=== PATIENT | male | born 1960 | race Caucasian/White ===

== ENCOUNTER 2017-08-30 20:27 | Inpatient (IN) | payer OTHER, SELFPAY ==
[2017-08-30 21:15] LABS: #Eosinphils 0.3 thou/uL (0.0-0.7); #Lymphocytes 1.9 thou/uL (1.20-3.40); #Monocytes 0.7 thou/uL (0.11-0.59); %Basophils 0.6 % (0.0-1.0); %Eosinophils 4.2 % (0.0-10.0); %Lymphocytes 27.3 % (21.0-51.0); %Monocytes 10.1 % (0.0-10.0); Hematocrit 39.9 % (42.0-52.0); Red Blood Cell (RBC) Count 4.35 mill/uL (4.70-6.10)
--- NOTE | 2017-08-30 21:18 | RAD ---
PORTABLE CHEST 08/30/17 PROVIDED CLINICAL HISTORY: Chest pain. FINDINGS: Comparison 09/20/16. The cardiac silhouette is unchanged in appearance. Median sternotomy changes are again seen. The left hemidiaphragm is not well visualized which could reflect pleural and/or parenchymal opacity at the l eft lung base. The right lung appears clear. There is no evidence for pneumothorax. IMPRESSION: Obscuration of the left hemidiaphragm may be on the basis of left basilar pleural or parenchymal opac ity. Correlation with a lateral view is recommended. POS: ANTHONY
[2017-08-30 21:36] LABS: ALT (SGPT) 11 U/L (8-55); AST (SGOT) 14 U/L (5-34); Alkaline Phosphatase 60 U/L (40-150); Anion Gap 12 mmol/L (10-20); BUN (Urea Nitrogen) 21 mg/dL (8.4-25.7); Bilirubin, Total 0.3 mg/dL (0.2-1.2); Calc. Creatinine Clearance 0 mL/min (70-130); Calcium 9.4 mg/dL (7.8-10.44); Carbon Dioxide 25 mmol/L (22-29); Chloride 104 mmol/L (98-107); Estimated GFR-MDRD 52; Globulin 3.2 g/dL (2.4-3.5); Protein, Total 6.7 g/dL (6.0-8.3)
[2017-08-30] MEDS ORDERED: methylPREDNISolone Sod Succ/PF 125 MG/2 ML VIAL ONE (21:44)
[2017-08-30] MEDS ORDERED: Furosemide 40 MG/4 ML VIAL ONE (21:44)
[2017-08-30 21:46] LABS: Troponin I 0.701 ng/mL (< 0.028)
[2017-08-30] MEDS ORDERED: Enoxaparin Sodium 100 MG/ML SYRINGE ONE (22:38)
[2017-08-30] MEDS ORDERED: Enoxaparin Sodium 40 MG/0.4 ML SYRINGE ONE (22:38)
[2017-08-30] MEDS ORDERED: Morphine 4 MG/ML VIAL ONE (23:32)
[2017-08-31] MEDS ORDERED: Bisacodyl 5 MG TAB PO PRN (00:08)
[2017-08-31] MEDS ORDERED: Ondansetron HCl/PF 4 MG/2 ML Vial IVP PRN (00:08)
[2017-08-31] MEDS ORDERED: Enoxaparin Sodium 100 MG/ML SYRINGE SC SCH (00:15)
[2017-08-31] MEDS ORDERED: Dextrose 50% Abboject 50 ML SYRINGE SLOW IVP PRN (00:28)
[2017-08-31] MEDS ORDERED: Dextrose 5% in Water 1,000 ML IV PRN (00:28)
[2017-08-31] MEDS ORDERED: Enoxaparin Sodium 40 MG/0.4 ML SYRINGE SC SCH (00:30)
[2017-08-31 00:37] VITALS: BMI 41.2
[2017-08-31 01:17] LABS: Troponin I 0.801 ng/mL (< 0.028)
--- NOTE | 2017-08-31 01:19 | HP ---
PRIMARY CARE PHYSICIAN: Zachary Díaz M.D. CHIEF COMPLAINT: Chest pain. HISTORY OF PRESENT ILLNESS: Mr. Amezquita is a pleasant 57-year-old gentleman who was seen at [facility] on 08/31/2017. He reports that he has been having on and off chest pain over the left side of his chest, tightness l lisa sensation, 8/10 at its worst, currently 4/10, radiating to the left arm, accompanied by shortness of breath. He cannot recall any aggravating factors, but reports that morphine improved it. He als o reports that he started having shortness of breath yesterday. He had DuoNebs without relief. Ther efore, EMS was called. The patient was reportedly breathing shallow and unable to speak more than tw o words. In the emergency room, he reports feeling better. He reports that the chest pain is curren tly 4/10 and shortness of breath has improved. He denies any fevers or chills. He reports occasional cough. REVIEW OF SYSTEMS: The following complete review of systems was negative, unless otherwise mentioned in the HPI or below: Constitutional: Weight loss or gain, sense of well-being, ability to conduct usual activities, exerc ise tolerance. Skin/Breast: Rash, itching, changes in hair growth or loss, nail changes, breast lumps, tenderness, swelling, nipple discharge. Eyes: Vision, double vision, tearing, blind spots, pain. ENT/Mouth: Headaches (location, time of onset, duration, precipitating factors), vertigo, lightheade dness, injury. Vision, double vision, tearing, blind spots, pain, nose bleeding, colds, obstruction, discharge, dental difficulties, gingival bleeding, dentures, neck stiffness, pain, tenderness, masses in thyroid or other areas. Cardiovascular: Precordial pain, substernal distress, palpitations, syncope, dyspnea on exertion, or thopnea, nocturnal paroxysmal dyspnea, edema, cyanosis, hypertension, heart murmurs, varicosities, ph lebitis, claudication. Respiratory: Pain, shortness of breath, wheezing, stridor, cough, hemoptysis, fever or night sweats. Gastrointestinal: Poor appetite, dysphagia, indigestion, abdominal pain, heartburn, eructation, naus ea, vomiting, hematemesis, jaundice, constipation, or diarrhea, abnormal stools (keon-colored, tarry, bloody, greasy, foul smelling), flatulence, hemorrhoids, recent changes in bowel habits. Genitourinary: Urgency, frequency, dysuria, nocturia, hematuria, polyuria, oliguria, unusual (or daylin nge in) color of urine, stones, hesitancy, change in size of stream, dribbling, acute retention or in continence, libido, potency. Musculoskeletal: Pain, swelling, redness or heat of muscles or joints, limitation, of motion, muscul ar weakness, atrophy, cramps. Neurologic/Psychiatric: Convulsions, paralyses, tremor, incoordination, paresthesias, difficulties w ith memory of speech, sensory or motor disturbances, or muscular coordination (ataxia, tremor), emoti onal problems, anxiety, depression, previous psychiatric care, unusual perceptions, hallucinations. Allergy/Immunologic: Skin rash, anemia, bleeding tendency, polydipsia, polyuria, intolerance to heat or cold. PAST MEDICAL HISTORY: Significant for 3-vessel coronary artery disease, status post coronary artery bypass graft x3 in 2009, status post stent placement in 05/[address] Mcginnis; COPD follow ed by Dr. Corrales; diabetes mellitus type 2; obesity; hypertension; obstructive sleep apnea syndrome on CPAP therapy. PAST SURGICAL HISTORY: Significant for coronary artery bypass graft x3 in 2009, PCI with stent place ment in 05/2016, appendectomy, and finger amputation. ALLERGIES: No known drug allergies. CURRENT MEDICATIONS: Include metformin 1000 mg 2 times a day, glyburide 10 mg daily, carvedilol 6.25 mg 2 times a day, aspirin 325 mg daily, lisinopril 40 mg daily, simvastatin 20 mg daily. SOCIAL HISTORY: The patient is a former smoker. He drinks alcohol occasionally. He denies any recr eational drug use. FAMILY HISTORY: Multiple family members with diabetes mellitus and coronary artery disease. CODE STATUS: I discussed his code status. He is FULL CODE. PHYSICAL EXAMINATION: GENERAL: On examination, Mr. Amezquita is awake and alert, not in acute distress. He is morbidly obese. VITAL SIGNS: Blood pressure is 151/88, pulse is 79, his breathing at rate of 20 and saturating 90% o n 4 liters of oxygen. EYES: No scleral icterus, no conjunctival pallor. ENT: Moist mucosal membranes, no oropharyngeal erythema or exudates. NECK: Supple, nontender, normal range of movement, trachea is midline. RESPIRATORY: Accessory muscles of breathing are active. Chest wall movements are symmetric bilatera lly. LUNGS: Reveals occasional expiratory wheeze in the upper lung zones, diminished breath sounds at rhonda g bases. CARDIOVASCULAR: S1 and S2 are heard, regular. Peripheral pulses palpable. No carotid bruit, no per icardial rub. ABDOMEN: Distended, nontender, bowel sounds heard, no hepatomegaly, no splenomegaly. NEUROLOGIC: Cranial nerves II-XII are intact, deep tendon reflexes are 2+. MUSCULOSKELETAL: Power is 5/5 in all 4 extremities. SKIN: No rashes or subcutaneous nodules. LYMPHATIC: No cervical lymphadenopathy. PSYCHIATRIC: Normal mood, normal affect, patient is oriented to person, place, and time. LABORATORY DATA: Mr. Amezquita's labs and investigations were reviewed. I reviewed his electrocardiogra m, which shows normal sinus rhythm, no ST segment changes in adjacent leads. I also reviewed his [facility] x-ray, which does not show any pulmonary infiltrates. Laboratory investigations show normal white count, normal hemoglobin, normal platelet count, normal electrolytes, elevated creatinine of 1.39, l ast known creatinine 1.36 on 12/07/2016, unremarkable liver profile, elevated troponin I of 0.701 and elevated BNP of 1219. ASSESSMENT AND PLAN: Mr. Amezquita is a pleasant 57-year-old gentleman who was seen at [facility] on 08/31/2017. His problem list includes: 1. Non-ST elevation myocardial infarction: Mr. Amezquita has chest pain with elevated troponin I. He h as a history of coronary artery disease. He will be admitted to the hospital for further management. He has already received a dose of Lovenox in the emergency room, which I will continue. We will co nsult Cardiology Service for opinion and help with further management. For now, patient will be kept n.p.o. in case he needs any procedures during the daytime. 2. Acute respiratory failure: Most likely secondary to chronic obstructive pulmonary disease exacer bation. Continue the patient on bronchodilators, oxygen, steroids. The patient was briefly treated with bilevel positive airway pressure in the emergency room. We will request Pulmonology consult for opinion and help with management. 3. Diabetes mellitus: Start Accu-Cheks, insulin sliding scale. 4. Chronic kidney disease: Stable. 5. Hypertension: Monitor vital signs, titrate antihypertensives as needed. Many thanks for allowing me to participate in your patient's care. Please feel free to contact me wi th any questions or concerns. LEVEL OF RISK: High. LEVEL OF COMPLEXITY: High.
[2017-08-31] MEDS ORDERED: Morphine 4 MG/ML VIAL SLOW IVP PRN (01:46)
[2017-08-31 03:50] LABS: Critical Call Chem Troponin I RESULT DECREASING; Troponin I 0.536 ng/mL (< 0.028)
[2017-08-31 05:28] LABS: #Eosinphils 0.1 thou/uL (0.0-0.7); #Lymphocytes 0.8 thou/uL (1.20-3.40); #Monocytes 0.2 thou/uL (0.11-0.59); #Neutrophils 6.8 thou/uL (1.40-6.50); %Basophils 0.2 % (0.0-1.0); %Eosinophils 0.9 % (0.0-10.0); %Lymphocytes 9.6 % (21.0-51.0); %Monocytes 2.1 % (0.0-10.0); Hematocrit 41.7 % (42.0-52.0); Mean Platelet Volume 7.4 fL (7.4-10.4); Red Blood Cell (RBC) Count 4.48 mill/uL (4.70-6.10); White Blood Cell (WBC) Count 7.8 thou/uL (4.8-10.8)
[2017-08-31 05:41] LABS: Anion Gap 11 mmol/L (10-20); BUN (Urea Nitrogen) 25 mg/dL (8.4-25.7); Calc. Creatinine Clearance 96 mL/min (70-130); Calcium 9.4 mg/dL (7.8-10.44); Carbon Dioxide 24 mmol/L (22-29); Chloride 95 mmol/L (98-107); Estimated GFR-MDRD 42
[2017-08-31] MEDS: HumaLOG 300 UNITS/3 ML VIAL SC PRN ×4 (06:17→20:05)
[2017-08-31] MEDS ORDERED: FLU VACC QS2017-18 36 mo. & older 0.5 ML SYRINGE IM ONE (09:00)
[2017-08-31] MEDS: predniSONE 20 MG TAB PO SCH (09:08)
[2017-08-31] MEDS: Enoxaparin Sodium 100 MG/ML SYRINGE SC SCH ×2 (09:08→20:03)
[2017-08-31] MEDS: Enoxaparin Sodium 40 MG/0.4 ML SYRINGE SC SCH ×2 (09:09→20:03)
--- NOTE | 2017-08-31 12:17 | PDOC.EVN ---
Event Note - Event Note Event Note: pt seen and evaluated agree with current mx
[2017-08-31] MEDS ORDERED: Aspirin 325 mg Enteric Coated Tablet PO SCH ×2 (13:00)
[2017-08-31] MEDS: hydrALAZINE 25 MG TAB PO SCH ×2 (13:39→20:04)
[2017-08-31] MEDS: Nitroglycerin 2% Ointment 1 INCH/1 GM Packet TOP SCH ×2 (13:39→20:04)
--- NOTE | 2017-08-31 14:03 | CON ---
DATE OF CONSULTATION: 08/31/2017 HISTORY OF PRESENT ILLNESS: The patient is a 57-year-old gentleman, who presents for evaluation of increasing dyspnea and chest discomfort. The patient has a long history of coronary artery disease. He underwent coronary artery bypass grafting surgery x3. In 2008, he had a LEMUS placed to LAD, saphenous vein graft to RCA, and obtuse marginal branch. The patient was seen again in 2010 and a stent was placed into the proximal left circumflex artery. The patient was admitted in 09/2016 with COPD exacerbation and atypical chest pain. Patient presents with increasing dyspnea. He also reports having substernal chest discomfort, which is made worse with movement. He states when he lies on his left side he develops discomfort. The patient also reports noticing increasing dyspnea. He denies any fevers or chills. PAST MEDICAL HISTORY: 1. Coronary artery disease. 2. Diabetes mellitus. 3. Hypertension. 4. Chronic obstructive pulmonary disease. 5. Sleep apnea. PAST SURGICAL HISTORY: Coronary artery bypass surgery, finger amputation, and an appendectomy. ALLERGIES: None. MEDICATIONS ON ADMISSION: Coreg 6.25 twice a day, aspirin 325 daily, lisinopril 40 daily, glyburide 10 daily, simvastatin 20 daily. SOCIAL HISTORY: Former smoker. FAMILY HISTORY: Strong family history of heart disease. REVIEW OF SYSTEMS: Ten-point system, noticeable increasing dyspnea. No bright red blood per rectum or hematuria. A 10-point system otherwise unremarkable. PHYSICAL EXAMINATION: GENERAL: Obese gentleman in mild distress. VITAL SIGNS: With a blood pressure of 161/83. NECK: Full. LUNGS: Have coarse breath sounds bilateral. HEART: Regular rate and rhythm. Normal S1, S2. ABDOMEN: Distended. EXTREMITIES: Showed trace edema. SKIN: Warm and dry. NEUROLOGIC EXAM: Nonfocal. VASCULAR: Radial pulses are 2+. PSYCHIATRIC EXAM: Mood is appropriate. LABORATORY RESULTS: Revealed him to have a sodium of 125, potassium 4.5, chloride 95, bicarbonate 24, BUN 25, creatinine is 1.69. His white blood cell count is 7.8, hemoglobin 13.8, hematocrit 41.7, platelets of 217. His EKG revealed him to have normal sinus rhythm with nonspecific ST-T-wave abnormality. His troponin was 0.80. IMPRESSION: 1. Non-Q-wave myocardial infarction. 2. Congestive heart failure. 3. Atypical chest pain. 4. History of coronary artery bypass grafting surgery. 5. Diabetes mellitus. 6. Dyslipidemia. 7. Renal insufficiency. 8. Morbid obesity. This gentleman presents with a chronic obstructive pulmonary disease exacerbation and elevated troponin level, probably secondary to demand ischemia. We will recheck the patient's echocardiogram to see if he has developed left ventricular dysfunction. We will decrease the dose of his Coreg. We will start the patient on hydralazine to lower his blood pressure. We will monitor the patient's creatinine. Further recommendations to follow. MTDD
--- NOTE | 2017-08-31 14:09 | ULT ---
ULTRASOUND BILATERAL RENAL STANDARD: Date: 08/31/17 HISTORY: Acute renal failure. COMPARISON: None. FINDINGS: Right kidney measures 12.0 x 6.3 x 5.1 cm. Left kidney measures 14.6 x 6.9 x 6.9 cm. There is a focal punctate area of echogenicity interpolar left kidney. The pre-void urinary volume was 200 mL. IMPRESSION: 1. No evidence of obstructive uropathy. 2. Echogenic focus of interpolar left kidney may represent a small calculus. POS: TPC
[2017-08-31 15:25] LABS: Bilirubin Negative (Negative); Blood, Urine Large (Negative); Glucose, Urine (Dipstick) >=1000 mg/dL (Negative); Ketone, Urine Negative (Negative); Nitrite Positive (Negative); Protein, Urine (Dipstick) > or equal to 300 mg/dL (Neg-Trace); Urobilinogen 0.2 mg/dL (0.2-1.0)
[2017-08-31 15:30] LABS: Hyaline Casts/LPF 4-6 HYALINE CAST LPF (0-3 Hyaline); Squamous Epithelial None Seen HPF (0-3)
[2017-08-31 15:41] LABS: Bacteria/HPF 2+ HPF (None Seen); Yeast-All Forms None Seen HPF (None Seen)
[2017-08-31] MEDS: Carvedilol 3.125 MG TAB PO SCH (17:16)
[2017-08-31] MEDS: Acetaminophen 325 MG TAB PO PRN (20:03)
[2017-08-31] MEDS: Atorvastatin Calcium 40 MG TAB PO SCH (20:04)
[2017-08-31] MEDS: Sodium Chloride 0.9% 1,000 ML IV SCH (20:16)
--- NOTE | 2017-08-31 22:40 | CON ---
DATE OF CONSULTATION: 08/31/2017 HISTORY: Mr. Amezquita is a pleasant 57-year-old male who I have seen in the past. He has significant o bstructive lung disease. He managed to quit smoking in May last year. He dips snuff occasionally, but has not picked up a cigarette since 05/19, I believe he told me. He presented to this admission with complaints of chest congestion and shortness of breath. He has a lso had feeling of chest tightness. He did have some arm discomfort. He says this resolved. He feels better than when he presented. He apparently can only speak in two-word sentences. PAST MEDICAL HISTORY: 1. Remarkable for coronary artery disease with bypass grafting 7 years ago. He had a 3-vessel bypas s 2. History of coronary stenting in 2016. 3. History of COPD, I have seen him a few times in the office as an outpatient in the hospital. 4. History of diabetes. 5. History of hypertension. 6. History of sleep apnea, on CPAP. 7. History of an appendectomy. 8. History of a partial finger amputation. 9. He has a history of mild left ventricular systolic dysfunction and a non-ST myocardial infarction in the past. 10. History of an obstructive uropathy with pyelonephritis with ureteral stenting required in 2016. MEDICATIONS: Prior to admission, he was on metformin and glyburide, Coreg, aspirin, lisinopril, and simvastatin. He has a nebulizer at home. ALLERGIES: He has no known drug allergies. SOCIAL HISTORY: He smoked up until a year ago. As mentioned, he rarely drinks. He is not a drug us er. FAMILY HISTORY: Positive for diabetes and coronary artery disease. Negative for lung disease in ear ly age. REVIEW OF SYSTEMS: Ten point review of systems otherwise negative. PHYSICAL EXAMINATION: GENERAL: He is afebrile. Temperature is 97.3, respiratory rate is 20, blood pressure 161/83, heart rate 78, oximetry is 93 on 3 liters. HEENT: Pupils are equal. Sclerae are anicteric. Extraocular movements are full. NECK: Supple, no lymphadenopathy. LUNGS: Remarkable for distant breath sounds. I did not hear any wheezes when I examined him standin g up anterior and posteriorly. HEART: Regular rhythm. S1 and S2 are normal. ABDOMEN: Soft and nontender. EXTREMITIES: Without asymmetry. He has not been successful at losing weight. He is 6 feet 1 inches , 312 pounds. His BMI is 41. IMAGING: Chest radiograph was reviewed by me. I see no alveolar infiltrates. He has haziness at hi s left hemidiaphragm. Renal ultrasound was ordered showing no evidence of obstructive uropathy. LABORATORY DATA: White count 7.8, hemoglobin 13.8, platelets 217,000. Sodium 125, potassium 4.5, chloride 95, bicarbonate 24, BUN 25, creatinine 1.6. There is family in the room to obtain additional history from. The nursing staff reports to me that he is improving. IMPRESSION: 1. Chronic obstructive pulmonary disease with an exacerbation. 2. Sleep apnea, reportedly compliant with CPAP. 3. Hyponatremia, most likely iatrogenic and in part secondary to hyperglycemia. His glucose is 447. 4. Chronic kidney disease. 5. Proteinuria with greater than 300 mg per deciliter protein, most likely associated with his diabe mirian. 6. History of ureteral stenting for nephrolithiasis. 7. History of cardiomyopathy. 8. History of coronary bypass grafting. 9. History of obesity with very little successful in losing weight. PLAN: Continue with nebulized treatments, ipratropium and albuterol every 4 hours. Continue his lipid drugs and his antihypertensives. He is fully anticoagulated because of feelings t hat he may have a possible coronary syndrome. Cardiology does not feel that this is truly an infarct and just as a stress releaser, troponin, we need to change his Lovenox to prophylactic dose Lovenox. We will continue the steroids, his glucose be monitored with sliding scale insulin. Seventy minutes spent with care. Greater than 50% of the time [facility].
--- NOTE | 2017-09-01 00:27 | CON ---
DATE OF CONSULTATION: 08/31/2017 CONSULTING PHYSICIAN: Dr. Santana. REASON FOR CONSULTATION: Acute kidney injury. REASON FOR ADMISSION: Chest pain. HISTORY OF PRESENT ILLNESS: A 57-year-old male with history of coronary artery disease, COPD, type 2 diabetes, hypertension, who came to the hospital with chest pain has been evaluated and was found to have elevated creatinine increased to 1.69, sodium of 125, and hyperglycemia. Nephrology is consult ed. Patient denies any nausea, vomiting. No shortness of breath or chest pain. Reported today, he came with chest pain and shortness of breath and was found to have COPD exacerbation has been treated . He is also having cardiac evaluation for NSTEMI. No fever or chills. PAST MEDICAL HISTORY: Positive for COPD, CAD, obesity, hypertension, obstructive sleep apnea. PAST SURGICAL HISTORY: Coronary artery bypass, appendectomy, finger amputation. HOME MEDICATIONS: Metformin, glyburide, carvedilol, lisinopril, aspirin, simvastatin. ALLERGIES: No known drug allergies. SOCIAL HISTORY: Former smoker. No illicit drug abuse. Occasional alcohol use. FAMILY HISTORY: Positive for diabetes. REVIEW OF SYSTEMS: The following complete review of systems was negative, unless otherwise mentioned in the HPI or below: Constitutional: Weight loss or gain, ability to conduct usual activities. Skin: Rash, itching. Eyes: Double vision, pain. ENT/Mouth: Nose bleeding, neck stiffness, pain, tenderness. Cardiovascular: Palpitations, dyspnea on exertion, orthopnea. Respiratory: Shortness of breath, wheezing, cough, hemoptysis, fever, or night sweats. Gastrointestinal: Poor appetite, abdominal pain, heartburn, nausea, vomiting, constipation, or diarr hea. Genitourinary: Urgency, frequency, dysuria, nocturia. Musculoskeletal: Pain, swelling. Neurologic/Psychiatric: Anxiety, depression. Allergy/Immunologic: Skin rash, bleeding tendency. PHYSICAL EXAMINATION: GENERAL: This is a morbidly obese male in no apparent distress. VITAL SIGNS: Temperature 97.3, pulse 85, respiratory rate 18, blood pressure 108/84. Blood pressure was higher earlier and getting better. HEENT: Atraumatic, normocephalic. Oral mucosa is moist. NECK: Supple. No masses. HEART: S1, S2 heard. Rate and rhythm regular. RESPIRATORY: Clear. GI: Abdomen is soft. MUSCULOSKELETAL: 1+ edema. DERMATOLOGIC: Hyperpigmentation presented from possible sunburn. LABORATORY AND X-RAY FINDINGS: Creatinine is 1.6 from 1.3. Sodium 125, glucose was around 423. ASSESSMENT AND PLAN: 1. Acute kidney injury on chronic kidney disease, stage 3. We will plan for IV fluids gently at 50 mL per hour. We will closely monitor his respiratory status. 2. Hyponatremia, partially corrected for hyperglycemia. 3. Hyperglycemia, need better correction. 4. Hyperchloremia. 5. Anemia, mild. 6. Morbid obesity. 7. Proteinuria, most likely from type 2 diabetes. We will check urine studies. 8. Edema, controlled. 9. No history of congestive heart failure. Follow with Cardiology for echocardiogram and renal ultr asound was unremarkable. Plan is to start IV fluids at 50 mL per hour. Close monitoring on renal fu nction. 10. Hypertension. Blood pressure is getting better. We will follow. Thank you for the consultation.
[2017-09-01] MEDS: Labetalol HCl 100 MG/20 ML VIAL SLOW IVP PRN (04:29)
[2017-09-01 04:59] LABS: Anion Gap 11 mmol/L (10-20); BUN (Urea Nitrogen) 31 mg/dL (8.4-25.7); Calc. Creatinine Clearance 106 mL/min (70-130); Calcium 9.2 mg/dL (7.8-10.44); Carbon Dioxide 24 mmol/L (22-29); Chloride 105 mmol/L (98-107); Estimated GFR-MDRD 47
[2017-09-01 05:06] LABS: #Eosinphils 0.1 thou/uL (0.0-0.7); #Lymphocytes 1.6 thou/uL (1.20-3.40); #Monocytes 1.1 thou/uL (0.11-0.59); %Basophils 0.4 % (0.0-1.0); %Eosinophils 0.7 % (0.0-10.0); %Lymphocytes 16.1 % (21.0-51.0); %Monocytes 11.1 % (0.0-10.0); Hematocrit 40.4 % (42.0-52.0); Mean Platelet Volume 7.2 fL (7.4-10.4); Red Blood Cell (RBC) Count 4.38 mill/uL (4.70-6.10); White Blood Cell (WBC) Count 9.8 thou/uL (4.8-10.8)
[2017-09-01] MEDS: HumaLOG 300 UNITS/3 ML VIAL SC PRN ×4 (06:03→20:53)
[2017-09-01] MEDS: predniSONE 20 MG TAB PO SCH (08:29)
[2017-09-01] MEDS: Aspirin 325 mg Enteric Coated Tablet PO SCH (08:29)
[2017-09-01] MEDS: hydrALAZINE 25 MG TAB PO SCH ×2 (08:29→20:50)
[2017-09-01] MEDS: Carvedilol 3.125 MG TAB PO SCH (08:29)
[2017-09-01] MEDS: Enoxaparin Sodium 100 MG/ML SYRINGE SC SCH (08:30)
[2017-09-01] MEDS: Enoxaparin Sodium 40 MG/0.4 ML SYRINGE SC SCH (08:30)
[2017-09-01] MEDS: Nitroglycerin 2% Ointment 1 INCH/1 GM Packet TOP SCH ×3 (08:31→21:00)
[2017-09-01] MEDS ORDERED: hydrALAZINE 25 MG TAB PO SCH (12:00)
--- NOTE | 2017-09-01 12:54 | PDOC.PN ---
- Subjective Encounter Start Date: 09/01/17 Encounter Start Time: 12:52 Patient seen and examined. No new complaints. No overnight events sob better - Objective Resuscitation Status: Resuscitation Status FULL:Full Resuscitation MAR Reviewed: Yes Vital Signs & Weight: Vital Signs (12 hours) Temp Pulse Resp BP BP BP Pulse Ox 09/01/17 12:21 69 155/73 H 09/01/17 12:00 98.3 F 69 16 155/73 H 93 L 09/01/17 09:08 94 L 09/01/17 09:07 73 20 94 L 09/01/17 08:29 70 181/108 H 09/01/17 08:10 97.9 F 73 20 94 L 09/01/17 07:20 97.9 F 70 18 180/108 H 97 09/01/17 05:17 71 22 H 94 L 09/01/17 05:14 156/81 H 09/01/17 04:00 97.6 F 78 18 195/85 H 93 L Weight Weight 315 lb 11.2 oz I&O: 08/31/17 09/01/17 09/02/17 06:59 06:59 06:59 Intake Total 950 Output Total 700 Balance 250 Result Diagrams: 09/01/17 04:17 09/01/17 04:17 Additional Labs: Accuchecks 09/01/17 09/01/17 08/31/17 10:57 05:43 20:02 POC Glucose 292 H 285 H 292 H 08/31/17 16:34 POC Glucose 308 H Phys Exam - Physical Examination Constitutional: NAD Neck: no JVD scattered wheezes Cardiovascular: no significant murmur Gastrointestinal: non-tender Musculoskeletal: pulses present Neurological: moves all 4 limbs Psychiatric: A&O x 3 Dx/Plan (1) HTN (hypertension) Code(s): I10 - ESSENTIAL (PRIMARY) HYPERTENSION Status: Acute (2) Renal failure (ARF), acute on chronic Code(s): N17.9 - ACUTE KIDNEY FAILURE, UNSPECIFIED; N18.9 - CHRONIC KIDNEY DISEASE, UNSPECIFIED Status: Acute (3) Elevated troponin Code(s): R74.8 - ABNORMAL LEVELS OF OTHER SERUM ENZYMES Status: Acute Comment: due to demand ischemia med mx (4) Acute respiratory failure with hypoxia and hypercapnia Code(s): J96.01 - ACUTE RESPIRATORY FAILURE WITH HYPOXIA; J96.02 - ACUTE RESPIRATORY FAILURE WITH HYPERCAPNIA Status: Acute Comment: post extubation 05/22/16 (5) COPD exacerbation Code(s): J44.1 - CHRONIC OBSTRUCTIVE PULMONARY DISEASE W (ACUTE) EXACERBATION Status: Acute Comment: continue pulmonary support, Duonebs, Prednisone, O2 supplementation (6) CAD (coronary artery disease) Code(s): I25.10 - ATHSCL HEART DISEASE OF [place] CORONARY ARTERY W/O ANG PCTRS Status: Chronic Comment: 3 of 3 patent coronary grafts (7) DM type 2 with diabetic peripheral neuropathy Code(s): E11.42 - TYPE 2 DIABETES MELLITUS WITH DIABETIC POLYNEUROPATHY Status : Chronic (8) Morbid obesity Code(s): E66.01 - MORBID (SEVERE) OBESITY DUE TO EXCESS CALORIES Status: Chronic (9) YVETTE (obstructive sleep apnea) Code(s): G47.33 - OBSTRUCTIVE SLEEP APNEA (ADULT) (PEDIATRIC) Status: Chronic - Plan * f/u dr melvin plan * renal and card input appreciated * increase hydralazine to 50mg tid
[2017-09-01] MEDS: Sodium Chloride 0.9% 1,000 ML IV SCH (16:01)
[2017-09-01] MEDS: Acetaminophen 325 MG TAB PO PRN (16:11)
[2017-09-01] MEDS: Carvedilol 6.25 MG TAB PO SCH (16:19)
--- NOTE | 2017-09-01 19:29 | PRG ---
DATE OF SERVICE: 09/01/2017 SUBJECTIVE: Mr. Amezquita is afebrile. He says he woke up short of breath, but this improved after nebu lizer treatments. PHYSICAL EXAMINATION: VITAL SIGNS: Heart rate is 77, respiratory rate 16, oximetry is 95%, blood pressure 155/73. LUNGS: Remarkable still for ozzie wheezes. HEART: Regular rhythm. ABDOMEN: Soft. LABORATORY DATA: White count 9.8, hemoglobin 13.8, platelets 211,000. Sodium 136, potassium 4.3, ch loride 105, bicarbonate 24, BUN 31, creatinine 1.52, creatinine is 1.69 yesterday. Intakes and outpu ts were recorded as positive 250. IMPRESSION: 1. Chronic obstructive pulmonary disease exacerbation. 2. Sleep apnea, compliant with continuous positive airway pressure. 3. Hyponatremia. 4. Chronic kidney disease, stable. 5. Proteinuria most likely secondary to diabetes. 6. History of ureteral stenting. 7. History of a cardiomyopathy with coronary bypass grafting in the past. 8. Obesity with no success losing weight. 9. History of heavy tobacco use. He has been abstinent from smoking, again congratulated him. Full dose Lovenox has been discontinued. He is now on prophylactic dose Lovenox. PLAN: Continue nebulized treatments. He appears to be improving, although this morning's have been bed. Once he has a good 24 hours, he can be discharged.
--- NOTE | 2017-09-01 20:30 | PRG ---
DATE OF SERVICE: 09/01/2017 SUBJECTIVE: Patient was seen and examined at bedside and overnight events noted. Patient denies any shortness of breath or chest pain or palpitation. No history of nausea or vomiting or diarrhea or f ever or chills or cramps. OBJECTIVE: GENERAL: This is a well-build male, in no apparent distress. VITAL SIGNS: Temperature 98.1, pulse 77, respiratory rate 16, blood pressure 155/73. HEENT: Atraumatic, normocephalic. Oral mucosa is moist. NECK: Supple. CARDIOVASCULAR: S1, S2 heard. Rate and rhythm regular. RESPIRATORY: Clear to auscultation. GASTROINTESTINAL: Abdomen is soft. MUSCULOSKELETAL: No tenderness, no edema. DERMATOLOGIC: No skin rash. NEUROLOGIC: Alert and awake and oriented x3. No focal neurologic deficits. Moving all the extremit ies. PSYCHIATRIC: Mood and affect normal. LABORATORY DATA: Potassium is 4.3. BUN is 31, creatinine is 1.5. ASSESSMENT AND PLAN: 1. Acute kidney injury on chronic kidney disease, stage 3. Continue IV fluids, may need one more da y as tolerated. 2. Hyponatremia, better. 3. Hyperglycemia. 4. Morbid obesity. 5. Proteinuria. 6. Edema. Plan is to continue on intravenous fluids for 1 more day. Renal function is getting better. The pat ient has significant amount of proteinuria.
[2017-09-01] MEDS: Atorvastatin Calcium 40 MG TAB PO SCH (20:49)
[2017-09-01] MEDS: Lisinopril 2.5 MG TAB PO SCH (20:50)
[2017-09-02 05:26] LABS: #Eosinphils 0.2 thou/uL (0.0-0.7); #Lymphocytes 1.9 thou/uL (1.20-3.40); #Monocytes 0.8 thou/uL (0.11-0.59); #Neutrophils 4.9 thou/uL (1.40-6.50); %Basophils 0.1 % (0.0-1.0); %Eosinophils 2.2 % (0.0-10.0); %Lymphocytes 24.3 % (21.0-51.0); %Monocytes 10.1 % (0.0-10.0); Hematocrit 38.2 % (42.0-52.0); Mean Platelet Volume 6.6 fL (7.4-10.4); Red Blood Cell (RBC) Count 4.14 mill/uL (4.70-6.10); White Blood Cell (WBC) Count 7.8 thou/uL (4.8-10.8)
[2017-09-02 05:48] LABS: Anion Gap 10 mmol/L (10-20); BUN (Urea Nitrogen) 26 mg/dL (8.4-25.7); Calc. Creatinine Clearance 137 mL/min (70-130); Calcium 8.6 mg/dL (7.8-10.44); Carbon Dioxide 25 mmol/L (22-29); Chloride 106 mmol/L (98-107); Estimated GFR-MDRD 64
[2017-09-02] MEDS ORDERED: Enoxaparin Sodium 40 MG/0.4 ML SYRINGE SC SCH (09:00)
[2017-09-02] MEDS: hydrALAZINE 25 MG TAB PO SCH ×3 (09:11→20:38)
[2017-09-02] MEDS: Acetaminophen 325 MG TAB PO PRN ×3 (09:11→20:42)
[2017-09-02] MEDS: Aspirin 325 mg Enteric Coated Tablet PO SCH (09:13)
[2017-09-02] MEDS: predniSONE 20 MG TAB PO SCH (09:13)
[2017-09-02] MEDS: Carvedilol 6.25 MG TAB PO SCH ×2 (09:13→17:14)
[2017-09-02] MEDS: Nitroglycerin 2% Ointment 1 INCH/1 GM Packet TOP SCH ×3 (09:14→20:37)
--- NOTE | 2017-09-02 11:31 | PDOC.PN ---
- Subjective Encounter Start Date: 09/02/17 Encounter Start Time: 11:29 had e/o afib, hr- 130 no cp sob better no n/v - Objective Resuscitation Status: Resuscitation Status FULL:Full Resuscitation MAR Reviewed: Yes Vital Signs & Weight: Vital Signs (12 hours) Temp Pulse Resp BP BP Pulse Ox 09/02/17 09:13 167/91 H 09/02/17 09:11 130 H 167/91 H 09/02/17 08:20 99.7 F H 130 H 22 H 92 L 09/02/17 07:35 92 L 09/02/17 07:33 71 20 92 L 09/02/17 07:10 99.7 F H 83 20 167/91 H 91 L 09/02/17 04:00 97.7 F 68 16 149/85 H 98 09/02/17 02:42 97 09/02/17 00:37 77 18 97 09/01/17 23:47 97.7 F 71 18 118/66 97 Weight Weight 309 lb 6.4 oz I&O: 09/01/17 09/02/17 09/03/17 06:59 06:59 06:59 Intake Total 950 1719 Output Total 700 1975 Balance 250 -256 Result Diagrams: 09/02/17 05:14 09/02/17 05:14 Additional Labs: Accuchecks 09/02/17 09/02/17 09/01/17 10:58 05:14 20:52 POC Glucose 255 H 136 H 259 H 09/01/17 17:13 POC Glucose 342 H Phys Exam - Physical Examination Constitutional: NAD HEENT: PERRLA Neck: no JVD Respiratory: no rales scattered wheezes Cardiovascular: no significant murmur, irregular Gastrointestinal: non-tender Musculoskeletal: pulses present Neurological: moves all 4 limbs Psychiatric: A&O x 3 Dx/Plan (1) HTN (hypertension) Code(s): I10 - ESSENTIAL (PRIMARY) HYPERTENSION Status: Acute (2) Renal failure (ARF), acute on chronic Code(s): N17.9 - ACUTE KIDNEY FAILURE, UNSPECIFIED; N18.9 - CHRONIC KIDNEY DISEASE, UNSPECIFIED Status: Acute (3) Elevated troponin Code(s): R74.8 - ABNORMAL LEVELS OF OTHER SERUM ENZYMES Status: Acute Comment: due to demand ischemia med mx (4) COPD exacerbation Code(s): J44.1 - CHRONIC OBSTRUCTIVE PULMONARY DISEASE W (ACUTE) EXACERBATION Status: Acute Comment: continue pulmonary support, Duonebs, Prednisone, O2 supplementation (5) CAD (coronary artery disease) Code(s): I25.10 - ATHSCL HEART DISEASE OF [place] CORONARY ARTERY W/O ANG PCTRS Status: Chronic Comment: 3 of 3 patent coronary grafts (6) DM type 2 with diabetic peripheral neuropathy Code(s): E11.42 - TYPE 2 DIABETES MELLITUS WITH DIABETIC POLYNEUROPATHY Status : Chronic (7) Morbid obesity Code(s): E66.01 - MORBID (SEVERE) OBESITY DUE TO EXCESS CALORIES Status: Chronic (8) YVETTE (obstructive sleep apnea) Code(s): G47.33 - OBSTRUCTIVE SLEEP APNEA (ADULT) (PEDIATRIC) Status: Chronic (9) Afib Code(s): I48.91 - UNSPECIFIED ATRIAL FIBRILLATION Status: Acute - Plan * ef- 35% * f/u dr simpson plan for afib * f/u dr melvin plan * renal input appreciated
[2017-09-02] MEDS: HumaLOG 300 UNITS/3 ML VIAL SC PRN ×3 (11:40→20:38)
[2017-09-02] MEDS ORDERED: Rivaroxaban 10 MG TAB PO SCH (18:00)
--- NOTE | 2017-09-02 19:42 | PRG ---
DATE OF SERVICE: 09/02/2017 SUBJECTIVE: Zoran Amezquita says he has a great night. He did not have dyspnea this morning when he a wakened. He did go into atrial fibrillation, he told me transiently, so he has been kept another day . OBJECTIVE: VITAL SIGNS: He is afebrile, heart rate 74, oximetry is 97%, blood pressure 155/96. He has not been wearing his home CPAP while he has been here. LUNGS: Clear now. HEART: Regular rhythm. ABDOMEN: Soft. LABORATORY DATA: White count 7.8, hemoglobin 13.2, platelets 194,000. Sodium 137, potassium 3.8, ch loride 106, bicarb 25, BUN 26, creatinine 1.17. IMPRESSION: 1. Chronic obstructive pulmonary disease exacerbation, improved. 2. Sleep apnea. He has been compliant at home, but has been wearing a CPAP here. 3. Hyponatremia, resolved. 4. Chronic kidney disease. 5. Proteinuria, most likely associated with his diabetes. 6. History of cardiomyopathy and coronary bypass grafting. PLAN: Follow up with me in 2-3 weeks after he gets out of the hospital and needs steroid taper, shor t course of antimicrobial therapy.
--- NOTE | 2017-09-02 19:53 | PRG ---
DATE OF SERVICE: 09/03/2017 SUBJECTIVE: Patient was seen and examined at bedside and overnight events noted. Patient denies any shortness of breath or chest pain or palpitation. No history of nausea or vomiting or diarrhea or f ever or chills or cramps. OBJECTIVE: GENERAL: This is a morbidly obese male in no apparent distress. VITAL SIGNS: Temperature 98.2, pulse 74, respiratory rate 20, blood pressure 155/96. HEENT: Atraumatic, normocephalic. Oral mucosa is moist. NECK: Supple. CARDIOVASCULAR: S1, S2 heard. Rate and rhythm regular. RESPIRATORY: Clear to auscultation. GASTROINTESTINAL: Abdomen is soft. MUSCULOSKELETAL: No tenderness. No edema. DERMATOLOGIC: No skin rash. NEUROLOGIC: Alert and awake and oriented x3. No focal neurologic deficits. Moving all the extremiti es. PSYCHIATRIC: Mood and affect normal. LABORATORY DATA: Potassium is 3.8, BUN 26, creatinine is 1.17. ASSESSMENT AND PLAN: 1. Acute kidney injury on chronic kidney disease. Creatinine is much better with IV fluids. We reuben l stop IV fluids. 2. Hyponatremia, better. 3. Morbid obesity. 4. Proteinuria, most likely from diabetes. 5. Diabetic nephropathy. 6. Morbid obesity. The patient was advised of good glycemic control and we will follow.
[2017-09-02] MEDS: Atorvastatin Calcium 40 MG TAB PO SCH (20:37)
[2017-09-02] MEDS: Lisinopril 2.5 MG TAB PO SCH (20:37)
[2017-09-03] MEDS: Labetalol HCl 100 MG/20 ML VIAL SLOW IVP PRN (03:39)
[2017-09-03] MEDS: HumaLOG 300 UNITS/3 ML VIAL SC PRN ×2 (06:14→12:34)
[2017-09-03] MEDS: hydrALAZINE 25 MG TAB PO SCH (08:18)
[2017-09-03] MEDS: predniSONE 20 MG TAB PO SCH (08:19)
[2017-09-03] MEDS: Carvedilol 6.25 MG TAB PO SCH (08:19)
[2017-09-03] MEDS: Nitroglycerin 2% Ointment 1 INCH/1 GM Packet TOP SCH (08:33)
[2017-09-03] MEDS ORDERED: Aspirin 81 mg Enteric Coated Tablet PO SCH (09:00)
[2017-09-03] MEDS: Acetaminophen 325 MG TAB PO PRN (10:16)
[2017-09-03 12:08] VITALS: TEMP 97.8
[2017-09-03 12:58] VITALS: BP 147/73
--- NOTE | 2017-09-03 22:09 | DIS ---
DATE OF ADMISSION: 08/30/2017 DATE OF DISCHARGE: 09/03/2017 DISCHARGE DIAGNOSES: 1. Non-ST elevation myocardial infarction, medical management. 2. Atrial fibrillation, on Xarelto and is rate controlled. 3. Acute respiratory failure secondary to chronic obstructive pulmonary disease exacerbation, [facility] ed. 4. Diabetes mellitus, stable. 5. Acute kidney disease on chronic kidney disease, improved. 6. Hypertension, stable. 7. The patient's hyponatremia has improved as well. 8. Obesity, patient has been counseled to observe sleep apnea on CPAP therapy. CONSULTANTS: Patient's consultants on the case were Cardiology, Pulmonary, and renal. DISCHARGE MEDICATIONS: Include all home medications except changes. Change in the dose of the lisin opril from 20 to 2.5 p.o. daily, Medrol Dosepak, and Xarelto 20 mg p.o. daily. DISPOSITION: To home. He is asked to follow up with PCP and Cardiology and Pulmonary as an outpatie nt. BRIEF HOSPITAL COURSE: A 57-year-old pleasant gentleman came into the hospital with chest pain. His troponin is elevated. Please refer to the admitting physician's H&P for further details. Dr. Shannon vo evaluated the patient and decided medical management. The patient's course was complicated with atrial fibrillation, which was controlled with beta kate and he added Xarelto. The patient was al so seen by Pulmonary for COPD exacerbation. He was treated with steroids. IV steroids later was tra nsitioned to p.o. steroids and right now patient is doing much better on that. The patient had acute kidney injury on chronic kidney disease. Patient was seen by Dr. Ortega and treated with gentle hy dration. Kidney functions have improved nicely. Right now, he is medically stable to be discharged. From Cardiology, Pulmonology, and renal standpoint of view, he is asked to follow up with them in a bout 1 month. He is asked to follow up with PCP in 1 week. He is asked to come back to the emergenc y room in case if in case symptoms recur. PHYSICAL EXAMINATION: VITAL SIGNS: At the time of discharge, his blood pressure is 185/110, pulse was 96, respirations 16, afebrile. GENERAL: The patient was lying in bed, in no apparent distress. HEENT: Atraumatic and normocephalic. Pupils equally round, react to light. Extraocular movements i ntact. Mucous membranes moist. NECK: Supple. No JVD. CHEST: Breath sounds. There are no rales or rhonchi. HEART: S1, S2, no murmurs or gallops. ABDOMEN: Soft. EXTREMITIES: No cyanosis, clubbing or edema. Distal pulses present. NEUROLOGIC: Alert, awake, oriented. No cranial deficits. No sensorimotor deficits. The patient is medically stable to be discharged. He is asked come back to the emergency room in [place] e symptoms recur. Total time for this discharge took 35 minutes.
--- NOTE | 2017-09-03 22:26 | PRG ---
DATE OF SERVICE: 09/03/2017 NEPHROLOGY PROGRESS NOTE SUBJECTIVE: Patient was seen and examined at bedside and overnight events noted. Patient denies any shortness of breath or chest pain or palpitation. No history of nausea or vomiting or diarrhea or f ever or chills or cramps. OBJECTIVE: GENERAL: This is an obese male in no apparent distress. VITAL SIGNS: Temperature 97.8, pulse 68, respirations 16, blood pressure 140/77. HEENT: Atraumatic, normocephalic, Oral mucosa is moist. NECK: Supple. CARDIOVASCULAR: S1, S2 heard. Rate and rhythm regular. RESPIRATORY: Clear to auscultation. GASTROINTESTINAL: Abdomen is soft. MUSCULOSKELETAL: No tenderness, no edema. DERMATOLOGIC: No skin rash. NEUROLOGIC: Alert and awake and oriented x3. No focal neurologic deficits. Moving all the extremit ies. PSYCHIATRIC: Mood and affect normal. ASSESSMENT AND PLAN: 1. Acute kidney injury on chronic kidney disease, stage 3. We will monitor. 2. Proteinuria. 3. Diabetic nephropathy. Patient was advised to follow up with clinic. 4. Morbid obesity. 5. Edema, . 6. Hypertension. 7. Anemia. 8. Follow up with the clinic in 2-3 weeks.
== END 2017-09-03 13:23 | disposition home or self-care (01) | DRG 280 ==
LOC: ERS 20:27 → 2SE 23:23
PROVIDERS: ADMIT Internal Medicine; ATTEND Internal Medicine
DX: I21.4 Non-ST elevation (NSTEMI) myocardial infarction (principal); J96.00 Acute respiratory failure, unspecified whether with hypoxia or hypercapnia; N17.9 Acute kidney failure, unspecified; J44.1 Chronic obstructive pulmonary disease with (acute) exacerbation; E87.1 Hypo-osmolality and hyponatremia; I13.0 Hypertensive heart and chronic kidney disease with heart failure and stage 1 through stage 4 chronic kidney disease, or unspecified chronic kidney disease; I48.91 Unspecified atrial fibrillation; Z79.01 Long term (current) use of anticoagulants; E11.22 Type 2 diabetes mellitus with diabetic chronic kidney disease; N18.3 Chronic kidney disease, stage 3 (moderate); G47.30 Sleep apnea, unspecified; I25.10 Atherosclerotic heart disease of native coronary artery without angina pectoris; G47.33 Obstructive sleep apnea (adult) (pediatric); Z87.891 Personal history of nicotine dependence; E87.8 Other disorders of electrolyte and fluid balance, not elsewhere classified; E66.01 Morbid (severe) obesity due to excess calories; Z95.1 Presence of aortocoronary bypass graft; E11.65 Type 2 diabetes mellitus with hyperglycemia; I50.9 Heart failure, unspecified
CPT/HCPCS: 36415; 36416; 71010; 76770; 80048; 80053; 81001; 82553; 82570; 83880; 84156; 84484; 85025; 90471; 90682; 93005; 93306; 93798; 94640; 94660; 94760; 96372; 96374; 96375; G0008; J1650; J1940; J2270; J2930; J7506; J7620; Q2036

== ENCOUNTER 2017-09-14 16:50 | Inpatient (IN) | payer SELFPAY ==
--- NOTE | 2017-09-14 17:30 | RAD ---
CHEST ONE VIEW 09/14/17 HISTORY: Dyspnea. Shortness of breath. COMPARISON: Chest radiograph 08/30/17. FINDINGS: Heart size enlarged. Patchy air space opacity throughout the lungs. No pneumothorax or large effusion . Multiple median sternotomy wires. IMPRESSION: Multifocal air space opacities concerning for infectious process. POS: [facility]
[2017-09-14] MEDS ORDERED: Fentanyl 100 MCG/2 ML VIAL ONE ×2 (17:32→20:04)
[2017-09-14] MEDS ORDERED: Albuterol Sulfate 2.5 mg/0.5 ml Neb ONE (17:37)
[2017-09-14] MEDS ORDERED: Albuterol Sulfate 2.5 mg/3 ml Neb ONE (17:37)
[2017-09-14] MEDS ORDERED: methylPREDNISolone Sod Succ/PF 125 MG/2 ML VIAL ONE (17:39)
[2017-09-14] MEDS ORDERED: Water For Inject, Bacteriostat 30 ML ONE (17:40)
[2017-09-14 17:43] LABS: #Eosinphils 0.2 thou/uL (0.0-0.7); #Lymphocytes 1.2 thou/uL (1.20-3.40); #Monocytes 1.1 thou/uL (0.11-0.59); #Neutrophils 8.9 thou/uL (1.40-6.50); %Basophils 0.2 % (0.0-1.0); %Eosinophils 1.7 % (0.0-10.0); %Lymphocytes 10.1 % (21.0-51.0); %Monocytes 9.7 % (0.0-10.0); %Neutrophils 78.3 % (42.0-75.0); Hemoglobin 13.4 g/dL (14.0-18.0); Mean Corpuscular HGB CONC 33.6 g/dL (32.0-36.0); Mean Corpuscular Hemoglobin 31.5 pg (27.0-31.0); Mean Corpuscular Volume 93.8 fl (80.0-94.0); Mean Platelet Volume 7.3 fL (7.4-10.4); Platelet Count 200 thou/uL (130-400); RBC Distribution Width 12.5 % (11.5-14.5); Red Blood Cell (RBC) Count 4.25 mill/uL (4.70-6.10); White Blood Cell (WBC) Count 11.3 thou/uL (4.8-10.8)
[2017-09-14 18:08] LABS: ALT (SGPT) 18 U/L (8-55); AST (SGOT) 21 U/L (5-34); Albumin 3.3 g/dL (3.5-5.0); Alkaline Phosphatase 70 U/L (40-150); Anion Gap 12 mmol/L (10-20); BUN (Urea Nitrogen) 19 mg/dL (8.4-25.7); Bilirubin, Total 0.6 mg/dL (0.2-1.2); CK (CPK) 732 U/L (30-200); Calc. Creatinine Clearance 0 mL/min (70-130); Calcium 9.1 mg/dL (7.8-10.44); Carbon Dioxide 26 mmol/L (22-29); Chloride 103 mmol/L (98-107); Estimated GFR-MDRD 56; Globulin 3.4 g/dL (2.4-3.5); Glucose 220 mg/dL (70-105); Potassium 4.3 mmol/L (3.5-5.1); Protein, Total 6.7 g/dL (6.0-8.3); Sodium 137 mmol/L (136-145)
[2017-09-14 18:11] LABS: CKMB 6.2 ng/mL (0-6.6)
[2017-09-14] MEDS ORDERED: Enalaprilat Dihydrate 1.25 MG/ML VIAL SLOW IVP SCH (19:45)
[2017-09-14] MEDS ORDERED: Furosemide 100 MG/10 ML VIAL ONE (20:05)
[2017-09-14] MEDS ORDERED: Nitroglycerin 2% Ointment 1 INCH/1 GM Packet ONE (20:05)
[2017-09-14] MEDS ORDERED: Enalaprilat Dihydrate 1.25 MG/ML VIAL ONE (20:05)
[2017-09-14 20:47] LABS: Critical Call Chem Troponin I RESULT DECREASING
[2017-09-15 00:29] LABS: Critical Call Chem Troponin I RESULT DECREASING
[2017-09-15] MEDS ORDERED: Diabetic Tussin 200 MG/10 ML UDCUP PO SCH (00:45)
[2017-09-15] MEDS ORDERED: Dextrose 5% in Water 1,000 ML IV PRN (02:22)
[2017-09-15] MEDS ORDERED: Dextrose 50% Abboject 50 ML SYRINGE SLOW IVP PRN (02:22)
[2017-09-15] MEDS: Morphine 5 mg/5 ml in 0.9% NaCl/PF SYRINGE SLOW IVP PRN ×4 (03:28→21:49)
[2017-09-15] MEDS: Azithromycin 500 MG in Sodium Chloride 0.9% 250 ML 250 ML IVPB SCH (03:32)
--- NOTE | 2017-09-15 03:55 | HP ---
PRIMARY CARE PHYSICIAN: Zachary íDaz MD CHIEF COMPLAINT: Shortness of breath. HISTORY OF PRESENT ILLNESS: Mr. Amezquita is a pleasant 57-year-old gentleman, who was seen in [facility] on 09/15/2017. He was hospitalized at this facility from 08/30/2017 to 08/11 for chest pain and demand ischemia from COPD exacerbation. He reported that he was doing well until 2 days ago. At that time, he was started having cough. Cou gh is productive of minimal amount of sputum. He also reports wheezing. He reports having shortness of breath. He describes shortness of breath with exertion. He denies orthopnea. He denies any sunil sea or vomiting. He reports that his chest hurts all over when he coughs. He describes it as sharp, 10/10, non-radiat ing. He reports bilateral leg swelling. He also reports that he has been gaining weight. REVIEW OF SYSTEMS: The following complete review of systems was negative, unless otherwise mentioned in the HPI or below: Constitutional: Weight loss or gain, ability to conduct usual activities. Skin: Rash, itching. Eyes: Double vision, pain. ENT/Mouth: Nose bleeding, neck stiffness, pain, tenderness. Cardiovascular: Palpitations, dyspnea on exertion, orthopnea. Respiratory: Shortness of breath, wheezing, cough, hemoptysis, fever or night sweats. Gastrointestinal: Poor appetite, abdominal pain, heartburn, nausea, vomiting, constipation, or diarr hea. Genitourinary: Urgency, frequency, dysuria, nocturia. Musculoskeletal: Pain, swelling. Neurologic/Psychiatric: Anxiety, depression. Allergy/Immunologic: Skin rash, bleeding tendency. PAST MEDICAL HISTORY: Significant for 3-vessel coronary artery disease status post coronary artery b ypass graft in 2009, status post stent placement in 05/2016, followed by Dr. Mcginnis. COPD, followe d by Dr. Corrales. Diabetes mellitus type 2, obesity, hypertension, obstructive sleep apnea syndrome on CPAP therapy. Atrial fibrillation during his recent hospitalization. PAST SURGICAL HISTORY: Significant for coronary artery bypass graft x3 in 2009, PCI with stent place ment in 05/2016, appendectomy and finger amputation. ALLERGIES: No known drug allergies. CURRENT MEDICATIONS: Metformin 1000 mg 2 times a day, glyburide 10 mg daily, carvedilol 6.25 mg 2 ti mes a day, aspirin 325 mg daily, lisinopril 40 mg daily, simvastatin 20 mg daily. The patient is not taking rivaroxaban, which was prescribed during his last hospitalization. SOCIAL HISTORY: The patient is a former smoker. Occasional alcohol use. No recreational drug use. FAMILY HISTORY: Multiple family members with diabetes mellitus and coronary artery disease. PHYSICAL EXAMINATION: GENERAL: Mr. Amezquita is awake and alert, not in acute distress. VITAL SIGNS: Blood pressure is 132/75, pulse is 81. He is breathing at a rate of 18 and saturating 95% on 2 L oxygen. He is afebrile. EYES: No scleral icterus, no conjunctival pallor. ENT: Moist mucosal membranes, no oropharyngeal erythema or exudates. NECK: Supple, nontender, normal range of movement. I could not assess his jugular veins. RESPIRATORY: Accessory muscles of breathing are not active. Chest wall movements are symmetric bila terally. LUNGS: Reveals expiratory wheeze in the upper lung zones, diminished air entry at both bases. CARDIOVASCULAR: S1 and S2 are heard, regular. Peripheral pulses are palpable. No carotid bruits, n o pericardial rub. ABDOMEN: Soft, nontender, bowel sounds heard, no hepatomegaly, no splenomegaly. NEUROLOGIC: Cranial nerves II through XII are intact. Deep tendon reflexes 2+. MUSCULOSKELETAL: Power is 5/5 in all 4 extremities. SKIN: He has 1+ edema of both lower extremities. No rashes or subcutaneous nodules. LYMPHATIC: No cervical lymphadenopathy. PSYCHIATRIC: Normal mood, normal affect, the patient is oriented to person, place, and time. LABORATORY DATA: Mr. Amezquita's labs and investigations were reviewed. I reviewed his electrocardiogra m, which shows normal sinus rhythm, no ST changes to suggest an acute coronary syndrome. I also revi ewed his chest x-ray, which shows bilateral infiltrates. Laboratory investigations show leukocytosis with 11,300 white cells, of which 78.3% of neutrophils, normocytic anemia with hemoglobin 13.4, norm al platelet count, normal electrolytes, elevated creatinine of 1.32, decreased albumin of 3.3, otherw ise unremarkable liver profile, elevated BNP of 1758 and elevated troponin I of 0.520. ASSESSMENT AND PLAN: Mr. Amezquita is a pleasant 57-year-old gentleman, who was seen at [facility]. His problem list includes: 1. Shortness of breath: Suspected to be secondary to chronic obstructive pulmonary disease exacerba tion, although the pneumonia is a possibility as well. He will be admitted to the hospital and treat ed with oxygen, steroids, bronchodilators and antibiotics. Pulmonology service will be consulted. 2. Elevated troponin: It could be secondary to demand ischemia from chronic obstructive pulmonary d isease exacerbation or pneumonia. Non-ST elevation myocardial infarction is still a possibility. He will be admitted to the hospital for telemetry monitoring. Cardiology service will be consulted. H is troponins were elevated during his previous admission as well. A 2D echocardiogram done at that t [facility] showed that his ejection fraction was 35% to 40%. 3. Renal insufficiency: Mild, we will recheck. 4. Congestive heart failure: The patient does not appear to be in congestive heart failure exacerba tion at this time. He has received 80 mg of furosemide intravenously in the emergency room. We will monitor and further furosemide doses are depending on the response. 5. History of atrial fibrillation: The patient is currently in normal sinus rhythm. He also tells me that he does not wish to be on anticoagulation. 6. Diabetes mellitus: Monitor Accu-Cheks, start insulin sliding scale. 7. Hypertension: Monitor vital signs, titrate antihypertensives as needed. Many thanks for allowing me to participate in your patient's care. Please feel free contact me with any questions or concerns. LEVEL OF RISK: High. LIFE OF COMPLEXITY: High
[2017-09-15] MEDS: HumaLOG 300 UNITS/3 ML VIAL SC PRN ×4 (05:00→22:55)
[2017-09-15 05:17] LABS: #Lymphocytes 0.9 thou/uL (1.20-3.40); #Monocytes 0.3 thou/uL (0.11-0.59); #Neutrophils 9.2 thou/uL (1.40-6.50); %Basophils 0.1 % (0.0-1.0); %Eosinophils 0.2 % (0.0-10.0); %Lymphocytes 8.3 % (21.0-51.0); %Monocytes 2.5 % (0.0-10.0); %Neutrophils 88.9 % (42.0-75.0); Hemoglobin 13.5 g/dL (14.0-18.0); Mean Corpuscular HGB CONC 34.4 g/dL (32.0-36.0); Mean Corpuscular Hemoglobin 32.1 pg (27.0-31.0); Mean Corpuscular Volume 93.3 fl (80.0-94.0); Mean Platelet Volume 7.9 fL (7.4-10.4); Platelet Count 194 thou/uL (130-400); RBC Distribution Width 12.5 % (11.5-14.5); Red Blood Cell (RBC) Count 4.19 mill/uL (4.70-6.10); White Blood Cell (WBC) Count 10.3 thou/uL (4.8-10.8)
[2017-09-15 05:45] LABS: Anion Gap 14 mmol/L (10-20); BUN (Urea Nitrogen) 26 mg/dL (8.4-25.7); Calc. Creatinine Clearance 110 mL/min (70-130); Calcium 8.6 mg/dL (7.8-10.44); Carbon Dioxide 23 mmol/L (22-29); Chloride 101 mmol/L (98-107); Estimated GFR-MDRD 49; Glucose 384 mg/dL (70-105); Potassium 4.9 mmol/L (3.5-5.1); Sodium 133 mmol/L (136-145)
[2017-09-15] MEDS ORDERED: Enoxaparin Sodium 40 MG/0.4 ML SYRINGE SC SCH (09:00)
[2017-09-15] MEDS: Lisinopril 2.5 MG TAB PO SCH (09:15)
[2017-09-15] MEDS ORDERED: guaiFENesin/DM ER PO SCH ×2 (13:00→20:15)
--- NOTE | 2017-09-15 15:49 | EKG ---
Test Reason : SOB Blood Pressure : / mmHG Vent. Rate : 080 BPM Atrial Rate : 080 BPM P-R Int : 296 ms QRS Dur : 108 ms QT Int : 374 ms P-R-T Axes : 000 047 130 degrees QTc Int : 431 ms Sinus rhythm with 1st degree A-V block Cannot rule out Inferior infarct , age undetermined Abnormal ECG Lateral ST changes Confirmed by GEORGETTE JACQUES MD ([id number]), food expeditor ESTRELLITA PORTER ([id number]) on 09/15/2017 3:49:19 PM Referred By: Confirmed By:GEORGETTE JACQUES MD
--- NOTE | 2017-09-15 16:32 | CON ---
DATE OF CONSULTATION: 09/15/2017 HISTORY OF PRESENT ILLNESS: The patient is a 57-year-old gentleman who presents with increasing dyspnea and productive sputum. The patient has a long history of coronary artery disease. He has previously undergone coronary bypass graft surgery x3 in 2008. He has had subsequent PTCA and stent placed in left circumflex artery. The patient has had a long history of noncompliance with his followup and medications. During the patient's last hospitalization. He was felt to have a COPD exacerbation and noted to have elevated troponin level. The patient also developed atrial fibrillation and was started on Xarelto. The patient states he has not been able to take this medication. The patient reported having mild fever and dark colored sputum production. He reports chest pain with coughing. PAST MEDICAL HISTORY: 1. Coronary artery disease. 2. Diabetes mellitus. 3. Cardiomyopathy. 4. Hypertension. 5. COPD. 6. Atrial fibrillation. 7. Sleep apnea. PAST SURGICAL HISTORY: Coronary bypass surgery, finger surgery, appendectomy. ALLERGIES: None. SOCIAL HISTORY: Former smoker. FAMILY HISTORY: There is a strong family history of coronary artery disease. MEDICATIONS: Lipitor 40 at bedtime, Coreg 12.5 b.i.d., gabapentin 300 at bedtime, glyburide 2.5 daily, hydralazine 50 t.i.d., lisinopril 2.5 daily, metformin 1000 p.o. b.i.d. and Medrol Dosepak. REVIEW OF SYSTEMS: Noticeable for unremarkable. No history of bright red blood per rectum, hematuria or dysuria. PHYSICAL EXAMINATION: GENERAL: This is an obese gentleman in mild distress. VITAL SIGNS: Blood pressure was 137/79, heart rate 76. NECK: Full. LUNGS: Coarse breath sounds bilateral. HEART: Regular rate and rhythm, normal S1, S2. ABDOMEN: Distended. EXTREMITIES: Showed bilateral edema. SKIN: Warm and dry. NEUROLOGIC: Nonfocal. VASCULAR: Radial pulses are 2+. LABORATORY DATA: White blood cell count 10.3, hemoglobin 13.5, hematocrit 39.1 , and his platelets were 194. His troponin was 0.52. BNP 1758. His EKG revealed normal sinus rhythm with no acute ST-T wave changes. His chest x-ray showed cardiomegaly with evidence of possible pneumonia. IMPRESSION: 1. Probable pneumonia. 2. Chronic obstructive pulmonary disease. 3. History of severe cardiomyopathy. 4. Hypertension. 5. Diabetes mellitus. 6. Atrial fibrillation. 7. Morbid obesity. 8. History of coronary bypass graft surgery. This gentleman presents with probable pneumonia. He is being treated with IV antibiotics. His troponin once again is elevated. This is most likely due to demand ischemia. From a cardiac standpoint, I would restart him on his Xarelto. We will hold his Coreg at this time. We will restart lisinopril. We will follow this patient with you through his hospitalization. SHWETA
[2017-09-15] MEDS: Rivaroxaban 10 MG TAB PO SCH (17:19)
[2017-09-15] MEDS: Atorvastatin Calcium 40 MG TAB PO SCH (21:03)
[2017-09-15] MEDS ORDERED: Insulin Detemir 100 UNITS/ML 20 UNITS in Pre-Filled Syringe 1 EACH SC SCH (22:30)
--- NOTE | 2017-09-15 22:40 | PRG ---
DATE OF SERVICE: 09/15/2017 SERVICE: Pulmonary Medicine. INTERVAL HISTORY: The patient is doing okay from a respiratory standpoint. He does not feel like he has made very much progress since he has been here. He denies any current fevers, chills, nausea, o r vomiting. He keeps swelling in the lower extremities, but he is starting to have some shallow. Ot herwise, there has been no interval change in his condition. PHYSICAL EXAMINATION: VITAL SIGNS: Afebrile, pulse 97, blood pressure 121/64, respirations 16, saturation 91% on 2 liters nasal cannula. GENERAL: The patient is awake and alert, no apparent distress. LUNGS: Reduced air entry with prolonged expiratory phase. Crackles and wheezing are present. HEART: Normal rate, regular. ABDOMEN: Soft, nontender, nondistended. Bowel sounds are positive. MUSCULOSKELETAL: No cyanosis or clubbing. There is 2+ pitting in the bilateral lower extremities. NEUROLOGIC: Grossly nonfocal. LABORATORY DATA: WBC 10.3, hemoglobin 13.5, platelets 194,000. Creatinine 1.47, which is roughly st able. Basic metabolic profile is otherwise unremarkable. Blood sugars ranged from 337 to 429. Trop onin is down trending to 0.52. Influenza A and B is unremarkable. IMAGING: Chest x-ray demonstrates pulmonary vascular congestion. There is possible infiltrate, whic h cannot be excluded. There is a fluid in the fissure. Small bilateral pleural effusions are possib le. ASSESSMENT: 1. Acute hypoxic respiratory failure. 2. Chronic obstructive pulmonary disease with acute exacerbation. 3. Chronic kidney disease, stage 3. 4. Acute on chronic systolic and diastolic heart failure. PLAN: We will intensify our diuretic regimen ever so slightly. I will do a respiratory virus panel to see whether or not he has a viral illness that is contributing to his presentation. IV steroids w ill be transitioned over to just once daily p.o. medication. Pulmonary Critical Care will continue t o follow while the patient remains in dislocation.
[2017-09-15] MEDS: cefTRIAXone\\ROCEPHIN 1 GM, Syringe 0.4 ML in Sterile Water 9.6 ML SLOW IVP SCH (22:54)
[2017-09-15] MEDS ORDERED: cefTRIAXone\\ROCEPHIN 1 GM in Sodium Chloride 0.9% 100 ML IVPB SCH (23:00)
[2017-09-16] MEDS: Azithromycin 500 MG in Sodium Chloride 0.9% 250 ML 250 ML IVPB SCH (00:55)
[2017-09-16] MEDS: Morphine 5 mg/5 ml in 0.9% NaCl/PF SYRINGE SLOW IVP PRN ×4 (04:50→20:55)
[2017-09-16] MEDS: Furosemide 40 MG/4 ML VIAL SLOW IVP SCH ×2 (04:50→15:42)
[2017-09-16] MEDS: HumaLOG 300 UNITS/3 ML VIAL SC PRN ×3 (06:15→21:14)
[2017-09-16 06:24] LABS: #Lymphocytes 0.9 thou/uL (1.20-3.40); #Neutrophils 9.3 thou/uL (1.40-6.50); %Basophils 0.1 % (0.0-1.0); %Eosinophils 0.2 % (0.0-10.0); %Lymphocytes 8.1 % (21.0-51.0); %Monocytes 8.7 % (0.0-10.0); %Neutrophils 82.9 % (42.0-75.0); Hemoglobin 13.7 g/dL (14.0-18.0); Mean Corpuscular Hemoglobin 31.8 pg (27.0-31.0); Mean Corpuscular Volume 93.4 fl (80.0-94.0); Mean Platelet Volume 7.2 fL (7.4-10.4); Platelet Count 251 thou/uL (130-400); RBC Distribution Width 12.5 % (11.5-14.5); White Blood Cell (WBC) Count 11.3 thou/uL (4.8-10.8)
[2017-09-16 06:44] LABS: Anion Gap 15 mmol/L (10-20); BUN (Urea Nitrogen) 40 mg/dL (8.4-25.7); Calc. Creatinine Clearance 106 mL/min (70-130); Calcium 8.8 mg/dL (7.8-10.44); Carbon Dioxide 25 mmol/L (22-29); Chloride 100 mmol/L (98-107); Estimated GFR-MDRD 47; Glucose 229 mg/dL (70-105); Sodium 135 mmol/L (136-145)
[2017-09-16] MEDS: predniSONE 20 MG TAB PO SCH (08:53)
[2017-09-16] MEDS: guaiFENesin ER 600 MG TAB PO SCH ×2 (08:53→21:11)
[2017-09-16] MEDS: Lisinopril 2.5 MG TAB PO SCH (08:53)
[2017-09-16] MEDS ORDERED: guaiFENesin/DM ER PO SCH (09:00)
--- NOTE | 2017-09-16 13:57 | PDOC.PN ---
- Subjective Encounter Start Date: 09/16/17 Encounter Start Time: 07:20 Pt seen for followup re: pneumonia. Has cough, sputum, shortness of breath with exertion. - Objective MAR Reviewed: Yes Vital Signs & Weight: Vital Signs (12 hours) Temp Pulse Resp BP BP Pulse Ox 09/16/17 11:49 97.6 F 67 20 160/96 H 90 L 09/16/17 09:25 90 L 09/16/17 09:24 70 24 H 90 L 09/16/17 08:53 73 165/95 H 09/16/17 08:00 99.2 F 70 24 H 165/95 H 90 L 09/16/17 04:00 97.4 F L 66 20 161/91 H 88 L Weight Weight 312 lb 4.8 oz I&O: 09/15/17 09/16/17 09/17/17 06:59 06:59 06:59 Intake Total 710 526 Output Total 500 2000 Balance 210 -1474 Result Diagrams: 09/16/17 05:08 09/16/17 05:08 Additional Labs: Accuchecks 09/16/17 09/16/17 09/16/17 10:53 06:08 00:58 POC Glucose 162 H 194 H 402 H 09/15/17 09/15/17 21:55 16:56 POC Glucose 508 H 362 H EKG Reviewed by me: Yes (Tele: NSR) Phys Exam - Physical Examination Morbid obesity HEENT: moist MMs Neck: supple Bibasal crackles Cardiovascular: RRR Gastrointestinal: soft Neurological: moves all 4 limbs Psychiatric: normal affect Skin: no rash Dx/Plan (1) Pneumonia Code(s): J18.9 - PNEUMONIA, UNSPECIFIED ORGANISM Status: Acute (2) Acute CHF (congestive heart failure) Code(s): I50.9 - HEART FAILURE, UNSPECIFIED Status: Acute Qualifiers: Congestive heart failure type: combined Qualified Code(s): I50.41 - Acute combined systolic (congestive) and diastolic (congestive) heart failure (3) Chronic obstructive lung disease Status: Chronic (4) HTN (hypertension) Code(s): I10 - ESSENTIAL (PRIMARY) HYPERTENSION Status: Chronic (5) CAD (coronary artery disease) Code(s): I25.10 - ATHSCL HEART DISEASE OF [place] CORONARY ARTERY W/O ANG PCTRS Status: Chronic (6) DM type 2 with diabetic peripheral neuropathy Code(s): E11.42 - TYPE 2 DIABETES MELLITUS WITH DIABETIC POLYNEUROPATHY Status : Chronic (7) Morbid obesity Code(s): E66.01 - MORBID (SEVERE) OBESITY DUE TO EXCESS CALORIES Status: Chronic (8) NSTEMI (non-ST elevated myocardial infarction) Code(s): I21.4 - NON-ST ELEVATION (NSTEMI) MYOCARDIAL INFARCTION Status: Suspected - Plan continue antibiotics, PT/OT, out of bed/ambulate * . Pt receiving furosemide, continue. Continue antibiotics as below. Ambulate patient. Monitor vital signs, titrate antihypertensives as needed. Pt is on lisinopril, and Coreg is on hold. Continue accuchecks, insulin sliding scale. Review of Systems - Review of Systems Respiratory: Cough, SOB with Excertion, Sputum. negative: Dry, Shortness of Breath, Hemoptysis, Pleuritic Pain, Wheezing Cardiovascular: negative: chest pain, palpitations, orthopnea, paroxysmal nocturnal dyspnea, edema, light headedness - Medications/Allergies Allergies/Adverse Reactions: Allergies Allergy/AdvReac Type Severity Reaction Status Date / Time No Known Allergies Allergy Verified 09/15/17 02:45 Medications: Current Medications Albuterol/Ipratropium (Duoneb) 3 ml NEB Q4H PRN PRN Reason: SOB &/or Wheezing Albuterol/Ipratropium (Duoneb) 3 ml NEB [id number] [facility] Last Admin: 09/16/17 09:24 Dose: 3 ml Atorvastatin Calcium (Lipitor) 40 mg PO HS [facility] Last Admin: 09/15/17 21:03 Dose: 40 mg Dextrose/Water (Dextrose 50%) 25 gm SLOW IVP PRN PRN PRN Reason: Hypoglycemia Furosemide (Lasix) 40 mg SLOW IVP 0600,1400 [facility] Stop: 09/17/17 06:01 Last Admin: 09/16/17 04:50 Dose: 40 mg Gabapentin (Neurontin) 300 mg PO [facility] Glucagon (Glucagon) 1 mg IM PRN PRN PRN Reason: Hypoglycemia Glyburide (Micronase) 2.5 mg PO DAILY [facility] Guaifenesin (Mucinex) 1,200 mg PO Q12HR [facility] Last Admin: 09/16/17 08:53 Dose: 1,200 mg Hydralazine HCl (Apresoline) 50 mg PO TID [facility] Hydralazine HCl (Apresoline) 50 mg PO TID [facility] Azithromycin 500 mg/ Sodium (Chloride) 250 mls @ 250 mls/hr IVPB Q24HR [facility] Last Admin: 09/16/17 00:55 Dose: 250 mls Dextrose/Water (D5w) 1,000 mls @ 0 mls/hr IV .Q0M PRN; As Directed PRN Reason: Hypoglycemia Ceftriaxone Sodium 1 gm/ (Syringe 0.4 ml/ Sterile Water) 10 mls @ 120 mls/hr SLOW IVP 2300 [facility] Last Admin: 09/15/17 22:54 Dose: 10 mls Insulin Human Lispro (Humalog) 0 units SC .AGGRESSIVE SLIDING PRN; Protocol PRN Reason: AGGRESSIVE SLIDING SCALE Last Admin: 09/16/17 06:15 Dose: 6 unit Lisinopril (Zestril) 2.5 mg PO DAILY [facility] Last Admin: 09/16/17 08:53 Dose: 2.5 mg Morphine Sulfate/Sodium Chloride (Morphine 0.9% Nacl/Pf 5 Mg/5 M) 2 mg SLOW IVP Q4H PRN PRN Reason: Moderate to Severe Pain (4-10) Last Admin: 09/16/17 08:53 Dose: 2 mg Non-Formulary Medication (Budesonide-Formoterol [Symbicort 160-4.5]) 2 puff INH BID-RT [facility] Non-Formulary Medication (Metformin Hcl [Metformin Hcl]) 1,000 mg PO BID-WM [facility] Prednisone (Prednisone) 40 mg PO QAM-WM [facility] Last Admin: 09/16/17 08:53 Dose: 40 mg Rivaroxaban (Xarelto) 20 mg PO 1800 [facility] Last Admin: 09/15/17 17:19 Dose: 20 mg
[2017-09-16] MEDS: hydrALAZINE 25 MG TAB PO SCH ×4 (15:39→21:23)
[2017-09-16] MEDS ORDERED: Benzonatate 100 MG CAP PO PRN (16:40)
[2017-09-16] MEDS: Rivaroxaban 10 MG TAB PO SCH (17:54)
[2017-09-16] MEDS: Mometasone/Formoterol 120 PUFF INHALER INH SCH (18:20)
[2017-09-16] MEDS ORDERED: Atorvastatin Calcium 40 MG TAB PO SCH (21:00)
[2017-09-16] MEDS: Atorvastatin Calcium 40 MG TAB PO SCH (21:12)
[2017-09-16] MEDS: Gabapentin 300 MG CAP PO SCH (21:13)
[2017-09-16] MEDS: cefTRIAXone\\ROCEPHIN 1 GM, Syringe 0.4 ML in Sterile Water 9.6 ML SLOW IVP SCH (23:24)
--- NOTE | 2017-09-16 23:27 | PRG ---
DATE OF SERVICE: 09/16/2017 SERVICE: Pulmonary Medicine. INTERVAL HISTORY: The patient is doing well from a respiratory standpoint. If anything, things have improved a little bit. His lower extremity swelling is better. That being said, he still has a lit tle bit of dyspnea with exertion. It is much improved compared to where we were. He previously coul d not walk across his room without being winded and needing to recover. Today, he was up walking up and down the hallways. He currently denies any fevers, chills, nausea or vomiting. PHYSICAL EXAMINATION: VITAL SIGNS: Afebrile, pulse 81, blood pressure 111/71, respirations 20, saturation 90% on 2 liters nasal cannula. GENERAL: The patient is awake and alert, in no apparent distress. LUNGS: Decent air entry. There is a prolonged expiratory phase, wheezing and crackles are both pres ent still. HEART: Normal rate, regular. ABDOMEN: Soft, nontender, nondistended. Bowel sounds are positive. MUSCULOSKELETAL: No cyanosis or clubbing. There is 2-3+ pitting in the bilateral lower extremities. NEUROLOGIC: Grossly nonfocal. LABORATORY DATA: WBC 11.3, hemoglobin 13.7, platelets 251,000. Creatinine 1.52 and roughly stable. BUN 40 and gently up trending. Anion gap is 15 and stable. Bicarbonate is low at 25. Potassium 5. 0, sodium 135 and up trending. Respiratory virus panel is positive for respiratory syncytial virus B . ASSESSMENT: 1. Acute hypoxic respiratory failure. 2. Chronic obstructive pulmonary disease exacerbation secondary to respiratory syncytial virus B. 3. Chronic kidney disease, stage 3. 4. Acute on chronic systolic and diastolic heart failure. PLAN: We will continue to diurese the patient until we arrived euvolemia. Steroids, nebulized medic ations, and antibiotics will be continued to treat his chronic obstructive pulmonary disease exacerba tion secondary to viral illness. I have encouraged the patient to continue walking as much as ramíreza griffin.
[2017-09-17] MEDS: Azithromycin 500 MG in Sodium Chloride 0.9% 250 ML 250 ML IVPB SCH (01:31)
[2017-09-17] MEDS: Morphine 5 mg/5 ml in 0.9% NaCl/PF SYRINGE SLOW IVP PRN ×5 (01:32→21:40)
[2017-09-17 05:26] LABS: Anion Gap 13 mmol/L (10-20); BUN (Urea Nitrogen) 45 mg/dL (8.4-25.7); Calc. Creatinine Clearance 108 mL/min (70-130); Calcium 8.3 mg/dL (7.8-10.44); Carbon Dioxide 23 mmol/L (22-29); Chloride 103 mmol/L (98-107); Estimated GFR-MDRD 48; Glucose 253 mg/dL (70-105); Magnesium 2.1 mg/dL (1.6-2.6); Potassium 4.1 mmol/L (3.5-5.1); Sodium 135 mmol/L (136-145)
[2017-09-17] MEDS: Furosemide 40 MG/4 ML VIAL SLOW IVP SCH (05:36)
[2017-09-17] MEDS: HumaLOG 300 UNITS/3 ML VIAL SC PRN ×3 (05:38→21:39)
[2017-09-17] MEDS: Mometasone/Formoterol 120 PUFF INHALER INH SCH ×2 (09:55→18:26)
[2017-09-17] MEDS: predniSONE 20 MG TAB PO SCH (10:11)
[2017-09-17] MEDS: hydrALAZINE 25 MG TAB PO SCH ×3 (10:11→21:38)
[2017-09-17] MEDS: guaiFENesin ER 600 MG TAB PO SCH ×2 (10:12→21:38)
[2017-09-17] MEDS: glyBURIDE 2.5 MG TAB PO SCH (10:12)
[2017-09-17] MEDS: Lisinopril 2.5 MG TAB PO SCH (10:12)
--- NOTE | 2017-09-17 11:39 | PDOC.PN ---
- Subjective Encounter Start Date: 09/17/17 Encounter Start Time: 11:38 Subjective: no sob - Objective Vital Signs & Weight: Vital Signs (12 hours) Temp Pulse Resp BP BP Pulse Ox 09/17/17 10:12 73 156/97 H 09/17/17 10:11 73 156/97 H 09/17/17 09:55 73 20 91 L 09/17/17 09:33 91 L 09/17/17 09:28 73 20 91 L 09/17/17 07:29 97.8 F 70 20 156/97 H 91 L 09/17/17 06:16 97.4 F L 80 18 189/102 H 92 L 09/17/17 00:26 90 L Weight Weight 315 lb I&O: 09/16/17 09/17/17 09/18/17 06:59 06:59 06:59 Intake Total 526 1674 Output Total 1999 5140 147 Balance -1474 -1026 -800 Result Diagrams: 09/16/17 05:08 09/17/17 04:45 Additional Labs: Accuchecks 09/17/17 09/17/17 09/16/17 10:53 05:33 21:11 POC Glucose 162 H 249 H 314 H 09/16/17 17:07 POC Glucose 299 H Phys Exam - Physical Examination Constitutional: NAD Neck: no JVD Respiratory: clear to auscultation bilateral Cardiovascular: RRR, no significant murmur Gastrointestinal: soft, non-tender, positive bowel sounds Musculoskeletal: no edema, pulses present Dx/Plan (1) Pneumonia Code(s): J18.9 - PNEUMONIA, UNSPECIFIED ORGANISM Status: Acute Qualifiers: Pneumonia type: due to unspecified organism Laterality: bilateral Lung location: unspecified part of lung Qualified Code(s): J18.9 - Pneumonia, unspecified organism (2) Acute CHF (congestive heart failure) Code(s): I50.9 - HEART FAILURE, UNSPECIFIED Status: Chronic Qualifiers: Congestive heart failure type: combined Qualified Code(s): I50.41 - Acute combined systolic (congestive) and diastolic (congestive) heart failure (3) Afib Code(s): I48.91 - UNSPECIFIED ATRIAL FIBRILLATION Status: Chronic (4) COPD exacerbation Code(s): J44.1 - CHRONIC OBSTRUCTIVE PULMONARY DISEASE W (ACUTE) EXACERBATION Status: Acute Comment: continue pulmonary support, Duonebs, Prednisone, O2 supplementation (5) Elevated troponin Code(s): R74.8 - ABNORMAL LEVELS OF OTHER SERUM ENZYMES Status: Acute Comment: due to demand ischemia med mx (6) Tobacco abuse Code(s): Z72.0 - TOBACCO USE Status: Acute Comment: smoking cessation resources (7) DM type 2 with diabetic peripheral neuropathy Code(s): E11.42 - TYPE 2 DIABETES MELLITUS WITH DIABETIC POLYNEUROPATHY Status : Chronic (8) HTN (hypertension) Code(s): I10 - ESSENTIAL (PRIMARY) HYPERTENSION Status: Chronic (9) YVETTE (obstructive sleep apnea) Code(s): G47.33 - OBSTRUCTIVE SLEEP APNEA (ADULT) (PEDIATRIC) Status: Chronic (10) NSTEMI (non-ST elevated myocardial infarction) Code(s): I21.4 - NON-ST ELEVATION (NSTEMI) MYOCARDIAL INFARCTION Status: Suspected - Plan respiratory status much improved, BP elevated -: reinstitute coreg, reevaluate in am -: transition to po doxycycline, DC iv antibx * .
[2017-09-17] MEDS: metFORMIN 500 MG TAB PO SCH (16:36)
[2017-09-17] MEDS: Rivaroxaban 10 MG TAB PO SCH (17:57)
--- NOTE | 2017-09-17 20:37 | CON ---
DATE OF CONSULTATION: 09/17/2017 HISTORY OF PRESENT ILLNESS: Mr. Amezquita is a 57-year-old male well known to me. He picked up a viral illness from grandchild and presented with chest congestion and shortness of breath. He was admitted 2 days ago, was consulted today to assist in his management. Dr. Breaux saw him yesterday. Says he is feeling better today. PHYSICAL EXAMINATION: VITAL SIGNS: He is afebrile, heart rate 76, blood pressure 158/90, respiratory rate 20, oximetry is 91, blood pressure 150/78 this afternoon. LUNGS: Remarkable for faint wheezes. He has distant breath sounds as always. HEART: Regular rhythm. Distant S1, S2. ABDOMEN: Soft and nontender. LABORATORY DATA: White count 11.3, hemoglobin 13.7, platelets 251. Electrolytes: Sodium 135, potassium 4.1, chloride 103, bicarbonate 23, BUN 45, creatinine 1.49. IMPRESSION: Chronic obstructive pulmonary disease exacerbation triggered by a viral illness. PLAN: Continue nebulized treatment, prednisone, if he continues to improve on a daily basis, maybe h e can discharged in 48 hours.
[2017-09-17] MEDS: Atorvastatin Calcium 40 MG TAB PO SCH (21:38)
[2017-09-17] MEDS: Doxycycline 100 MG CAP PO SCH (21:38)
[2017-09-17] MEDS: Gabapentin 300 MG CAP PO SCH (21:38)
[2017-09-18] MEDS: Morphine 5 mg/5 ml in 0.9% NaCl/PF SYRINGE SLOW IVP PRN ×4 (05:10→21:17)
[2017-09-18 05:33] LABS: Hemoglobin 14.5 g/dL (14.0-18.0); Platelet Count 283 thou/uL (130-400)
[2017-09-18 05:58] LABS: Anion Gap 14 mmol/L (10-20); BUN (Urea Nitrogen) 40 mg/dL (8.4-25.7); Calc. Creatinine Clearance 125 mL/min (70-130); Calcium 9.2 mg/dL (7.8-10.44); Carbon Dioxide 25 mmol/L (22-29); Chloride 103 mmol/L (98-107); Estimated GFR-MDRD 57; Glucose 136 mg/dL (70-105); Magnesium 2.4 mg/dL (1.6-2.6); Potassium 4.1 mmol/L (3.5-5.1); Sodium 138 mmol/L (136-145)
[2017-09-18] MEDS: metFORMIN 500 MG TAB PO SCH ×2 (08:11→16:45)
[2017-09-18] MEDS: predniSONE 20 MG TAB PO SCH (08:11)
[2017-09-18] MEDS: hydrALAZINE 25 MG TAB PO SCH ×3 (08:11→21:13)
[2017-09-18] MEDS: guaiFENesin ER 600 MG TAB PO SCH ×2 (08:11→21:12)
[2017-09-18] MEDS: Doxycycline 100 MG CAP PO SCH ×2 (08:11→21:12)
[2017-09-18] MEDS: glyBURIDE 2.5 MG TAB PO SCH (08:11)
[2017-09-18] MEDS: Lisinopril 2.5 MG TAB PO SCH (08:12)
--- NOTE | 2017-09-18 08:19 | PDOC.PN ---
- Subjective Encounter Start Date: 09/18/17 Encounter Start Time: 08:14 Subjective: feels fine, no sob - Objective MAR Reviewed: Yes Vital Signs & Weight: Vital Signs (12 hours) Temp Pulse Resp BP BP Pulse Ox 09/18/17 08:12 75 09/18/17 08:11 75 09/18/17 08:03 97 F L 75 20 176/110 H 94 L 09/18/17 05:56 184/104 H 09/18/17 04:00 98.2 F 75 20 95 09/18/17 01:45 79 18 93 L 09/18/17 00:00 98.2 F 74 20 154/86 H 89 L 09/17/17 23:06 93 L 09/17/17 21:38 75 153/90 H Weight Weight 315 lb I&O: 09/17/17 09/18/17 09/19/17 06:59 06:59 06:59 Intake Total 1674 2017 Output Total 2700 3220 Balance -5109 -6519 Result Diagrams: 09/18/17 04:34 09/18/17 04:34 Additional Labs: Accuchecks 09/18/17 09/17/17 09/17/17 05:10 21:37 17:12 POC Glucose 138 H 357 H 354 H 09/17/17 10:53 POC Glucose 162 H Phys Exam - Physical Examination Constitutional: NAD Neck: no JVD Respiratory: clear to auscultation bilateral Cardiovascular: RRR, no significant murmur Gastrointestinal: soft, no distention, positive bowel sounds Musculoskeletal: pulses present, edema present Dx/Plan (1) Pneumonia Code(s): J18.9 - PNEUMONIA, UNSPECIFIED ORGANISM Status: Acute Qualifiers: Pneumonia type: due to unspecified organism Laterality: bilateral Lung location: unspecified part of lung Qualified Code(s): J18.9 - Pneumonia, unspecified organism (2) Acute CHF (congestive heart failure) Code(s): I50.9 - HEART FAILURE, UNSPECIFIED Status: Chronic Qualifiers: Congestive heart failure type: combined Qualified Code(s): I50.41 - Acute combined systolic (congestive) and diastolic (congestive) heart failure (3) Afib Code(s): I48.91 - UNSPECIFIED ATRIAL FIBRILLATION Status: Chronic (4) COPD exacerbation Code(s): J44.1 - CHRONIC OBSTRUCTIVE PULMONARY DISEASE W (ACUTE) EXACERBATION Status: Acute Comment: continue pulmonary support, Duonebs, Prednisone, O2 supplementation (5) Elevated troponin Code(s): R74.8 - ABNORMAL LEVELS OF OTHER SERUM ENZYMES Status: Acute Comment: due to demand ischemia med mx (6) Tobacco abuse Code(s): Z72.0 - TOBACCO USE Status: Acute Comment: smoking cessation resources (7) DM type 2 with diabetic peripheral neuropathy Code(s): E11.42 - TYPE 2 DIABETES MELLITUS WITH DIABETIC POLYNEUROPATHY Status : Chronic (8) HTN (hypertension) Code(s): I10 - ESSENTIAL (PRIMARY) HYPERTENSION Status: Chronic Qualifiers: Hypertension type: essential hypertension Qualified Code(s): I10 - Essential (primary) hypertension (9) YVETTE (obstructive sleep apnea) Code(s): G47.33 - OBSTRUCTIVE SLEEP APNEA (ADULT) (PEDIATRIC) Status: Chronic (10) NSTEMI (non-ST elevated myocardial infarction) Code(s): I21.4 - NON-ST ELEVATION (NSTEMI) MYOCARDIAL INFARCTION Status: Suspected - Plan cont nebs , steroids. monitor , tx elevated BP. discuss with Dr Corrales * .
[2017-09-18] MEDS: Mometasone/Formoterol 120 PUFF INHALER INH SCH ×2 (09:06→20:06)
[2017-09-18] MEDS: Rivaroxaban 10 MG TAB PO SCH (16:45)
[2017-09-18] MEDS ORDERED: Carvedilol 25 MG TAB PO SCH (18:15)
[2017-09-18] MEDS ORDERED: PROVENTIL INHALER 6.7 G (200 INHALATIONS) INH SCH (19:30)
[2017-09-18] MEDS: Atorvastatin Calcium 40 MG TAB PO SCH (21:12)
[2017-09-18] MEDS: Gabapentin 300 MG CAP PO SCH (21:12)
[2017-09-18] MEDS: HumaLOG 300 UNITS/3 ML VIAL SC PRN (21:16)
--- NOTE | 2017-09-19 00:31 | PRG ---
DATE OF SERVICE: 09/18/2016 SUBJECTIVE: Mr. Amezquita said he woke up feeling normal today. His blood pressure has been markedly el evated today. His last blood pressure was 193/110. OBJECTIVE: VITAL SIGNS: He is afebrile, heart rate in 80s, respiratory rate 22, oximetry is 94, not wheezing on exam. HEART: Regular rhythm. ABDOMEN: Soft. Intake and output is negative 1203. LABORATORY DATA: There is no CBC today. There is hemoglobin of 14.5, which is rising consistent wit h diuresis. Electrolytes are normal. BUN is 40, creatinine is 1.3. IMPRESSION: 1. Pneumonia after influenza. 2. Influenza. 3. Underlying chronic obstructive pulmonary disease. 4. History of diabetes. 5. Cardiomyopathy. 6. Hypertension, poorly controlled at this time. 7. Atrial fibrillation, electrophysiology has been consulted. 8. History of coronary artery bypass grafting in 2008. 9. History of coronary stenting. 10. Distant history of noncompliant, although he has been much more compliant at least in my practic e lately. 11. Sleep apnea. PLAN: Continue supportive care with nebulizer treatments, steroids, antimicrobial therapy, put a met ered-dose inhaler to his bedside, so if he wakes up short of breath, he can get some instant relief s sidney the respiratory therapist is very busy in the hospital. I will repeat the radiograph in the mor cindy. I will increase nebulizer treatments from q.6 to q.4. He will continue to be coagulated with Xarelto and take prednisone.
[2017-09-19] MEDS: Morphine 5 mg/5 ml in 0.9% NaCl/PF SYRINGE SLOW IVP PRN ×4 (02:41→21:44)
[2017-09-19 06:11] LABS: Anion Gap 11 mmol/L (10-20); BUN (Urea Nitrogen) 34 mg/dL (8.4-25.7); Calc. Creatinine Clearance 155 mL/min (70-130); Calcium 9.6 mg/dL (7.8-10.44); Carbon Dioxide 25 mmol/L (22-29); Chloride 106 mmol/L (98-107); Estimated GFR-MDRD 73; Glucose 90 mg/dL (70-105); Magnesium 1.9 mg/dL (1.6-2.6); Potassium 3.9 mmol/L (3.5-5.1); Sodium 138 mmol/L (136-145)
[2017-09-19] MEDS: Mometasone/Formoterol 120 PUFF INHALER INH SCH ×2 (06:13→21:10)
--- NOTE | 2017-09-19 07:36 | RAD ---
PORTABLE UPRIGHT CHEST 1 VIEW: Date: 09/19/17 HISTORY: 57-year-old male with history of pneumonia versus congestive heart failure. Follow-up shortness of br eath and labored breathing. FINDINGS: Monitor leads overlie the chest. There are postop midline sternotomy changes. Mild increased bronchov ascular markings, but appearance is improved when compared to the 09/14/17 study. There does appear t o be some chronic hyperinflation. The costophrenic angles are not completely included on this study. IMPRESSION: Hyperinflation. Some improvement in the previously noted increased bronchovascular markings compared to prior study. Borderline heart size. No significant new process. POS: [facility]
--- NOTE | 2017-09-19 09:34 | PDOC.PN ---
- Subjective Encounter Start Date: 09/19/17 Encounter Start Time: 09:32 Subjective: no complaints - Objective MAR Reviewed: Yes Vital Signs & Weight: Vital Signs (12 hours) Temp Pulse Resp BP Pulse Ox 09/19/17 07:40 97.5 F L 70 20 182/96 H 94 L 09/19/17 05:40 97.5 F L 77 16 186/106 H 92 L 09/19/17 03:04 69 22 H 96 09/19/17 00:34 98 F 68 18 170/99 H 91 L 09/18/17 22:57 73 20 95 Weight Weight 315 lb I&O: 09/18/17 09/19/17 09/20/17 06:59 06:59 06:59 Intake Total 2016 2306 Output Total 3219 1975 Balance -1203 332 Result Diagrams: 09/18/17 04:34 09/19/17 04:50 Additional Labs: Accuchecks 09/19/17 09/18/17 09/18/17 05:38 20:35 16:37 POC Glucose 86 361 H 371 H 09/18/17 10:21 POC Glucose 290 H Phys Exam - Physical Examination Constitutional: NAD distant BS, nonfocal Cardiovascular: no significant murmur, irregular Gastrointestinal: soft, positive bowel sounds Musculoskeletal: edema present Dx/Plan (1) Pneumonia Code(s): J18.9 - PNEUMONIA, UNSPECIFIED ORGANISM Status: Acute Qualifiers: Pneumonia type: due to unspecified organism Laterality: bilateral Lung location: unspecified part of lung Qualified Code(s): J18.9 - Pneumonia, unspecified organism (2) Acute CHF (congestive heart failure) Code(s): I50.9 - HEART FAILURE, UNSPECIFIED Status: Resolved Qualifiers: Congestive heart failure type: combined Qualified Code(s): I50.41 - Acute combined systolic (congestive) and diastolic (congestive) heart failure (3) Afib Code(s): I48.91 - UNSPECIFIED ATRIAL FIBRILLATION Status: Chronic Qualifiers: Atrial fibrillation type: paroxysmal Qualified Code(s): I48.0 - Paroxysmal atrial fibrillation (4) COPD exacerbation Code(s): J44.1 - CHRONIC OBSTRUCTIVE PULMONARY DISEASE W (ACUTE) EXACERBATION Status: Acute Comment: continue pulmonary support, Duonebs, Prednisone, O2 supplementation (5) Elevated troponin Code(s): R74.8 - ABNORMAL LEVELS OF OTHER SERUM ENZYMES Status: Acute Comment: due to demand ischemia med mx (6) Tobacco abuse Code(s): Z72.0 - TOBACCO USE Status: Acute Comment: smoking cessation resources (7) DM type 2 with diabetic peripheral neuropathy Code(s): E11.42 - TYPE 2 DIABETES MELLITUS WITH DIABETIC POLYNEUROPATHY Status : Chronic (8) HTN (hypertension) Code(s): I10 - ESSENTIAL (PRIMARY) HYPERTENSION Status: Chronic Qualifiers: Hypertension type: essential hypertension Qualified Code(s): I10 - Essential (primary) hypertension (9) YVETTE (obstructive sleep apnea) Code(s): G47.33 - OBSTRUCTIVE SLEEP APNEA (ADULT) (PEDIATRIC) Status: Chronic (10) NSTEMI (non-ST elevated myocardial infarction) Code(s): I21.4 - NON-ST ELEVATION (NSTEMI) MYOCARDIAL INFARCTION Status: Suspected - Plan BP still uncontrolled -: add clonidine patch, cont coreg, DARLENE, hydralazine -: cont accu/ss/OHA -: cont nebs, steroids * .
[2017-09-19] MEDS: Carvedilol 25 MG TAB PO SCH ×3 (09:40→21:44)
[2017-09-19] MEDS: guaiFENesin ER 600 MG TAB PO SCH ×2 (09:41→21:43)
[2017-09-19] MEDS: predniSONE 20 MG TAB PO SCH (09:41)
[2017-09-19] MEDS: Lisinopril 2.5 MG TAB PO SCH (09:41)
[2017-09-19] MEDS: Doxycycline 100 MG CAP PO SCH ×2 (09:41→21:42)
[2017-09-19] MEDS: hydrALAZINE 25 MG TAB PO SCH ×3 (09:41→21:43)
[2017-09-19] MEDS: metFORMIN 500 MG TAB PO SCH ×2 (09:41→17:03)
[2017-09-19] MEDS: glyBURIDE 2.5 MG TAB PO SCH (09:42)
[2017-09-19] MEDS: cloNIDine 0.2mg/24 Hour PATCH TD SCH (09:48)
--- NOTE | 2017-09-19 11:16 | CON ---
DATE OF CONSULTATION: 09/19/2017 ELECTROPHYSIOLOGY CONSULTATION REFERRING PHYSICIAN: Dr. Mcginnis I am seeing Mr. Amezquita at our [facility] telemetry floor for the following problems: 1. Nonsustained ventricular tachycardia. 2. Chronic systolic congestive heart failure with worsening left ventricular systolic function. A. Most recent echocardiogram on 08/30/2017 reveals an LVEF of 35-40%. Previous echo showed 45-50% o n 09/21/2016 about a year ago. B. Left heart catheterization from 05/2017 showed patent grafts and 3-vessel coronary artery disease , LVEF 40-45% on 05/30/2016. C. History of stent placement in 05/2016. 3. History of paroxysmal atrial fibrillation noted before [place] last year. 4. Respiratory issues. A. Chronic obstructive pulmonary disease. B. Obstructive sleep apnea. C. Acute viral bronchitis/pneumonitis. 5. History of renal insufficiency. 6. Coronary artery risk factors. A. Hypertension. B. Diabetes. C. Morbid obesity. ALLERGIES: None noted. MEDICATIONS: At home include albuterol, DuoNeb, Lipitor, Tessalon, Coreg, dextrose, , Neurontin , glucagon, Micronase, Mucinex, Apresoline, Humalog, Zestril, Glucophage, morphine, prednisone, Xarel to. The patient was on Coreg 12.5 twice a day on August 28, lisinopril 2.5 mg daily was also part of the regimen. SUBJECTIVE: Mr. Amezquita is here with respiratory distress, coughing with admission on 09/14/2017. He has underwent some respiratory treatments. His symptoms improved, but still not quite where he needs to be yet. He has no chest pains at this time, no fever, chills or cough. No stroke-like symptoms. No neurological deficits. No PND or orthopnea. The rest of the 12-point review of systems is unremarkable. PAST MEDICAL HISTORY: As above. SOCIAL HISTORY: The patient denies smoking, ETOH or drug use. FAMILY HISTORY: Noncontributory. PAST SURGICAL HISTORY: Significant for appendectomy and finger amputation, bypass surgery in 2009 an d stent, PCI in 05/2016. OBJECTIVE: VITAL SIGNS: Blood pressure 182/96, heart rate 70, respirations 20, temperature 97.5 degrees Fahrenh eit. GENERAL: Alert and oriented man in no apparent distress. NECK: Supple. Jugular veins difficult to visualize due to obesity. CHEST: Coarse with a few wheezes and a few crackles. CARDIOVASCULAR: Heart sounds are regular to rate and rhythm. No murmur or gallop. ABDOMEN: Benign. Bowel sounds positive. EXTREMITIES: Lower extremities with 1+ edema. No clubbing or cyanosis noted. NEUROLOGIC: Patient is nonfocal. MUSCULOSKELETAL: No joint swelling or deformities. Finger amputation noted. SKIN: Without rash. DATABASE: EKGs reviewed revealing sinus rhythm, rate of 80 beats per minute. No significant ST-T ch anges. LABORATORY DATA: Sodium 138, potassium 3.9, BUN is 34, creatinine 1.05. Most recently hemoglobin 14 .5, platelet count is 283. White cell count on 09/16/2017 was 11.3. The troponin levels are 0.7, 0.6 and 0.5 consecutively. ASSESSMENT AND PLAN: Mr. Amezquita is a pleasant 57-year-old man with a history of coronary artery disea se and worsening left ventricular ejection fraction. His left ventricular ejection fraction is still borderline 35-40% now during his acute phase of his illness, nonsustained ventricular arrhythmias ar e seen. They are very short 3-4 beats in duration, not clearly symptomatic. He does not have prior history of symptomatic sustained arrhythmia. We discussed these issues with him. There is a chance for worsening ventricular arrhythmias in the f uture. He on the other hand is not well compensated from a cardiac standpoint. His blood pressure i s markedly elevated, possibly due to the intercurrent pulmonary disease. He also has had borderline troponin elevation, again, likely demand ischemia, but in view of the prior coronary disease this cou ld be investigated further. If these tests are negative and his blood pressure is well controlled, Cayden TURNER indeed remains in the 35-40% range after recovering from his illness, an electrophysiology study could be reasonable to assess for inducible sustained ventricular tachyarrhythmia's. If they are ind ucible, indeed he could be considered for ICD implantation. I will discuss with Dr. Mcginnis. Thank you again for allowing me to participate in the care of this patient.
[2017-09-19] MEDS: Rivaroxaban 10 MG TAB PO SCH (17:03)
[2017-09-19] MEDS ORDERED: Famotidine 20 MG TAB PO PRN (17:16)
[2017-09-19] MEDS ORDERED: Aspirin 81 mg Enteric Coated Tablet PO SCH (18:15)
[2017-09-19] MEDS: HumaLOG 300 UNITS/3 ML VIAL SC PRN (18:22)
--- NOTE | 2017-09-19 20:54 | PRG ---
DATE OF SERVICE: 09/19/2017 SUBJECTIVE: Zoran Amezquita is having a good day. He says he had no problems today. OBJECTIVE: VITAL SIGNS: Blood pressure had been a little better today, although in the afternoon he tends to st art getting higher at 177/99 at 15:40, at 10:54 this morning it was 140/92. LUNGS: Clear. HEART: Regular rhythm. ABDOMEN: Soft. LABORATORY DATA: His glucose was 391 this afternoon, it was 86 this morning. IMPRESSION: 1. Chronic obstructive pulmonary disease, clinically stable. 2. Sleep apnea. He did not bring his CPAP to hospital. 3. Cardiomyopathy. He has been seen by Dr. Zhang for nonsustained ventricular tachycardia with eject ion fraction of 35% to 40%. 4. Diabetes. 5. Poorly controlled hypertension which is not helping his cardiomyopathy. PLAN: Stable from pulmonary standpoint. Primary issues are cardiac at this time.
[2017-09-19] MEDS: Gabapentin 300 MG CAP PO SCH (21:43)
[2017-09-19] MEDS: Atorvastatin Calcium 40 MG TAB PO SCH (21:43)
[2017-09-20] MEDS: Morphine 5 mg/5 ml in 0.9% NaCl/PF SYRINGE SLOW IVP PRN ×2 (05:13→12:01)
[2017-09-20 05:16] LABS: Hemoglobin 13.6 g/dL (14.0-18.0); Platelet Count 263 thou/uL (130-400)
[2017-09-20 05:22] LABS: Anion Gap 11 mmol/L (10-20); BUN (Urea Nitrogen) 32 mg/dL (8.4-25.7); Calc. Creatinine Clearance 145 mL/min (70-130); Calcium 9.4 mg/dL (7.8-10.44); Carbon Dioxide 25 mmol/L (22-29); Chloride 103 mmol/L (98-107); Estimated GFR-MDRD 67; Glucose 213 mg/dL (70-105); Magnesium 1.7 mg/dL (1.6-2.6); Potassium 4.2 mmol/L (3.5-5.1); Sodium 135 mmol/L (136-145)
[2017-09-20] MEDS: Mometasone/Formoterol 120 PUFF INHALER INH SCH ×2 (07:35→19:08)
[2017-09-20] MEDS: Carvedilol 25 MG TAB PO SCH ×4 (08:11→20:12)
[2017-09-20] MEDS: metFORMIN 500 MG TAB PO SCH ×2 (08:11→16:56)
[2017-09-20] MEDS: glyBURIDE 2.5 MG TAB PO SCH ×2 (08:12→11:55)
[2017-09-20] MEDS: hydrALAZINE 25 MG TAB PO SCH ×3 (08:18→20:12)
[2017-09-20] MEDS ORDERED: Lisinopril 5 MG TAB PO SCH (09:00)
--- NOTE | 2017-09-20 11:24 | PDOC.PN ---
- Subjective Encounter Start Date: 09/20/17 Encounter Start Time: 08:55 complained of some chest pain earlier in the morning. being taken down for stress test - Objective Vital Signs & Weight: Vital Signs (12 hours) Temp Pulse Resp BP Pulse Ox 09/20/17 08:19 65 09/20/17 08:18 65 09/20/17 07:48 97.7 F 63 20 95 09/20/17 07:35 65 18 95 09/20/17 07:34 65 18 95 09/20/17 07:08 97.7 F 63 20 197/102 H 92 L 09/20/17 04:27 92 L 09/20/17 04:00 98 F 58 L 16 174/104 H 94 L 09/20/17 03:05 68 18 92 L 09/20/17 00:24 67 18 97 09/19/17 23:50 98.3 F 93 20 156/64 H 97 09/19/17 23:41 98.2 F 72 18 151/93 H 94 L Weight Weight 315 lb I&O: 09/19/17 09/20/17 09/21/17 06:59 06:59 06:59 Intake Total 2307 800 Output Total 1975 1120 Balance 332 -320 Result Diagrams: 09/20/17 04:45 09/20/17 04:45 Additional Labs: Accuchecks 09/20/17 09/19/17 09/19/17 04:46 21:03 17:41 POC Glucose 199 H 347 H 391 H Phys Exam - Physical Examination HEENT: PERRLA, moist MMs, sclera anicteric Neck: no JVD, supple Respiratory: no wheezing, clear to auscultation bilateral Cardiovascular: RRR, no significant murmur Gastrointestinal: soft, non-tender, no distention Musculoskeletal: no edema, pulses present Neurological: non-focal, normal sensation, moves all 4 limbs Psychiatric: normal affect, A&O x 3 Dx/Plan (1) Pneumonia Code(s): J18.9 - PNEUMONIA, UNSPECIFIED ORGANISM Status: Acute Qualifiers: Pneumonia type: due to unspecified organism Laterality: bilateral Lung location: unspecified part of lung Qualified Code(s): J18.9 - Pneumonia, unspecified organism (2) COPD exacerbation Code(s): J44.1 - CHRONIC OBSTRUCTIVE PULMONARY DISEASE W (ACUTE) EXACERBATION Status: Acute Comment: continue pulmonary support, Duonebs, Prednisone, O2 supplementation (3) Elevated troponin Code(s): R74.8 - ABNORMAL LEVELS OF OTHER SERUM ENZYMES Status: Acute Comment: due to demand ischemia med mx (4) Tobacco abuse Code(s): Z72.0 - TOBACCO USE Status: Acute Comment: smoking cessation resources (5) CAD (coronary artery disease) Code(s): I25.10 - ATHSCL HEART DISEASE OF [place] CORONARY ARTERY W/O ANG PCTRS Status: Chronic (6) DM type 2 with diabetic peripheral neuropathy Code(s): E11.42 - TYPE 2 DIABETES MELLITUS WITH DIABETIC POLYNEUROPATHY Status : Chronic (7) HTN (hypertension) Code(s): I10 - ESSENTIAL (PRIMARY) HYPERTENSION Status: Chronic Qualifiers: Hypertension type: essential hypertension Qualified Code(s): I10 - Essential (primary) hypertension (8) Morbid obesity Code(s): E66.01 - MORBID (SEVERE) OBESITY DUE TO EXCESS CALORIES Status: Chronic - Plan cont current plan of care * . pending stress test with cardiology recommendations. will follow. otherwise continue current plan
[2017-09-20] MEDS: Doxycycline 100 MG CAP PO SCH ×2 (11:51→20:11)
[2017-09-20] MEDS: Lisinopril 10 MG TAB PO SCH ×2 (11:52→20:12)
[2017-09-20] MEDS: Aspirin 81 mg Enteric Coated Tablet PO SCH (11:52)
[2017-09-20] MEDS: guaiFENesin ER 600 MG TAB PO SCH ×2 (11:52→20:11)
[2017-09-20] MEDS: predniSONE 20 MG TAB PO SCH (12:04)
--- NOTE | 2017-09-20 15:35 | PRG ---
DATE OF SERVICE: 09/20/2017 SUBJECTIVE: The patient says he had a good night. His blood pressure is still elevated. He was 171 /98 this afternoon. He was 171/98 yesterday evening as well. I would wonder if this is a duplicate blood pressure, it was 165/103 at 11:10 this morning. OBJECTIVE: LUNGS: Clear. He is not wheezing. HEART: Regular rhythm. ABDOMEN: Soft. He is tentatively scheduled for a stress test. IMPRESSION: 1. Chronic obstructive pulmonary disease, clinically stable. 2. Sleep apnea. He did not bring his CPAP. 3. Cardiomyopathy. 4. Poorly controlled hypertension. 5. Diabetes. PLAN: Per Cardiology, do stress test today, his COPD appears to be stable. We will continue with hi s nebulizer treatments. We are giving it to him q.4 hours because he was waking up short of breath in the morning, but maybe we can switch this to q.4 hours while awake. I will continue to follow.
[2017-09-20] MEDS ORDERED: Regadenoson 0.4 MG/5 ML SYRINGE ONE (16:47)
[2017-09-20] MEDS: HumaLOG 300 UNITS/3 ML VIAL SC PRN (16:59)
[2017-09-20] MEDS: HYDROcodone/Acetaminophen 5/325 mg Tablet PO PRN ×2 (17:01→21:08)
[2017-09-20] MEDS: Atorvastatin Calcium 40 MG TAB PO SCH (20:11)
[2017-09-20] MEDS: Gabapentin 300 MG CAP PO SCH (20:12)
[2017-09-20] MEDS: Benzonatate 100 MG CAP PO PRN (21:11)
[2017-09-21] MEDS: HYDROcodone/Acetaminophen 5/325 mg Tablet PO PRN ×4 (03:26→21:29)
[2017-09-21 06:38] LABS: Anion Gap 11 mmol/L (10-20); BUN (Urea Nitrogen) 30 mg/dL (8.4-25.7); Calc. Creatinine Clearance 140 mL/min (70-130); Calcium 9.4 mg/dL (7.8-10.44); Carbon Dioxide 26 mmol/L (22-29); Chloride 103 mmol/L (98-107); Estimated GFR-MDRD 65; Glucose 183 mg/dL (70-105); Magnesium 1.7 mg/dL (1.6-2.6); Potassium 4.3 mmol/L (3.5-5.1); Sodium 136 mmol/L (136-145)
[2017-09-21] MEDS: Doxycycline 100 MG CAP PO SCH ×2 (08:13→20:38)
[2017-09-21] MEDS: metFORMIN 500 MG TAB PO SCH ×2 (08:13→16:38)
[2017-09-21] MEDS: hydrALAZINE 25 MG TAB PO SCH ×3 (08:14→20:38)
[2017-09-21] MEDS: predniSONE 20 MG TAB PO SCH (08:15)
[2017-09-21] MEDS: glyBURIDE 2.5 MG TAB PO SCH (08:16)
[2017-09-21] MEDS: Aspirin 81 mg Enteric Coated Tablet PO SCH (08:16)
[2017-09-21] MEDS: Lisinopril 10 MG TAB PO SCH ×2 (08:16→20:39)
[2017-09-21] MEDS: Carvedilol 25 MG TAB PO SCH ×3 (08:16→20:38)
[2017-09-21] MEDS: guaiFENesin ER 600 MG TAB PO SCH ×2 (08:16→20:39)
[2017-09-21] MEDS: Mometasone/Formoterol 120 PUFF INHALER INH SCH ×2 (08:36→19:59)
--- NOTE | 2017-09-21 09:24 | PRG ---
DATE OF SERVICE: 09/21/2017 Mr. Amezquita's diastolic blood pressure is still elevated. His heart rate in the 60s and 70s, he is afe brile, respiratory rate in the teens. His hemoglobin was 13.6 yesterday. There is no new lab today other than electrolytes which are william l. His BUN is 30. IMPRESSION: 1. Chronic obstructive pulmonary disease, awaiting stress test. 2. History of cardiomyopathy. 3. History of nonsustained ventricular tachycardia. PLAN: Per Cardiology.
--- NOTE | 2017-09-21 11:39 | PDOC.PN ---
- Subjective Encounter Start Date: 09/21/17 Encounter Start Time: 07:30 no acute night events. very minimal chest pain over night. sob has improved - Objective Vital Signs & Weight: Vital Signs (12 hours) Temp Pulse Resp BP BP Pulse Ox 09/21/17 11:22 68 18 94 L 09/21/17 08:36 72 16 95 09/21/17 08:34 75 16 95 09/21/17 08:16 159/102 H 09/21/17 08:14 65 159/102 H 09/21/17 08:00 97.5 F L 67 20 159/102 H 94 L 09/21/17 03:22 97.6 F 73 22 H 153/101 H 97 Weight Weight 315 lb I&O: 09/20/17 09/21/17 09/22/17 06:59 06:59 06:59 Intake Total 800 1397 240 Output Total 1120 1110 Balance -320 287 240 Result Diagrams: 09/20/17 04:45 09/21/17 05:21 Additional Labs: Accuchecks 09/21/17 09/21/17 09/20/17 10:56 05:43 21:07 POC Glucose 202 H 164 H 188 H 09/20/17 09/20/17 16:45 11:37 POC Glucose 344 H 296 H Phys Exam - Physical Examination Constitutional: NAD HEENT: PERRLA, moist MMs, sclera anicteric Neck: no nodes, no JVD, supple Respiratory: no wheezing, clear to auscultation bilateral Cardiovascular: RRR, no significant murmur Gastrointestinal: soft, non-tender, no distention Musculoskeletal: no edema, pulses present Neurological: non-focal, normal sensation, moves all 4 limbs Psychiatric: normal affect, A&O x 3 Skin: cap refill <2 seconds Dx/Plan (1) Pneumonia Code(s): J18.9 - PNEUMONIA, UNSPECIFIED ORGANISM Status: Acute Qualifiers: Pneumonia type: due to unspecified organism Laterality: bilateral Lung location: unspecified part of lung Qualified Code(s): J18.9 - Pneumonia, unspecified organism (2) COPD exacerbation Code(s): J44.1 - CHRONIC OBSTRUCTIVE PULMONARY DISEASE W (ACUTE) EXACERBATION Status: Acute Comment: continue pulmonary support, Duonebs, Prednisone, O2 supplementation (3) Elevated troponin Code(s): R74.8 - ABNORMAL LEVELS OF OTHER SERUM ENZYMES Status: Acute Comment: due to demand ischemia med mx (4) Tobacco abuse Code(s): Z72.0 - TOBACCO USE Status: Acute Comment: smoking cessation resources (5) CAD (coronary artery disease) Code(s): I25.10 - ATHSCL HEART DISEASE OF [place] CORONARY ARTERY W/O ANG PCTRS Status: Chronic (6) DM type 2 with diabetic peripheral neuropathy Code(s): E11.42 - TYPE 2 DIABETES MELLITUS WITH DIABETIC POLYNEUROPATHY Status : Chronic (7) HTN (hypertension) Code(s): I10 - ESSENTIAL (PRIMARY) HYPERTENSION Status: Chronic Qualifiers: Hypertension type: essential hypertension Qualified Code(s): I10 - Essential (primary) hypertension (8) Morbid obesity Code(s): E66.01 - MORBID (SEVERE) OBESITY DUE TO EXCESS CALORIES Status: Chronic - Plan cont current plan of care, plan discussed w/ family, respiratory therapy, DVT proph w/SCDs * . pending results from part 2 of stress test follow with results from cardiology
[2017-09-21] MEDS: HumaLOG 300 UNITS/3 ML VIAL SC PRN ×3 (11:48→21:43)
--- NOTE | 2017-09-21 11:57 | NM ---
CARDIAC SPECT HISTORY: A 57-year-old male with chest pain, coronary artery disease, status post CABG in 2010, cardiomyopathy , CHF, atrial fibrillation, dyspnea, hypertension, diabetes. TECHNIQUE: A myocardial perfusion scan is performed using the single-isotope 2-day protocol with 29 mCi Techneti um 99m sestamibi injected intravenously for stress and rest images. Pharmacologic stress with LexiSc an is monitored and interpreted by Dr. Zamora. FINDINGS: There is a large fixed defect in the inferolateral wall. No reversible defects are seen. GATED SPECT LVEF: 30%. WALL MOTION EXAM: Global hypokinesis. IMPRESSION: 1. No evidence of reversible ischemia. 2. Large inferolateral wall scar. POS: [facility]
--- NOTE | 2017-09-21 13:59 | PDOC.CTH ---
Cardiology Progress Note - Subjective Patient seen and is feeling somewhat improved. Continues to have chest wall pain , which he feels is from frequent coughing. Denies any palpitations, heart racing, light headedness, passing out, or near passing out. He is eager to go home. He continues to have shortness of breath but this is improving. - ROS shortness of breath - Objective Vital Signs Temp Pulse Resp BP BP Pulse Ox 09/21/17 12:00 97.9 F 69 20 159/89 H 94 L 09/21/17 11:22 68 18 94 L 09/21/17 08:36 72 16 95 09/21/17 08:34 75 16 95 09/21/17 08:16 159/102 H 09/21/17 08:14 65 159/102 H 09/21/17 08:00 97.9 F 69 20 159/102 H 95 09/21/17 03:22 97.6 F 73 22 H 153/101 H 97 Weight 315 lb 09/20/17 09/21/17 09/22/17 06:59 06:59 06:59 Intake Total 800 1397 480 Output Total 1120 1110 Balance -320 287 480 - Physical Examination General/Neuro: alert & oriented x3, NAD Neck: no JVD present Lungs: unlabored respirations, other: (diminished lung thomas) Heart: RRR - Telemetry Telemetry Rhythm: Sinus arrhythmia - Labs Result Diagrams: 09/20/17 04:45 09/21/17 05:21 Troponin/CKMB CK-MB (CK-2) 6.2 ng/mL (0-6.6) 09/14/17 17:22 Troponin I 0.520 ng/mL (< 0.028) H* 09/14/17 23:50 - Assessment/Plan 1. NSVT- intially seen in 3-4 beat runs, currently without recurrence. Patient was asymptomatic with previous episodes. 2. Chronic Systolic Congestive Heart Failure- LVEF 30% by stress test 3. Ischemic cardiomyopathy 4. Elevated Troponin- stress test negative 5. Pneumonia/RSV- resolving, 6. COPD exacerbation-resolving 7. HTN- somewhat improved but remains hypertensive Stress test negative. Patient continues to have shortness of breath and is recovering from RSV/COPD exacerbation. Patient has not had any additional episodes of VT/NSVT. He is eager to go home. EP study was discussed with him and possible need for ICD. Patient verbalized understanding of procedure and risks, including hematoma, damage to blood vessels, pneumothorax, perforation of the heart, need for chest tube placement or surgical repair, and . He is agreeable to these but is eager to get home. Patient is concerned about his breathing and lying flat during/after the procedure. At this point ICD implant is scheduled for Sunday assuming patient is afebrile and is medically stable. Plan of care was discussed with Prince Zhang MD
[2017-09-21] MEDS: Gabapentin 300 MG CAP PO SCH (20:38)
[2017-09-21] MEDS: Atorvastatin Calcium 40 MG TAB PO SCH (20:38)
[2017-09-21] MEDS: Benzonatate 100 MG CAP PO PRN (21:29)
[2017-09-22 05:21] LABS: Platelet Count 271 thou/uL (130-400)
[2017-09-22] MEDS: Benzonatate 100 MG CAP PO PRN ×2 (05:30→20:47)
[2017-09-22] MEDS: HYDROcodone/Acetaminophen 5/325 mg Tablet PO PRN ×3 (05:30→16:06)
[2017-09-22 05:42] LABS: Anion Gap 14 mmol/L (10-20); BUN (Urea Nitrogen) 29 mg/dL (8.4-25.7); Calc. Creatinine Clearance 144 mL/min (70-130); Calcium 9.3 mg/dL (7.8-10.44); Carbon Dioxide 23 mmol/L (22-29); Chloride 104 mmol/L (98-107); Estimated GFR-MDRD 67; Glucose 107 mg/dL (70-105); Magnesium 1.7 mg/dL (1.6-2.6); Potassium 3.9 mmol/L (3.5-5.1); Sodium 137 mmol/L (136-145)
[2017-09-22] MEDS: Mometasone/Formoterol 120 PUFF INHALER INH SCH ×2 (08:28→21:36)
[2017-09-22] MEDS: Doxycycline 100 MG CAP PO SCH ×2 (09:15→20:46)
[2017-09-22] MEDS: guaiFENesin ER 600 MG TAB PO SCH ×2 (09:16→20:47)
[2017-09-22] MEDS: metFORMIN 500 MG TAB PO SCH ×2 (09:16→16:05)
[2017-09-22] MEDS: hydrALAZINE 25 MG TAB PO SCH ×3 (09:16→20:47)
[2017-09-22] MEDS: Carvedilol 25 MG TAB PO SCH ×3 (09:16→20:47)
[2017-09-22] MEDS: predniSONE 20 MG TAB PO SCH (09:17)
[2017-09-22] MEDS: glyBURIDE 2.5 MG TAB PO SCH (09:17)
[2017-09-22] MEDS: Lisinopril 10 MG TAB PO SCH ×2 (09:17→20:47)
[2017-09-22] MEDS: Aspirin 81 mg Enteric Coated Tablet PO SCH (09:17)
--- NOTE | 2017-09-22 09:30 | PDOC.PN ---
- Subjective Encounter Start Date: 09/22/17 Encounter Start Time: 09:29 Patient seen and examined. No new complaints. No overnight events - Objective MAR Reviewed: Yes Vital Signs & Weight: Vital Signs (12 hours) Temp Pulse Resp BP BP Pulse Ox 09/22/17 09:17 169/98 H 09/22/17 09:16 73 169/98 H 09/22/17 08:29 73 16 97 09/22/17 08:28 63 16 97 09/22/17 07:44 97.7 F 60 20 169/98 H 94 L 09/22/17 06:14 54 L 161/90 H 09/22/17 05:34 64 180/103 H 09/22/17 03:56 97.5 F L 63 20 194/98 H 91 L Weight Weight 315 lb I&O: 09/21/17 09/22/17 09/23/17 06:59 06:59 06:59 Intake Total 1397 2210 Output Total 1110 Balance 287 2210 Result Diagrams: 09/22/17 04:32 09/22/17 04:32 Additional Labs: Accuchecks 09/22/17 09/21/17 09/21/17 04:51 21:08 16:38 POC Glucose 99 229 H 220 H 09/21/17 10:56 POC Glucose 202 H Phys Exam - Physical Examination Constitutional: NAD HEENT: PERRLA Neck: no JVD Respiratory: no wheezing Cardiovascular: no significant murmur Gastrointestinal: non-tender Musculoskeletal: pulses present Neurological: moves all 4 limbs Psychiatric: A&O x 3 Dx/Plan (1) Pneumonia Code(s): J18.9 - PNEUMONIA, UNSPECIFIED ORGANISM Status: Acute Qualifiers: Pneumonia type: due to unspecified organism Laterality: bilateral Lung location: unspecified part of lung Qualified Code(s): J18.9 - Pneumonia, unspecified organism (2) COPD exacerbation Code(s): J44.1 - CHRONIC OBSTRUCTIVE PULMONARY DISEASE W (ACUTE) EXACERBATION Status: Acute Comment: continue pulmonary support, Duonebs, Prednisone, O2 supplementation (3) Elevated troponin Code(s): R74.8 - ABNORMAL LEVELS OF OTHER SERUM ENZYMES Status: Acute Comment: due to demand ischemia med mx (4) Renal failure (ARF), acute on chronic Code(s): N17.9 - ACUTE KIDNEY FAILURE, UNSPECIFIED; N18.9 - CHRONIC KIDNEY DISEASE, UNSPECIFIED Status: Acute (5) Tobacco abuse Code(s): Z72.0 - TOBACCO USE Status: Acute Comment: smoking cessation resources (6) Afib Code(s): I48.91 - UNSPECIFIED ATRIAL FIBRILLATION Status: Chronic Qualifiers: Atrial fibrillation type: paroxysmal Qualified Code(s): I48.0 - Paroxysmal atrial fibrillation (7) CAD (coronary artery disease) Code(s): I25.10 - ATHSCL HEART DISEASE OF [place] CORONARY ARTERY W/O ANG PCTRS Status: Chronic (8) DM type 2 with diabetic peripheral neuropathy Code(s): E11.42 - TYPE 2 DIABETES MELLITUS WITH DIABETIC POLYNEUROPATHY Status : Chronic (9) HTN (hypertension) Code(s): I10 - ESSENTIAL (PRIMARY) HYPERTENSION Status: Chronic Qualifiers: Hypertension type: essential hypertension Qualified Code(s): I10 - Essential (primary) hypertension - Plan * 1. NSVT- intially seen in 3-4 beat runs, currently without recurrence. Patient was asymptomatic with previous episodes. 2. Chronic Systolic Congestive Heart Failure- LVEF 30% by stress test 3. Ischemic cardiomyopathy 4. Elevated Troponin- stress test negative 5. Pneumonia/RSV- resolving, 6. COPD exacerbation-resolving 7. HTN- somewhat improved but remains hypertensive Stress test negative. Patient continues to have shortness of breath and is recovering from RSV/COPD exacerbation. Patient has not had any additional episodes of VT/NSVT. He is eager to go home. EP study was discussed with him and possible need for ICD. Patient verbalized understanding of procedure and risks, including hematoma, damage to blood vessels, pneumothorax, perforation of the heart, need for chest tube placement or surgical repair, and . He is agreeable to these but is eager to get home. Patient is concerned about his breathing and lying flat during/after the procedure. At this point ICD implant is scheduled for Sunday assuming patient is afebrile and is medically stable.
[2017-09-22] MEDS: HumaLOG 300 UNITS/3 ML VIAL SC PRN ×2 (11:59→17:58)
--- NOTE | 2017-09-22 16:23 | PRG ---
DATE OF SERVICE: 09/22/2017 SUBJECTIVE: She is sitting in a chair, in no distress. OBJECTIVE: VITAL SIGNS: Sats are 92%, pulse 77, blood pressure 150/92, respirations 18. CHEST: Chest reveals decreased breath sounds, no wheezing. CARDIAC: Normal S1, S2. ABDOMEN: Soft, no masses. LABORATORY DATA: H and H is stable. Electrolytes are normal. Glucose 199. IMPRESSION: Congestive heart failure, chronic obstructive pulmonary disease, cardiomyopathy, ventric ular tachycardia. PLAN: Continue neb treatments, supportive care. We will follow.
[2017-09-22] MEDS: Gabapentin 300 MG CAP PO SCH (20:46)
[2017-09-22] MEDS: Atorvastatin Calcium 40 MG TAB PO SCH (20:48)
[2017-09-23] MEDS: Benzonatate 100 MG CAP PO PRN ×3 (02:04→20:23)
[2017-09-23] MEDS: HYDROcodone/Acetaminophen 5/325 mg Tablet PO PRN ×4 (02:04→20:16)
[2017-09-23 05:38] LABS: Anion Gap 12 mmol/L (10-20); BUN (Urea Nitrogen) 31 mg/dL (8.4-25.7); Calc. Creatinine Clearance 144 mL/min (70-130); Calcium 9.1 mg/dL (7.8-10.44); Carbon Dioxide 24 mmol/L (22-29); Chloride 104 mmol/L (98-107); Estimated GFR-MDRD 67; Glucose 156 mg/dL (70-105); Magnesium 1.7 mg/dL (1.6-2.6); Potassium 3.9 mmol/L (3.5-5.1); Sodium 136 mmol/L (136-145)
[2017-09-23] MEDS: Mometasone/Formoterol 120 PUFF INHALER INH SCH ×2 (08:27→19:54)
[2017-09-23] MEDS: Lisinopril 10 MG TAB PO SCH ×2 (08:29→20:15)
[2017-09-23] MEDS: Carvedilol 25 MG TAB PO SCH ×3 (08:29→20:16)
[2017-09-23] MEDS: metFORMIN 500 MG TAB PO SCH ×2 (08:29→16:52)
[2017-09-23] MEDS: guaiFENesin ER 600 MG TAB PO SCH ×2 (08:29→20:14)
[2017-09-23] MEDS: predniSONE 20 MG TAB PO SCH (08:30)
[2017-09-23] MEDS: Doxycycline 100 MG CAP PO SCH ×2 (08:30→20:14)
[2017-09-23] MEDS: Aspirin 81 mg Enteric Coated Tablet PO SCH (08:30)
[2017-09-23] MEDS: glyBURIDE 2.5 MG TAB PO SCH (08:31)
[2017-09-23] MEDS: hydrALAZINE 25 MG TAB PO SCH ×3 (08:31→20:15)
[2017-09-23] MEDS: HumaLOG 300 UNITS/3 ML VIAL SC PRN ×2 (11:33→17:56)
--- NOTE | 2017-09-23 12:20 | PDOC.PN ---
- Subjective Encounter Start Date: 09/23/17 Encounter Start Time: 12:18 Patient seen and examined. No new complaints. No overnight events - Objective MAR Reviewed: Yes Vital Signs & Weight: Vital Signs (12 hours) Temp Pulse Resp BP BP Pulse Ox 09/23/17 12:00 98.3 F 66 16 163/85 H 95 09/23/17 11:23 68 16 95 09/23/17 08:31 72 151/85 H 09/23/17 08:29 72 16 151/85 H 92 L 09/23/17 08:27 72 16 92 L 09/23/17 08:10 98.3 F 72 16 92 L 09/23/17 02:06 98.3 F 67 22 H 157/85 H Weight Weight 315 lb I&O: 09/22/17 09/23/17 09/24/17 06:59 06:59 06:59 Intake Total 2210 1110 Output Total 1200 Balance 2210 -90 Result Diagrams: 09/22/17 04:32 09/23/17 04:40 Additional Labs: Accuchecks 09/23/17 09/22/17 09/22/17 10:52 20:46 17:03 POC Glucose 195 H 202 H 263 H Phys Exam - Physical Examination Constitutional: NAD HEENT: PERRLA Neck: no JVD Respiratory: no rales Cardiovascular: no significant murmur Gastrointestinal: non-tender Musculoskeletal: pulses present Neurological: moves all 4 limbs Psychiatric: A&O x 3 Dx/Plan (1) Pneumonia Code(s): J18.9 - PNEUMONIA, UNSPECIFIED ORGANISM Status: Acute Qualifiers: Pneumonia type: due to unspecified organism Laterality: bilateral Lung location: unspecified part of lung Qualified Code(s): J18.9 - Pneumonia, unspecified organism (2) COPD exacerbation Code(s): J44.1 - CHRONIC OBSTRUCTIVE PULMONARY DISEASE W (ACUTE) EXACERBATION Status: Acute Comment: continue pulmonary support, Duonebs, Prednisone, O2 supplementation (3) Elevated troponin Code(s): R74.8 - ABNORMAL LEVELS OF OTHER SERUM ENZYMES Status: Acute Comment: due to demand ischemia med mx (4) Renal failure (ARF), acute on chronic Code(s): N17.9 - ACUTE KIDNEY FAILURE, UNSPECIFIED; N18.9 - CHRONIC KIDNEY DISEASE, UNSPECIFIED Status: Acute (5) Tobacco abuse Code(s): Z72.0 - TOBACCO USE Status: Acute Comment: smoking cessation resources (6) Afib Code(s): I48.91 - UNSPECIFIED ATRIAL FIBRILLATION Status: Chronic Qualifiers: Atrial fibrillation type: paroxysmal Qualified Code(s): I48.0 - Paroxysmal atrial fibrillation (7) CAD (coronary artery disease) Code(s): I25.10 - ATHSCL HEART DISEASE OF [place] CORONARY ARTERY W/O ANG PCTRS Status: Chronic (8) DM type 2 with diabetic peripheral neuropathy Code(s): E11.42 - TYPE 2 DIABETES MELLITUS WITH DIABETIC POLYNEUROPATHY Status : Chronic (9) HTN (hypertension) Code(s): I10 - ESSENTIAL (PRIMARY) HYPERTENSION Status: Chronic Qualifiers: Hypertension type: essential hypertension Qualified Code(s): I10 - Essential (primary) hypertension - Plan * cont current mx * f/u card and pulm plan
--- NOTE | 2017-09-23 14:22 | PRG ---
DATE OF SERVICE: 09/23/2017 SUBJECTIVE: This morning, he is awake, alert, responsive, in no distress, no pain. OBJECTIVE: VITAL SIGNS: Blood pressure 136/85, O2 sat 95% on room air, respirations 16, temperature 98. CHEST: No wheezing. CARDIAC: Normal S1 and S2. No gallops. ABDOMEN: Soft. No masses. Electrolytes are normal. IMPRESSION: 1. Congestive heart failure. 2. Renal failure, improved. 2. Pneumonia, improved. 3. Morbid obesity. 4. Sleep apnea. PLAN: The patient is due for EP evaluation tomorrow. In the meantime, continue neb treatments, supportive care. Will follow.
[2017-09-23] MEDS: Gabapentin 300 MG CAP PO SCH (20:15)
[2017-09-23] MEDS: Atorvastatin Calcium 40 MG TAB PO SCH (20:16)
[2017-09-24] MEDS: HYDROcodone/Acetaminophen 5/325 mg Tablet PO PRN ×4 (00:32→20:18)
[2017-09-24] MEDS: Benzonatate 100 MG CAP PO PRN ×3 (02:19→20:17)
[2017-09-24 05:09] LABS: Hemoglobin 13.4 g/dL (14.0-18.0); Platelet Count 238 thou/uL (130-400)
[2017-09-24 05:23] LABS: Anion Gap 11 mmol/L (10-20); BUN (Urea Nitrogen) 24 mg/dL (8.4-25.7); Calc. Creatinine Clearance 155 mL/min (70-130); Carbon Dioxide 23 mmol/L (22-29); Chloride 105 mmol/L (98-107); Estimated GFR-MDRD 73; Glucose 137 mg/dL (70-105); Magnesium 1.6 mg/dL (1.6-2.6); Sodium 135 mmol/L (136-145)
[2017-09-24] MEDS: Carvedilol 25 MG TAB PO SCH ×3 (05:43→20:19)
[2017-09-24] MEDS: Mometasone/Formoterol 120 PUFF INHALER INH SCH ×2 (06:18→18:31)
[2017-09-24] MEDS: hydrALAZINE 25 MG TAB PO SCH ×3 (08:45→20:20)
[2017-09-24] MEDS: Lisinopril 10 MG TAB PO SCH (08:45)
[2017-09-24] MEDS: guaiFENesin ER 600 MG TAB PO SCH ×2 (11:00→20:19)
--- NOTE | 2017-09-24 12:04 | PRG ---
DATE OF SERVICE: 09/24/2017 Mr. Amezquita did well over the weekend. He had no problems. He tells me he is scheduled for a pacemake r placement today. Though I would wonder if this was not a pacemaker defibrillator that was being im plemented. Cardiology note from the discusses the possible need for an ICD, he had a negative stress test o n Sunday. His COPD is clinically stable. His lungs are clear today.
[2017-09-24] MEDS: metFORMIN 500 MG TAB PO SCH ×2 (12:10→16:09)
[2017-09-24] MEDS: predniSONE 20 MG TAB PO SCH (13:09)
[2017-09-24] MEDS: glyBURIDE 2.5 MG TAB PO SCH (13:09)
[2017-09-24] MEDS: Doxycycline 100 MG CAP PO SCH ×2 (13:09→20:17)
[2017-09-24] MEDS: Aspirin 81 mg Enteric Coated Tablet PO SCH (13:09)
--- NOTE | 2017-09-24 17:28 | PDOC.PN ---
- Subjective Encounter Start Date: 09/24/17 Encounter Start Time: 17:27 Patient seen and examined. No new complaints. No overnight events - Objective MAR Reviewed: Yes Vital Signs & Weight: Vital Signs (12 hours) Temp Pulse Resp BP BP BP Pulse Ox 09/24/17 16:10 73 176/97 H 09/24/17 16:00 98.2 F 61 20 180/78 H 91 L 09/24/17 14:59 73 16 96 09/24/17 11:28 98.5 F 62 20 176/97 H 90 L 09/24/17 10:18 74 16 97 09/24/17 08:45 64 183/96 H 09/24/17 08:00 98.5 F 74 16 92 L 09/24/17 07:57 98.5 F 64 20 183/96 H 92 L 09/24/17 06:19 70 18 93 L 09/24/17 06:18 70 16 93 L 09/24/17 05:43 70 179/94 H Weight Weight 315 lb I&O: 09/23/17 09/24/17 09/25/17 06:59 06:59 06:59 Intake Total 1110 1590 Output Total 1200 Balance -90 1590 Result Diagrams: 09/24/17 04:20 09/24/17 04:20 Additional Labs: Accuchecks 09/24/17 09/24/17 09/24/17 17:14 11:18 06:16 POC Glucose 297 H 162 H 124 H 09/23/17 20:23 POC Glucose 167 H Phys Exam - Physical Examination Constitutional: NAD HEENT: PERRLA Neck: no JVD Respiratory: no wheezing Cardiovascular: no significant murmur Gastrointestinal: non-tender Musculoskeletal: pulses present Neurological: moves all 4 limbs Psychiatric: A&O x 3 Dx/Plan (1) Pneumonia Code(s): J18.9 - PNEUMONIA, UNSPECIFIED ORGANISM Status: Acute Qualifiers: Pneumonia type: due to unspecified organism Laterality: bilateral Lung location: unspecified part of lung Qualified Code(s): J18.9 - Pneumonia, unspecified organism (2) COPD exacerbation Code(s): J44.1 - CHRONIC OBSTRUCTIVE PULMONARY DISEASE W (ACUTE) EXACERBATION Status: Acute Comment: continue pulmonary support, Duonebs, Prednisone, O2 supplementation (3) Elevated troponin Code(s): R74.8 - ABNORMAL LEVELS OF OTHER SERUM ENZYMES Status: Acute Comment: due to demand ischemia med mx (4) Renal failure (ARF), acute on chronic Code(s): N17.9 - ACUTE KIDNEY FAILURE, UNSPECIFIED; N18.9 - CHRONIC KIDNEY DISEASE, UNSPECIFIED Status: Acute (5) Tobacco abuse Code(s): Z72.0 - TOBACCO USE Status: Acute Comment: smoking cessation resources (6) Afib Code(s): I48.91 - UNSPECIFIED ATRIAL FIBRILLATION Status: Chronic Qualifiers: Atrial fibrillation type: paroxysmal Qualified Code(s): I48.0 - Paroxysmal atrial fibrillation (7) CAD (coronary artery disease) Code(s): I25.10 - ATHSCL HEART DISEASE OF [place] CORONARY ARTERY W/O ANG PCTRS Status: Chronic (8) DM type 2 with diabetic peripheral neuropathy Code(s): E11.42 - TYPE 2 DIABETES MELLITUS WITH DIABETIC POLYNEUROPATHY Status : Chronic (9) HTN (hypertension) Code(s): I10 - ESSENTIAL (PRIMARY) HYPERTENSION Status: Chronic Qualifiers: Hypertension type: essential hypertension Qualified Code(s): I10 - Essential (primary) hypertension - Plan * for ppm today * f/u card and pulm plan
--- NOTE | 2017-09-24 17:51 | EKG ---
Test Reason : PREOP Blood Pressure : / mmHG Vent. Rate : 061 BPM Atrial Rate : 061 BPM P-R Int : 170 ms QRS Dur : 124 ms QT Int : 426 ms P-R-T Axes : 010 -10 104 degrees QTc Int : 428 ms Normal sinus rhythm Possible Left atrial enlargement Possible Inferior infarct , age undetermined Non-specific intra-ventricular conduction delay Nonspecific ST and T wave abnormality Abnormal ECG When compared with ECG of 14-SEP-2017 16:58, DE interval has decreased Questionable change in QRS axis ST elevation has replaced ST depression in Anterior leads Confirmed by MJ CHEATHAM, SGiuseppe ([id number]) on 09/24/2017 5:50:54 PM Referred By: [facility] Confirmed By:DR. Markus BARKER MD
[2017-09-24] MEDS: Lisinopril 20 MG TAB PO SCH (20:17)
[2017-09-24] MEDS: Atorvastatin Calcium 40 MG TAB PO SCH (20:19)
[2017-09-24] MEDS: Gabapentin 300 MG CAP PO SCH (20:20)
--- NOTE | 2017-09-24 23:05 | PRG ---
DATE OF SERVICE: 09/24/2017 ELECTROPHYSIOLOGY FOLLOWUP NOTE I am seeing Mr. Amezquita at our [facility] telemetry floor for electrophysiology followup. SUBJECTIVE: Mr. Amezquita seems to be doing better than last week when I saw him. His dyspnea has impro cristal. He has no chest pains at this point. He is able to lie more flat. Cough is improving. OBJECTIVE: VITAL SIGNS: Blood pressure this morning is 183/96, heart rate 64, respirations 16, temperature 98.5 degrees Fahrenheit. GENERAL: This is an alert and oriented man in no apparent distress. NECK: Supple. Jugular vein is not distended. CHEST: Coarse. No crackles. CARDIOVASCULAR: Heart sounds are regular. No murmur or gallop. PMI is nonpalpable. ABDOMEN: Benign. Bowel sounds are positive. EXTREMITIES: Lower extremities without edema, clubbing, or cyanosis. DATA BASE: Stress test from 09/20/2017 demonstrates LVEF 30%, no evidence of reversible ischemia, la rge inferolateral wall scar is seen. IMPRESSION: 1. Chronic systolic congestive heart failure with ischemic cardiomyopathy. A. Nuclear stress test as above without reversible ischemia, despite of the borderline elevated trop onins, which were thought to be due to the cardiomyopathy process and demand ischemia, not due to acu te myocardial infarction. B. Reduced left ventricular ejection fraction, progressively worsening, now 30%. 2. Nonsustained ventricular tachycardia, high risk for malignant ventricular arrhythmias in the futu re. 3. Acute hospitalization with viral bronchitis and pneumonitis, now resolving. 4. Renal insufficiency. 5. Prior history of coronary artery disease with stent placement in May 2016. 6. History of paroxysmal atrial fibrillation around [place] last year. The patient was on Xarelto . 7. Chronic obstructive pulmonary disease. 8. Advanced pulmonary disease. PLAN: At this point, the patient has progressive worsening of his function in the setting of ischemi c cardiomyopathy. Hence he the LVEF is now 30% on most recent test, it will be reasonable to proceed with a prophylactic ICD, especially in view of his nonsustained ventricular arrhythmias. Risks and benefits of this procedure were detailed. left bundle branch block, could be of benefit, but re-evaluate EKG prior to implant. We will tentatively schedule him for tomorrow. Thank you again for allowing me to participate in the care of this patient.
[2017-09-25 05:55] LABS: Anion Gap 13 mmol/L (10-20); BUN (Urea Nitrogen) 21 mg/dL (8.4-25.7); Calc. Creatinine Clearance 156 mL/min (70-130); Carbon Dioxide 22 mmol/L (22-29); Chloride 106 mmol/L (98-107); Estimated GFR-MDRD 73; Glucose 175 mg/dL (70-105); Magnesium 1.7 mg/dL (1.6-2.6); Potassium 4.1 mmol/L (3.5-5.1); Sodium 137 mmol/L (136-145)
[2017-09-25] MEDS: Lisinopril 20 MG TAB PO SCH ×2 (05:59→21:44)
[2017-09-25] MEDS: hydrALAZINE 25 MG TAB PO SCH ×3 (05:59→21:44)
[2017-09-25] MEDS: Doxycycline 100 MG CAP PO SCH (05:59)
[2017-09-25] MEDS: guaiFENesin ER 600 MG TAB PO SCH ×2 (06:00→21:44)
[2017-09-25] MEDS: Carvedilol 25 MG TAB PO SCH ×2 (06:00→17:58)
[2017-09-25] MEDS: Aspirin 81 mg Enteric Coated Tablet PO SCH (06:00)
[2017-09-25] MEDS: predniSONE 20 MG TAB PO SCH (06:01)
[2017-09-25] MEDS: HYDROcodone/Acetaminophen 5/325 mg Tablet PO PRN ×4 (06:02→21:50)
[2017-09-25] MEDS: Benzonatate 100 MG CAP PO PRN ×2 (06:02→15:33)
[2017-09-25] MEDS: glyBURIDE 2.5 MG TAB PO SCH (06:05)
[2017-09-25] MEDS: metFORMIN 500 MG TAB PO SCH ×2 (06:05→17:58)
[2017-09-25] MEDS: Mometasone/Formoterol 120 PUFF INHALER INH SCH ×2 (06:41→19:10)
[2017-09-25] MEDS ORDERED: Propofol 1,000 MG/100 ML VIAL IV ONE ×2 (07:16→09:07)
[2017-09-25] MEDS ORDERED: CEFAZOLIN/Water 2 GM/20 ML SYRINGE ONE (07:37)
[2017-09-25] MEDS ORDERED: Iopamidol 370 76% 50 ML VIAL FS ONE (08:12)
[2017-09-25] MEDS ORDERED: Lidocaine 1% (PF) 30 ML VIAL ONE (08:48)
[2017-09-25] MEDS ORDERED: Meperidine HCl/PF 25 MG/ML VIAL SLOW IVP PRN (09:41)
[2017-09-25] MEDS ORDERED: Ondansetron HCl/PF 4 MG/2 ML Vial IVP PRN ×2 (09:41→10:38)
[2017-09-25] MEDS ORDERED: Morphine Sulfate 2 MG/ML SYRINGE SLOW IVP PRN (09:41)
[2017-09-25] MEDS ORDERED: Promethazine HCl 25 MG/ML VIAL SLOW IVP PRN (09:41)
[2017-09-25] MEDS ORDERED: Morphine 4 MG/ML Carpuject SLOW IVP PRN (10:34)
[2017-09-25] MEDS ORDERED: Temazepam 15 MG CAP PO PRN (10:38)
[2017-09-25] MEDS ORDERED: Nitroglycerin 0.4 MG TAB (25 Tab Bottle) SL PRN (10:38)
[2017-09-25] MEDS ORDERED: Bisacodyl 5 MG TAB PO PRN (10:38)
[2017-09-25] MEDS ORDERED: Silver Sulfadiazine 1% Cream 50 GM JAR TOP PRN (10:38)
[2017-09-25] MEDS ORDERED: Mag-Al 1200 mg/1200 mg/30 ML UDCUP PO PRN (10:38)
[2017-09-25] MEDS ORDERED: Bisacodyl 10 MG SUPP PR PRN (10:38)
[2017-09-25] MEDS ORDERED: Acetaminophen 325 MG TAB PO PRN (10:38)
[2017-09-25] MEDS ORDERED: diphenhydrAMINE 25 MG CAP PO PRN (10:38)
[2017-09-25] MEDS ORDERED: Propofol 200 MG/20 ML VIAL ONE (11:26)
[2017-09-25] MEDS ORDERED: traMADol HCl 50 MG TAB PO PRN (11:51)
[2017-09-25] MEDS ORDERED: HYDROcodone/Acetaminophen 5/325 mg Tablet PO PRN (11:54)
[2017-09-25] MEDS ORDERED: Carvedilol 25 MG TAB PO SCH (12:00)
[2017-09-25] MEDS: Cephalexin 250 MG CAP PO SCH ×2 (12:12→17:58)
[2017-09-25] MEDS: HumaLOG 300 UNITS/3 ML VIAL SC PRN ×3 (12:13→22:33)
[2017-09-25 12:14] VITALS: BMI 40.4
--- NOTE | 2017-09-25 12:40 | PRG ---
DATE OF SERVICE: 09/25/2017 SUBJECTIVE: Mr. Amezquita has no complaints. He has a pacemaker defibrillator in place, placed this mor cindy. OBJECTIVE: LUNGS: Clear. HEART: Regular rhythm. ABDOMEN: Soft. IMPRESSION: 1. Chronic obstructive pulmonary disease, stable. 2. Ischemic cardiomyopathy. 3. Left ventricular systolic dysfunction. 4. Nonsustained ventricular tachycardia. 5. Viral illness triggering a chronic obstructive pulmonary disease exacerbation. 6. History of coronary stenting. 7. History of atrial fibrillation. PLAN: Decrease his steroids. Continue ambulation. He has had an adequate course of doxycycline in my opinion to continue his nebulizer treatments. Hopefully, he will be a candidate to discharge soon .
[2017-09-25] MEDS ORDERED: predniSONE 20 MG TAB PO SCH (13:00)
--- NOTE | 2017-09-25 16:11 | PDOC.PN ---
- Subjective Encounter Start Date: 09/25/17 Encounter Start Time: 16:10 Patient seen and examined. No new complaints. No overnight events - Objective MAR Reviewed: Yes Vital Signs & Weight: Vital Signs (12 hours) Temp Pulse Resp BP BP Pulse Ox 09/25/17 16:00 98.4 F 61 20 161/83 H 93 L 09/25/17 15:29 68 09/25/17 15:01 68 16 09/25/17 11:36 98.1 F 65 20 181/104 H 92 L 09/25/17 11:30 67 16 09/25/17 06:41 69 16 09/25/17 06:35 69 16 09/25/17 05:59 65 157/90 H Weight Admit Weight 313 lb 11.2 oz Weight 315 lb I&O: 09/24/17 09/25/17 09/26/17 06:59 06:59 06:59 Intake Total 1590 1070 Balance 1590 1070 Result Diagrams: 09/24/17 04:20 09/25/17 05:13 Additional Labs: Accuchecks 09/25/17 09/24/17 09/24/17 11:03 21:03 17:14 POC Glucose 205 H 295 H 297 H Phys Exam - Physical Examination Constitutional: NAD HEENT: PERRLA Neck: no JVD Respiratory: no wheezing Cardiovascular: no significant murmur Gastrointestinal: non-tender Musculoskeletal: pulses present Neurological: moves all 4 limbs Psychiatric: A&O x 3 Dx/Plan (1) Pneumonia Code(s): J18.9 - PNEUMONIA, UNSPECIFIED ORGANISM Status: Acute Qualifiers: Pneumonia type: due to unspecified organism Laterality: bilateral Lung location: unspecified part of lung Qualified Code(s): J18.9 - Pneumonia, unspecified organism (2) COPD exacerbation Code(s): J44.1 - CHRONIC OBSTRUCTIVE PULMONARY DISEASE W (ACUTE) EXACERBATION Status: Acute Comment: continue pulmonary support, Duonebs, Prednisone, O2 supplementation (3) Elevated troponin Code(s): R74.8 - ABNORMAL LEVELS OF OTHER SERUM ENZYMES Status: Acute Comment: due to demand ischemia med mx (4) Renal failure (ARF), acute on chronic Code(s): N17.9 - ACUTE KIDNEY FAILURE, UNSPECIFIED; N18.9 - CHRONIC KIDNEY DISEASE, UNSPECIFIED Status: Acute (5) Tobacco abuse Code(s): Z72.0 - TOBACCO USE Status: Acute Comment: smoking cessation resources (6) Afib Code(s): I48.91 - UNSPECIFIED ATRIAL FIBRILLATION Status: Chronic Qualifiers: Atrial fibrillation type: paroxysmal Qualified Code(s): I48.0 - Paroxysmal atrial fibrillation (7) CAD (coronary artery disease) Code(s): I25.10 - ATHSCL HEART DISEASE OF [place] CORONARY ARTERY W/O ANG PCTRS Status: Chronic (8) DM type 2 with diabetic peripheral neuropathy Code(s): E11.42 - TYPE 2 DIABETES MELLITUS WITH DIABETIC POLYNEUROPATHY Status : Chronic (9) HTN (hypertension) Code(s): I10 - ESSENTIAL (PRIMARY) HYPERTENSION Status: Chronic Qualifiers: Hypertension type: essential hypertension Qualified Code(s): I10 - Essential (primary) hypertension - Plan * got ppm today * d/c when ok with pulm and card
[2017-09-25] MEDS: Atorvastatin Calcium 40 MG TAB PO SCH (21:44)
[2017-09-25] MEDS: Gabapentin 300 MG CAP PO SCH (21:44)
[2017-09-26] MEDS: Cephalexin 250 MG CAP PO SCH ×4 (01:20→16:45)
[2017-09-26] MEDS: Benzonatate 100 MG CAP PO PRN ×2 (01:20→15:24)
[2017-09-26 05:31] LABS: Hemoglobin 13.7 g/dL (14.0-18.0); Platelet Count 215 thou/uL (130-400)
[2017-09-26 06:04] LABS: Anion Gap 11 mmol/L (10-20); BUN (Urea Nitrogen) 21 mg/dL (8.4-25.7); Calc. Creatinine Clearance 142 mL/min (70-130); Calcium 8.8 mg/dL (7.8-10.44); Carbon Dioxide 25 mmol/L (22-29); Chloride 105 mmol/L (98-107); Estimated GFR-MDRD 65; Glucose 185 mg/dL (70-105); Magnesium 1.7 mg/dL (1.6-2.6); Sodium 137 mmol/L (136-145)
[2017-09-26] MEDS: Mometasone/Formoterol 120 PUFF INHALER INH SCH (06:09)
[2017-09-26] MEDS: HYDROcodone/Acetaminophen 5/325 mg Tablet PO PRN ×3 (06:17→15:20)
[2017-09-26] MEDS: HumaLOG 300 UNITS/3 ML VIAL SC PRN (06:18)
[2017-09-26] MEDS ORDERED: predniSONE 20 MG TAB PO SCH (08:00)
[2017-09-26] MEDS: hydrALAZINE 25 MG TAB PO SCH ×2 (08:57→14:28)
[2017-09-26] MEDS: Aspirin 81 mg Enteric Coated Tablet PO SCH (08:57)
[2017-09-26] MEDS: metFORMIN 500 MG TAB PO SCH ×2 (08:58→16:44)
[2017-09-26] MEDS: glyBURIDE 2.5 MG TAB PO SCH (08:58)
[2017-09-26] MEDS: guaiFENesin ER 600 MG TAB PO SCH (08:58)
[2017-09-26] MEDS: Carvedilol 25 MG TAB PO SCH ×2 (08:58→16:44)
[2017-09-26] MEDS: Lisinopril 20 MG TAB PO SCH (08:58)
--- NOTE | 2017-09-26 10:07 | PRG ---
DATE OF SERVICE: 09/26/2017 Mr. Amezquita did well overnight. He has no complaints. He has been afebrile. He is not wheezing. PHYSICAL EXAMINATION: VITAL SIGNS: His heart rate is 70, respiratory rate 20, oximetry is 94, blood pressure is still inte rmittently high, he is 172/101 this morning, he was 150/76 yesterday. IMPRESSION: Chronic obstructive pulmonary disease, stable. He will take 20 of prednisone for 4 more days and then go to 10 mg a day and see me in 2-3 weeks. His blood pressure probably needs to be monitored at home given his significant decline in left ventr icular systolic function. He also has been wearing his CPAP in the hospital. He needs to get back o n this when he gets home.
--- NOTE | 2017-09-26 10:20 | DIS ---
DATE OF ADMISSION: 09/14/2017 DATE OF DISCHARGE: 09/26/2017 PRIMARY CARE PHYSICIAN: Dr. Zachary Díaz. VEHICLE CARE SPECIALIST: Dr. Foreign Corrales. FOOD SERVICE ORDER CLERK: Dr. Prince Zhang. DISCHARGE DIAGNOSES: 1. Acute exacerbation of chronic obstructive pulmonary disease. 2. Ongoing tobacco abuse. 3. Paroxysmal atrial fibrillation. 4. Coronary artery disease. 5. Ischemic cardiomyopathy with EF of 30%. 6. Status post AICD implantation. 7. Diabetes mellitus type 2 with peripheral neuropathy, circulatory dysfunction. 8. Hypertension, essential. 9. Obesity. 10. Community-acquired pneumonia, secondary to respiratory syncytial virus type B. 11. Demand ischemia. 12. Acute kidney injury on chronic kidney disease, resolved. CONSULTATIONS: 1. Cardiology, Dr. Michael De La Fuente. 2. Pulmonology. Initially, Dr. Rubio Breaux. 3. Electrophysiology, Dr. Prince Zhang. PROCEDURES: 1. Nuclear stress test on 09/20/2017 that revealed no evidence of reversible ischemia and large infe rolateral wall scar. 2. AICD implantation, 09/25/2017. HISTORY AND PHYSICAL: Mr. Amezquita is a 57-year-old gentleman with a known ischemic cardiomyopathy who presents to the emergency department on 09/14/2017 for complaints of shortness of breath. He was wor ked up in the emergency department. We were consulted for admission. The patient was found to have an acute exacerbation of chronic obstructive pulmonary disease. HOSPITAL COURSE: The patient was seen and examined by Dr. Santana on 09/14. The patient was admitted to the hospital. He was started on Solu-Medrol, nebulizer treatments, antibiotics and bronchodilator s. Pulmonology was consulted. Troponin was abnormal and it was felt due to non-ST elevation myocardial infarction from demand, so C ardiology was consulted as well. He had mild acute renal insufficiency and chronic kidney disease an d was gently hydrated. The patient was in normal sinus rhythm on admission, but did have a history of atrial fibrillation an d was started on Accu-Cheks and sliding scale insulin for his diabetes. Overnight 09/14 to 09/15, the patient remained relatively stable. He was seen by Cardiology in the [facility] of 09/15. He was restarted on Xarelto. Coreg was initially on hold and restarted on lisinopr il and was followed. The patient was seen by Dr. Breaux with Pulmonology, and mild adjustments were made in his treatment plan. On 09/16, the patient was breathing somewhat better. He is having coug h, sputum and some dyspnea on exertion, but overall was improving. He was continued on IV Lasix, con tinued antibiotics and ambulated. Pulmonology follow up recommended diuresis and continued nebulized medications, steroids and antibiotics. The patient remained relatively stable from 09/17 to 09/19. He slowly improved from a respiratory standpoint. Electrophysiology consulted on 09/19 due to an ec hocardiogram that showed decreasing ejection fraction, for consideration for AICD placement. Dr. Ana villanueva's recommendations were to continue to watch. He was having some nonsustained ventricular arrhythmi as and recommended ICD implantation to be done. On 09/20, the patient underwent nuclear stress test that showed no reversible ischemia and an old inferolateral scar. He continued diuresis and continue d to slowly improve. On 09/25, the patient was taken to the [facility] for AICD implantation, it was c leared by Pulmonology to be discharged once stable from a cardiac standpoint. Today, a follow up chest x-ray was normal, the patient was hemodynamically stable, he was discharged home on current medication regimen. On physical examination, the patient was seen and examined on the day of discharge. Discharge plan a nd disposition was discussed with the patient [id number] at the bedside. DISCHARGE MEDICATIONS: 1. Albuterol inhaler 2 puffs inhaled q.4-6 hours as needed for shortness of breath 2. Aspirin 81 mg daily. 3. Lipitor 40 mg p.o. at bedtime. 4. Tessalon Perles 100 mg p.o. t.i.d. p.r.n. 5. Symbicort 160/4.5 two puffs b.i.d. 6. Coreg 25 mg p.o. b.i.d. 7. Keflex 500 mg p.o. q.6 hours for 8 more days. 8. Clonidine TTS-2 0.2 mg patch transdermal changed every 7 days, prescription for one month with 2 refills sent. 9. Gabapentin 300 mg p.o. at bedtime. 10. Glyburide 2.5 mg daily. 11. Guaifenesin ER 1200 mg p.o. q.12 hours. 12. DuoNeb 3 mL q.4 hours and q.2 hours p.r.n. 13. Lisinopril 20 mg p.o. b.i.d. 13. Metformin 1000 mg p.o. b.i.d. with meals. 14. Nitrostat 0.4 mg sublingual every 5 minutes p.r.n. chest pain, prescription for 1 vial 2 refills sent. 15. Prednisone 20 mg p.o. q.a.m. To decrease by 5 mg every third day until tapered off. 16. Xarelto 20 mg p.o. daily. FOLLOWUP APPOINTMENTS 1. Dr. Díaz within a week. 2. Dr. Corrales in [address] Zhang in 10 days. DISCHARGE ACTIVITY: Per cardiopulmonary limits. DISCHARGE DIET: Heart healthy diabetic diet recommended. No fluid restriction at this time. THERAPIES: None ordered. The patient has a new AICD, followed per [employer].
--- NOTE | 2017-09-26 11:01 | RAD ---
SINGLE VIEW OF THE CHEST: Comparison: 09-19-17 History: AICD placement. FINDINGS: Single view of the chest shows a normal sized cardiomediastinal silhouette. The patient is status pos t sternotomy. There is a left subclavian pacemaker with its leads in the right atrium and ventricle. No pneumothorax is seen. There is no evidence of consolidation, mass, or pleural effusion. IMPRESSION: Status post pacemaker placement without evidence of complication. POS: [facility]
--- NOTE | 2017-09-26 11:05 | PRG ---
DATE OF SERVICE: 09/26/2017 ELECTROPHYSIOLOGIC FOLLOWUP NOTE SUBJECTIVE: Mr. Amezquita seems to be doing well 1 day after his ICD implant. OBJECTIVE DATA: VITAL SIGNS: Blood pressure is 170/101, heart rate 70, respirations 20, temperature 99.6 degrees Fahrenheit. GENERAL: He is alert and oriented man in no apparent distress. NECK: Supple. Jugular veins not distended. CHEST: Coarse without crackles. Chronic sternal bone fracture is noted. Left precordial ICD insertion site is well healed. CARDIOVASCULAR: The heart sounds are regular to rate and rhythm. No murmur or gallop. ABDOMEN: Benign. Bowel sounds positive. EXTREMITIES: Lower extremities without edema, clubbing, or cyanosis. DATABASE: Telemetry strips reviewed reveal sinus rhythm. No significant ST-T changes. The chest x-ray reviewed revealing adequate RV and RA lead position.ICD interrogation reveals adequately functioning felix chamber ICD. ASSESSMENT AND PLAN: Mr. Amezquita is a pleasant 57-year-old man with history of chronic systolic congestive heart failure with ischemic cardiomyopathy and worsening left ventricular function. He had frequent ventricular arrhythmias on this admission and a nuclear stress test revealed worsening left ventricular function at 30%, but no ischemia. He underwent dual-chamber ICD implantation yesterday without complication, so far is stable. He is on antibiotic to continue. He will likely need further heart failure and antihypertensive therapy as per Dr. Mcginnis. Routine followup for wound check in 2 weeks in the office requested. SHWETA
[2017-09-26] MEDS: cloNIDine 0.2mg/24 Hour PATCH TD SCH (11:29)
[2017-09-26 16:07] VITALS: BP 152/83; TEMP 98.7
== END 2017-09-26 17:05 | disposition home or self-care (01) | DRG 981 ==
LOC: ERS 16:50 → ERHOLD 19:30 → 2SE 09-15 02:17
PROVIDERS: ADMIT Internal Medicine; ATTEND Internal Medicine
PROC: 0JH609Z Insertion of Cardiac Resynchronization Defibrillator Pulse Generator into Chest Subcutaneous Tissue and Fascia, Open Approach (ICD-10-PCS; principal; 2017-09-25)
PROC: 02H63KZ Insertion of Defibrillator Lead into Right Atrium, Percutaneous Approach (ICD-10-PCS; 2017-09-25)
PROC: 02HK3KZ Insertion of Defibrillator Lead into Right Ventricle, Percutaneous Approach (ICD-10-PCS; 2017-09-25)
DX: J44.0 Chronic obstructive pulmonary disease with (acute) lower respiratory infection (principal); J12.1 Respiratory syncytial virus pneumonia; J96.01 Acute respiratory failure with hypoxia; I47.2 Ventricular tachycardia; I50.43 Acute on chronic combined systolic (congestive) and diastolic (congestive) heart failure; J11.08 Influenza due to unidentified influenza virus with specified pneumonia; N17.9 Acute kidney failure, unspecified; E66.01 Morbid (severe) obesity due to excess calories; I24.8 Other forms of acute ischemic heart disease; N18.3 Chronic kidney disease, stage 3 (moderate); Z68.41 Body mass index [BMI] 40.0-44.9, adult; I13.0 Hypertensive heart and chronic kidney disease with heart failure and stage 1 through stage 4 chronic kidney disease, or unspecified chronic kidney disease; E11.42 Type 2 diabetes mellitus with diabetic polyneuropathy; I48.0 Paroxysmal atrial fibrillation; F17.210 Nicotine dependence, cigarettes, uncomplicated; J44.1 Chronic obstructive pulmonary disease with (acute) exacerbation; I25.10 Atherosclerotic heart disease of native coronary artery without angina pectoris; I25.5 Ischemic cardiomyopathy; Z95.1 Presence of aortocoronary bypass graft; Z95.5 Presence of coronary angioplasty implant and graft; I44.7 Left bundle-branch block, unspecified; G47.33 Obstructive sleep apnea (adult) (pediatric); J20.5 Acute bronchitis due to respiratory syncytial virus; Z89.029 Acquired absence of unspecified finger(s); E78.00 Pure hypercholesterolemia, unspecified; Z91.19 Patient's noncompliance with other medical treatment and regimen; F41.9 Anxiety disorder, unspecified; I25.2 Old myocardial infarction; E11.22 Type 2 diabetes mellitus with diabetic chronic kidney disease
CPT/HCPCS: 33249; 36005; 36415; 36416; 71045; 75820; 78452; 80048; 80053; 82550; 82553; 83735; 83880; 84484; 85014; 85018; 85025; 85049; 87633; 87798; 93005; 93010; 93017; 93798; 94640; 94644; 96372; 96374; 96375; 96376; A4216; A9500; C1721; C1777; C1898; J0456; J0696; J1650; J1815; J1940; J2001; J2270; J2704; J2785; J2920; J2930; J3010; J3490; J7050; J7506; J7611; J7620

== ENCOUNTER 2018-02-21 22:08 | Inpatient (IN) | payer SELFPAY ==
[2018-02-21] MEDS ORDERED: Albuterol Sulfate 2.5 mg/3 ml Neb ONE (22:31)
[2018-02-21 22:34] LABS: CO2 Tension 38.6 mmHg (35.0-45.0); O2 Tension (PaO2) 75.2 mmHg (80.0-100.0); pH, Arterial 7.42 (7.35-7.45)
[2018-02-21 22:35] LABS: Actual Bicarbonate (HCO3a) 24.7 mEq/L (22-28); Base Excess (BEa) 0.4 mEq/L (-2.0 to +3.0); Calcium, Ionized 1.2 mmol/L (1.12-1.30); Hematocrit-ABG 40.6 % (42.0-52.0); Hemoglobin (Hb) 13.6 g/dL (14.0-18.0)
[2018-02-21 22:36] LABS: Analyzer IN Cardio ER; Puncture Site R RADIAL
--- NOTE | 2018-02-21 22:37 | RAD ---
PORTABLE CHEST: 02/21/18 HISTORY: Shortness of breath. COMPARISON: 09/26/17. FINDINGS/IMPRESSION: Heart is upper normal size. Postop sternotomy change. Pacemaker leads are again noted. Mild vascular congestion. There may be mild interstitial edema present. The mild congestion is more prominent than on the prior study. POS: [facility]
[2018-02-21 22:42] LABS: #Basophils 0.1 thou/uL (0.0-0.2); #Eosinphils 0.2 thou/uL (0.0-0.7); #Lymphocytes 1.3 thou/uL (1.20-3.40); #Monocytes 0.8 thou/uL (0.11-0.59); #Neutrophils 5.1 thou/uL (1.40-6.50); %Basophils 0.9 % (0.0-1.0); %Eosinophils 3.3 % (0.0-10.0); %Lymphocytes 17.7 % (21.0-51.0); %Monocytes 10.8 % (0.0-10.0); %Neutrophils 67.3 % (42.0-75.0); Hemoglobin 14.3 g/dL (14.0-18.0); Mean Corpuscular HGB CONC 34.4 g/dL (32.0-36.0); Mean Corpuscular Hemoglobin 31.2 pg (27.0-31.0); Mean Corpuscular Volume 90.5 fl (80.0-94.0); Mean Platelet Volume 7.5 fL (7.4-10.4); Platelet Count 209 thou/uL (130-400); RBC Distribution Width 12.5 % (11.5-14.5); Red Blood Cell (RBC) Count 4.59 mill/uL (4.70-6.10); White Blood Cell (WBC) Count 7.6 thou/uL (4.8-10.8)
[2018-02-21 22:54] LABS: Anion Gap 12 mmol/L (10-20); BUN (Urea Nitrogen) 14 mg/dL (8.4-25.7); Calc. Creatinine Clearance 0 mL/min (70-130); Calcium 8.9 mg/dL (7.8-10.44); Carbon Dioxide 27 mmol/L (22-29); Chloride 103 mmol/L (98-107); Estimated GFR-MDRD 52; Glucose 284 mg/dL (70-105); Potassium 4.4 mmol/L (3.5-5.1); Sodium 138 mmol/L (136-145)
[2018-02-21 23:01] LABS: CKMB 2.6 ng/mL (0-6.6)
[2018-02-21] MEDS ORDERED: methylPREDNISolone Sod Succ/PF 125 MG/2 ML VIAL ONE (23:06)
[2018-02-21] MEDS ORDERED: Furosemide 40 MG/4 ML VIAL ONE (23:06)
[2018-02-22] MEDS ORDERED: cloNIDine 0.1 MG TAB ONE (00:04)
[2018-02-22] MEDS ORDERED: Dextrose 50% Abboject 50 ML SYRINGE SLOW IVP PRN (00:33)
[2018-02-22] MEDS ORDERED: Dextrose 5% in Water 1,000 ML IV PRN (00:33)
--- NOTE | 2018-02-22 01:20 | HP ---
PRIMARY CARE PROVIDER: Zachary Díaz M.D. CHIEF COMPLAINT: Shortness of breath. HISTORY OF PRESENT ILLNESS: Mr. Amezquita is a pleasant 57-year-old gentleman who was seen at [facility] on 02/22/2018. He presented to the emergency room with complaint of shortnes s of breath. He denied he had any chest pain, although he reportedly told the emergency room physici an that he had some chest pain. He reports that the shortness of breath started couple of days ago. He denies any orthopnea or parox ysmal nocturnal dyspnea, but reports severe shortness of breath with exertion. He denies any cough, fevers or chills. He denies any nausea or vomiting. REVIEW OF SYSTEMS: All other systems reviewed and found to be negative. PAST MEDICAL HISTORY: Three 2-vessel coronary artery disease, status post coronary artery bypass gra ft in 2009, status post stent placement in 05/[address] Mcginnis, COPD followed by Dr. Toñito moser, cardiomyopathy status post AICD placement, diabetes mellitus type 2, obesity, hypertension, obstr uctive sleep apnea syndrome on CPAP therapy, and atrial fibrillation. PAST SURGICAL HISTORY: Coronary artery bypass graft, PCI with stent placement, appendectomy, finger amputation and AICD placement. ALLERGIES: No known drug allergies. CURRENT MEDICATIONS: Metformin 1000 mg 2 times a day, glyburide 10 mg daily, carvedilol 6.25 mg 2 ti mes a day, aspirin 325 mg daily, lisinopril 40 mg daily, simvastatin 20 mg daily, and Lyrica 75 mg 2 times a day. FAMILY HISTORY: Multiple family members with diabetes mellitus and coronary artery disease. SOCIAL HISTORY: No history of tobacco use or recreational drug use, occasional alcohol use. PHYSICAL EXAMINATION: GENERAL: On examination, Mr. Amezquita is awake and alert, in mild respiratory distress. VITAL SIGNS: Blood pressure is 188/81, pulse is 79, his breathing at rate of 20 and saturating 97% o n BiPAP. He is afebrile. He is obese. EYES: No scleral icterus, no conjunctival pallor. ENT: Moist mucosal membranes, no oropharyngeal erythema or exudates. NECK: Supple, nontender, trachea is midline. RESPIRATORY: Accessory muscles of breathing are not active. Chest wall movements are symmetric bila terally. Markedly diminished breath sounds at both bases. CARDIOVASCULAR: S1 and S2 are heard, regular. Peripheral pulses palpable. No carotid bruit, no per icardial rub. ABDOMEN: Distended, nontender, bowel sounds are heard. NEUROLOGIC: Cranial nerves II-XII intact. Deep tendon reflexes are 2+. MUSCULOSKELETAL: Power is 5/5 in all 4 extremities. SKIN: No rashes or subcutaneous nodules. LYMPHATIC: No cervical lymphadenopathy. PSYCHIATRIC: Normal mood, normal affect, patient is oriented to person, place, and time. LABORATORY DATA: Mr. Amezquita's labs and investigations were reviewed. I reviewed his electrocardiogra m, which shows normal sinus rhythm, no ST changes to suggest an acute coronary syndrome. I also revi ewed his chest x-ray, which shows vascular congestion. He has normal white count, normal hemoglobin, normal platelet count, normal electrolytes, elevated creatinine of 1.39, last known creatinine 1.15 on 09/26/2017 and normal troponin I and elevated BNP of 1153 Arterial blood gases show pH of 7.42, p O2 of 71.1, and pCO2 of 38.6. ASSESSMENT AND PLAN: Mr. Amezquita is a pleasant 57-year-old gentleman who was seen at [facility] on 02/22/2018. His problem list includes: 1. Acute on chronic respiratory failure: Likely a combination of congestive heart failure exacerbat ion and chronic obstructive pulmonary disease exacerbation. 2. Chronic obstructive pulmonary disease exacerbation: He will be treated with oxygen, steroids, an d bronchodilators. Pulmonary service will be consulted. 3. Congestive heart failure exacerbation: He will be treated with intravenous diuretics. We will c onsult Cardiology Service. He may need automatic implantable cardioverter-defibrillator interrogatio n. 4. Diabetes mellitus: Start Accu-Cheks, insulin sliding scale. 5. Hypertension: Monitor vital signs, titrate antihypertensives as needed. Many thanks for allowing me to participate in your patient's care. Please feel free to contact me wi th any questions or concerns. LEVEL OF RISK: High. LEVEL OF COMPLEXITY: High.
[2018-02-22 01:27] VITALS: BMI 40.6
[2018-02-22] MEDS: Acetaminophen 325 MG TAB PO PRN ×3 (02:22→23:30)
[2018-02-22 04:23] LABS: #Lymphocytes 0.7 thou/uL (1.20-3.40); #Monocytes 0.2 thou/uL (0.11-0.59); #Neutrophils 6.3 thou/uL (1.40-6.50); %Basophils 0.1 % (0.0-1.0); %Eosinophils 0.6 % (0.0-10.0); %Lymphocytes 9.8 % (21.0-51.0); %Monocytes 2.8 % (0.0-10.0); %Neutrophils 86.7 % (42.0-75.0); Hemoglobin 13.4 g/dL (14.0-18.0); Mean Corpuscular Hemoglobin 30.4 pg (27.0-31.0); Mean Corpuscular Volume 89.3 fl (80.0-94.0); Mean Platelet Volume 7.3 fL (7.4-10.4); Platelet Count 205 thou/uL (130-400); RBC Distribution Width 12.5 % (11.5-14.5); Red Blood Cell (RBC) Count 4.41 mill/uL (4.70-6.10); White Blood Cell (WBC) Count 7.3 thou/uL (4.8-10.8)
[2018-02-22 04:39] LABS: Anion Gap 14 mmol/L (10-20); BUN (Urea Nitrogen) 15 mg/dL (8.4-25.7); Calc. Creatinine Clearance 108 mL/min (70-130); Carbon Dioxide 26 mmol/L (22-29); Chloride 102 mmol/L (98-107); Estimated GFR-MDRD 49; Glucose 372 mg/dL (70-105); Potassium 4.5 mmol/L (3.5-5.1); Sodium 137 mmol/L (136-145)
[2018-02-22] MEDS: HumaLOG 300 UNITS/3 ML VIAL SC PRN ×4 (05:44→20:28)
[2018-02-22] MEDS: Furosemide 40 MG/4 ML VIAL SLOW IVP SCH ×2 (05:44→13:37)
[2018-02-22] MEDS ORDERED: Diltiazem 125 MG in Sodium Chloride 0.9% 100 ML IVPB SCH (08:45)
[2018-02-22] MEDS ORDERED: Amiodarone In Dextrose 200 ML IVPB SCH (08:45)
[2018-02-22] MEDS ORDERED: Carvedilol 25 MG TAB PO SCH (08:45)
[2018-02-22] MEDS ORDERED: Non-Formulary Item 1 EACH (Budesonide-Formoterol [Symbicort 160-4.5] 2 PUFF) INH SCH (09:10)
[2018-02-22] MEDS ORDERED: Aspirin 81 mg Enteric Coated Tablet PO SCH ×2 (09:10→09:30)
[2018-02-22] MEDS ORDERED: Nitroglycerin 0.4 MG TAB (25 Tab Bottle) SL PRN (09:10)
[2018-02-22 09:15] LABS: ALT (SGPT) 12 U/L (8-55); AST (SGOT) 12 U/L (5-34); Albumin 3.3 g/dL (3.5-5.0); Alkaline Phosphatase 76 U/L (40-150); Bilirubin, Direct 0.2 mg/dL (0.1-0.3); Bilirubin, Total 0.5 mg/dL (0.2-1.2); Magnesium 1.4 mg/dL (1.6-2.6); Potassium 4.5 mmol/L (3.5-5.1); Protein, Total 6.4 g/dL (6.0-8.3)
[2018-02-22] MEDS ORDERED: Amiodarone HCl 450 MG, Admixture Fee 1 EACH in Dextrose 5% in Water 250 ML IVPB SCH (09:15)
--- NOTE | 2018-02-22 09:21 | CON ---
DATE OF CONSULTATION: 02/22/2018 Seventy minutes time was spent performing the consultation. At that time, greater than 50% of the ti me was spent with the patient and/or the patient's unit in the hospital. REASON FOR CONSULTATION: Chronic obstructive pulmonary disease with exacerbation and acute respirato ry failure. HISTORY OF PRESENT ILLNESS: The patient is a pleasant 57-year-old male who has seen Dr. Corrales in the past. He came in yesterday via EMS with subacute shortness of breath. He has been having problems all day, which seemed to be exacerbated by the heat. He said he thought this was probably a COPD, be cause he is having difficulty inhaling and exhaling. He has had problems with his heart in the past and states that he does have congestive heart failure. PAST MEDICAL HISTORY: 1. Coronary artery disease. 2. Congestive heart failure. 3. Diabetes mellitus type 2. 4. Chronic obstructive pulmonary disease. 5. Obstructive sleep apnea. 6. Hypertension. 7. Atrial fibrillation. PAST SURGICAL HISTORY: 1. Coronary artery bypass grafting surgery. 2. PCI with stent placement. 3. Appendectomy. 4. Finger amputation. 5. AICD placement. ALLERGIES: None. MEDICATIONS PRIOR TO ADMISSION: Metformin, glyburide, carvedilol, aspirin, lisinopril, simvastatin, Lyrica, and albuterol nebulization treatments. FAMILY MEDICAL HISTORY: Remarkable for diabetes mellitus, coronary artery disease. SOCIAL HISTORY: He smoked 2 packs per day up until 2 years ago when he quit. Does not consume alcoh ol, does not use illicit drugs. REVIEW OF SYSTEMS: A 12-point review of systems otherwise negative. PHYSICAL EXAMINATION: VITAL SIGNS: Temperature 97.7, pulse 148, respirations 16, O2 sat 93% room air, blood pressure 146/8 1. GENERAL: He is awake, alert, sitting in a chair, does not appear to be in any profound distress. HEENT: Pupils react. Sclerae anicteric. Oropharynx clear. NECK: No JVD. LUNGS: Globally diminished breath sounds without wheezing or rhonchi. CARDIAC: S1, S2, severely tachycardic and irregularly irregular. ABDOMEN: Soft, obese, nontender, nondistended. EXTREMITIES: No clubbing, cyanosis. He has 2+ edema. LABORATORY DATA: Sodium 137, potassium 4.5, chloride 102, CO2 26, BUN 15, creatinine 1.4, glucose 37 2. BNP 1153. White blood cell count 7.3, hematocrit 39.4, platelet count 205. PH 7.42, pCO2 38, pO 2 75 that was on BiPAP. ASSESSMENT: 1. I suspect this is probably congestive heart failure with exacerbation. I think the atrial fibril lation is probably making things worse. 2. Could have concurrent chronic obstructive pulmonary disease with exacerbation. 3. Obstructive sleep apnea. 4. Diabetes mellitus. 5. Hypertension. PLAN: 1. The patient is starting amiodarone drip for rate control of his atrial fibrillation. 2. He is continuing steroids, nebulization treatments for chronic obstructive pulmonary disease. 3. BiPAP intermittently as needed. 4. We will follow with you.
[2018-02-22] MEDS: Amiodarone HCl 450 MG, Admixture Fee 1 EACH in Dextrose 5% in Water 250 ML IVPB SCH ×2 (09:43→13:36)
[2018-02-22] MEDS ORDERED: Digoxin 0.5 MG/2 ML AMP SLOW IVP SCH (09:45)
[2018-02-22] MEDS: Heparin 5,000 UNITS/ML VIAL SC SCH ×3 (09:50→20:28)
--- NOTE | 2018-02-22 10:15 | CON ---
HISTORY OF PRESENT ILLNESS: Zoran Amezquita is a 57-year-old white male that I have followed intermittently since 02/2009. He has never come to the office for follow up. In 2008, he presented to the hospital complaining of chest discomfort for 6 months. This would occur with activity, relieved with rest. He also began to have exertional dyspnea. He had a more prolonged episode associated with increased nausea and extreme shortness of breath, came to the emergency room. Cardiac enzymes were unremarkable. He underwent Cardiolite testing, which revealed predominantly a fixed defect in the inferoseptal wall with a small area of mild reversibility. He underwent cardiac catheterization which revealed mild left ventricular dysfunction with ejection fraction of 45%- 50% with mild anterior and mild inferior hypokinesis. There was a 90% proximal LAD, 90% large obtuse marginal lesion and a 60% mid RCA lesion which was ulcerated. He underwent CABG x3 by Dr. Ronnie Collins with LEMUS to the LAD and saphenous vein graft to the right coronary artery and to the obtuse marginal. It was felt that the obtuse marginal was probably not a redo target. During the admission when he underwent CABG, he had new diagnoses of hypertension, hypercholesterolemia, and diabetes. He had problems with oxygen saturation after surgery. After discharge, he began to have problems with an unstable sternum. Again, he never returned for followup. I did not see him again until 04/2011 when he presented complaining of the onset of chest discomfort that started one week prior to admission. On that day , he picked up a calf and began to have chest discomfort. The pain was worse if he was up and would only resolve if he was lying in bed in a certain position. If he was up, the pain would last continuously for many, many hours. He denied any pleuritic component to the pain. He did have some palpable chest wall tenderness. He underwent Lexiscan Cardiolite testing, which revealed moderate sized area of reversible ischemia in the anterolateral wall. He underwent catheterization. This revealed mild anterior hypokinesis with ejection fraction of 50%-55%. The left main was normal. The LAD had an 80% proximal stenosis, 80% mid stenosis and 90% first diagonal stenosis. The ramus had 30% proximal stenosis. The circumflex had a 40% mid lesion. The first obtuse marginal was totally occluded. The right coronary artery was totally occluded proximally. Bypass grafts revealed patent LEMUS to the LAD and patent vein graft to the obtuse marginal and to the right coronary artery. He again did not come to the office for followup. He was seen again in the hospital in 05/2016. He has continued to smoke and had not been compliant with his medications. He was baling hay and started to get short of breath and had some mild chest discomfort. He called his brother and when his brother arrived , he found Mr. Amezquita on the floor; however, he was alert. EMS was called and he required intubation. He had some nonspecific changes on EKG with no ST segment elevation. Troponin I was initially 0.220, but increased to 5.506. Echo revealed mild left ventricular dysfunction with ejection fraction of 45%-50 %, left atrial enlargement, left ventricular dilatation, mild mitral regurgitation, mild tricuspid regurgitation and right ventricular dilatation. He underwent cardiac catheterization which revealed severe inferobasal and mild global hypokinesis with ejection fraction of 40%-45%. Left main was normal. The LAD had a 90% lesion followed by total occlusion in the proximal area. The ramus had a 70% stenosis. Circumflex had 90% proximal stenosis which was new from catheterization in 2010. There was a 40% mid circumflex lesion. The first obtuse marginal was totally occluded. The right coronary artery was totally occluded proximally. Bypass grafts revealed patent LEMUS to the LAD. There was a 60% apical LAD lesion. The obtuse marginal graft was patent to a very small viejas artery. The right coronary artery graft was patent. He underwent intervention of the new proximal circumflex stenosis. With his history of noncompliance, a bare metal stent was placed - rebel 2.5 x 12 mm stent and the proximal part of the stent was postdilated with a 3 mm balloon. This was reduced from 90% to 0%. Again, he did not return to the office for follow up. In 09/2016, he presented with increased shortness of breath. EMS was called and he was found to have saturations in the 80s. He was placed on BiPAP. He received Lovenox 1 mg/kg in the emergency room. He denied any chest discomfort. It was felt that he had COPD exacerbation as well as acute on chronic diastolic heart failure. He was treated with IV diuretics, nebulizer treatments and steroids. In 08/2017, he was admitted with increased chest discomfort and shortness of breath. His troponin I was 0.80. It was felt that this was due to demand ischemia and he had chronically elevated troponin I's. Ejection fraction at that time was 35%-40%. He did have atrial fibrillation on that admission and was placed on Xarelto and beta kate, which seemed to control his atrial fibrillation. However, with his lack of insurance, he was unable to afford the Xarelto as an outpatient. He was again admitted in 09/2017. He had cough productive of dark colored sputum. He was having episodes of nonsustained ventricular tachycardia and underwent placement of ICD. Cardiolite also was performed, which revealed a large fixed inferolateral wall defect on Cardiolite. He was discharged on Xarelto, but has been unable to afford that. Again, he did not return to the office for followup. He now presents complaining of increased episodes of shortness of breath. He denies any chest discomfort. At times, he would feel his heart beating rapidly , but is somewhat vague about that. He has had cough productive of sputum. This morning, he has gone into atrial fibrillation with fast ventricular response. PAST MEDICAL HISTORY: Hypertension, diabetes, hypercholesterolemia, coronary artery disease, COPD, obesity, obstructive sleep apnea on CPAP, former smoker, noncompliance. OPERATIONS: CABG, placement of a plate in his jaw secondary to an industrial accident, appendectomy, amputation of the first joint of the left middle finger and dual chamber ICD placement. MEDICATIONS: Include aspirin 81 daily, atorvastatin 40 at bedtime, carvedilol 25 b.i.d., Symbicort 2 puffs b.i.d., gabapentin 300 at bedtime, glyburide 2.5 daily, DuoNebs q.4 hours, lisinopril 20 b.i.d., metformin 1000 mg b.i.d., nitroglycerin p.r.n. He is not on any furosemide at home. ALLERGIES: None. SOCIAL HISTORY: Smoked 2 packs per day, but apparently stopped 2 years ago. He does not drink. He is a rosado/rancher. FAMILY HISTORY: Father had coronary artery disease. REVIEW OF SYSTEMS: Twelve-point review of systems otherwise unremarkable. PHYSICAL EXAMINATION: VITAL SIGNS: 146/81, pulse of 74. HEENT: PERRL. NECK: Supple. CHEST: Reveals distant breath sounds. CARDIOVASCULAR: S1, S2 normal, without any S3, S4 or murmurs. ABDOMEN: Normal bowel sounds without tenderness. EXTREMITIES: Revealed 1-2+ pretibial edema. NEUROLOGIC: Grossly intact. SKIN: Warm and dry. IMAGING DATA AND LABORATORY DATA: EKG on admission revealed normal sinus rhythm with nonspecific ST segment changes. EKG today reveals atrial fibrillation with fast ventricular response of 139 per minute and lateral ST segment changes. Hemoglobin 13.4, hematocrit 39.4, white count 7,300, platelets 205,000. A pH 7.42, pCO2 38.6, pO2 75.2. Sodium 137, potassium 4.5, chloride 102, carbon dioxide 26, BUN 15, creatinine 1.47, glucose 372. AST and ALT are normal. BNP 1157.7. TSH is normal. IMPRESSION: 1. Probable acute on chronic systolic and diastolic heart failure. 2. Chronic obstructive pulmonary disease exacerbation. 3. Status post coronary artery bypass graft x3 with all grafts patent in 2015. A bare metal stent was placed in the circumflex in 05/2016. 4. Status post ICD placement. 5. History of nonsustained ventricular tachycardia. 6. Paroxysmal atrial fibrillation. The patient was discharged on Xarelto last admission; however, he cannot afford that medication. He is too unreliable to prescribe Coumadin. 7. Former smoker, none x2 years. 8. Diabetes. 9. Hyperlipidemia. 10. Obstructive sleep apnea. 11. Obesity. 12. Positive family history. PLAN: The patient will be diuresed and probably needs to be on long-term furosemide. His defibrillator will be checked to see how often he is having atrial fibrillation at home as well as to assess his volume status. With his atrial fibrillation, he will be restarted on the carvedilol 25 mg b.i.d. He will be given amiodarone bolus and drip to hopefully control his rate and possibly convert him. Echocardiogram will be performed to reassess left ventricular function. [facility]
--- NOTE | 2018-02-22 12:46 | EKG ---
Test Reason : Blood Pressure : / mmHG Vent. Rate : 139 BPM Atrial Rate : 120 BPM P-R Int : 000 ms QRS Dur : 110 ms QT Int : 294 ms P-R-T Axes : 000 061 125 degrees QTc Int : 447 ms Atrial fibrillation with rapid ventricular response Marked ST abnormality, possible lateral subendocardial injury Abnormal ECG When compared with ECG of 21-FEB-2018 22:23, (Unconfirmed) Atrial fibrillation has replaced Sinus rhythm Vent. rate has increased BY [address] now depressed in Anterior leads Confirmed by CHRISSIE HERNANDEZ ([id number]) on 02/22/2018 12:45:57 PM Referred By: MAYRA Confirmed By:CHRISSIE HERNANDEZ
--- NOTE | 2018-02-22 13:00 | PDOC.PN ---
- Subjective Encounter Start Date: 02/22/18 Encounter Start Time: 12:59 Subjective: feels weak,tired and sweaty.denies CP/palpitations -: easily winded -: nursing reports conversion to a-fib w RVr this am - Objective MAR Reviewed: Yes Vital Signs & Weight: Vital Signs (12 hours) Temp Pulse Resp BP BP Pulse Ox 02/22/18 11:09 111 H 16 93 L 02/22/18 11:06 97.6 F 88 20 112/86 92 L 02/22/18 10:54 98 02/22/18 08:00 97.7 F 111 H 16 95 02/22/18 07:31 78 16 93 L 02/22/18 07:29 97.7 F 74 20 146/81 H 95 02/22/18 04:00 98.4 F 61 22 H 121/60 91 L 02/22/18 02:32 74 20 93 L Weight Weight 307 lb 1 oz I&O: 02/21/18 02/22/18 02/23/18 06:59 06:59 06:59 Intake Total 240 Output Total 1900 Balance -1660 Result Diagrams: 02/24/18 05:22 02/24/18 05:22 Additional Labs: Accuchecks 02/22/18 02/22/18 10:29 05:39 POC Glucose 543 H 399 H Laboratory Tests 09/26/17 02/21/18 02/21/18 05:01 22:15 22:15 Creatinine 1.15 1.39 H Magnesium B-Natriuretic Peptide 1153.7 H TSH 3rd [facility] 02/22/18 02/22/18 02/22/18 03:54 03:54 03:54 Creatinine 1.47 H Magnesium 1.4 L B-Natriuretic Peptide [facility] 3rd Generation [id number] Phys Exam - Physical Examination Constitutional: NAD diaphoretic & uncomfortable HEENT: PERRLA, moist MMs, sclera anicteric, oral pharynx no lesions Neck: no nodes, no JVD, supple, full ROM Respiratory: no wheezing, no rales, no rhonchi Cardiovascular: no significant murmur, irregular Gastrointestinal: soft, non-tender, no distention, positive bowel sounds obese Musculoskeletal: pulses present, edema present Neurological: non-focal, normal sensation, moves all 4 limbs Psychiatric: normal affect, A&O x 3 Skin: no rash Dx/Plan (1) Acute on chronic combined systolic and diastolic CHF (congestive heart failure) Code(s): I50.43 - ACUTE ON CHRONIC COMBINED SYSTOLIC AND DIASTOLIC HRT FAIL Status: Acute Comment: ACC Stage C (2) Paroxysmal atrial fibrillation with RVR Code(s): I48.0 - PAROXYSMAL ATRIAL FIBRILLATION Status: Acute Comment: NSR post Amiodarone drip (3) COPD exacerbation Code(s): J44.1 - CHRONIC OBSTRUCTIVE PULMONARY DISEASE W (ACUTE) EXACERBATION Status: Acute Comment: on nebs, steroids,mucinex (4) Renal failure (ARF), acute on chronic Code(s): N17.9 - ACUTE KIDNEY FAILURE, UNSPECIFIED; N18.9 - CHRONIC KIDNEY DISEASE, UNSPECIFIED Status: Acute Comment: stable (5) Tobacco abuse Code(s): Z72.0 - TOBACCO USE Status: Chronic Comment: smoking cessation resources (6) CAD (coronary artery disease) Code(s): I25.10 - ATHSCL HEART DISEASE OF [place] CORONARY ARTERY W/O ANG PCTRS Status: Chronic (7) DM type 2 with diabetic peripheral neuropathy Code(s): E11.42 - TYPE 2 DIABETES MELLITUS WITH DIABETIC POLYNEUROPATHY Status : Chronic (8) HTN (hypertension) Code(s): I10 - ESSENTIAL (PRIMARY) HYPERTENSION Status: Chronic Qualifiers: Hypertension type: essential hypertension Qualified Code(s): I10 - Essential (primary) hypertension (9) Morbid obesity Code(s): E66.01 - MORBID (SEVERE) OBESITY DUE TO EXCESS CALORIES Status: Chronic (10) YVETTE (obstructive sleep apnea) Code(s): G47.33 - OBSTRUCTIVE SLEEP APNEA (ADULT) (PEDIATRIC) Status: Chronic - Plan out of bed/ambulate, DVT proph w/SCDs cont diureis.pt reports that he was not taking any diuretic @ home. -: amidarone drip for RVr.ECHO ordered.cont coreg & monitor -: restart DARLENE-I if BP stable & Cr improves -: IV steroids,nebs,o2 prn -: will follow. am labs * . Review of Systems - Review of Systems Constitutional: weakness, malaise Respiratory: Shortness of Breath, Wheezing. negative: Cough, Dry, Hemoptysis, SOB with Excertion, Pleuritic Pain, Sputum Cardiovascular: edema. negative: chest pain, palpitations, orthopnea, paroxysmal nocturnal dyspnea, light headedness, other Gastrointestinal: negative: Nausea, Vomiting, Abdominal Pain, Diarrhea, Constipation, Melena, Hematochezia, Other Genitourinary: negative: Dysuria, Frequency, Incontinence, Hematuria, Retention , Other Musculoskeletal: negative: Neck Pain, Shoulder Pain, Arm Pain, Back Pain, Hand Pain, Leg Pain, Foot Pain, Other Skin: negative: Rash, Lesions, Dejon, Bruising, Other Neurological: negative: Weakness, Numbness, Incoordination, Change in Speech, Confusion, Seizures, Other - Medications/Allergies Allergies/Adverse Reactions: Allergies Allergy/AdvReac Type Severity Reaction Status Date / Time No Known Allergies Allergy Verified 02/22/18 01:46 Medications: Current Medications Acetaminophen (Tylenol) 650 mg PO Q4H PRN PRN Reason: Headache/Fever or Pain Last Admin: 02/22/18 09:51 Dose: 650 mg Albuterol/Ipratropium (Duoneb) 3 ml NEB [id number] [facility] Last Admin: 02/22/18 11:09 Dose: 3 ml Aspirin (Ecotrin) 81 mg PO DAILY [facility] Atorvastatin Calcium (Lipitor) 40 mg PO HS [facility] Carvedilol (Coreg) 25 mg PO BID-WM [facility] Dextrose/Water (Dextrose 50%) 25 gm SLOW IVP PRN PRN PRN Reason: Hypoglycemia Furosemide (Lasix) 40 mg SLOW IVP 0600,1400 [facility] Last Admin: 02/22/18 05:44 Dose: 40 mg Gabapentin (Neurontin) 300 mg PO HS [facility] Glucagon (Glucagon) 1 mg IM PRN PRN PRN Reason: Hypoglycemia Glyburide (Micronase) 2.5 mg PO DAILY [facility] Heparin Sodium (Porcine) (Heparin) 5,000 units SC TID [facility] Last Admin: 02/22/18 09:50 Dose: 5,000 units Dextrose/Water (D5w) 1,000 mls @ 0 mls/hr IV .Q0M PRN; As Directed PRN Reason: Hypoglycemia Amiodarone HCl 450 mg/Miscellaneous Medication 1 each/ Dextrose/Water 259 mls @ 0 mls/hr IVPB INF [facility]; As Directed PRN Reason: Protocol Last Admin: 02/22/18 09:43 Dose: 259 mls Insulin Human Lispro (Humalog) 0 units SC .MILD SLIDING SCALE PRN PRN Reason: Mild Correctional Scale Last Admin: 02/22/18 11:16 Dose: 6 unit Methylprednisolone Sodium Succinate (Solu-Medrol) 40 mg IVP Q6HR [facility] Last Admin: 02/22/18 10:55 Dose: 40 mg Mometasone Furoate/Formoterol Fumar (Dulera 200 Mcg/5 Mcg Inhaler) 2 puff INH BID-RT [facility] Nitroglycerin (Nitrostat) 0.4 mg SL Q5MIN PRN PRN Reason: Chest Pain
[2018-02-22] MEDS: Carvedilol 25 MG TAB PO SCH (16:45)
[2018-02-22] MEDS: Mometasone/Formoterol 120 PUFF INHALER INH SCH (19:13)
[2018-02-22] MEDS: Atorvastatin Calcium 40 MG TAB PO SCH (20:27)
[2018-02-22] MEDS: Gabapentin 300 MG CAP PO SCH ×2 (20:27→20:37)
[2018-02-22] MEDS: Insulin Glargine 15 UNITS in Pre-Filled Syringe 1 EACH SC SCH (20:27)
[2018-02-23 05:10] LABS: Cardiac Risk 7.8 (Less than 4.5)
[2018-02-23] MEDS: Amiodarone HCl 450 MG, Admixture Fee 1 EACH in Dextrose 5% in Water 250 ML IVPB SCH (05:57)
[2018-02-23] MEDS: Furosemide 40 MG/4 ML VIAL SLOW IVP SCH ×2 (05:58→13:26)
[2018-02-23] MEDS: HumaLOG 300 UNITS/3 ML VIAL SC PRN ×3 (05:58→17:27)
[2018-02-23] MEDS ORDERED: Dextrose 5% in Water 1,000 ML IV PRN (08:30)
[2018-02-23] MEDS ORDERED: Dextrose 50% Abboject 50 ML SYRINGE SLOW IVP PRN (08:30)
[2018-02-23 09:23] LABS: Anion Gap 15 mmol/L (10-20); BUN (Urea Nitrogen) 26 mg/dL (8.4-25.7); Calc. Creatinine Clearance 107 mL/min (70-130); Calcium 9.1 mg/dL (7.8-10.44); Carbon Dioxide 25 mmol/L (22-29); Chloride 99 mmol/L (98-107); Estimated GFR-MDRD 48; Glucose 382 mg/dL (70-105); Potassium 4.9 mmol/L (3.5-5.1); Sodium 134 mmol/L (136-145)
[2018-02-23] MEDS: Insulin Glargine 15 UNITS in Pre-Filled Syringe 1 EACH SC SCH ×2 (09:26→21:09)
[2018-02-23] MEDS: Amiodarone 200 MG TAB PO SCH ×2 (09:28→21:07)
[2018-02-23] MEDS: Carvedilol 25 MG TAB PO SCH ×2 (09:28→16:03)
[2018-02-23] MEDS: Aspirin 81 mg Enteric Coated Tablet PO SCH (09:29)
[2018-02-23] MEDS: Heparin 5,000 UNITS/ML VIAL SC SCH ×3 (09:29→21:08)
[2018-02-23] MEDS: glyBURIDE 2.5 MG TAB PO SCH (09:29)
[2018-02-23] MEDS: Gabapentin 300 MG CAP PO SCH ×4 (09:29→21:07)
[2018-02-23] MEDS: Acetaminophen 325 MG TAB PO PRN ×3 (09:32→21:12)
[2018-02-23] MEDS ORDERED: guaiFENesin ER 600 MG TAB PO SCH ×2 (12:00→21:00)
--- NOTE | 2018-02-23 13:53 | PRG ---
DATE OF SERVICE: 02/23/2018 SUBJECTIVE: The patient is doing better, has no complaints today. PHYSICAL EXAMINATION: VITAL SIGNS: Temperature 97.6, pulse 72, respiratory rate 18, O2 sat 98% on room air, blood pressure 120/73. HEENT: Unremarkable. NECK: No JVD. LUNGS: Clear. CARDIAC: S1 and S2, regular rhythm. ABDOMEN: Soft, obese. EXTREMITIES: No edema. LABORATORY DATA AND IMAGING: Sodium 134, potassium 4.9, chloride 99, CO2 25, BUN 26, creatinine 1.4, glucose 382. Echocardiogram demonstrated decreased EF of 35%-40% with some diastolic dysfunction, m oderate mitral regurgitation. ASSESSMENT: 1. I think most of the issues yesterday were due to congestive heart failure given the rapid improve ment in symptoms. 2. Does have underlying chronic obstructive pulmonary disease, but does not appear to be currently e xacerbated. RECOMMENDATIONS: From a pulmonary standpoint, he is stable for transfer out to the floor. I will go ahead and switch him over to oral steroids. Continue diuresis. Further care per Cardiology.
--- NOTE | 2018-02-23 14:46 | PDOC.PN ---
- Subjective Encounter Start Date: 02/23/18 Encounter Start Time: 14:44 Subjective: feels better and wants to go home -: lost IV access this am.no new complaints - Objective MAR Reviewed: Yes Vital Signs & Weight: Vital Signs (12 hours) Temp Pulse Resp BP Pulse Ox 02/23/18 11:35 65 20 118/65 91 L 02/23/18 08:00 97.6 F 72 18 90 L 02/23/18 07:27 97.6 F 72 18 128/73 90 L 02/23/18 03:51 97.5 F L 71 20 155/65 H 94 L Weight Weight 309 lb 3.2 oz I&O: 02/22/18 02/23/18 02/24/18 06:59 06:59 06:59 Intake Total 240 2490 Output Total 1900 3500 Balance -1660 -1010 Result Diagrams: 02/22/18 03:54 02/23/18 08:57 Additional Labs: Accuchecks 02/23/18 02/23/18 02/22/18 11:05 05:42 20:22 POC Glucose 395 H 346 H 496 H 02/22/18 16:40 POC Glucose 493 H Laboratory Tests 02/23/18 04:26 Triglycerides 178 H Cholesterol 266 H LDL Cholesterol, Calc 196 labs reviewed Phys Exam - Physical Examination Constitutional: NAD HEENT: PERRLA, moist MMs, sclera anicteric, TM's clear, oral pharynx no lesions , 2+ tonsils Neck: no nodes, no JVD, supple, full ROM Respiratory: wheezing present bibasilar crackles Cardiovascular: RRR, no significant murmur, no rub Gastrointestinal: soft, non-tender, no distention, positive bowel sounds Musculoskeletal: pulses present, edema present Neurological: non-focal, normal sensation, moves all 4 limbs Psychiatric: normal affect, A&O x 3 Skin: no rash Dx/Plan (1) Acute on chronic combined systolic and diastolic CHF (congestive heart failure) Code(s): I50.43 - ACUTE ON CHRONIC COMBINED SYSTOLIC AND DIASTOLIC HRT FAIL Status: Acute (2) Paroxysmal atrial fibrillation with RVR Code(s): I48.0 - PAROXYSMAL ATRIAL FIBRILLATION Status: Acute Comment: NSR post Amiodarone drip (3) COPD exacerbation Code(s): J44.1 - CHRONIC OBSTRUCTIVE PULMONARY DISEASE W (ACUTE) EXACERBATION Status: Acute Comment: on nebs, steroids,mucinex (4) Renal failure (ARF), acute on chronic Code(s): N17.9 - ACUTE KIDNEY FAILURE, UNSPECIFIED; N18.9 - CHRONIC KIDNEY DISEASE, UNSPECIFIED Status: Acute Comment: stable (5) Tobacco abuse Code(s): Z72.0 - TOBACCO USE Status: Chronic Comment: smoking cessation resources (6) CAD (coronary artery disease) Code(s): I25.10 - ATHSCL HEART DISEASE OF [place] CORONARY ARTERY W/O ANG PCTRS Status: Chronic (7) DM type 2 with diabetic peripheral neuropathy Code(s): E11.42 - TYPE 2 DIABETES MELLITUS WITH DIABETIC POLYNEUROPATHY Status : Chronic (8) HTN (hypertension) Code(s): I10 - ESSENTIAL (PRIMARY) HYPERTENSION Status: Chronic Qualifiers: Hypertension type: essential hypertension Qualified Code(s): I10 - Essential (primary) hypertension (9) Morbid obesity Code(s): E66.01 - MORBID (SEVERE) OBESITY DUE TO EXCESS CALORIES Status: Chronic (10) YVETTE (obstructive sleep apnea) Code(s): G47.33 - OBSTRUCTIVE SLEEP APNEA (ADULT) (PEDIATRIC) Status: Chronic - Plan respiratory therapy, incentive spirometry, out of bed/ambulate, DVT proph w/SCDs cont diuresis.clinically better.change to Po lasix -: cont Bp control.cont cardio-prudent meds.ASA,BB. -: DARLENE-i when renal Fx improves -: cont PO amiodarone -: cont nebs,steroids-change to PO * .monitor lytes * Ok to transfer out of [facility]. * am labs Review of Systems - Review of Systems Constitutional: negative: fever, chills, sweats, weakness, malaise, other ENT: negative: Ear Pain, Ear Discharge, Nose Pain, Nose Discharge, Nose Congestion, Mouth Pain, Mouth Swelling, Throat Pain, Throat Swelling, Other Respiratory: Cough, SOB with Excertion. negative: Dry, Shortness of Breath, Hemoptysis, Pleuritic Pain, Sputum, Wheezing Cardiovascular: negative: chest pain, palpitations, orthopnea, paroxysmal nocturnal dyspnea, edema, light headedness, other Gastrointestinal: negative: Nausea, Vomiting, Abdominal Pain, Diarrhea, Constipation, Melena, Hematochezia, Other Genitourinary: negative: Dysuria, Frequency, Incontinence, Hematuria, Retention , Other Musculoskeletal: negative: Neck Pain, Shoulder Pain, Arm Pain, Back Pain, Hand Pain, Leg Pain, Foot Pain, Other Skin: negative: Rash, Lesions, Dejon, Bruising, Other Neurological: negative: Weakness, Numbness, Incoordination, Change in Speech, Confusion, Seizures, Other - Medications/Allergies Allergies/Adverse Reactions: Allergies Allergy/AdvReac Type Severity Reaction Status Date / Time No Known Allergies Allergy Verified 02/22/18 01:46 Medications: Current Medications Acetaminophen (Tylenol) 650 mg PO Q4H PRN PRN Reason: Headache/Fever or Pain Last Admin: 02/23/18 09:32 Dose: 650 mg Albuterol/Ipratropium (Duoneb) 3 ml NEB [id number] [facility] Last Admin: 02/23/18 11:56 Dose: Not Given Amiodarone HCl (Cordarone) 400 mg PO BID [facility] Last Admin: 02/23/18 09:28 Dose: 400 mg Aspirin (Ecotrin) 81 mg PO DAILY [facility] Last Admin: 02/23/18 09:29 Dose: 81 mg Atorvastatin Calcium (Lipitor) 40 mg PO HS [facility] Last Admin: 02/22/18 20:27 Dose: 40 mg Carvedilol (Coreg) 25 mg PO BID-[facility] Last Admin: 02/23/18 09:28 Dose: 25 mg Dextrose/Water (Dextrose 50%) 25 gm SLOW IVP PRN PRN PRN Reason: Hypoglycemia Furosemide (Lasix) 40 mg PO 0900,1400 [facility] Gabapentin (Neurontin) 300 mg PO [facility] Last Admin: 02/22/18 20:37 Dose: Not Given Gabapentin (Neurontin) 300 mg PO TID [facility] Last Admin: 02/23/18 09:29 Dose: 300 mg Glucagon (Glucagon) 1 mg IM PRN PRN PRN Reason: Hypoglycemia Glyburide (Micronase) 2.5 mg PO DAILY [facility] Last Admin: 02/23/18 09:29 Dose: 2.5 mg Guaifenesin (Mucinex) 600 mg PO Q12HR [facility] Heparin Sodium (Porcine) (Heparin) 5,000 units SC TID [facility] Last Admin: 02/23/18 09:29 Dose: 5,000 units Insulin Glargine 15 units/ (Miscellaneous Medication) 0.15 mls @ 0 mls/hr SC BID [facility] Last Admin: 02/23/18 09:26 Dose: 0.15 mls Dextrose/Water (D5w) 1,000 mls @ 0 mls/hr IV .Q0M PRN; As Directed PRN Reason: Hypoglycemia Insulin Human Lispro (Humalog) 0 units SC .AGGRESSIVE SLIDING PRN; Protocol PRN Reason: AGGRESSIVE SLIDING SCALE Last Admin: 02/23/18 11:25 Dose: 13 unit/kg Mometasone Furoate/Formoterol Fumar (Dulera 200 Mcg/5 Mcg Inhaler) 2 puff INH BID-RT [facility] Last Admin: 02/22/18 19:13 Dose: 2 puff Nitroglycerin (Nitrostat) 0.4 mg SL Q5MIN PRN PRN Reason: Chest Pain Prednisone (Prednisone) 20 mg PO BID-WM [facility] Sodium Chloride (Flush - Normal Saline) 10 ml IVF Q12HR [facility] Last Admin: 02/23/18 09:27 Dose: 10 ml Sodium Chloride (Flush - Normal Saline) 10 ml IVF PRN PRN PRN Reason: Saline Flush Last Admin: 02/23/18 13:28 Dose: 10 ml
[2018-02-23] MEDS: Mometasone/Formoterol 120 PUFF INHALER INH SCH ×2 (14:54→18:12)
[2018-02-23] MEDS ORDERED: Furosemide 40 MG TAB PO SCH (15:00)
[2018-02-23] MEDS: predniSONE 20 MG TAB PO SCH (16:03)
[2018-02-23] MEDS: Atorvastatin Calcium 40 MG TAB PO SCH (21:06)
[2018-02-23] MEDS: guaiFENesin ER 600 MG TAB PO SCH (21:06)
[2018-02-24 05:36] LABS: #Monocytes 0.7 thou/uL (0.11-0.59); #Neutrophils 7.1 thou/uL (1.40-6.50); %Basophils 0.1 % (0.0-1.0); %Eosinophils 0.2 % (0.0-10.0); %Lymphocytes 11.6 % (21.0-51.0); %Monocytes 7.4 % (0.0-10.0); %Neutrophils 80.7 % (42.0-75.0); Mean Corpuscular HGB CONC 34.9 g/dL (32.0-36.0); Mean Corpuscular Hemoglobin 30.7 pg (27.0-31.0); Mean Corpuscular Volume 87.9 fl (80.0-94.0); Mean Platelet Volume 6.8 fL (7.4-10.4); Platelet Count 235 thou/uL (130-400); RBC Distribution Width 12.6 % (11.5-14.5); Red Blood Cell (RBC) Count 4.88 mill/uL (4.70-6.10); White Blood Cell (WBC) Count 8.8 thou/uL (4.8-10.8)
[2018-02-24 05:52] LABS: Anion Gap 12 mmol/L (10-20); BUN (Urea Nitrogen) 30 mg/dL (8.4-25.7); Calc. Creatinine Clearance 119 mL/min (70-130); Carbon Dioxide 27 mmol/L (22-29); Chloride 102 mmol/L (98-107); Estimated GFR-MDRD 56; Glucose 284 mg/dL (70-105); Potassium 4.2 mmol/L (3.5-5.1); Sodium 137 mmol/L (136-145)
[2018-02-24] MEDS: Mometasone/Formoterol 120 PUFF INHALER INH SCH (06:53)
[2018-02-24] MEDS ORDERED: Metolazone 5 MG TAB PO SCH (08:00)
[2018-02-24] MEDS: Amiodarone 200 MG TAB PO SCH (10:20)
[2018-02-24] MEDS: guaiFENesin ER 600 MG TAB PO SCH (10:20)
[2018-02-24] MEDS: predniSONE 20 MG TAB PO SCH (10:20)
[2018-02-24] MEDS: Acetaminophen 325 MG TAB PO PRN (10:20)
[2018-02-24] MEDS: Furosemide 40 MG TAB PO SCH ×2 (10:21→14:55)
[2018-02-24] MEDS: Gabapentin 300 MG CAP PO SCH ×2 (10:21→14:55)
[2018-02-24] MEDS: Carvedilol 25 MG TAB PO SCH ×2 (10:21→17:31)
[2018-02-24] MEDS: Aspirin 81 mg Enteric Coated Tablet PO SCH (10:21)
[2018-02-24] MEDS: Insulin Glargine 15 UNITS in Pre-Filled Syringe 1 EACH SC SCH (11:06)
[2018-02-24] MEDS: Heparin 5,000 UNITS/ML VIAL SC SCH ×2 (11:06→15:45)
[2018-02-24] MEDS: glyBURIDE 2.5 MG TAB PO SCH (12:28)
[2018-02-24] MEDS: HumaLOG 300 UNITS/3 ML VIAL SC PRN (12:28)
--- NOTE | 2018-02-24 13:54 | PDOC.PN ---
- Subjective Encounter Start Date: 02/24/18 Encounter Start Time: 13:54 Subjective: feels well.wants to go home.no SOb.reports he always get SOB when walks - Objective MAR Reviewed: Yes Vital Signs & Weight: Vital Signs (12 hours) Temp Pulse Pulse Pulse Resp BP BP 02/24/18 12:34 97.8 F 59 L 20 02/24/18 12:10 60 60 212/98 H 180/89 H 02/24/18 10:29 63 14 02/24/18 08:13 97.6 F 63 16 02/24/18 08:00 97.6 F 63 16 02/24/18 06:53 70 12 02/24/18 04:00 97.5 F L 68 18 BP BP Pulse Ox Pulse Ox Pulse Ox 02/24/18 12:34 139/75 95 02/24/18 12:10 94 L 94 L 02/24/18 10:29 02/24/18 08:13 149/73 H 93 L 02/24/18 08:00 02/24/18 06:53 02/24/18 04:00 141/73 H 93 L Weight Weight 304 lb 11.2 oz I&O: 02/23/18 02/24/18 02/25/18 06:59 06:59 06:59 Intake Total 2490 520 Output Total 3500 480 725 Balance -1010 40 -725 Result Diagrams: 02/24/18 05:22 02/24/18 05:22 Additional Labs: Accuchecks 02/24/18 02/24/18 02/23/18 11:13 05:48 20:58 POC Glucose 267 H 253 H 293 H 02/23/18 16:52 POC Glucose 356 H labs reviewed Phys Exam - Physical Examination Constitutional: NAD HEENT: PERRLA, moist MMs, sclera anicteric, oral pharynx no lesions Neck: no nodes, no JVD, supple, full ROM Respiratory: no wheezing, no rales, no rhonchi, clear to auscultation bilateral Cardiovascular: RRR, no significant murmur, no rub Gastrointestinal: soft, non-tender, no distention, positive bowel sounds Musculoskeletal: pulses present, edema present Neurological: non-focal, normal sensation, moves all 4 limbs Psychiatric: normal affect, A&O x 3 Skin: no rash Dx/Plan (1) Acute on chronic combined systolic and diastolic CHF (congestive heart failure) Code(s): I50.43 - ACUTE ON CHRONIC COMBINED SYSTOLIC AND DIASTOLIC HRT FAIL Status: Acute (2) Paroxysmal atrial fibrillation with RVR Code(s): I48.0 - PAROXYSMAL ATRIAL FIBRILLATION Status: Acute Comment: NSR post Amiodarone drip (3) COPD exacerbation Code(s): J44.1 - CHRONIC OBSTRUCTIVE PULMONARY DISEASE W (ACUTE) EXACERBATION Status: Acute Comment: on nebs, steroids,mucinex (4) Renal failure (ARF), acute on chronic Code(s): N17.9 - ACUTE KIDNEY FAILURE, UNSPECIFIED; N18.9 - CHRONIC KIDNEY DISEASE, UNSPECIFIED Status: Acute Comment: stable (5) Tobacco abuse Code(s): Z72.0 - TOBACCO USE Status: Chronic Comment: smoking cessation resources (6) CAD (coronary artery disease) Code(s): I25.10 - ATHSCL HEART DISEASE OF [place] CORONARY ARTERY W/O ANG PCTRS Status: Chronic (7) DM type 2 with diabetic peripheral neuropathy Code(s): E11.42 - TYPE 2 DIABETES MELLITUS WITH DIABETIC POLYNEUROPATHY Status : Chronic (8) HTN (hypertension) Code(s): I10 - ESSENTIAL (PRIMARY) HYPERTENSION Status: Chronic Qualifiers: Hypertension type: essential hypertension Qualified Code(s): I10 - Essential (primary) hypertension (9) Morbid obesity Code(s): E66.01 - MORBID (SEVERE) OBESITY DUE TO EXCESS CALORIES Status: Chronic (10) YVETTE (obstructive sleep apnea) Code(s): G47.33 - OBSTRUCTIVE SLEEP APNEA (ADULT) (PEDIATRIC) Status: Chronic - Plan PT/OT, out of bed/ambulate, DVT proph w/SCDs restart lisinopril.BP high. -: 1 dose zaroxolyn given w good results -: pt educated extensively for diet & lifestyle modification -: advised for med compliance -: will refill all meds. * . HF clininc referral. OP cardiology f/u OK to DC if cleared by cardiology OP Cardiac rehab Review of Systems - Review of Systems Constitutional: negative: fever, chills, sweats, weakness, malaise, other ENT: negative: Ear Pain, Ear Discharge, Nose Pain, Nose Discharge, Nose Congestion, Mouth Pain, Mouth Swelling, Throat Pain, Throat Swelling, Other Respiratory: negative: Cough, Dry, Shortness of Breath, Hemoptysis, SOB with Excertion, Pleuritic Pain, Sputum, Wheezing Cardiovascular: negative: chest pain, palpitations, orthopnea, paroxysmal nocturnal dyspnea, edema, light headedness, other Gastrointestinal: negative: Nausea, Vomiting, Abdominal Pain, Diarrhea, Constipation, Melena, Hematochezia, Other Genitourinary: negative: Dysuria, Frequency, Incontinence, Hematuria, Retention , Other Musculoskeletal: negative: Neck Pain, Shoulder Pain, Arm Pain, Back Pain, Hand Pain, Leg Pain, Foot Pain, Other Neurological: negative: Weakness, Numbness, Incoordination, Change in Speech, Confusion, Seizures, Other - Medications/Allergies Allergies/Adverse Reactions: Allergies Allergy/AdvReac Type Severity Reaction Status Date / Time No Known Allergies Allergy Verified 02/22/18 01:46 Medications: Current Medications Acetaminophen (Tylenol) 650 mg PO Q4H PRN PRN Reason: Headache/Fever or Pain Last Admin: 02/24/18 10:20 Dose: 650 mg Albuterol/Ipratropium (Duoneb) 3 ml NEB [id number] [facility] Last Admin: 02/24/18 10:29 Dose: 3 ml Amiodarone HCl (Cordarone) 400 mg PO BID [facility] Last Admin: 02/24/18 10:20 Dose: 400 mg Aspirin (Ecotrin) 81 mg PO DAILY [facility] Last Admin: 02/24/18 10:21 Dose: 81 mg Atorvastatin Calcium (Lipitor) 40 mg PO HS [facility] Last Admin: 02/23/18 21:06 Dose: 40 mg Carvedilol (Coreg) 25 mg PO BID-WM [facility] Last Admin: 02/24/18 10:21 Dose: 25 mg Dextrose/Water (Dextrose 50%) 25 gm SLOW IVP PRN PRN PRN Reason: Hypoglycemia Furosemide (Lasix) 40 mg PO 0900,1400 [facility] Last Admin: 02/24/18 10:21 Dose: 40 mg Gabapentin (Neurontin) 300 mg PO TID [facility] Last Admin: 02/24/18 10:21 Dose: 300 mg Glucagon (Glucagon) 1 mg IM PRN PRN PRN Reason: Hypoglycemia Glyburide (Micronase) 2.5 mg PO DAILY [facility] Last Admin: 02/24/18 12:28 Dose: 2.5 mg Guaifenesin (Mucinex) 600 mg PO Q12HR [facility] Last Admin: 02/24/18 10:20 Dose: 600 mg Heparin Sodium (Porcine) (Heparin) 5,000 units SC TID [facility] Last Admin: 02/24/18 11:06 Dose: 5,000 units Insulin Glargine 15 units/ (Miscellaneous Medication) 0.15 mls @ 0 mls/hr SC BID [facility] Last Admin: 02/24/18 11:06 Dose: 0.15 mls Dextrose/Water (D5w) 1,000 mls @ 0 mls/hr IV .Q0M PRN; As Directed PRN Reason: Hypoglycemia Insulin Human Lispro (Humalog) 0 units SC .AGGRESSIVE SLIDING PRN; Protocol PRN Reason: AGGRESSIVE SLIDING SCALE Last Admin: 02/24/18 12:28 Dose: 9 unit Mometasone Furoate/Formoterol Fumar (Dulera 200 Mcg/5 Mcg Inhaler) 2 puff INH BID-RT [facility] Last Admin: 02/24/18 06:53 Dose: 2 puff Nitroglycerin (Nitrostat) 0.4 mg SL Q5MIN PRN PRN Reason: Chest Pain Sodium Chloride (Flush - Normal Saline) 10 ml IVF Q12HR [facility] Last Admin: 02/23/18 21:08 Dose: 10 ml Sodium Chloride (Flush - Normal Saline) 10 ml IVF PRN PRN PRN Reason: Saline Flush Last Admin: 02/23/18 13:28 Dose: 10 ml
--- NOTE | 2018-02-24 14:11 | PRG ---
DATE OF SERVICE: 02/24/2018 SUBJECTIVE: He is awake, in good spirits, has no complaints. PHYSICAL EXAMINATION: VITAL SIGNS: Temperature 97.8, pulse 59, respirations 20, O2 sat 95% on room air, and blood pressure 139/75. HEENT: Unremarkable. NECK: No adenopathy or JVD. LUNGS: Clear without wheezing. CARDIAC: S1 and S2, regular. ABDOMEN: Soft. EXTREMITIES: No edema. LABORATORY DATA: White blood cell count 8.8, hematocrit 42.9, platelet count 235. Sodium 137, potas sium 4.2, BUN 30, creatinine 1.3, and glucose 284. ASSESSMENT: 1. Atrial fibrillation with rapid ventricular response. 2. Diastolic congestive heart failure. 3. Underlying chronic obstructive pulmonary disease, which did not seem to be exacerbated. RECOMMENDATION: I would go ahead and stop the steroids. I think most of improvement was seen is sec ondary to diuretic therapy and control his atrial fibrillation. He is stable to go home from my [facility].
[2018-02-24] MEDS ORDERED: Lisinopril 20 MG TAB PO SCH ×2 (15:45→21:00)
[2018-02-24 16:04] VITALS: BP 157/74; TEMP 98
--- NOTE | 2018-02-25 12:53 | DIS ---
DATE OF ADMISSION: 02/22/2018 DATE OF DISCHARGE: 02/24/2018 CONDITION AT THE TIME OF DISCHARGE: Stable and improved. DISCHARGE DISPOSITION: Home with outpatient cardiac rehabilitation. DISCHARGE MEDICATIONS: Amiodarone 400 mg p.o. b.i.d. for 7 days, then 200 mg p.o. b.i.d., Coreg 25 m g p.o. b.i.d., Lasix 40 mg p.o. b.i.d., Neurontin 300 mg t.i.d., Zestril 20 mg b.i.d., aspirin 81 mg daily, glyburide 2.5 mg daily, Symbicort 2 puffs b.i.d., Lipitor 40 mg daily, DuoNebs as needed, and Nitrostat as needed. INHOUSE CONSULTATIONS: Cardiology, Dr. Mcginnis and Pulmonary Medicine, Dr. Bradford. PROCEDURES DONE IN THE HOSPITAL: Transthoracic echocardiogram, which shows EF of 35-40% and diastoli c dysfunction. Defibrillator wire in the right ventricle, moderate mitral regurg is present. DISCHARGE DIAGNOSES: 1. Acute on chronic combined congestive heart failure. 2. Paroxysmal atrial fibrillation with rapid ventricular response, resolved. 3. Chronic obstructive pulmonary disease exacerbation. 4. Acute on chronic renal failure. 5. Tobacco abuse. 6. Coronary artery disease. 7. Diabetes mellitus type 2. 8. Hypertension. 9. Morbid obesity. 10. Sleep apnea. HISTORY OF PRESENTING ILLNESS: Mr. Amezquita is a 57-year-old male with history of congestive heart fail ure, coronary artery disease status post CABG in 2010 and stent placement in 2016 as well as COPD and cardiomyopathy, status post AICD placement and diabetes, who presented to the emergency room with ab ove-mentioned complaint. He has known history of atrial fibrillation and obstructive sleep apnea as well. He presented with complaints of shortness of breath of a few days' duration. Worsening with e xertion without any associated symptoms. Upon presentation, his chest x-ray showed vascular congesti on and his BNP was elevated to 1153. His creatinine was 1.39 as well. He was admitted with a presum ptive diagnosis of acute on chronic respiratory failure secondary to CHF exacerbation as well as COPD exacerbation. Please see admission history and physical for further details. HOSPITAL COURSE: The patient was started on diuretics and echocardiogram was ordered. Cardiology an d Pulmonary Medicine were also consulted. Dr. Bradford saw the patient from a Pulmonary standpoint. He was agreeable with the diuresis as the p steven's symptoms are more consistent with CHF and COPD exacerbation. Steroids nebulizers were done and tapered while he was here. BiPAP intermittently as needed was used as well. The patient underwent into atrial fibrillation shortly after admission. Cardiology saw the patient a nd he was treated with digoxin and amiodarone drip initially and then oral amiodarone. Echocardiogra m showed stable ejection fraction as previous that was done earlier this year of 35%-40%. The patien t did report that he was noncompliant with most of his medications including the Lasix since his last discharge from the hospital earlier this year. His Lasix was restarted and his medications were opt imized including aspirin, statin, beta kate, DARLENE inhibitor b.i.d., amiodarone was added and he meka erated it very well. By the day of discharge, his symptoms are at baseline. He is off of oxygen and is mobile without any difficulty. He was referred to Heart Failure [facility] and outpatient Cardiology. Medication prescrip tions were provided for him. He was taken off of his metformin because of acute renal insufficiency upon presentation. He was seen and examined prior to discharge. Please see Hospitalist progress note from the date of d ischarge for further details including [id number] interaction. Total time spent in the discharge of this patient 35 minutes which also includes discussion with the consultants. He has been cleared by Cardiology for discharge. Discharge planning was discussed with the patient and multiple family members present in the room at the time of discharge. They verbaliz ed understanding.
== END 2018-02-24 17:45 | disposition home or self-care (01) | DRG 291 ==
LOC: ERS 22:08 → IMCU/EMU 02-22 00:34 → 2NO 02-23 17:02
PROVIDERS: ADMIT Internal Medicine; ATTEND Internal Medicine
DX: I13.0 Hypertensive heart and chronic kidney disease with heart failure and stage 1 through stage 4 chronic kidney disease, or unspecified chronic kidney disease (principal); I50.43 Acute on chronic combined systolic (congestive) and diastolic (congestive) heart failure; J96.21 Acute and chronic respiratory failure with hypoxia; N17.9 Acute kidney failure, unspecified; J44.1 Chronic obstructive pulmonary disease with (acute) exacerbation; Z68.41 Body mass index [BMI] 40.0-44.9, adult; N18.2 Chronic kidney disease, stage 2 (mild); I48.0 Paroxysmal atrial fibrillation; I25.10 Atherosclerotic heart disease of native coronary artery without angina pectoris; E11.22 Type 2 diabetes mellitus with diabetic chronic kidney disease; E66.01 Morbid (severe) obesity due to excess calories; G47.33 Obstructive sleep apnea (adult) (pediatric); Z95.5 Presence of coronary angioplasty implant and graft; Z95.1 Presence of aortocoronary bypass graft; Z79.84 Long term (current) use of oral hypoglycemic drugs; Z79.82 Long term (current) use of aspirin; Z79.899 Other long term (current) drug therapy; Z95.810 Presence of automatic (implantable) cardiac defibrillator; Z89.022 Acquired absence of left finger(s); E78.5 Hyperlipidemia, unspecified; Z87.891 Personal history of nicotine dependence
CPT/HCPCS: 36415; 36416; 71045; 80048; 80061; 80076; 82553; 82805; 83735; 83880; 84443; 84484; 85025; 93005; 93010; 93306; 93798; 94640; 94644; 94660; 96374; 96375; A4216; J0282; J1160; J1644; J1940; J2920; J2930; J7070; J7506; J7611; J7620

== ENCOUNTER 2018-03-18 17:58 | Emergency (ER) | payer SELFPAY ==
[2018-03-18] MEDS ORDERED: Fentanyl 100 MCG/2 ML VIAL ONE (18:14)
--- NOTE | 2018-03-18 20:17 | ULT ---
SCROTAL ULTRASOUND: Date: 03-18-18 Comparison: None. History: Left sided scrotal plane. Technique: Multiplanar grayscale sonographic imaging of the scrotum obtained. The testicles are asses sed with color flow and spectral analysis. FINDINGS: The left testicle measures 3.6 x 4.7 x 3.4 cm and demonstrates normal blood flow without evidence for an intratesticular mass. There is a small left sided hydrocele. The epididymal tail lateral to the left testicle appears irregular and enlarged which may signify lef t sided epididymitis. Right testicle measures 3.7 x 4.8 x 3.2 cm and demonstrates normal blood flow without evidence for ma ss. Right epididymal head appears normal measuring 1.2 x 1.4 cm. Trace right sided hydrocele noted. IMPRESSION: 1. Blood flow is seen within both testicles. No intratesticular mass is seen. Small bilateral hydroce les are noted, left greater than right. 2. The epididymal tail appears heterogeneous and enlarged on the left which may signify epididymitis in the proper clinical setting. No evidence for orchitis. POS: [facility]
== END 2018-03-18 21:00 | disposition home or self-care (01) ==
LOC: ERS 17:58
DX: N45.1 Epididymitis (principal); N43.3 Hydrocele, unspecified; B35.4 Tinea corporis; E11.9 Type 2 diabetes mellitus without complications; E78.5 Hyperlipidemia, unspecified; I25.2 Old myocardial infarction; J44.9 Chronic obstructive pulmonary disease, unspecified; I11.0 Hypertensive heart disease with heart failure; I50.9 Heart failure, unspecified; Z87.891 Personal history of nicotine dependence; Z79.84 Long term (current) use of oral hypoglycemic drugs; Z79.82 Long term (current) use of aspirin; Z79.899 Other long term (current) drug therapy
CPT/HCPCS: 76870; 93976; 96374; J3010

== ENCOUNTER 2018-03-22 09:46 | Inpatient (IN) | payer SELFPAY ==
[2018-03-22] MEDS ORDERED: Albuterol Sulfate 2.5 mg/0.5 ml Neb ONE (09:55)
[2018-03-22] MEDS ORDERED: Sodium Chloride For Inhalation 0.9% 3 ML NEB ONE (09:55)
[2018-03-22] MEDS ORDERED: Dexamethasone 4 mg/ml Vial ONE (10:14)
[2018-03-22 10:24] LABS: #Eosinphils 0.4 thou/uL (0.0-0.7); #Neutrophils 7.4 thou/uL (1.40-6.50); %Basophils 0.2 % (0.0-1.0); %Eosinophils 3.8 % (0.0-10.0); %Lymphocytes 9.9 % (21.0-51.0); %Monocytes 9.9 % (0.0-10.0); %Neutrophils 76.2 % (42.0-75.0); Hemoglobin 13.1 g/dL (14.0-18.0); Mean Corpuscular HGB CONC 33.9 g/dL (32.0-36.0); Mean Corpuscular Hemoglobin 30.2 pg (27.0-31.0); Mean Corpuscular Volume 89.1 fL (78.0-98.0); Mean Platelet Volume 6.5 fL (7.4-10.4); Platelet Count 330 thou/uL (130-400); RBC Distribution Width 12.7 % (11.5-14.5); Red Blood Cell (RBC) Count 4.34 mill/uL (4.70-6.10); White Blood Cell (WBC) Count 9.7 thou/uL (4.8-10.8)
[2018-03-22] MEDS ORDERED: Magnesium 2 GM/NS 0.9% 100 ML 2 GM in Premix Bag 1 BAG IVPB SCH (10:30)
[2018-03-22 10:45] LABS: ALT (SGPT) 9 U/L (8-55); AST (SGOT) 9 U/L (5-34); Albumin 3.3 g/dL (3.5-5.0); Alkaline Phosphatase 76 U/L (40-150); Anion Gap 13 mmol/L (10-20); BUN (Urea Nitrogen) 11 mg/dL (8.4-25.7); Bilirubin, Total 0.4 mg/dL (0.2-1.2); CK (CPK) 97 U/L (30-200); Calc. Creatinine Clearance 0 mL/min (70-130); Calcium 9.3 mg/dL (7.8-10.44); Carbon Dioxide 26 mmol/L (22-29); Chloride 102 mmol/L (98-107); Estimated GFR-MDRD 63; Globulin 4.3 g/dL (2.4-3.5); Glucose 237 mg/dL (70-105); Lipase 21 U/L (8-78); Protein, Total 7.6 g/dL (6.0-8.3); Sodium 137 mmol/L (136-145)
[2018-03-22 10:48] LABS: Troponin I Less than 0.010 ng/mL (< 0.028)
--- NOTE | 2018-03-22 10:57 | RAD ---
CHEST 1 VIEW: Date: 03/22/18 HISTORY: 57-year-old male with history of dyspnea and difficulty breathing. COMPARISON: 02/21/18. FINDINGS: Postop midline sternotomy and left ICD. Increased linear and interstitial markings in the mid and low er lung zones, stable. No confluent pneumonia or overt edema. Bullous changes in the right upper lobe . IMPRESSION: Stable increased linear and interstitial markings in the mid and lower lung zones with some probable bullous changes in the right upper lobe, also stable. No significant new process. POS: [facility]
[2018-03-22 11:22] LABS: Actual Bicarbonate (HCO3a) 25.4 mEq/L (22-28); Base Excess (BEa) 0.5 mEq/L (-2.0 to +3.0); O2 Tension (PaO2) 78.6 mmHg (80.0-100.0)
[2018-03-22 11:23] LABS: Hematocrit-ABG 34.9 % (42.0-52.0); Hemoglobin (Hb) 11.3 g/dL (14.0-18.0)
[2018-03-22 11:24] LABS: Analyzer IN Cardio ER; Calcium, Ionized 1.1 mmol/L (1.12-1.30); Puncture Site L.R.
[2018-03-22] MEDS ORDERED: Furosemide 40 MG/4 ML VIAL ONE ×2 (12:09→18:06)
[2018-03-22] MEDS ORDERED: Acetaminophen 325 MG TAB PO PRN (12:19)
[2018-03-22] MEDS ORDERED: Acetaminophen 650 MG Suppository PR PRN (12:19)
[2018-03-22] MEDS ORDERED: Bisacodyl 5 MG TAB PO PRN (12:19)
[2018-03-22] MEDS ORDERED: Dextrose 5% in Water 1,000 ML IV PRN (14:11)
[2018-03-22] MEDS ORDERED: Dextrose 50% Abboject 50 ML SYRINGE SLOW IVP PRN (14:11)
[2018-03-22 14:22] LABS: Bilirubin Negative (Negative); Blood, Urine Moderate (Negative); Clarity CLEAR (Clear); Glucose, Urine (Dipstick) 250 mg/dL (Negative); Leukocyte Small (Negative); Nitrite Negative (Negative); Protein, Urine (Dipstick) 300 mg/dL (Neg-Trace); Specific Gravity, Urine 1.015 (1.002-1.036)
[2018-03-22 14:39] LABS: Bacteria/HPF None Seen HPF (None Seen); Hyaline Casts/LPF 4-6 HYALINE CAST LPF (0-3 Hyaline); Pathc Cast-AUWi Flag 0.58 (0-2.49); Yeast-AUWi Flag 8.1 (0-25.0)
--- NOTE | 2018-03-22 14:45 | HP ---
PRIMARY CARE PROVIDER: Dr. Zachary Díaz. PRIMARY SPOOL TENDER: Dr. Corrales. CHIEF COMPLAINT: Shortness of breath. HISTORY OF PRESENT ILLNESS: Mr. Amezquita is a pleasant 57-year-old gentleman who was seen at [facility] on 03/22/2018. He reports that he developed shortness of breath yesterday. He also reports cough that is nonproduct silver. The shortness of breath was not relieved with albuterol inhalation at home. He therefore came to the emergency room. He reports that the shortness of breath is accompanied by chest tightness and wheezing. He denies any fevers or chills. He denies any nausea, vomiting, diarrhea, or abdominal p ain. He was hospitalized at this facility from 02/22/2018-02/24/2018 year for acute on chronic combined co ngestive heart failure. REVIEW OF SYSTEMS: All other systems reviewed and found to be negative. PAST MEDICAL HISTORY: Coronary artery disease, status post coronary artery bypass graft, status post PCI with stent, COPD, cardiomyopathy, status post AICD placement, diabetes mellitus type 2, obesity, hypertension, obstructive sleep apnea syndrome and atrial fibrillation. PAST SURGICAL HISTORY: Coronary artery bypass graft, PCI with stent placement, appendectomy, finger amputation and AICD placement. ALLERGIES: No known drug allergies. CURRENT MEDICATIONS: Metformin 1000 mg 2 times a day, glyburide 10 mg daily, Coreg 25 mg 2 times a d ay, aspirin 325 mg daily, lisinopril 40 mg daily, Farxiga 5 mg daily, prednisone 20 mg daily, atorvas tatin 40 mg daily, tamsulosin 0.4 mg daily, gabapentin 300 mg daily, clonidine 0.1 mg patch, hydralaz ine 25 mg 3 times a day, Motrin 600 mg every 6 hours as needed, [place] 10/325 mg every 4 hours as need ed, Nystatin application 3 times a day. FAMILY HISTORY: Multiple family members with diabetes mellitus and coronary artery disease. SOCIAL HISTORY: The patient denies tobacco use or recreational drug use. He reports occasional alco hol use. PHYSICAL EXAMINATION: GENERAL: On examination, Mr. Amezquita is awake and alert, not in acute distress. VITAL SIGNS: Blood pressure is 176/91, pulse 71, his breathing at rate of 24 and saturating 94% on 3 liters of oxygen. He was treated with BiPAP earlier in the emergency room. GENERAL: He is afebrile. He is obese. EYES: No scleral icterus. No conjunctival pallor. ENT: Moist mucosal membranes, no oropharyngeal erythema or exudates. NECK: Supple, nontender, trachea is midline. RESPIRATORY: Accessory muscles of breathing are active. Chest wall movements are symmetric bilatera lly. LUNGS: Markedly diminished breath sounds at both bases. CARDIOVASCULAR: S1 and S2 are heard, regular. Peripheral pulses are palpable. No carotid bruit, no pericardial rub. ABDOMEN: Soft, nontender, bowel sounds heard, no hepatomegaly, no splenomegaly. NEUROLOGIC: Cranial nerves II-XII intact. Deep tendon reflexes are 2+. MUSCULOSKELETAL: Power is 5/5 in all 4 extremities. SKIN: No rashes or subcutaneous nodules. LYMPHATIC: No cervical lymphadenopathy. PSYCHIATRIC: Normal mood, normal affect, patient is oriented to person, place, and time. IMAGING DATA AND LABORATORY DATA: Mr. Rosales labs and investigations were reviewed. I reviewed his electrocardiogram, which shows atrial paced rhythm, no ST changes to suggest an acute coronary syndr ome. I also reviewed his chest x-ray, which does not show any pulmonary infiltrates. He has normal white count, normocytic anemia with hemoglobin 13.1, normal platelet count, normal electrolytes, norm al creatinine, unremarkable liver profile and elevated BNP of 1827, troponin I is normal, lactic acid is normal. Arterial blood gases show pH of 7.4, pCO2 of 42 and pO2 78.6. ASSESSMENT AND PLAN: 1. Acute on chronic hypoxic respiratory failure: Likely secondary to both chronic obstructive pulmo nary disease and congestive heart failure exacerbation, although clinical presentation is more consis tent with great element of chronic obstructive pulmonary disease exacerbation. The patient will be a dmitted to the hospital for further management. 2. Chronic obstructive pulmonary disease exacerbation: Patient will be treated with oxygen, steroid s, bronchodilators and antibiotics. I will consult Pulmonology Service for opinion and help with fur ther management. 3. Congestive heart failure exacerbation: This appears to be playing a lesser role in his clinical presentation. He has received a dose of furosemide in the emergency room, I will continue him on fur osemide for now. We will also interrogate his pacemaker to rule out any arrhythmias. 4. Obstructive sleep apnea syndrome: Continue CPAP while he is in the hospital. 5. Diabetes mellitus type 2: Start Accu-Cheks and insulin sliding scale. 6. Dyslipidemia: Continue home medications, including statin. 7. Hypertension: Monitor vital signs, titrate antihypertensives as needed. 8. Coronary artery disease: Appears to be stable. Many thanks for allowing me to participate in your patient's care. Please feel free to contact me wi th any questions or concerns. LEVEL OF RISK: High. LEVEL OF COMPLEXITY: High.
[2018-03-22 14:51] LABS: Troponin I 0.019 ng/mL (< 0.028)
[2018-03-22 15:02] LABS: Crystals/HPF None Seen HPF (Negative); Oval Fat Bodies/HPF None Seen HPF (None Seen); Renal Epithelial None Seen HPF (0-3); Transitional Epithelial NONE SEEN HPF (0-3)
[2018-03-22 17:52] LABS: Troponin I Less than 0.010 ng/mL (< 0.028)
[2018-03-22] MEDS: HumaLOG 300 UNITS/3 ML VIAL SC PRN ×2 (18:28→23:01)
[2018-03-22 18:39] VITALS: BMI 39.5
[2018-03-22] MEDS ORDERED: Labetalol HCl 100 MG/20 ML VIAL SLOW IVP PRN (22:51)
--- NOTE | 2018-03-22 23:58 | CON ---
DATE OF CONSULTATION: 03/22/2018 CONSULTING PHYSICIAN: Dr. Santana from the Hospitalist group. REASON FOR CONSULTATION: Acute hypoxic respiratory failure. HISTORY OF PRESENT ILLNESS: Mr. Amezquita is a 57-year-old male who has been seen by Dr. Savanna hi in the past. He developed shortness of breath and wheezing yesterday. He came to the emergency room and was placed on BiPAP. Workup showed him to have a BNP of 1827. In the past, most of his re spiratory failure episodes have been secondary to heart failure from what I can remember. He was given a dose of Lasix. He had a significant amount of urine output. He looks stable enough n ow to be taken off the BiPAP. PAST MEDICAL HISTORY: 1. COPD. 2. Systolic congestive heart failure. 3. Coronary artery disease. 4. Diabetes mellitus type 2. 5. Hypertension. 6. Obstructive sleep apnea. 7. Atrial fibrillation. PAST SURGICAL HISTORY: 1. Coronary artery bypass grafting surgery. 2. PCI with stent placement. 3. Appendectomy. 4. Finger amputation. 5. AICD. ALLERGIES: None. MEDICATIONS PRIOR TO ADMISSION: Metformin, glyburide, Coreg, aspirin, lisinopril, Forxiga, prednison e, atorvastatin, tamsulosin, gabapentin, clonidine, hydralazine, Motrin, Dulce, nystatin. FAMILY MEDICAL HISTORY: Remarkable for diabetes mellitus. SOCIAL HISTORY: Nonsmoker, does not consume alcohol. REVIEW OF SYSTEMS: Twelve-point review of systems otherwise negative. PHYSICAL EXAMINATION: VITAL SIGNS: Temperature 98, pulse 63, respirations 22, O2 saturation 98% on BiPAP. GENERAL: He is awake and alert, in no distress. HEENT: Unremarkable. NECK: Without adenopathy, JVD, or bruits. LUNGS: Fairly clear anteriorly without wheezing or rhonchi. He has excellent tidal volumes on the B iPAP. CARDIAC: S1, S2 regular without audible murmur. ABDOMEN: Soft, nontender. EXTREMITIES: Trace edema. IMAGING: His chest x-ray demonstrated cardiomegaly, bilateral wispy infiltrates. LABORATORY DATA: White blood cell count 9.7, hematocrit 38.6, platelet count 330,000, pH 7.40, pCO2 of 42, pO2 of 78. Sodium 130, potassium 4, chloride 102, CO2 of 26, BUN 11, creatinine 1.2, glucose 237. BNP 1827. ASSESSMENT: 1. Acute systolic heart failure. 2. Acute hypoxic respiratory failure secondary to systolic heart failure. 3. Underlying chronic obstructive pulmonary disease which appears to be stable. PLAN: 1. I would aggressively diurese the patient. 2. He is probably safe to come off BiPAP. If he remains well off BiPAP this evening then he could p robably be transferred out to the medical floor. 3. I doubt this is an acute exacerbation of his COPD.
[2018-03-23] MEDS ORDERED: hydrALAZINE 25 MG TAB PO SCH (03:30)
[2018-03-23 03:49] LABS: #Lymphocytes 0.9 thou/uL (1.20-3.40); #Monocytes 0.1 thou/uL (0.11-0.59); %Basophils 0.1 % (0.0-1.0); %Eosinophils 0.5 % (0.0-10.0); %Lymphocytes 10.6 % (21.0-51.0); %Monocytes 1.6 % (0.0-10.0); %Neutrophils 87.2 % (42.0-75.0); Hemoglobin 13.1 g/dL (14.0-18.0); Mean Corpuscular Hemoglobin 30.9 pg (27.0-31.0); Mean Corpuscular Volume 88.4 fL (78.0-98.0); Mean Platelet Volume 6.1 fL (7.4-10.4); Platelet Count 334 thou/uL (130-400); RBC Distribution Width 12.6 % (11.5-14.5); Red Blood Cell (RBC) Count 4.25 mill/uL (4.70-6.10)
[2018-03-23 04:05] LABS: Anion Gap 16 mmol/L (10-20); BUN (Urea Nitrogen) 19 mg/dL (8.4-25.7); Calc. Creatinine Clearance 110 mL/min (70-130); Calcium 9.5 mg/dL (7.8-10.44); Carbon Dioxide 26 mmol/L (22-29); Chloride 98 mmol/L (98-107); Estimated GFR-MDRD 52; Glucose 381 mg/dL (70-105); Potassium 4.8 mmol/L (3.5-5.1); Sodium 135 mmol/L (136-145)
[2018-03-23] MEDS ORDERED: Furosemide 20 MG/2 ML VIAL SLOW IVP SCH (06:00)
[2018-03-23] MEDS: HumaLOG 300 UNITS/3 ML VIAL SC PRN ×3 (06:11→22:14)
[2018-03-23] MEDS: Furosemide 40 MG/4 ML VIAL SLOW IVP SCH ×2 (08:53→14:32)
[2018-03-23] MEDS: Enoxaparin Sodium 40 MG/0.4 ML SYRINGE SC SCH (08:53)
[2018-03-23] MEDS ORDERED: HYDROcodone/Acetaminophen 10/325 mg Tablet PO PRN (09:06)
[2018-03-23] MEDS ORDERED: Nitroglycerin 0.4 MG TAB (25 Tab Bottle) SL PRN (09:06)
[2018-03-23] MEDS ORDERED: Aspirin 81 mg Enteric Coated Tablet PO SCH (11:00)
[2018-03-23] MEDS ORDERED: glyBURIDE 2.5 MG TAB PO SCH (11:00)
[2018-03-23] MEDS: Amiodarone 200 MG TAB PO SCH ×2 (11:32→21:47)
[2018-03-23] MEDS: Carvedilol 25 MG TAB PO SCH ×2 (11:33→17:35)
--- NOTE | 2018-03-23 12:52 | PRG ---
DATE OF SERVICE: 03/23/2018 SUBJECTIVE: The patient is doing better. He has been off BiPAP since yesterday evening. OBJECTIVE: VITAL SIGNS: Temperature is 97.6, pulse 76, respiration 16, O2 sat 93%, and blood pressure 149/83. HEENT: Clear. NECK: No JVD. LUNGS: Clear without wheezing or rhonchi. CARDIOVASCULAR: S1 and S2, regular. ABDOMEN: Soft. EXTREMITIES: No edema. LABORATORY DATA: White blood cell count 8, hematocrit 37.5, platelet count 334. Sodium 135, potassi um 4.8, chloride 98, CO2 of 26, BUN 19, creatinine 1.4, and glucose 364. ASSESSMENT: 1. Congestive heart failure. 2. Acute respiratory failure. 3. Underlying chronic obstructive pulmonary disease. RECOMMENDATION: He could be transferred out to the medical floor. We need to stop his steroids give n the development of hyperglycemia. He is probably very close to being able to go home.
[2018-03-23] MEDS: Aspirin 81 mg Enteric Coated Tablet PO SCH (14:22)
[2018-03-23] MEDS: glyBURIDE 2.5 MG TAB PO SCH (14:23)
[2018-03-23] MEDS: Gabapentin 300 MG CAP PO SCH ×2 (14:32→21:47)
--- NOTE | 2018-03-23 15:51 | PDOC.PN ---
- Subjective Encounter Start Date: 03/23/18 Encounter Start Time: 09:40 Pt seen for followup re: acute on chronic hypoxic respiratory failure. Feels better, no fevers or chills. No nausea or vomiting. No abdo pain. - Objective MAR Reviewed: Yes Vital Signs & Weight: Vital Signs (12 hours) Temp Pulse Resp BP BP BP Pulse Ox 03/23/18 15:20 97.8 F 68 20 175/93 H 94 L 03/23/18 14:10 61 20 94 L 03/23/18 12:00 97.6 F 76 16 149/83 H 93 L 03/23/18 08:00 98.6 F 75 19 95 03/23/18 07:37 98.6 F 75 19 159/87 H 90 L 03/23/18 07:21 92 L 03/23/18 07:20 68 20 92 L 03/23/18 04:36 68 188/98 H 03/23/18 04:25 97.0 F L 65 15 188/98 H 94 L Weight Weight 297 lb I&O: 03/22/18 03/23/18 03/24/18 06:59 06:59 06:59 Intake Total 400 Output Total 1225 400 Balance -825 -400 Result Diagrams: 03/23/18 03:26 03/23/18 03:26 Additional Labs: Accuchecks 03/23/18 03/23/18 03/22/18 10:40 06:13 20:19 POC Glucose 364 H 336 H 409 H 03/22/18 17:43 POC Glucose 296 H EKG Reviewed by me: Yes (Tele: NSR) Phys Exam - Physical Examination Obese HEENT: moist MMs, sclera anicteric, oral pharynx no lesions, 2+ tonsils Neck: no nodes, no JVD, supple, full ROM Respiratory: no wheezing, no rales, no rhonchi, clear to auscultation bilateral Diminished air entry bhanu bases Cardiovascular: RRR, no rub S1, S2 Gastrointestinal: soft, non-tender, positive bowel sounds distention Musculoskeletal: no edema Neurological: moves all 4 limbs Psychiatric: normal affect, A&O x 3 Dx/Plan (1) Acute on chronic respiratory failure with hypoxia Code(s): J96.21 - ACUTE AND CHRONIC RESPIRATORY FAILURE WITH HYPOXIA Status: Acute Comment: likely due to CHF exacerbation (2) LEANNA (acute kidney injury) Code(s): N17.9 - ACUTE KIDNEY FAILURE, UNSPECIFIED Status: Acute Comment: Follow lytes, creatinine. Pt is on IV diuretics (3) Acute on chronic combined systolic and diastolic CHF (congestive heart failure) Code(s): I50.43 - ACUTE ON CHRONIC COMBINED SYSTOLIC AND DIASTOLIC HRT FAIL Status: Acute Comment: ACC Stage C, continue IV furosemide (4) COPD exacerbation Code(s): J44.1 - CHRONIC OBSTRUCTIVE PULMONARY DISEASE W (ACUTE) EXACERBATION Status: Acute Comment: continue Duonebs. Pt's presentation more likely due to CHF exacerbation. (5) CAD (coronary artery disease) Code(s): I25.10 - ATHSCL HEART DISEASE OF [place] CORONARY ARTERY W/O ANG PCTRS Status: Chronic Comment: stable (6) HTN (hypertension) Code(s): I10 - ESSENTIAL (PRIMARY) HYPERTENSION Status: Chronic Qualifiers: Hypertension type: essential hypertension Qualified Code(s): I10 - Essential (primary) hypertension Comment: Monitor vital signs, titrate antihypertensives as needed (7) YVETTE (obstructive sleep apnea) Code(s): G47.33 - OBSTRUCTIVE SLEEP APNEA (ADULT) (PEDIATRIC) Status: Chronic Comment: CPAP while asleep - Plan * . Review of Systems - Review of Systems Constitutional: negative: fever, chills, sweats, weakness, malaise Respiratory: Cough, Dry, SOB with Excertion. negative: Shortness of Breath, Hemoptysis, Pleuritic Pain, Sputum, Wheezing Cardiovascular: negative: chest pain, palpitations, orthopnea, paroxysmal nocturnal dyspnea, edema, light headedness Gastrointestinal: negative: Nausea, Vomiting, Abdominal Pain, Diarrhea, Constipation, Melena, Hematochezia Genitourinary: negative: Dysuria, Frequency, Incontinence, Hematuria, Retention Musculoskeletal: negative: Neck Pain, Shoulder Pain, Arm Pain, Back Pain, Hand Pain, Leg Pain, Foot Pain Skin: negative: Rash, Lesions, Dejon, Bruising - Medications/Allergies Allergies/Adverse Reactions: Allergies Allergy/AdvReac Type Severity Reaction Status Date / Time No Known Allergies Allergy Verified 02/22/18 01:46 Medications: Current Medications Acetaminophen (Tylenol) 650 mg PO Q4H PRN PRN Reason: Headache/Fever or Pain Acetaminophen (Tylenol) 650 mg [place] Q4H PRN PRN Reason: Headache/Fever or Pain Hydrocodone Bitart/Acetaminophen ([place] 10/325) 1 tab PO Q6HR PRN PRN Reason: Pain Albuterol/Ipratropium (Duoneb) 3 ml NEB [id number] PRN PRN Reason: SOB &/or Wheezing Albuterol/Ipratropium (Duoneb) 3 ml NEB [id number] [facility] Last Admin: 03/23/18 14:10 Dose: 3 ml Amiodarone HCl (Cordarone) 200 mg PO BID [facility] Last Admin: 03/23/18 11:32 Dose: 200 mg Aspirin (Ecotrin) 81 mg PO DAILY [facility] Last Admin: 03/23/18 14:22 Dose: Not Given Bisacodyl (Dulcolax) 10 mg PO DAILYPRN PRN PRN Reason: Constipation Carvedilol (Coreg) 25 mg PO BID[facility] Last Admin: 03/23/18 11:33 Dose: 25 mg Dextrose/Water (Dextrose 50%) 25 gm SLOW IVP PRN PRN PRN Reason: Hypoglycemia Enoxaparin Sodium (Lovenox) 40 mg SC 0900 [facility] Last Admin: 03/23/18 08:53 Dose: 40 mg Furosemide (Lasix) 40 mg SLOW IVP 0900,1400 [facility] Last Admin: 03/23/18 14:32 Dose: 40 mg Gabapentin (Neurontin) 300 mg PO TID [facility] Last Admin: 03/23/18 14:32 Dose: 300 mg Glucagon (Glucagon) 1 mg IM PRN PRN PRN Reason: Hypoglycemia Glyburide (Micronase) 5 mg PO DAILY [facility] Last Admin: 03/23/18 14:23 Dose: Not Given Dextrose/Water (D5w) 1,000 mls @ 0 mls/hr IV .Q0M PRN; As Directed PRN Reason: Hypoglycemia Insulin Human Lispro (Humalog) 0 units SC .MILD SLIDING SCALE PRN PRN Reason: Mild Correctional Scale Last Admin: 03/23/18 11:33 Dose: 6 unit Labetalol HCl (Normodyne) 5 mg SLOW IVP Q6H PRN PRN Reason: SBP Greater Than 170 Last Admin: 03/22/18 23:01 Dose: 5 mg Mometasone Furoate/Formoterol Fumar (Dulera 200 Mcg/5 Mcg Inhaler) 2 puff INH BID-RT [facility] Nitroglycerin (Nitrostat) 0.4 mg SL Q5MIN PRN PRN Reason: Chest Pain Sodium Chloride (Flush - Normal Saline) 10 ml IVF Q12HR [facility] Last Admin: 03/23/18 08:54 Dose: 10 ml Sodium Chloride (Flush - Normal Saline) 10 ml IVF PRN PRN PRN Reason: Saline Flush
[2018-03-23] MEDS: Mometasone/Formoterol 120 PUFF INHALER INH SCH (18:45)
[2018-03-23] MEDS ORDERED: HumaLOG 300 UNITS/3 ML VIAL SC SCH (23:45)
[2018-03-24 04:41] LABS: #Lymphocytes 1.3 thou/uL (1.20-3.40); #Monocytes 1.1 thou/uL (0.11-0.59); %Eosinophils 0.3 % (0.0-10.0); %Lymphocytes 9.6 % (21.0-51.0); %Monocytes 8.1 % (0.0-10.0); Hemoglobin 12.6 g/dL (14.0-18.0); Mean Corpuscular HGB CONC 34.7 g/dL (32.0-36.0); Mean Corpuscular Hemoglobin 30.6 pg (27.0-31.0); Mean Corpuscular Volume 88.1 fL (78.0-98.0); Mean Platelet Volume 6.3 fL (7.4-10.4); Platelet Count 357 thou/uL (130-400); RBC Distribution Width 12.6 % (11.5-14.5); Red Blood Cell (RBC) Count 4.13 mill/uL (4.70-6.10); White Blood Cell (WBC) Count 13.5 thou/uL (4.8-10.8)
[2018-03-24 04:56] LABS: Anion Gap 12 mmol/L (10-20); BUN (Urea Nitrogen) 37 mg/dL (8.4-25.7); Calc. Creatinine Clearance 86 mL/min (70-130); Calcium 9.2 mg/dL (7.8-10.44); Carbon Dioxide 26 mmol/L (22-29); Chloride 99 mmol/L (98-107); Estimated GFR-MDRD 39; Glucose 339 mg/dL (70-105); Potassium 4.8 mmol/L (3.5-5.1); Sodium 132 mmol/L (136-145)
[2018-03-24] MEDS: HumaLOG 300 UNITS/3 ML VIAL SC PRN ×2 (06:15→12:17)
[2018-03-24] MEDS: Mometasone/Formoterol 120 PUFF INHALER INH SCH (07:12)
[2018-03-24 08:15] VITALS: BP 136/84; TEMP 97.4
[2018-03-24] MEDS: Carvedilol 25 MG TAB PO SCH (08:32)
[2018-03-24] MEDS: Aspirin 81 mg Enteric Coated Tablet PO SCH (08:32)
[2018-03-24] MEDS: Amiodarone 200 MG TAB PO SCH (08:32)
[2018-03-24] MEDS: Gabapentin 300 MG CAP PO SCH (08:32)
[2018-03-24] MEDS: Furosemide 40 MG/4 ML VIAL SLOW IVP SCH (08:33)
[2018-03-24] MEDS: Enoxaparin Sodium 40 MG/0.4 ML SYRINGE SC SCH (08:33)
[2018-03-24] MEDS: glyBURIDE 2.5 MG TAB PO SCH (10:00)
--- NOTE | 2018-03-24 11:11 | DIS ---
DATE OF ADMISSION: 03/22/2018 DATE OF DISCHARGE: 03/24/2018 PRIMARY CARE PROVIDER: Dr. Zachary Díaz. DISCHARGE DIAGNOSES: 1. Acute on chronic hypoxic respiratory failure. 2. Congestive heart failure exacerbation, class C. 3. Chronic obstructive pulmonary disease exacerbation. 4. Acute on chronic renal insufficiency. CONDITION OF PATIENT ON THE DAY OF DISCHARGE: Stable. I assessed Mr. Amezquita on the day of discharge. He denies any chest pain or shortness of breath. Vital signs are stable. S1 and S2 are heard, reg ular. Lungs are clear to auscultation bilaterally. CONSULTATIONS DURING THIS HOSPITALIZATION: Pulmonology, Dr. Bradford. HOSPITAL COURSE: Mr. Amezquita is a pleasant 57-year-old gentleman who was admitted to [facility] on 03/22/2018 for acute on chronic hypoxic respiratory failure secondary to chronic obstructive pulmonary disease exacerbation. It was also felt that he had a component of chronic obst ructive pulmonary disease exacerbation. He was seen by Pulmonology Service. It was felt that his pr esentation was mainly due to congestive heart failure exacerbation. He was treated with intravenous diuretics. He improved clinically and is being discharged home in a stable condition. He was also b riefly treated with bilevel positive airway pressure in the emergency room. Due to aggressive diuresis, his creatinine increased to 1.79 on the day of discharge. He is advised to hold his lisinopril and have his creatinine and electrolytes checked through his primary care prov ider's office in 5-7 days. At that time, his lisinopril can be restarted if creatinine improves. On the day of discharge, he has white count 13,500, hemoglobin 12.6, platelet count 357,000. Sodium 132, potassium 4.8, blood urea nitrogen 37 and creatinine 1.79. DISCHARGE MEDICATIONS: Lisinopril to be held as described above. Otherwise, his preadmission home m edications as dictated on my history and physical note from 03/22/2018 remain the same. Please note that the patient was also taking furosemide 40 mg twice daily prior to this admission. He has been a dvised to restart furosemide at home at that dose. Of note, he mentioned that he has been taking the medication only once a day, because of urination at night. He has been advised to take the first do se early in the morning and the second dose around 2 or 3 p.m., so that [facility] Many thanks for allowing me to participate in your patient's care. Please feel free to contact me wi th any questions or concerns. DISCHARGE DESTINATION: Home. TOTAL AMOUNT OF TIME SPENT COORDINATING THIS DISCHARGE: 33 minutes.
--- NOTE | 2018-03-24 12:51 | PRG ---
DATE OF SERVICE: 03/24/2018 SUBJECTIVE: The patient is doing well and looks stable for discharge. He has no complaints. OBJECTIVE: VITAL SIGNS: On exam, temperature is 97.4, pulse 84, respirations 18, O2 sat 92% room air, blood pre ssure 136/84. HEENT: Unremarkable. NECK: No JVD. CHEST: Clear. CARDIAC: S1 and S2, regular. ABDOMEN: Soft. EXTREMITIES: No edema. LABORATORY DATA: White blood cell count 13.5, hematocrit 36.4, platelet count 357. Sodium 132, pota ssium 4.8, chloride 99, CO2 of 26, BUN 37, creatinine 1.8, glucose 339. ASSESSMENT: 1. Congestive heart failure. 2. History of underlying chronic obstructive pulmonary disease and obstructive sleep apnea. PLAN: This patient is stable for discharge. The only issue I see is continued hyperglycemia, which may be secondary to steroids he received during this admission. The patient needs to follow up with Dr. Corrales in a few weeks for pulmonary concerns.
== END 2018-03-24 13:23 | disposition home or self-care (01) | DRG 189 ==
LOC: ERS 09:46 → IMCU/EMU 11:50 → T4-B 03-23 15:45
PROVIDERS: ADMIT Internal Medicine; ATTEND Internal Medicine
DX: J96.21 Acute and chronic respiratory failure with hypoxia (principal); I50.43 Acute on chronic combined systolic (congestive) and diastolic (congestive) heart failure; I13.0 Hypertensive heart and chronic kidney disease with heart failure and stage 1 through stage 4 chronic kidney disease, or unspecified chronic kidney disease; N17.9 Acute kidney failure, unspecified; J44.1 Chronic obstructive pulmonary disease with (acute) exacerbation; I42.9 Cardiomyopathy, unspecified; E11.22 Type 2 diabetes mellitus with diabetic chronic kidney disease; E11.65 Type 2 diabetes mellitus with hyperglycemia; N18.9 Chronic kidney disease, unspecified; G47.33 Obstructive sleep apnea (adult) (pediatric); I25.10 Atherosclerotic heart disease of native coronary artery without angina pectoris; Z95.1 Presence of aortocoronary bypass graft; I48.91 Unspecified atrial fibrillation; Z95.810 Presence of automatic (implantable) cardiac defibrillator; E78.5 Hyperlipidemia, unspecified; I25.2 Old myocardial infarction
CPT/HCPCS: 36415; 36416; 71045; 80048; 80053; 81003; 81015; 82550; 82553; 82805; 83605; 83690; 83880; 84484; 85025; 87040; 93005; 93798; 94640; 94644; 94660; 96365; 96366; 96367; 96375; A4216; J1100; J1650; J1940; J1956; J2920; J3475; J7611; J7620

== ENCOUNTER 2018-09-08 00:18 | Emergency (ER) | payer SELFPAY ==
[2018-09-08 01:15] LABS: #Eosinphils 0.4 thou/uL (0.0-0.7); #Lymphocytes 1.3 thou/uL (1.20-3.40); #Monocytes 0.6 thou/uL (0.11-0.59); #Neutrophils 4.7 thou/uL (1.40-6.50); %Basophils 0.4 % (0.0-1.0); %Eosinophils 5.4 % (0.0-10.0); %Lymphocytes 18.4 % (21.0-51.0); %Monocytes 9.1 % (0.0-10.0); %Neutrophils 66.8 % (42.0-75.0); Hemoglobin 13.9 g/dL (14.0-18.0); Mean Corpuscular HGB CONC 34.5 g/dL (32.0-36.0); Mean Corpuscular Hemoglobin 30.7 pg (27.0-31.0); Mean Platelet Volume 7.4 fL (7.4-10.4); Platelet Count 214 thou/uL (130-400); RBC Distribution Width 13.5 % (11.5-14.5); Red Blood Cell (RBC) Count 4.52 mill/uL (4.70-6.10); White Blood Cell (WBC) Count 7.1 thou/uL (4.8-10.8)
[2018-09-08] MEDS ORDERED: methylPREDNISolone Sod Succ/PF 125 MG/2 ML VIAL ONE (01:32)
[2018-09-08] MEDS ORDERED: Water For Inject, Bacteriostat 30 ML ONE (01:33)
[2018-09-08 01:34] LABS: ALT (SGPT) 14 U/L (8-55); AST (SGOT) 14 U/L (5-34); Albumin 3.6 g/dL (3.5-5.0); Alkaline Phosphatase 68 U/L (40-150); Anion Gap 11 mmol/L (10-20); BUN (Urea Nitrogen) 27 mg/dL (8.4-25.7); Bilirubin, Total 0.3 mg/dL (0.2-1.2); Calc. Creatinine Clearance 0 mL/min (70-130); Calcium 9.1 mg/dL (7.8-10.44); Carbon Dioxide 26 mmol/L (22-29); Chloride 105 mmol/L (98-107); Estimated GFR-MDRD 44; Globulin 3.1 g/dL (2.4-3.5); Glucose 263 mg/dL (70-105); Potassium 4.6 mmol/L (3.5-5.1); Protein, Total 6.7 g/dL (6.0-8.3); Sodium 137 mmol/L (136-145)
[2018-09-08] MEDS ORDERED: Albuterol Sulfate 2.5 mg/3 ml Neb ONE (03:35)
--- NOTE | 2018-09-08 08:29 | RAD ---
PORTABLE AP CHEST XRAY: DATE: 09/08/2018. HISTORY: Short of breath all day. Worsening throughout the evening. COMPARISON: 03/22/2018. FINDINGS: Postsurgical changes related to median sternotomy are noted with several fractured sternal wires whic h is a stable finding. A dual-lead left subclavian AICD device remains in place. Cardiac silhouette is magnified by projection but stable in size. Pulmonary vasculature is within normal limits. Ther e is minimal atelectasis present at each lung base. There is lucency within the right upper lung zon e probably related to bullous emphysematous changes also stable from prior exam. IMPRESSION: Stable chest without evidence of an acute cardiopulmonary process. POS: [facility]
== END 2018-09-08 04:11 | disposition home or self-care (01) ==
LOC: ERS 00:18
DX: J44.1 Chronic obstructive pulmonary disease with (acute) exacerbation (principal); E78.5 Hyperlipidemia, unspecified; I25.2 Old myocardial infarction; I11.0 Hypertensive heart disease with heart failure; I50.9 Heart failure, unspecified; J44.9 Chronic obstructive pulmonary disease, unspecified; Z87.891 Personal history of nicotine dependence
CPT/HCPCS: 36415; 71045; 80053; 83880; 84484; 85025; 93005; 96374; J2930; J7611; J7620

== ENCOUNTER 2019-06-28 15:36 | Inpatient (IN) | payer OTHER, SELFPAY ==
[2019-06-28 16:09] LABS: #Basophils 0.1 thou/uL (0.0-0.2); #Eosinphils 0.2 thou/uL (0.0-0.7); #Lymphocytes 1.5 thou/uL (1.20-3.40); #Monocytes 0.6 thou/uL (0.11-0.59); #Neutrophils 4.9 thou/uL (1.40-6.50); %Basophils 0.7 % (0.0-1.0); %Eosinophils 2.3 % (0.0-10.0); %Lymphocytes 21.1 % (21.0-51.0); %Monocytes 8.4 % (0.0-10.0); %Neutrophils 67.5 % (42.0-75.0); Hemoglobin 14.4 g/dL (14.0-18.0); Mean Corpuscular Hemoglobin 31.5 pg (27.0-31.0); Mean Platelet Volume 7.2 fL (7.4-10.4); Platelet Count 216 thou/uL (130-400); RBC Distribution Width 14.5 % (11.5-14.5); Red Blood Cell (RBC) Count 4.57 mill/uL (4.70-6.10); White Blood Cell (WBC) Count 7.2 thou/uL (4.8-10.8)
--- NOTE | 2019-06-28 16:17 | RAD ---
EXAM: Single view of the chest HISTORY: Shortness of breath and dyspnea COMPARISON: 09/08/2018 FINDINGS: Single view of the chest shows an enlarged but stable cardiomediastinal silhouette. The pa tient is status post sternotomy. The pacemaker is unchanged in position. There is no evidence of consolidation, mass, or pleural effusion. The bones are unremarkable. IMPRESSION: No evidence of acute cardiopulmonary disease
[2019-06-28 16:32] LABS: ALT (SGPT) 19 U/L (8-55); AST (SGOT) 19 U/L (5-34); Albumin 3.5 g/dL (3.5-5.0); Alkaline Phosphatase 84 U/L (40-110); Anion Gap 12 mmol/L (10-20); BUN (Urea Nitrogen) 18 mg/dL (8.4-25.7); Bilirubin, Total 0.5 mg/dL (0.2-1.2); Calc. Creatinine Clearance 0 mL/min (70-130); Calcium 9.1 mg/dL (7.8-10.44); Carbon Dioxide 26 mmol/L (22-29); Chloride 99 mmol/L (98-107); Estimated GFR-MDRD 54; Globulin 3.1 g/dL (2.4-3.5); Glucose 243 mg/dL (70-105); Potassium 4.5 mmol/L (3.5-5.1); Protein, Total 6.6 g/dL (6.0-8.3); Sodium 132 mmol/L (136-145)
[2019-06-28] MEDS ORDERED: Albuterol Sulfate 2.5 mg/3 ml Neb ONE (16:49)
[2019-06-28 16:58] LABS: Actual Bicarbonate (HCO3a) 26.4 mEq/L (22-28); Analyzer IN Cardio ER; Base Excess (BEa) 1.8 mEq/L (-2.0 to +3.0); CO2 Tension 41.6 mmHg (35.0-45.0); Calcium, Ionized 1.19 mmol/L (1.12-1.30); Hemoglobin (Hb) 14.4 g/dL (14.0-18.0); O2 Tension (PaO2) 64.2 mmHg (> 80.0); Potassium - ABG Lab 4.42 mmol/L (3.70-5.30); pH, Arterial 7.42 (7.35-7.45)
[2019-06-28 17:02] LABS: Puncture Site RRA
[2019-06-28] MEDS ORDERED: Furosemide 40 MG/4 ML VIAL ONE (17:08)
[2019-06-28] MEDS ORDERED: methylPREDNISolone Sod Succ/PF 125 MG/2 ML VIAL ONE (17:08)
[2019-06-28] MEDS ORDERED: Magnesium 2 GM/50 ML BAG (IN WATER) ONE (17:08)
[2019-06-28 19:36] LABS: Troponin I 0.024 ng/mL (< 0.028)
[2019-06-28] MEDS ORDERED: Bisacodyl 5 MG TAB PO PRN (19:39)
[2019-06-28] MEDS ORDERED: Bacteriostatic Water 30 ML VIAL FS PRN (19:53)
[2019-06-28] MEDS ORDERED: HumaLOG 300 UNITS/3 ML VIAL SC PRN (20:02)
[2019-06-28] MEDS ORDERED: Dextrose 5% in Water 1,000 ML IV PRN (20:02)
[2019-06-28] MEDS ORDERED: Dextrose 50% Abboject 50 ML SYRINGE SLOW IVP PRN (20:02)
[2019-06-28] MEDS ORDERED: Ondansetron ODT 4 MG TAB SL PRN (20:06)
[2019-06-28] MEDS ORDERED: Ondansetron PF 4 MG/2 ML Vial IVP PRN (20:06)
--- NOTE | 2019-06-28 20:08 | HP ---
PRIMARY CARE PROVIDER: Zachary Díaz MD CHIEF COMPLAINT: Shortness of breath. HISTORY OF PRESENT ILLNESS: The patient is a pleasant 59-year-old gentleman, who was seen at [facility] on June 28, 2019. He was hospitalized at our facility from March 22 to 2017 for acute on chronic hypoxic respiratory failure secondary to COPD exacerbation and CHF exacerbation. He reports that he was doing well until about a month ago. He reports that he developed shortness of breath and cough. He was seen at clinic in [place] and started on antibiotics and steroids. He reports improving initially. Subsequently, he worsened. He reports low energy and shortness of breath with exertion. He also describes orthopnea. He also reports 30-pound weight gain from the last 3 weeks. He reports that he has an oxygen generator at home, which belongs to his uncle. The patient has not used this lately. He presented to the emergency room because of ongoing shortness of breath. He denies any fevers. He reports abdominal distention. He denies any chest pain. He reports that he was seen by Electrophysiology, Dr. Zhang and was told that his pacemaker was working fine. REVIEW OF SYSTEMS: All systems were reviewed and found to be negative except for the pertinent positives mentioned above. PAST MEDICAL HISTORY: Coronary artery disease status post coronary artery bypass graft, status post PCI with stent, COPD, cardiomyopathy status post AICD placement, diabetes mellitus type 2, obesity, hypertension, obstructive sleep apnea syndrome, and atrial fibrillation. PAST SURGICAL HISTORY: Coronary artery bypass graft, PCI with stent placement, appendectomy, finger amputation, and AICD placement. ALLERGIES: NO KNOWN DRUG ALLERGIES. CURRENT MEDICATIONS: These need to be clarified, but appeared to include; 1. Glyburide 10 mg daily. 2. Coreg 25 mg 2 times a day. 3. Aspirin 325 mg daily. 4. Gabapentin 300 mg at bedtime as needed. FAMILY HISTORY: Multiple family members with diabetes mellitus and coronary artery disease. SOCIAL HISTORY: The patient denies tobacco use or recreational drug use. He reports occasional alcohol use. PHYSICAL EXAMINATION: GENERAL: On examination, Mr. Amezquita is awake and alert, not in acute distress. He is obese. VITAL SIGNS: Blood pressure is 185/99, pulse 60, respiratory rate 21, and oxygen saturation 98% with supplemental oxygen. He is afebrile. EYES: No scleral icterus. No conjunctival pallor. ENT: Moist mucosal membranes. No oropharyngeal erythema or exudates. NECK: Supple, nontender, trachea is midline. RESPIRATORY: Accessory muscles of breathing are active. Chest wall movements are symmetric bilaterally. He has markedly diminished breath sounds at both bases. CARDIOVASCULAR: S1 and S2 are heard, regular. Peripheral pulses palpable. No carotid bruit. No pericardial rub. ABDOMEN: Distended, nontender. Bowel sounds heard. NEUROLOGIC: Cranial nerves 2 through 12 are intact. MUSCULOSKELETAL: Power is 5/5 in all 4 extremities. SKIN: He has 1+ bilateral lower extremity edema. LYMPHATIC: No cervical lymphadenopathy. PSYCHIATRIC: Normal mood, normal affect. The patient is oriented to person, place, and time. LABORATORY DATA: Mr. Amezquita's labs and investigations were reviewed. I reviewed his electrocardiogram, which shows electronic atrial paced rhythm, no ST changes to suggest an acute coronary syndrome. I also reviewed his chest x-ray, which does not show any pulmonary infiltrates. He has normal white count, normal hemoglobin, normal platelet count, decreased sodium of 132, normal blood urea nitrogen, elevated creatinine of 1.34, creatinine was 1.62 on September 08, 2018, unremarkable LFTs, and indeterminate troponin I of 0.034. Troponin I was 0.021 in August 2018. He has elevated BNP of 1963. Lactic acid is normal. ASSESSMENT AND PLAN: Mr. Amezquita is a pleasant 59-year-old gentleman, who was seen at [facility] on June 28, 2019. His problem list includes: 1. Shortness of breath: Mr. Amezquita is presenting with shortness of breath, likely secondary to a combination of chronic obstructive pulmonary disease exacerbation and congestive heart failure exacerbation. He will be admitted to the hospital for further management. He has received Solu-Medrol and furosemide in the emergency room as well as nebulizer bronchodilator. We will continue him on steroids, furosemide, and bronchodilators. He does not have any leukocytosis at this time. We will hold off on antibiotics. We will consult Pulmonary and Critical Care Medicine Service as well as Cardiology Service. His regular cpht is Dr. Corrales and his regular medical physics teacher is Dr. Mcginnis. 2. Congestive heart failure exacerbation: Acute on chronic systolic congestive heart failure, NYHA class 3: Continue furosemide. It is unclear if he had any recent 2D echocardiogram. We will obtain 2D echocardiogram. 3. Chronic obstructive pulmonary disease exacerbation: Continue oxygen, steroids, and bronchodilators. 4. Diabetes mellitus type 2: Start Accu-Cheks and insulin sliding scale. 5. Hypertension: Resume home medications once clarified, monitor vital signs and titrate antihypertensives as needed. 6. Elevated troponin: Likely secondary to chronic kidney disease. The patient denies any chest pain. Monitor on telemetry. 7. Obstructive sleep apnea syndrome: The patient to continue continuous positive airway pressure while he is in the hospital. Many thanks for allowing me to participate in your patient's care. Please feel free to contact me with any questions or concerns. LEVEL OF RISK: High. LEVEL OF COMPLEXITY: High. Job ID: [id number]
[2019-06-28 22:44] LABS: Troponin I 0.014 ng/mL (< 0.028)
[2019-06-28 23:08] VITALS: BMI 40.0
[2019-06-28] MEDS: methylPREDNISolone Sod Succ 40 MG VIAL IVP SCH (23:39)
[2019-06-29] MEDS: hydrALAZINE 20 MG/ML VIAL SLOW IVP PRN (03:53)
[2019-06-29] MEDS: Acetaminophen 325 MG TAB PO PRN (04:26)
[2019-06-29 05:34] LABS: Anion Gap 17 mmol/L (10-20); BUN (Urea Nitrogen) 26 mg/dL (8.4-25.7); Calc. Creatinine Clearance 96 mL/min (70-130); Calcium 9.1 mg/dL (7.8-10.44); Carbon Dioxide 17 mmol/L (22-29); Chloride 99 mmol/L (98-107); Estimated GFR-MDRD 43; Glucose 524 mg/dL (70-105); Potassium 5.2 mmol/L (3.5-5.1); Sodium 128 mmol/L (136-145)
[2019-06-29] MEDS: methylPREDNISolone Sod Succ 40 MG VIAL IVP SCH (05:37)
[2019-06-29] MEDS: Furosemide 40 MG/4 ML VIAL SLOW IVP SCH ×2 (05:37→13:06)
[2019-06-29] MEDS ORDERED: HumaLOG 300 UNITS/3 ML VIAL SC SCH (06:00)
[2019-06-29] MEDS ORDERED: guaiFENesin ER 600 MG TAB PO PRN (08:38)
[2019-06-29] MEDS ORDERED: Loratadine 10 MG TAB PO PRN (08:45)
[2019-06-29] MEDS ORDERED: FLU VACC QS2019-20(6MOS UP)/PF 60 MCG/0.5 ML SYRINGE IM ONE (09:00)
[2019-06-29] MEDS: HumaLOG 300 UNITS/3 ML VIAL SC PRN ×3 (09:46→17:44)
[2019-06-29] MEDS: glyBURIDE 2.5 MG TAB PO SCH ×2 (09:47→21:00)
[2019-06-29] MEDS: Amiodarone 200 MG TAB PO SCH (09:47)
[2019-06-29] MEDS: glipiZIDE 5 MG TAB PO SCH ×2 (09:47→21:03)
[2019-06-29] MEDS: Carvedilol 25 MG TAB PO SCH ×2 (09:47→21:01)
[2019-06-29] MEDS: Aspirin 325 mg Enteric Coated Tablet PO SCH (09:47)
[2019-06-29 09:48] LABS: #Lymphocytes 0.7 thou/uL (1.20-3.40); #Monocytes 0.1 thou/uL (0.11-0.59); #Neutrophils 4.4 thou/uL (1.40-6.50); %Basophils 0.3 % (0.0-1.0); %Eosinophils 0.2 % (0.0-10.0); %Lymphocytes 13.4 % (21.0-51.0); %Monocytes 2.1 % (0.0-10.0); %Neutrophils 84.1 % (42.0-75.0); Hemoglobin 15.6 g/dL (14.0-18.0); Mean Corpuscular HGB CONC 34.8 g/dL (32.0-36.0); Mean Corpuscular Hemoglobin 31.3 pg (27.0-31.0); Mean Platelet Volume 7.5 fL (7.4-10.4); Platelet Count 232 thou/uL (130-400); RBC Distribution Width 14.8 % (11.5-14.5); White Blood Cell (WBC) Count 5.3 thou/uL (4.8-10.8)
[2019-06-29] MEDS: Gabapentin 300 MG CAP PO SCH ×3 (09:48→21:00)
[2019-06-29] MEDS: Enoxaparin Sodium 40 MG/0.4 ML SYRINGE SC SCH (09:48)
[2019-06-29] MEDS ORDERED: Insulin Glargine 10 UNITS in Pre-Filled Syringe 1 EACH SC SCH (11:30)
--- NOTE | 2019-06-29 13:27 | CON ---
DATE OF CONSULTATION: HISTORY OF PRESENT ILLNESS: Zoran Amezquita is a 59-year-old morbidly obese gentleman, who sees Dr. Corrales in the office as per the patient. He is 149 kg, presented to the ER with shortness of breath, unresponsive to usual home medication. He quit smoking 2 years ago. No fevers or chills. Sputum is relatively clear. His oxygen saturation is 95% on room air. His blood pressure was 206/99, respiratory rate 24, and temperature 98. Most days, he can barely walk in 20 feet without getting markedly short of breath. He has gaining considerable weight. PAST MEDICAL HISTORY: Coronary artery disease, diabetes, COPD, sleep apnea, hypertension, and cardiomyopathy. PAST SURGICAL HISTORY: AICD, jaw surgery, appendix, bypass, multiple stents. HOME MEDICATIONS: 1. Guaifenesin. 2. Glyburide 5. 3. Glipizide 10. 4. Neb treatments. 5. Neurontin 300. 6. Zyrtec. 7. Coreg. 8. Amiodarone. He said he uses a CPAP machine at home. He is now started on prednisone and neb treatments, to which he is feeling better. REVIEW OF SYSTEMS: Otherwise, 10-point negative. PHYSICAL EXAMINATION: GENERAL: On examination, morbidly obese gentleman, in mild distress. VITAL SIGNS: Blood pressure is 160/80, saturations 95%, respirations 17, and temperature 98. CHEST: Decreased breath sounds. No wheezing. CARDIAC: Normal S1 and S2. No gallops. ABDOMEN: No masses. LABORATORY DATA: Glucose of 446. White count of 5000, H and H of 15 and 46, and platelet count is normal. ASSESSMENT AND PLAN: 1. Acute on chronic respiratory failure. 2. Chronic obstructive pulmonary disease exacerbation. 3. Cardiomyopathy, automated implantable cardioverter-defibrillator. 4. Morbid obesity. 5. Sleep apnea. 6. Diabetes. PLAN: I agree with present treatment. I will notify Dr. Corrales. Consultation note, 70 minutes, 50% direct patient care. Job ID: [id number]
--- NOTE | 2019-06-29 18:14 | PDOC.HOSPP ---
- Subjective Encounter Date: 06/29/19 Encounter Time: 08:20 Subjective: Pt seen for followup re: acute hypoxic respiratory failure. Feels better today. - Objective Vital Signs & Weight: Vital Signs (12 hours) Temp Pulse Pulse Pulse Resp BP BP 06/29/19 16:00 98.2 F 66 17 06/29/19 11:48 98.1 F 65 17 06/29/19 10:16 68 94 168/81 H 175/81 H 06/29/19 07:30 97.7 F 65 18 06/29/19 07:05 69 16 BP Pulse Ox Pulse Ox Pulse Ox 06/29/19 16:00 121/70 92 L 06/29/19 11:48 125/71 91 L 06/29/19 10:16 93 L 93 L 06/29/19 07:30 181/92 H 93 L 06/29/19 07:05 94 L Weight Weight 311 lb 3.2 oz I&O: 06/28/19 06/29/19 06/30/19 06:59 06:59 06:59 Intake Total 310 Output Total 725 Balance -415 Result Diagrams: 06/29/19 09:33 06/29/19 05:09 Additional Labs: Accuchecks 06/29/19 06/29/19 06/29/19 16:48 10:50 09:46 POC Glucose 362 H 466 H 445 H 06/29/19 06/29/19 06/29/19 06:56 06:07 05:18 POC Glucose 432 H 473 H 443 H 06/28/19 20:34 POC Glucose 248 H labs and MARs reviewed by me EKG Reviewed by me: Yes (Tele: NSR) Hospitalist ROS - Review of Systems Respiratory: reports: SOB with excertion. denies: cough, shortness of breath, pleuritic pain, wheezing Cardiovascular: denies: chest pain, palpitations, orthopnea, paroxysmal noc. dyspnea, edema, light headedness - Medication Medications: Active Medications Generic Name Dose Route Start Last Admin Trade Name Freq PRN Reason Stop Dose Admin Acetaminophen 650 mg 06/28/19 19:39 06/29/19 04:26 Tylenol PO 650 mg Q4H PRN Administration Headache/Fever/Mild Pain (1-3) Albuterol/Ipratropium 3 ml 06/29/19 01:00 06/29/19 13:28 Duoneb NEB 3 ml [id number] ANAIS Administration Amiodarone HCl 200 mg 06/29/19 09:00 06/29/19 09:47 Cordarone PO 200 mg DAILY ANAIS Administration Aspirin 325 mg 06/29/19 09:00 06/29/19 09:47 Ecotrin PO 325 mg DAILY ANAIS Administration Carvedilol 25 mg 06/29/19 09:00 06/29/19 09:47 Coreg PO 25 mg BID ANAIS Administration Enoxaparin Sodium 40 mg 06/29/19 09:00 06/29/19 09:48 Lovenox SC 40 mg 0900 ANAIS Administration Furosemide 40 mg 06/29/19 06:00 06/29/19 13:06 Lasix SLOW IVP 40 mg 0600,1400 ANAIS Administration Gabapentin 300 mg 06/29/19 09:00 06/29/19 15:01 Neurontin PO 300 mg TID ANAIS Administration Glipizide 10 mg 06/29/19 09:00 06/29/19 09:47 Glucotrol PO 10 mg BID ANAIS Administration Glyburide 5 mg 06/29/19 09:00 06/29/19 09:47 Micronase PO 5 mg BID ANAIS Administration Hydralazine HCl 5 mg 06/29/19 03:43 06/29/19 03:53 Apresoline SLOW IVP 5 mg Q8H PRN Administration SBP > 180 Insulin Human Lispro 0 units 06/29/19 06:12 06/29/19 17:44 Humalog SC 13 unit .AGGRESSIVE SLIDING PRN Administration AGGRESSIVE SLIDING SCALE Protocol Sodium Chloride 10 ml 06/28/19 21:00 06/29/19 09:48 Flush - Normal Saline IVF 10 ml Q12HR ANAIS Administration - Exam General - other findings: Morbid obesity Eye: anicteric sclera ENT: moist mucosa Neck: JVD Heart: RRR, no rubs Respiratory: wheezes Gastrointestinal: soft, non-tender, normal bowel sounds, distended Extremities: no clubbing, 1+ LE edema Musculoskeletal: normal tone, normal strength Psychiatric: normal affect, normal behavior Hosp A/P (1) Acute respiratory failure with hypoxia Code(s): J96.01 - ACUTE RESPIRATORY FAILURE WITH HYPOXIA Status: Acute (2) COPD exacerbation Code(s): J44.1 - CHRONIC OBSTRUCTIVE PULMONARY DISEASE W (ACUTE) EXACERBATION Status: Acute (3) Acute on chronic systolic and diastolic heart failure, NYHA class 3 Code(s): I50.43 - ACUTE ON CHRONIC COMBINED SYSTOLIC AND DIASTOLIC HRT FAIL Status: Acute (4) Hyperkalemia Code(s): E87.5 - HYPERKALEMIA Status: Acute (5) HTN (hypertension) Code(s): I10 - ESSENTIAL (PRIMARY) HYPERTENSION Status: Chronic Qualifiers: Hypertension type: essential hypertension Qualified Code(s): I10 - Essential (primary) hypertension (6) Morbid obesity Code(s): E66.01 - MORBID (SEVERE) OBESITY DUE TO EXCESS CALORIES Status: Chronic (7) YVETTE (obstructive sleep apnea) Code(s): G47.33 - OBSTRUCTIVE SLEEP APNEA (ADULT) (PEDIATRIC) Status: Chronic - Plan respiratory therapy, out of bed/ambulate Continue IV furosemide. Continue bronchodilators. Switch to oral steroids. Start lantus, continue accuchecks and insulin sliding scale. Administer kayexalate, check potassium in AM. Follow creatinine and lytes. CPAP while asleep. last few blood pressure recordings ok, higher earlier today. Monitor vital signs, titrate antihypertensives as needed.
[2019-06-29] MEDS: Mometasone/Formoterol 120 PUFF INHALER INH SCH (19:05)
[2019-06-30] MEDS: Acetaminophen 325 MG TAB PO PRN ×2 (01:35→17:10)
[2019-06-30 04:55] LABS: #Monocytes 0.8 thou/uL (0.11-0.59); #Neutrophils 8.3 thou/uL (1.40-6.50); %Basophils 0.1 % (0.0-1.0); %Eosinophils 0.2 % (0.0-10.0); %Lymphocytes 9.5 % (21.0-51.0); %Monocytes 7.9 % (0.0-10.0); %Neutrophils 82.3 % (42.0-75.0); Hemoglobin 14.9 g/dL (14.0-18.0); Mean Corpuscular HGB CONC 34.7 g/dL (32.0-36.0); Mean Corpuscular Hemoglobin 31.3 pg (27.0-31.0); Mean Corpuscular Volume 90.4 fL (78.0-98.0); Mean Platelet Volume 7.6 fL (7.4-10.4); Platelet Count 230 thou/uL (130-400); RBC Distribution Width 14.7 % (11.5-14.5); Red Blood Cell (RBC) Count 4.75 mill/uL (4.70-6.10); White Blood Cell (WBC) Count 10.1 thou/uL (4.8-10.8)
[2019-06-30 05:15] LABS: Anion Gap 16 mmol/L (10-20); BUN (Urea Nitrogen) 39 mg/dL (8.4-25.7); Calc. Creatinine Clearance 88 mL/min (70-130); Calcium 8.7 mg/dL (7.8-10.44); Carbon Dioxide 24 mmol/L (22-29); Chloride 98 mmol/L (98-107); Estimated GFR-MDRD 39; Glucose 285 mg/dL (70-105); Potassium 3.9 mmol/L (3.5-5.1); Sodium 134 mmol/L (136-145)
[2019-06-30] MEDS: Furosemide 40 MG/4 ML VIAL SLOW IVP SCH ×2 (06:03→14:39)
[2019-06-30] MEDS: Mometasone/Formoterol 120 PUFF INHALER INH SCH ×2 (06:44→19:10)
[2019-06-30] MEDS ORDERED: Insulin Glargine 10 UNITS in Pre-Filled Syringe 1 EACH SC SCH (09:00)
[2019-06-30] MEDS: Gabapentin 300 MG CAP PO SCH ×3 (09:19→20:50)
[2019-06-30] MEDS: glipiZIDE 5 MG TAB PO SCH ×2 (09:19→20:49)
[2019-06-30] MEDS: glyBURIDE 2.5 MG TAB PO SCH ×2 (09:19→20:49)
[2019-06-30] MEDS: predniSONE 20 MG TAB PO SCH (09:20)
[2019-06-30] MEDS: Amiodarone 200 MG TAB PO SCH (09:20)
[2019-06-30] MEDS: Aspirin 325 mg Enteric Coated Tablet PO SCH (09:20)
[2019-06-30] MEDS: Carvedilol 25 MG TAB PO SCH ×2 (09:20→20:50)
[2019-06-30] MEDS: Enoxaparin Sodium 40 MG/0.4 ML SYRINGE SC SCH (09:20)
[2019-06-30] MEDS: HumaLOG 300 UNITS/3 ML VIAL SC PRN ×4 (09:21→20:51)
--- NOTE | 2019-06-30 13:49 | CON ---
DATE OF CONSULTATION: HISTORY OF PRESENT ILLNESS: Zoran Amezquita is a 59-year-old white male, who has been followed intermittently since February 2009. He has never come to the office for followup. In 2008, he presented to the hospital complaining of chest discomfort for 6 months. This would occur with activity and be relieved with rest. He also began to have exertional dyspnea. He had a more prolonged episode associated with increased nausea and extreme shortness of breath, came to the emergency room. Cardiac enzymes were unremarkable. He underwent Cardiolite testing, which revealed predominantly a fixed defect in the inferoseptal wall with small area of reversibility. He underwent cardiac catheterization which revealed mild left ventricular dysfunction with ejection fraction of 45% to 50% with mild anterior and mild inferior hypokinesis. There was a 90% proximal LAD, 90% large obtuse marginal lesion and a 60% mid RCA lesion which was ulcerated. He underwent CABG x3 by Dr. Ronnie Collins with LEMUS to the LAD, saphenous vein graft to the right coronary artery and to the obtuse marginal. It was felt that the obtuse marginal was not a redo target. During the admission, when he underwent CABG, he had new diagnoses of hypertension, hypercholesterolemia, and diabetes. After surgery, he had problems with oxygen saturation. After discharge, he also began to have problems with an unstable sternum. Again, he never returned for followup. I did not see him again until April 2011 when he presented complaining of the onset of chest discomfort. This started one week prior to admission. On that day, he picked up a cath and began to have chest discomfort. The pain was worse if he was up and only resolved if he was lying in bed in a certain position. If he was up, the pain would last continuously for many, many hours. He denied any pleuritic component to the pain. He did have some palpable chest wall tenderness. He underwent Lexiscan Cardiolite test which revealed moderate-sized area of reversible ischemia in the anterior lateral wall. He underwent cardiac catheterization, which revealed mild anterior hypokinesis with ejection fraction of 50% to 55%. The left main was normal. The LAD had an 80% proximal stenosis, 80% mid stenosis and 90% first diagonal stenosis. The ramus had a 30% proximal stenosis. The circumflex had a 40% mid lesion. The first obtuse marginal was totally occluded. The right coronary artery was totally occluded proximally. Bypass grafts revealed patent LEMUS to the LAD and patent vein graft to the obtuse marginal and to the right coronary artery. He again did not come to the office for followup. In May 2016, he was seen in the office again. He continued to smoke and not being compliant with his medications. he started to get short of breath. He had some mild chest discomfort. He called his brother and when his brother arrived, he found Mr. Amezquita on the floor. However, he was alert. EMS was called. He required intubation. He has some nonspecific changes on his EKG with no ST-segment elevation. Troponin I was initially 0.220 and then increased to 5.506. Echo revealed mild left ventricular dysfunction with ejection fraction of 45% to 50%, left atrial enlargement, left ventricular dilatation, mild mitral regurgitation, mild tricuspid regurgitation, and right ventricular dilatation. He underwent cardiac catheterization which revealed severe inferobasal and mild global hypokinesis with ejection fraction of 40% to 45%. The left main was normal. The LAD had a 90% lesion followed by total occlusion in the proximal LAD. The ramus had a 70% stenosis. The circumflex had a 90% proximal stenosis which was new from catheterization in 2010. There was a 40% mid circumflex lesion. The first obtuse marginal was totally occluded. Right coronary was totally occluded proximally. Bypass grafts revealed patent LEMUS to the LAD. There was a 60% apical LAD lesion. The obtuse marginal graft was patent to a very small [place] artery. Right coronary artery graft was patent. He then underwent intervention of the new proximal circumflex stenosis. With his history of noncompliance, a bare-metal stent was placed-Rebel 2.5 x 12 mm stent with the proximal portion of the stent post dilated with a 3 mm balloon. This was reduced from 90% to 0%. Again, he did not return to the office for followup. In September 2016, he presented with increased shortness of breath. EMS was called. He was found to have saturations in the 80s. He was placed on BiPAP. He received Lovenox 1 mg/kg in the emergency room. He denied any chest discomfort. It is felt that he had COPD exacerbation as well as acute on chronic diastolic heart failure. He was treated with IV diuretics, neb treatments and steroids. In August 2017, he was admitted with increased chest discomfort and shortness of breath. Troponin I was 0.80. It was felt this was due to demand ischemia and he chronically elevated troponin Is. Ejection fraction at that time was 35% to 40%. He did have atrial fibrillation on that admission, was placed on Xarelto and a beta-kate, which seemed to control his atrial fibrillation. However, with his lack of insurance, he is unable to afford Xarelto as an outpatient. He was again admitted in September 2017 with cough productive of dark colored sputum. He was having episodes of nonsustained ventricular tachycardia and he underwent placement of an ICD. Cardiolite was also performed which revealed a large fixed inferolateral wall defect on Cardiolite. He was discharged on Xarelto but again was unable to afford that. Again, he did not return to the office for followup. He again presented in February 2018, with increased shortness of breath, but did not have any chest discomfort. On the morning of admission, he had marked atrial fibrillation with fast ventricular response. It was felt that he had CHF as well as COPD exacerbation. He was treated with digoxin and amiodarone drip. Ejection fraction was 35% to 40%. Again, the patient stated he had been noncompliant with most of his medications including Lasix. He was again admitted in March 2018 with CHF exacerbation treated with intravenous diuretics. He was discharged on furosemide 40 mg b.i.d. Mr. Amezquita admits that he stopped taking his Lasix 40 mg daily approximately 2 months ago. He had problems getting it refilled. Then over the last month, he has had an increased cough and shortness of breath. Approximately a month ago, he was seen in the clinic in [place], started on antibiotics and steroids and had some improvement. However, he has continued to have increasing shortness of breath. He also states he has gained 30 pounds over the last 3 weeks. He denies any significant chest discomfort. He also has noted increasing peripheral edema. PAST MEDICAL HISTORY: Coronary artery disease, hypertension, diabetes, hypercholesterolemia, COPD, obesity, obstructive sleep apnea, on CPAP, former smoker, noncompliance, history of atrial fibrillation. 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 MEDICATIONS: 1. Amiodarone 200 mg daily. 2. Carvedilol 25 b.i.d. 3. Zyrtec 10 p.r.n. 4. Neurontin 300 mg t.i.d. 5. Glipizide 10 mg b.i.d. 6. Glyburide 5 mg b.i.d. 7. DuoNeb p.r.n. 8. Aspirin 325 daily. 9. He is supposed to be on furosemide 40 mg b.i.d., however, he would only take this daily and stopped taking it 2 months ago. ALLERGIES: NONE. SOCIAL HISTORY: He smoked 2 packs per day, but apparently stopped 2 years ago. He does not drink. FAMILY HISTORY: Father had coronary artery disease. REVIEW OF SYSTEMS: A 12-point review of systems is otherwise unremarkable. PHYSICAL EXAMINATION: VITAL SIGNS: Blood pressure 142/85, pulse of 60. HEENT: PERRL. NECK: Supple. CHEST: Fairly clear. CARDIOVASCULAR: S1, S2 normal without any S3, S4, or murmurs. Carotid upstrokes normal without bruits. ABDOMEN: Obese, normal bowel sounds. No tenderness. EXTREMITIES: Revealed 2+ pretibial edema. NEUROLOGIC: Grossly intact. SKIN: Warm and dry. LABORATORY DATA: EKG reveals atrial pacing, nonspecific ST and T-wave changes. CBC is unremarkable. PH 7.42, pCO2 of 41.6, PO2 of 64.2. Sodium 134, potassium 3.9, chloride 98, carbon dioxide 24, BUN 39, creatinine 1.78. Cardiac enzymes are normal. BNP 1963.6. IMPRESSION: 1. Acute on chronic systolic heart failure. 2. Noncompliance with Lasix for 2 months. 3. Chronic obstructive pulmonary disease exacerbation. 4. Status post coronary artery bypass grafting x3 with all grafts patent in May 2016. A bare metal stent was placed in the circumflex in May 2016. 5. Status post dual-chamber ICD placement. 6. History of nonsustained ventricular tachycardia. 7. Paroxysmal atrial fibrillation. He was on Xarelto in the hospital previously, but could not afford that. He is too unreliable to prescribe Coumadin. 8. Former smoker, stopped 2 years ago. 9. Diabetes. 10. Hyperlipidemia. 11. Obstructive sleep apnea. 12. Hypertension. 13. Obesity. 14. Positive family history. 15. Diagnosis of chronic kidney disease. RECOMMENDATIONS: The patient will be diuresed and his renal function will need to be watched closely. Fast lipid profile will be obtained. Also, TSH will be obtained with the patient chronically on amiodarone. His ICD will be interrogated to assess his volume status. Job ID: [id number]
--- NOTE | 2019-06-30 18:16 | PDOC.HOSPP ---
- Subjective Encounter Date: 06/30/19 Encounter Time: 08:40 Subjective: Pt seen for followup re: acute hypoxic respiratory failure. Feels better. - Objective Vital Signs & Weight: Vital Signs (12 hours) Temp Pulse Pulse Pulse Resp BP BP 06/30/19 16:00 98 F 60 18 06/30/19 13:06 61 20 06/30/19 12:08 60 60 174/82 H 131/75 06/30/19 12:00 97.8 F 60 18 06/30/19 09:19 06/30/19 08:00 97.3 F L 60 18 06/30/19 06:48 06/30/19 06:47 67 16 06/30/19 06:44 67 16 BP BP Pulse Ox 06/30/19 16:00 178/94 H 96 06/30/19 13:06 90 L 06/30/19 12:08 06/30/19 12:00 131/75 93 L 06/30/19 09:19 92 L 06/30/19 08:00 142/85 H 92 L 06/30/19 06:48 91 L 06/30/19 06:47 91 L 06/30/19 06:44 91 L Weight Weight 303 lb 14.4 oz I&O: 06/29/19 06/30/19 07/01/19 06:59 06:59 06:59 Intake Total 646 774 6039 Output Total 725 1475 1000 Balance -415 -1210 1020 Result Diagrams: 06/30/19 04:13 06/30/19 04:13 Additional Labs: Accuchecks 06/30/19 06/30/19 06/30/19 16:07 10:43 05:41 POC Glucose 271 H 312 H 247 H 06/29/19 06/29/19 23:59 20:25 POC Glucose 323 H 348 H Labs and MARs reviewed by me EKG Reviewed by me: Yes (Tele: NSR) Hospitalist ROS - Review of Systems Cardiovascular: denies: chest pain, palpitations, orthopnea, paroxysmal noc. dyspnea, edema, light headedness Gastrointestinal: denies: nausea, vomiting, abdominal pain, diarrhea, constipation, melena, hematochezia - Medication Medications: Active Medications Generic Name Dose Route Start Last Admin Trade Name Freq PRN Reason Stop Dose Admin Acetaminophen 650 mg 06/28/19 19:39 06/30/19 17:10 Tylenol PO 650 mg Q4H PRN Administration Headache/Fever/Mild Pain (1-3) Albuterol/Ipratropium 3 ml 06/29/19 01:00 06/30/19 13:06 Duoneb NEB 3 ml [id number] ANAIS Administration Amiodarone HCl 200 mg 06/29/19 09:00 06/30/19 09:20 Cordarone PO 200 mg DAILY ANAIS Administration Aspirin 325 mg 06/29/19 09:00 06/30/19 09:20 Ecotrin PO 325 mg DAILY ANAIS Administration Carvedilol 25 mg 06/29/19 09:00 06/30/19 09:20 Coreg PO 25 mg BID ANAIS Administration Enoxaparin Sodium 40 mg 06/29/19 09:00 06/30/19 09:20 Lovenox SC 40 mg 0900 ANAIS Administration Furosemide 40 mg 06/29/19 06:00 06/30/19 14:39 Lasix SLOW IVP 40 mg 0600,1400 ANAIS Administration Gabapentin 300 mg 06/29/19 09:00 06/30/19 14:40 Neurontin PO 300 mg TID ANAIS Administration Glipizide 10 mg 06/29/19 09:00 06/30/19 09:19 Glucotrol PO 10 mg BID ANAIS Administration Glyburide 5 mg 06/29/19 09:00 06/30/19 09:19 Micronase PO 5 mg BID ANAIS Administration Hydralazine HCl 5 mg 06/29/19 03:43 06/29/19 03:53 Apresoline SLOW IVP 5 mg Q8H PRN Administration SBP > 180 Insulin Glargine 10 units/ 0.1 mls @ 0 mls/hr 06/30/19 09:00 06/30/19 09:21 Miscellaneous Medication SC 0.1 mls QAM ANAIS Administration Insulin Human Lispro 0 units 06/29/19 06:12 06/30/19 17:06 Humalog SC 9 unit .AGGRESSIVE SLIDING PRN Administration AGGRESSIVE SLIDING SCALE Protocol Mometasone Furoate/Formoterol Fumar 2 puff 06/29/19 18:30 06/30/19 06:44 Dulera 200 Mcg/5 Mcg Inhaler INH 2 puff BID-RT ANAIS Administration Prednisone 40 mg 06/30/19 08:00 06/30/19 09:20 Prednisone PO 40 mg QAM-WM ANAIS Administration Sodium Chloride 10 ml 06/28/19 21:00 06/30/19 09:25 Flush - Normal Saline IVF 10 ml Q12HR ANAIS Administration - Exam General - other findings: Obese Eye: anicteric sclera ENT: moist mucosa Neck: supple Heart: RRR, no rubs Respiratory - other findings: Bibasal crackles Gastrointestinal: soft, non-tender Extremities: 1+ LE edema Neurological: no weakness Psychiatric: normal affect, normal behavior Hosp A/P (1) Acute respiratory failure with hypoxia Code(s): J96.01 - ACUTE RESPIRATORY FAILURE WITH HYPOXIA Status: Acute (2) COPD exacerbation Code(s): J44.1 - CHRONIC OBSTRUCTIVE PULMONARY DISEASE W (ACUTE) EXACERBATION Status: Acute (3) Hyponatremia Code(s): E87.1 - HYPO-OSMOLALITY AND HYPONATREMIA Status: Acute (4) Acute on chronic systolic and diastolic heart failure, NYHA class 3 Code(s): I50.43 - ACUTE ON CHRONIC COMBINED SYSTOLIC AND DIASTOLIC HRT FAIL Status: Acute (5) HTN (hypertension) Code(s): I10 - ESSENTIAL (PRIMARY) HYPERTENSION Status: Chronic Qualifiers: Hypertension type: essential hypertension Qualified Code(s): I10 - Essential (primary) hypertension (6) Morbid obesity Code(s): E66.01 - MORBID (SEVERE) OBESITY DUE TO EXCESS CALORIES Status: Chronic (7) YVETTE (obstructive sleep apnea) Code(s): G47.33 - OBSTRUCTIVE SLEEP APNEA (ADULT) (PEDIATRIC) Status: Chronic (8) Hyperkalemia Code(s): E87.5 - HYPERKALEMIA Status: Resolved - Plan out of bed/ambulate Continue IV furosemide, monitor creatinine (creatinine worse today) Continue bronchodilators and oral steroids. Increase Lantus to 15 units daily. Hyponatremia mild, likely asymptomatic. CPAP while asleep. Monitor vital signs, titrate antihypertensives as needed.
[2019-06-30] MEDS ORDERED: Insulin Glargine 5 UNITS in Pre-Filled Syringe 1 EACH SC SCH (18:30)
[2019-07-01 05:57] LABS: #Lymphocytes 1.1 thou/uL (1.20-3.40); #Monocytes 0.8 thou/uL (0.11-0.59); #Neutrophils 7.2 thou/uL (1.40-6.50); %Basophils 0.2 % (0.0-1.0); %Eosinophils 0.3 % (0.0-10.0); %Lymphocytes 12.3 % (21.0-51.0); %Monocytes 8.6 % (0.0-10.0); %Neutrophils 78.6 % (42.0-75.0); Hemoglobin 15.2 g/dL (14.0-18.0); Mean Corpuscular HGB CONC 34.3 g/dL (32.0-36.0); Mean Corpuscular Volume 90.4 fL (78.0-98.0); Mean Platelet Volume 7.2 fL (7.4-10.4); Platelet Count 212 thou/uL (130-400); RBC Distribution Width 14.8 % (11.5-14.5); White Blood Cell (WBC) Count 9.1 thou/uL (4.8-10.8)
[2019-07-01] MEDS: Furosemide 40 MG/4 ML VIAL SLOW IVP SCH ×2 (05:57→14:58)
[2019-07-01 06:16] LABS: Anion Gap 13 mmol/L (10-20); BUN (Urea Nitrogen) 42 mg/dL (8.4-25.7); Calc. Creatinine Clearance 95 mL/min (70-130); Calcium 8.7 mg/dL (7.8-10.44); Carbon Dioxide 24 mmol/L (22-29); Cardiac Risk 7.2 (Less than 4.5); Chloride 104 mmol/L (98-107); Cholesterol 296 mg/dl (< 200 Desired); Estimated GFR-MDRD 44; Glucose 90 mg/dL (70-105); HDL Cholesterol 41 mg/dL (>60 Neg Risk); LDL Cholesterol, Calculated 219 mg/dL; Potassium 3.7 mmol/L (3.5-5.1); Sodium 137 mmol/L (136-145); Triglycerides 182 mg/dL (Less than 150)
[2019-07-01] MEDS: Mometasone/Formoterol 120 PUFF INHALER INH SCH ×2 (07:15→18:27)
[2019-07-01] MEDS ORDERED: Insulin Glargine 15 UNITS in Pre-Filled Syringe 1 EACH SC SCH (09:00)
[2019-07-01] MEDS: Carvedilol 25 MG TAB PO SCH ×2 (09:37→21:15)
[2019-07-01] MEDS: predniSONE 20 MG TAB PO SCH (09:37)
[2019-07-01] MEDS: Gabapentin 300 MG CAP PO SCH ×3 (09:37→21:16)
[2019-07-01] MEDS: Amiodarone 200 MG TAB PO SCH (09:37)
[2019-07-01] MEDS: glipiZIDE 5 MG TAB PO SCH ×2 (09:38→21:16)
[2019-07-01] MEDS: Enoxaparin Sodium 40 MG/0.4 ML SYRINGE SC SCH (09:38)
[2019-07-01] MEDS: glyBURIDE 2.5 MG TAB PO SCH ×2 (09:38→21:17)
[2019-07-01] MEDS: Aspirin 325 mg Enteric Coated Tablet PO SCH (09:38)
[2019-07-01] MEDS: HumaLOG 300 UNITS/3 ML VIAL SC PRN ×3 (11:01→21:17)
--- NOTE | 2019-07-01 14:08 | PDOC.HOSPP ---
- Subjective Encounter Date: 07/01/19 Encounter Time: 08:00 Subjective: Pt seen for followup re: acute hypoxic respiratory failure. Feels better. - Objective Vital Signs & Weight: Vital Signs (12 hours) Temp Pulse Pulse Resp BP BP BP 07/01/19 13:22 63 16 07/01/19 13:00 62 171/90 H 07/01/19 11:13 97.8 F 66 17 135/79 07/01/19 07:49 97.7 F 62 19 188/99 H 07/01/19 07:15 07/01/19 07:14 65 20 07/01/19 03:18 97.5 F L 60 18 166/86 H Pulse Ox Pulse Ox 07/01/19 13:22 92 L 07/01/19 13:00 98 07/01/19 11:13 07/01/19 07:49 93 L 07/01/19 07:15 91 L 07/01/19 07:14 91 L 07/01/19 03:18 94 L Weight Weight 303 lb 14.4 oz I&O: 06/30/19 07/01/19 07/02/19 06:59 06:59 06:59 Intake Total 265 2500 Output Total 1475 2700 Balance -1210 -200 Result Diagrams: 07/01/19 05:16 07/01/19 05:16 Additional Labs: Accuchecks 07/01/19 07/01/19 06/30/19 11:00 05:14 20:33 POC Glucose 169 H 100 320 H 06/30/19 16:07 POC Glucose 271 H Labs and MARs reviewed by me EKG Reviewed by me: Yes (Tele: NSR) Hospitalist ROS - Review of Systems Respiratory: reports: SOB with excertion. denies: cough, dry, shortness of breath, hemoptysis, pleuritic pain, sputum, wheezing Cardiovascular: denies: chest pain, palpitations, orthopnea, paroxysmal noc. dyspnea, edema, light headedness - Medication Medications: Active Medications Generic Name Dose Route Start Last Admin Trade Name Freq PRN Reason Stop Dose Admin Acetaminophen 650 mg 06/28/19 19:39 06/30/19 17:10 Tylenol PO 650 mg Q4H PRN Administration Headache/Fever/Mild Pain (1-3) Albuterol/Ipratropium 3 ml 06/29/19 01:00 07/01/19 13:22 Duoneb NEB 3 ml [id number] ANAIS Administration Amiodarone HCl 200 mg 06/29/19 09:00 07/01/19 09:37 Cordarone PO 200 mg DAILY ANAIS Administration Aspirin 325 mg 06/29/19 09:00 07/01/19 09:38 Ecotrin PO 325 mg DAILY ANAIS Administration Carvedilol 25 mg 06/29/19 09:00 07/01/19 09:37 Coreg PO 25 mg BID ANAIS Administration Enoxaparin Sodium 40 mg 06/29/19 09:00 07/01/19 09:38 Lovenox SC 40 mg 0900 ANAIS Administration Furosemide 40 mg 06/29/19 06:00 07/01/19 05:57 Lasix SLOW IVP 40 mg 0600,1400 ANAIS Administration Gabapentin 300 mg 06/29/19 09:00 07/01/19 09:37 Neurontin PO 300 mg TID ANAIS Administration Glipizide 10 mg 06/29/19 09:00 07/01/19 09:38 Glucotrol PO 10 mg BID ANAIS Administration Glyburide 5 mg 06/29/19 09:00 07/01/19 09:38 Micronase PO 5 mg BID ANAIS Administration Hydralazine HCl 5 mg 06/29/19 03:43 06/29/19 03:53 Apresoline SLOW IVP 5 mg Q8H PRN Administration SBP > 180 Insulin Glargine 15 units/ 0.15 mls @ 0 mls/hr 07/01/19 09:00 07/01/19 09:38 Miscellaneous Medication SC 0.15 mls QAM ANAIS Administration Insulin Human Lispro 0 units 06/29/19 06:12 07/01/19 11:01 Humalog SC 3 unit .AGGRESSIVE SLIDING PRN Administration AGGRESSIVE SLIDING SCALE Protocol Mometasone Furoate/Formoterol Fumar 2 puff 06/29/19 18:30 07/01/19 07:15 Dulera 200 Mcg/5 Mcg Inhaler INH 2 puff BID-RT ANAIS Administration Prednisone 40 mg 06/30/19 08:00 07/01/19 09:37 Prednisone PO 40 mg QAM-WM ANAIS Administration Sodium Chloride 10 ml 06/28/19 21:00 07/01/19 09:37 Flush - Normal Saline IVF 10 ml Q12HR ANAIS Administration - Exam General - other findings: Obese Eye: anicteric sclera ENT: moist mucosa Neck: supple, no JVD Heart: RRR, no rubs Respiratory: CTAB Gastrointestinal: soft, normal bowel sounds Extremities: no clubbing, 1+ LE edema Neurological: no weakness Psychiatric: normal affect, normal behavior Hosp A/P (1) Acute respiratory failure with hypoxia Code(s): J96.01 - ACUTE RESPIRATORY FAILURE WITH HYPOXIA Status: Acute (2) COPD exacerbation Code(s): J44.1 - CHRONIC OBSTRUCTIVE PULMONARY DISEASE W (ACUTE) EXACERBATION Status: Acute (3) Hyponatremia Code(s): E87.1 - HYPO-OSMOLALITY AND HYPONATREMIA Status: Acute (4) Acute on chronic systolic and diastolic heart failure, NYHA class 3 Code(s): I50.43 - ACUTE ON CHRONIC COMBINED SYSTOLIC AND DIASTOLIC HRT FAIL Status: Acute (5) HTN (hypertension) Code(s): I10 - ESSENTIAL (PRIMARY) HYPERTENSION Status: Chronic Qualifiers: Hypertension type: essential hypertension Qualified Code(s): I10 - Essential (primary) hypertension (6) Morbid obesity Code(s): E66.01 - MORBID (SEVERE) OBESITY DUE TO EXCESS CALORIES Status: Chronic (7) YVETTE (obstructive sleep apnea) Code(s): G47.33 - OBSTRUCTIVE SLEEP APNEA (ADULT) (PEDIATRIC) Status: Chronic (8) Hyperkalemia Code(s): E87.5 - HYPERKALEMIA Status: Resolved - Plan PT/OT, out of bed/ambulate Continue IV furosemide Creatinine improved to 1.62 today Continue bronchodilators and oral steroids. Blood sugars improved. CPAP while asleep. Monitor vital signs, titrate antihypertensives as needed.
--- NOTE | 2019-07-01 16:51 | PRG ---
DATE OF SERVICE: 07/01/2019 SUBJECTIVE: Zoran is in no distress. His events leading to this admission have been reviewed. Apparently, he is sick for several days prior to coming to the hospital. OBJECTIVE: VITAL SIGNS: He is afebrile, heart rate 60, respiratory rate 16, oximetry 97% on room air, blood pressure is modestly elevated at 170/93. LUNGS: Clear today, says he feels close to his baseline. HEART: Regular rhythm. ABDOMEN: Soft. LABORATORY DATA: White count is normal at 9.1, hemoglobin is 15.2. Electrolytes are normal. BUN is 42, creatinine is 1.6. His creatinine on the is 1.34. IMPRESSION AND PLAN: 1. Chronic obstructive pulmonary disease exacerbation, improved. 2. History of atrial fibrillation, on amiodarone and Coreg. He is not currently anticoagulated. He is on IV Lasix, with his bump in his creatinine, and this probably should be held. He is on 40 of prednisone, started yesterday. He says he is back to his baseline, his BNP was almost on admission, but he had no pulmonary infiltrates on his chest radiograph, so I suspect the majority of this is COPD. His ejection fraction is decreased at 30% to 35%. He also has diastolic dysfunction. We will continue to follow. From a Pulmonary standpoint, he might be able to be discharged tomorrow. Job ID: [id number]
[2019-07-01] MEDS: Acetaminophen 325 MG TAB PO PRN (17:34)
[2019-07-01] MEDS ORDERED: Insulin Glargine 5 UNITS in Pre-Filled Syringe 1 EACH SC SCH (21:00)
[2019-07-01] MEDS ORDERED: Atorvastatin Calcium 40 MG TAB PO SCH (21:00)
[2019-07-02] MEDS: Mometasone/Formoterol 120 PUFF INHALER INH SCH (07:31)
[2019-07-02] MEDS: predniSONE 20 MG TAB PO SCH (07:52)
[2019-07-02] MEDS: Acetaminophen 325 MG TAB PO PRN ×2 (07:54→16:14)
[2019-07-02] MEDS ORDERED: Insulin Glargine 20 UNITS in Pre-Filled Syringe 1 EACH SC SCH (09:00)
[2019-07-02] MEDS: Carvedilol 25 MG TAB PO SCH (09:15)
[2019-07-02] MEDS: glipiZIDE 5 MG TAB PO SCH (09:15)
[2019-07-02] MEDS: glyBURIDE 2.5 MG TAB PO SCH (09:15)
[2019-07-02] MEDS: Aspirin 325 mg Enteric Coated Tablet PO SCH (09:15)
[2019-07-02] MEDS: Enoxaparin Sodium 40 MG/0.4 ML SYRINGE SC SCH (09:15)
[2019-07-02] MEDS: Amiodarone 200 MG TAB PO SCH (09:15)
[2019-07-02] MEDS: Gabapentin 300 MG CAP PO SCH ×2 (09:15→16:02)
[2019-07-02 11:04] LABS: #Eosinphils 0.1 thou/uL (0.0-0.7); #Lymphocytes 1.2 thou/uL (1.20-3.40); #Monocytes 0.9 thou/uL (0.11-0.59); #Neutrophils 8.4 thou/uL (1.40-6.50); %Eosinophils 0.6 % (0.0-10.0); %Lymphocytes 11.6 % (21.0-51.0); %Monocytes 8.5 % (0.0-10.0); %Neutrophils 79.4 % (42.0-75.0); Hemoglobin 16.4 g/dL (14.0-18.0); Mean Corpuscular HGB CONC 33.3 g/dL (32.0-36.0); Mean Corpuscular Hemoglobin 30.6 pg (27.0-31.0); Mean Corpuscular Volume 91.8 fL (78.0-98.0); Mean Platelet Volume 7.5 fL (7.4-10.4); Platelet Count 271 thou/uL (130-400); RBC Distribution Width 14.8 % (11.5-14.5); Red Blood Cell (RBC) Count 5.36 mill/uL (4.70-6.10); White Blood Cell (WBC) Count 10.6 thou/uL (4.8-10.8)
[2019-07-02 11:21] LABS: Anion Gap 16 mmol/L (10-20); BUN (Urea Nitrogen) 39 mg/dL (8.4-25.7); Calc. Creatinine Clearance 86 mL/min (70-130); Calcium 9.2 mg/dL (7.8-10.44); Carbon Dioxide 28 mmol/L (22-29); Chloride 97 mmol/L (98-107); Estimated GFR-MDRD 39; Glucose 183 mg/dL (70-105); Potassium 4.6 mmol/L (3.5-5.1); Sodium 136 mmol/L (136-145)
[2019-07-02] MEDS: HumaLOG 300 UNITS/3 ML VIAL SC PRN ×2 (12:02→17:10)
--- NOTE | 2019-07-02 15:17 | PRG ---
DATE OF SERVICE: 07/02/2019 SUBJECTIVE: Mr. Amezquita says he is back to his baseline. OBJECTIVE: VITAL SIGNS: He is afebrile. Heart rate is in the 60's, blood pressure 174/89. LUNGS: Clear. HEART: Regular rhythm. ABDOMEN: Soft. He wanted me to get the hospital to get him an inhaler. I have written him a prescription for Ventolin. He needs a 10- to 14-day taper of prednisone. He will have to continue to monitor his glucoses. He says he has to pick and choose which medicines he pays but I short course is reasonable I will be happy to see him as an outpatient in 4 to 6 weeks if need be, but he has a history of not keeping appointments. Job ID: [id number]
[2019-07-02 15:57] VITALS: TEMP 98.4
[2019-07-02] MEDS: hydrALAZINE 20 MG/ML VIAL SLOW IVP PRN (16:02)
[2019-07-02] MEDS ORDERED: hydrALAZINE 25 MG TAB PO SCH ×2 (17:15→21:00)
[2019-07-02 17:39] VITALS: BP 196/101
--- NOTE | 2019-07-03 02:29 | DIS ---
DATE OF ADMISSION: 06/28/2019 DATE OF DISCHARGE: 07/02/2019 PRIMARY CARE PROVIDER: Dr. Zachary Díaz. DISCHARGE DIAGNOSES: 1. Acute hypoxic respiratory failure. 2. Chronic obstructive pulmonary disease exacerbation. 3. Acute on chronic systolic congestive heart failure, NYHA class III. CONDITION OF PATIENT ON THE DAY OF DISCHARGE: Stable. I assessed Mr. Amezquita on the day of discharge. He denies any chest pain or shortness of breath. Vital signs are stable. S1 and S2 are heard, regular. Lungs are clear to auscultation bilaterally. CONSULTATIONS DURING THIS HOSPITALIZATION: Pulmonology, Dr. Orourke and Cardiology, Dr. Mcginnis. POST-DISCHARGE FOLLOWUP: The patient is advised to follow up with primary care provider on 07/09/2019 at 9:[address] Mcginnis in 2 to 3 weeks. DISCHARGE MEDICATIONS: 1. Amiodarone 200 mg daily. 2. Aspirin 325 mg daily. 3. Coreg 25 mg 2 times a day. 4. Glipizide 10 mg 2 times a day. 5. Glyburide 5 mg 2 times a day. 6. Lipitor 80 mg at bedtime. 7. Lasix 20 mg 2 times a day. 8. Gabapentin 300 mg 3 times a day. 9. Cetirizine 10 mg as needed. 10. Mucinex as needed. 11. Ventolin inhaler as needed. HOSPITAL COURSE: Mr. Amezquita is a pleasant 59-year-old gentleman, who was admitted to [facility] on 06/28/2019, for acute hypoxic respiratory failure secondary to COPD exacerbation and CHF exacerbation. He improved with diuretics, oxygen, steroids, and bronchodilators. He was seen by Cardiology and Pulmonary and Critical Care Medicine. He has been cleared for discharge by both services. 2D echocardiogram done during this hospitalization showed mildly increased left ventricular size, mild concentric left ventricular hypertrophy, moderately depressed overall left ventricular function, left ventricular ejection fraction estimated at 30% to 35%, E/A flow reversal suggestive of diastolic dysfunction, moderately dilated left atrium, mild mitral regurgitation, and mild tricuspid regurgitation. On the day of discharge, he has sodium 136, potassium 4.6, blood urea nitrogen 39, creatinine 1.79, white count [id number], hemoglobin 16.4, and platelet count 271,000. Many thanks for allowing me to participate in your patient's care. Please feel free to contact me with any questions or concerns. DISCHARGE DESTINATION: Home. TIME SPENT: Total amount of time spent coordinating this discharge: 32 minutes. ADDENDUM: DISCHARGE MEDICATIONS: Includes: 1. Apixaban 5 mg 2 times a day. 2. He also received a prescription for Ventolin 2 puffs every 6 hours as needed. Job ID: [id number]
[2019-07-03] MEDS ORDERED: Furosemide 20 MG TAB PO SCH (09:00)
== END 2019-07-02 18:35 | disposition home or self-care (01) | DRG 291 ==
LOC: ERS 15:36 → 2NO 19:56
PROVIDERS: ADMIT Internal Medicine; ATTEND Internal Medicine
DX: I11.0 Hypertensive heart disease with heart failure (principal); J96.01 Acute respiratory failure with hypoxia; J44.1 Chronic obstructive pulmonary disease with (acute) exacerbation; Z95.1 Presence of aortocoronary bypass graft; I50.43 Acute on chronic combined systolic (congestive) and diastolic (congestive) heart failure; I42.9 Cardiomyopathy, unspecified; Z95.5 Presence of coronary angioplasty implant and graft; Z90.49 Acquired absence of other specified parts of digestive tract; Z95.810 Presence of automatic (implantable) cardiac defibrillator; E11.9 Type 2 diabetes mellitus without complications; G47.33 Obstructive sleep apnea (adult) (pediatric); I25.10 Atherosclerotic heart disease of native coronary artery without angina pectoris; I48.91 Unspecified atrial fibrillation; Z79.899 Other long term (current) drug therapy; Z79.82 Long term (current) use of aspirin; Z68.39 Body mass index [BMI] 39.0-39.9, adult; E66.01 Morbid (severe) obesity due to excess calories; E87.5 Hyperkalemia
CPT/HCPCS: 36415; 36416; 71045; 80048; 80053; 80061; 82553; 82805; 83605; 83880; 84443; 84484; 85025; 90471; 90686; 90732; 93005; 93306; 93798; 94640; 94644; 94760; 96365; 96375; G0008; G0009; J0360; J1650; J1815; J1940; J2920; J2930; J3475; J7512; J7611; J7620

== ENCOUNTER 2019-10-01 13:54 | Inpatient (IN) | payer OTHER, SELFPAY ==
[2019-10-01] MEDS ORDERED: Azithromycin 500 MG VIAL ONE (14:49)
[2019-10-01] MEDS ORDERED: Magnesium 2 GM/50 ML BAG (IN WATER) ONE (14:49)
[2019-10-01] MEDS ORDERED: cefTRIAXone\\ROCEPHIN 2 GM VIAL ONE (14:49)
[2019-10-01] MEDS ORDERED: methylPREDNISolone Sod Succ/PF 125 MG/2 ML VIAL ONE (14:49)
[2019-10-01 16:57] LABS: Troponin I 0.044 ng/mL (< 0.028)
[2019-10-01] MEDS ORDERED: Ondansetron PF 4 MG/2 ML Vial IVP PRN (18:36)
[2019-10-01] MEDS ORDERED: Ondansetron ODT 4 MG TAB SL PRN (18:36)
[2019-10-01] MEDS ORDERED: Ipratropium Bromide 2.5 ml Neb NEB SCH (19:00)
[2019-10-01] MEDS: Arformoterol 15 MCG/2 ML NEB NEB SCH (19:02)
--- NOTE | 2019-10-01 19:33 | PDOC.HHP ---
Hospitalist HPI - History of Present Illness shortness of breath History of Present Illness: 59yo M w/ MHx of CABG (2009), CHFrEF, COPD, and p. afib presents for shortness of breath. Coughing and wheezing for the past three days after his long acting inhaler has run out and couldn't afford purchasing a new one. Also noted increased swelling, orthopnea, and PND, so presented to the ED. ED Course: In the ED, was found wheezing and hypervolemic, BNP > 1000 so was administered respiratory treatment and lasix and admitted to the telemetry unit. Hospitalist ROS - Review of Systems Constitutional: denies: fever, chills, sweats, weakness, malaise, other Respiratory: reports: cough, shortness of breath, SOB with excertion, wheezing. denies: dry, hemoptysis, pleuritic pain, sputum, other Cardiovascular: reports: orthopnea, paroxysmal noc. dyspnea, edema. denies: chest pain, palpitations, light headedness, other Gastrointestinal: denies: nausea, vomiting, abdominal pain, diarrhea, constipation, melena, hematochezia, other Genitourinary: denies: dysuria, frequency, incontinence, hematuria, retention, other Neurological: denies: weakness, numbness, incoordination, change in speech, confusion, seizures, other - Medication Medications: Active Medications Generic Name Dose Route Start Last Admin Trade Name Freq PRN Reason Stop Dose Admin Arformoterol Tartrate 15 mcg 10/01/19 18:30 10/01/19 19:02 Brovana NEB 15 mcg BID-RT ANAIS Administration Hospitalist History - Past Medical History Cardiac: reports: CAD, CHF, HTN Pulmonary: reports: congestive heart failure, COPD - Past Surgical History Past Surgical History: reports: CABG - Social History Smoking Status: Former smoker Tobacco Type: cigarettes Alcohol: reports: None Drugs: reports: none Living Situation: Alone Domestic Violence: Negative - Exam General Appearance: NAD, awake alert Eye: PERRL ENT: normocephalic atraumatic, no oropharyngeal lesions, moist mucosa Neck: supple, symmetric, no JVD, no thyromegaly, no lymphadenopathy, no carotid bruit Heart: RRR, II/IV Heart - other findings: S3 appreciated Respiratory: no wheezes, no ronchi, normal chest expansion, no tachypnea, rales Respiratory - other findings: rales to mid thomas bilaterally Gastrointestinal: soft, non-tender, non-distended, normal bowel sounds, no palpable masses, no hepatomegaly, no splenomegaly, no bruit Musculoskeletal: normal tone, normal strength, no muscle wasting Psychiatric: normal affect, normal behavior, A&O x 3 Hospitalist Results - Labs Lab results: Troponin I 0.044 ng/mL (< 0.028) H 10/01/19 16:24 - EKG Interpretation EKG: q wave in inferior leads suggesting old infarct. No findings of new ischemia - Radiology Interpretation Chest x-ray Status: image reviewed by hi Hospitalist H&P A/P - Problem (1) Acute on chronic combined systolic and diastolic CHF (congestive heart failure) Code(s): I50.43 - ACUTE ON CHRONIC COMBINED SYSTOLIC AND DIASTOLIC HRT FAIL Status: Acute (2) Chronic obstructive lung disease Status: Chronic (3) Acute respiratory failure with hypoxia Code(s): J96.01 - ACUTE RESPIRATORY FAILURE WITH HYPOXIA Status: Acute (4) Paroxysmal atrial fibrillation with RVR Code(s): I48.0 - PAROXYSMAL ATRIAL FIBRILLATION Status: Acute (5) DM type 2 with diabetic peripheral neuropathy Code(s): E11.42 - TYPE 2 DIABETES MELLITUS WITH DIABETIC POLYNEUROPATHY Status : Chronic - Plan Plan: * Decompensated HF * hypervolemic on exam * BNP elevated * Trop and EKG c/w with no new ischemia * * diurese * follow I/O * echo * COPD * likely poorly controlled rather than exacerbation considering the temporal correlation with nonadherence to medication * * started on duoneb and LABA * on discharge, will attempt to arrange for cheaper LABA * CABG * paroxysmal afib * DM * continue home medications
[2019-10-01 19:35] LABS: Troponin I 0.038 ng/mL (< 0.028)
[2019-10-01] MEDS ORDERED: PROVENTIL INHALER 6.7 G (200 INHALATIONS) INH PRN (20:28)
[2019-10-01] MEDS ORDERED: Furosemide 20 MG/2 ML VIAL SLOW IVP SCH (20:30)
[2019-10-01] MEDS ORDERED: glipiZIDE 5 MG TAB PO SCH (21:00)
[2019-10-01] MEDS ORDERED: hydrALAZINE 25 MG TAB PO SCH (21:00)
[2019-10-01] MEDS ORDERED: Gabapentin 300 MG CAP PO SCH (21:00)
[2019-10-01] MEDS: Atorvastatin Calcium 40 MG TAB PO SCH (21:19)
[2019-10-01] MEDS: Carvedilol 25 MG TAB PO SCH (21:19)
[2019-10-01] MEDS: glyBURIDE 2.5 MG TAB PO SCH (21:19)
[2019-10-01] MEDS: Apixaban 5 MG TAB PO SCH (21:19)
[2019-10-01] MEDS: guaiFENesin ER 600 MG TAB PO SCH (21:19)
[2019-10-01] MEDS: hydrALAZINE 25 MG TAB PO SCH (21:20)
[2019-10-01] MEDS ORDERED: Dextrose 5% in Water 1,000 ML IV PRN (21:25)
[2019-10-01] MEDS ORDERED: Dextrose 50% Abboject 50 ML SYRINGE SLOW IVP PRN (21:25)
[2019-10-01] MEDS: HumaLOG 300 UNITS/3 ML VIAL SC PRN (22:13)
[2019-10-02] MEDS ORDERED: Fluticasone Propionate Nasal Spray 16 gm Bottle NASAL SCH (00:15)
[2019-10-02] MEDS ORDERED: Furosemide 40 MG/4 ML VIAL SLOW IVP SCH ×2 (01:15→09:00)
[2019-10-02] MEDS: Acetaminophen 500 MG TAB PO PRN (01:19)
[2019-10-02 05:20] LABS: Anion Gap 14 mmol/L (10-20); BUN (Urea Nitrogen) 38 mg/dL (8.4-25.7); Calc. Creatinine Clearance 77 mL/min (70-130); Calcium 8.4 mg/dL (7.8-10.44); Carbon Dioxide 23 mmol/L (22-29); Chloride 97 mmol/L (98-107); Estimated GFR-MDRD 32; Glucose 482 mg/dL (70-105); Magnesium 2.2 mg/dL (1.6-2.6); Potassium 5.6 mmol/L (3.5-5.1); Sodium 128 mmol/L (136-145)
[2019-10-02 05:46] LABS: Band 30 % (5-11); Hemoglobin 14.1 g/dL (14.0-18.0); Lymphocytes 4 % (21-51); MDiff Complete? YES; Mean Corpuscular HGB CONC 33.3 g/dL (32.0-36.0); Mean Corpuscular Hemoglobin 31.1 pg (27.0-31.0); Mean Corpuscular Volume 93.2 fL (78.0-98.0); Monocytes 1 % (0-10); Neutrophil 65 % (42-75); Platelet Count 222 thou/uL (130-400); Red Blood Cell (RBC) Count 4.53 mill/uL (4.70-6.10); White Blood Cell (WBC) Count 14.2 thou/uL (4.8-10.8)
[2019-10-02] MEDS: HumaLOG 300 UNITS/3 ML VIAL SC PRN ×3 (06:06→17:21)
[2019-10-02] MEDS: Arformoterol 15 MCG/2 ML NEB NEB SCH ×2 (07:16→19:18)
[2019-10-02] MEDS: Mometasone 100 MCG HFA INHALER INH SCH ×2 (07:23→19:19)
[2019-10-02] MEDS ORDERED: Furosemide 40 MG TAB PO SCH (07:30)
[2019-10-02] MEDS: Amiodarone 200 MG TAB PO SCH (08:21)
[2019-10-02] MEDS: Gabapentin 300 MG CAP PO SCH (08:22)
[2019-10-02] MEDS: Fluticasone Propionate Nasal Spray 16 gm Bottle NASAL SCH (08:22)
[2019-10-02] MEDS: Carvedilol 25 MG TAB PO SCH ×2 (08:22→21:21)
[2019-10-02] MEDS: Apixaban 5 MG TAB PO SCH ×2 (08:22→21:21)
[2019-10-02] MEDS: Aspirin 325 MG TAB PO SCH (08:22)
[2019-10-02] MEDS: glyBURIDE 2.5 MG TAB PO SCH (08:23)
[2019-10-02] MEDS: Loratadine 10 MG TAB PO SCH (08:23)
[2019-10-02] MEDS: guaiFENesin ER 600 MG TAB PO SCH ×2 (08:23→21:21)
[2019-10-02] MEDS: hydrALAZINE 25 MG TAB PO SCH ×2 (08:23→21:20)
[2019-10-02] MEDS ORDERED: Furosemide 20 MG TAB PO SCH (09:00)
[2019-10-02] MEDS ORDERED: Cetirizine HCl 10 MG TAB PO SCH (09:00)
[2019-10-02] MEDS ORDERED: Non-Formulary Item 1 EACH (Fluticasone/Umeclidin/Vilanter [Trelegy Ellipta 100-62.5-25] 1 IH SCH (09:00)
[2019-10-02] MEDS: Furosemide 40 MG TAB PO SCH ×2 (09:04→14:20)
[2019-10-02] MEDS ORDERED: Furosemide 80 MG TAB PO SCH (14:00)
[2019-10-02] MEDS ORDERED: HumaLOG 300 UNITS/3 ML VIAL SC PRN (18:14)
--- NOTE | 2019-10-02 18:20 | PDOC.HOSPP ---
- Subjective Encounter Date: 10/02/19 Encounter Time: 10:00 Subjective: No overnight events. This morning, feels better, can walk a little further without getting short of breath and swelling of lower extremities mildly improved - Objective Vital Signs & Weight: Vital Signs (12 hours) Temp Pulse Pulse Resp BP BP BP 10/02/19 13:15 60 18 10/02/19 10:43 98.5 F 60 20 114/56 L 10/02/19 09:18 64 131/63 10/02/19 08:23 60 157/76 H 10/02/19 07:29 97.4 F L 60 20 157/76 H 10/02/19 07:16 60 22 H Pulse Ox Pulse Ox Pulse Ox 10/02/19 13:15 96 10/02/19 10:43 92 L 10/02/19 09:18 92 L 94 L 10/02/19 08:23 10/02/19 07:29 88 L 10/02/19 07:16 Weight Weight 324 lb 4.8 oz I&O: 10/01/19 10/02/19 10/03/19 06:59 06:59 06:59 Intake Total 240 600 Output Total 600 900 Balance -360 -300 Result Diagrams: 10/02/19 04:33 10/02/19 04:33 Additional Labs: Accuchecks 10/02/19 10/02/19 10/02/19 16:44 16:13 10:58 POC Glucose 448 H 421 H 473 H 10/01/19 21:07 POC Glucose 395 H Hospitalist ROS - Review of Systems Constitutional: denies: fever, chills, sweats, weakness, malaise, other Respiratory: reports: SOB with excertion. denies: cough, dry, shortness of breath, hemoptysis, pleuritic pain, sputum, wheezing, other Cardiovascular: denies: chest pain, palpitations, orthopnea, paroxysmal noc. dyspnea, edema, light headedness, other Gastrointestinal: denies: nausea, vomiting, abdominal pain, diarrhea, constipation, melena, hematochezia, other Genitourinary: denies: dysuria, frequency, incontinence, hematuria, retention, other - Medication Medications: Active Medications Generic Name Dose Route Start Last Admin Trade Name Freq PRN Reason Stop Dose Admin Acetaminophen 500 mg 10/02/19 01:08 10/02/19 01:19 Tylenol PO 500 mg Q6H PRN Administration Mild Pain (1-3) Albuterol/Ipratropium 3 ml 10/02/19 01:00 10/02/19 13:15 Duoneb NEB 3 ml [id number] ANAIS Administration Amiodarone HCl 200 mg 10/02/19 09:00 10/02/19 08:21 Cordarone PO 200 mg DAILY ANAIS Administration Apixaban 5 mg 10/01/19 21:00 10/02/19 08:22 Eliquis PO 5 mg BID ANAIS Administration Arformoterol Tartrate 15 mcg 10/01/19 18:30 10/02/19 07:16 Brovana NEB 15 mcg BID-RT ANAIS Administration Aspirin 325 mg 10/02/19 09:00 10/02/19 08:22 Aspirin PO 325 mg DAILY ANAIS Administration Atorvastatin Calcium 80 mg 10/01/19 21:00 10/01/19 21:19 Lipitor PO 80 mg HS ANAIS Administration Carvedilol 25 mg 10/01/19 21:00 10/02/19 08:22 Coreg PO 25 mg BID ANAIS Administration Fluticasone Propionate 0 gm 10/02/19 09:00 10/02/19 08:22 Flonase Nasal [place] NASAL 2 spray DAILY ANAIS Administration Furosemide 40 mg 10/02/19 09:00 10/02/19 14:20 Lasix PO 40 mg 0900,1400 ANAIS Administration Gabapentin 300 mg 10/02/19 09:00 10/02/19 08:22 Neurontin PO 300 mg DAILY ANAIS Administration Guaifenesin 600 mg 10/01/19 21:00 10/02/19 08:23 Mucinex PO 600 mg BID ANAIS Administration Hydralazine HCl 25 mg 10/01/19 21:00 10/02/19 08:23 Apresoline PO 25 mg BID ANAIS Administration Insulin Human Lispro 0 units 10/01/19 21:25 10/02/19 17:21 Humalog SC 6 unit .MILD SLIDING SCALE PRN Administration Mild Correctional Scale Loratadine 10 mg 10/02/19 09:00 10/02/19 08:23 Claritin PO 10 mg QAM ANAIS Administration Mometasone Furoate 1 puff 10/02/19 06:30 10/02/19 07:23 Asmanex Hfa 100 Mcg INH 1 puff BID-RT ANAIS Administration Sodium Chloride 10 ml 10/01/19 21:00 10/02/19 08:23 Flush - Normal Saline IVF 10 ml Q12HR ANAIS Administration - Exam General Appearance: NAD, awake alert Heart: no murmur, no gallops, no rubs, normal peripheral pulses Heart - other findings: S3 present Respiratory: no wheezes, no ronchi, normal chest expansion, no tachypnea, normal percussion Respiratory - other findings: severely reduced breath sounds throughout with rales midfield and lower Gastrointestinal: soft, non-tender, non-distended, normal bowel sounds, no palpable masses, no hepatomegaly, no splenomegaly, no bruit Psychiatric: normal affect, normal behavior, A&O x 3 Hosp A/P (1) Acute on chronic combined systolic and diastolic CHF (congestive heart failure) Code(s): I50.43 - ACUTE ON CHRONIC COMBINED SYSTOLIC AND DIASTOLIC HRT FAIL Status: Acute (2) Chronic obstructive lung disease Status: Chronic (3) Acute respiratory failure with hypoxia Code(s): J96.01 - ACUTE RESPIRATORY FAILURE WITH HYPOXIA Status: Acute (4) Paroxysmal atrial fibrillation with RVR Code(s): I48.0 - PAROXYSMAL ATRIAL FIBRILLATION Status: Acute (5) DM type 2 with diabetic peripheral neuropathy Code(s): E11.42 - TYPE 2 DIABETES MELLITUS WITH DIABETIC POLYNEUROPATHY Status : Chronic - Plan * Decompensated HFrEF IV * significant history of nonadherence * continue to diurese gently * follow I/O * COPD * likely poorly controlled rather than exacerbation considering the temporal correlation with nonadherence to medication * * started on duoneb and LABA * on discharge, will attempt to arrange for cheaper LABA * CABG * paroxysmal afib * DM * poorly controlled; started on subq insulin regimen with moderate correction dose * * code status was discussed with patient and was changed to DNAR
[2019-10-02] MEDS: Insulin Glargine 40 UNITS in Pre-Filled Syringe 1 EACH SC SCH (21:19)
[2019-10-02] MEDS: Atorvastatin Calcium 40 MG TAB PO SCH (21:20)
[2019-10-03 04:25] LABS: #Eosinphils 0.1 thou/uL (0.0-0.7); #Lymphocytes 1.5 thou/uL (1.20-3.40); #Monocytes 0.9 thou/uL (0.11-0.59); #Neutrophils 7.9 thou/uL (1.40-6.50); %Basophils 0.2 % (0.0-1.0); %Eosinophils 1.2 % (0.0-10.0); %Lymphocytes 13.8 % (21.0-51.0); %Monocytes 8.9 % (0.0-10.0); %Neutrophils 75.8 % (42.0-75.0); Mean Corpuscular Hemoglobin 30.2 pg (27.0-31.0); Mean Corpuscular Volume 91.7 fL (78.0-98.0); Mean Platelet Volume 7.3 fL (7.4-10.4); Platelet Count 225 thou/uL (130-400); RBC Distribution Width 13.8 % (11.5-14.5); Red Blood Cell (RBC) Count 4.63 mill/uL (4.70-6.10); White Blood Cell (WBC) Count 10.5 thou/uL (4.8-10.8)
[2019-10-03 04:47] LABS: Anion Gap 14 mmol/L (10-20); BUN (Urea Nitrogen) 49 mg/dL (8.4-25.7); Calc. Creatinine Clearance 85 mL/min (70-130); Calcium 8.6 mg/dL (7.8-10.44); Carbon Dioxide 26 mmol/L (22-29); Chloride 98 mmol/L (98-107); Estimated GFR-MDRD 36; Glucose 241 mg/dL (70-105); Magnesium 2.4 mg/dL (1.6-2.6); Potassium 4.9 mmol/L (3.5-5.1); Sodium 133 mmol/L (136-145)
[2019-10-03] MEDS: Furosemide 40 MG/4 ML VIAL SLOW IVP SCH ×2 (06:40→13:13)
[2019-10-03] MEDS: Arformoterol 15 MCG/2 ML NEB NEB SCH ×2 (08:29→18:25)
[2019-10-03] MEDS: Mometasone 100 MCG HFA INHALER INH SCH ×2 (08:29→18:25)
[2019-10-03] MEDS: HumaLOG 300 UNITS/3 ML VIAL SC SCH ×3 (09:22→16:50)
[2019-10-03] MEDS: Apixaban 5 MG TAB PO SCH ×2 (09:22→20:48)
[2019-10-03] MEDS: Carvedilol 25 MG TAB PO SCH ×2 (09:22→20:50)
[2019-10-03] MEDS: guaiFENesin ER 600 MG TAB PO SCH ×2 (09:22→20:50)
[2019-10-03] MEDS: hydrALAZINE 25 MG TAB PO SCH ×2 (09:22→20:49)
[2019-10-03] MEDS: Aspirin 325 MG TAB PO SCH (09:22)
[2019-10-03] MEDS: Gabapentin 300 MG CAP PO SCH (09:22)
[2019-10-03] MEDS: Loratadine 10 MG TAB PO SCH (09:22)
[2019-10-03] MEDS: Amiodarone 200 MG TAB PO SCH (09:22)
[2019-10-03] MEDS: Fluticasone Propionate Nasal Spray 16 gm Bottle NASAL SCH (09:23)
[2019-10-03] MEDS: Acetaminophen 500 MG TAB PO PRN ×3 (09:26→23:30)
[2019-10-03] MEDS ORDERED: Lisinopril 10 MG TAB PO SCH (17:15)
--- NOTE | 2019-10-03 18:01 | PDOC.HOSPP ---
- Subjective Encounter Date: 10/03/19 Encounter Time: 10:00 Subjective: No overnight events. This morning, breathing continues to be improved. - Objective Vital Signs & Weight: Vital Signs (12 hours) Temp Pulse Pulse Pulse Resp BP BP 10/03/19 16:23 98.4 F 64 16 10/03/19 13:31 61 20 10/03/19 11:34 98.4 F 60 18 10/03/19 10:31 64 65 159/80 H 165/74 H 10/03/19 09:22 62 10/03/19 08:31 10/03/19 08:28 62 16 10/03/19 08:00 96.2 F L 63 17 BP BP Pulse Ox Pulse Ox Pulse Ox Pulse Ox 10/03/19 16:23 185/88 H 92 L 10/03/19 13:31 92 L 10/03/19 11:34 131/68 93 L 10/03/19 10:31 92 L 87 L 93 L 10/03/19 09:22 10/03/19 08:31 92 L 10/03/19 08:28 92 L 10/03/19 08:00 158/80 H 92 L Weight Weight 314 lb I&O: 10/02/19 10/03/19 10/04/19 06:59 06:59 06:59 Intake Total 240 720 600 Output Total 600 1450 1800 Balance -790 -122 -1200 Result Diagrams: 10/03/19 04:10 10/03/19 04:10 Additional Labs: Accuchecks 10/03/19 10/03/19 10/02/19 16:20 12:35 20:18 POC Glucose 153 H 215 H 282 H Hospitalist ROS - Review of Systems Constitutional: denies: fever, chills, sweats, weakness, malaise, other Respiratory: reports: shortness of breath, SOB with excertion. denies: cough, sputum Cardiovascular: denies: chest pain, palpitations, orthopnea, paroxysmal noc. dyspnea, edema, light headedness, other Gastrointestinal: denies: nausea, vomiting, abdominal pain, diarrhea, constipation, melena, hematochezia, other Genitourinary: denies: dysuria, frequency, incontinence, hematuria, retention, other Neurological: denies: weakness, numbness, incoordination, change in speech, confusion, seizures, other - Medication Medications: Active Medications Generic Name Dose Route Start Last Admin Trade Name Freq PRN Reason Stop Dose Admin Acetaminophen 500 mg 10/02/19 01:08 10/03/19 16:52 Tylenol PO 500 mg Q6H PRN Administration Mild Pain (1-3) Albuterol/Ipratropium 3 ml 10/02/19 01:00 10/03/19 13:31 Duoneb NEB 3 ml [id number] ANAIS Administration Amiodarone HCl 200 mg 10/02/19 09:00 10/03/19 09:22 Cordarone PO 200 mg DAILY ANAIS Administration Apixaban 5 mg 10/01/19 21:00 10/03/19 09:22 Eliquis PO 5 mg BID ANAIS Administration Arformoterol Tartrate 15 mcg 10/01/19 18:30 10/03/19 08:29 Brovana NEB 15 mcg BID-RT ANAIS Administration Aspirin 325 mg 10/02/19 09:00 10/03/19 09:22 Aspirin PO 325 mg DAILY ANAIS Administration Atorvastatin Calcium 80 mg 10/01/19 21:00 10/02/19 21:20 Lipitor PO 80 mg HS ANAIS Administration Carvedilol 25 mg 10/01/19 21:00 10/03/19 09:22 Coreg PO 25 mg BID ANAIS Administration Fluticasone Propionate 0 gm 10/02/19 09:00 10/03/19 09:23 Flonase Nasal [place] NASAL 2 spray DAILY ANAIS Administration Furosemide 40 mg 10/03/19 06:00 10/03/19 13:13 Lasix SLOW IVP 40 mg 0600,1400 ANAIS Administration Gabapentin 300 mg 10/02/19 09:00 10/03/19 09:22 Neurontin PO 300 mg DAILY ANAIS Administration Guaifenesin 600 mg 10/01/19 21:00 10/03/19 09:22 Mucinex PO 600 mg BID ANAIS Administration Hydralazine HCl 25 mg 10/01/19 21:00 10/03/19 09:22 Apresoline PO 25 mg BID ANAIS Administration Insulin Glargine 40 units/ 0.4 mls @ 0 mls/hr 10/02/19 21:00 10/02/19 21:19 Miscellaneous Medication SC 0.4 mls HS ANAIS Administration Insulin Human Lispro 0 units 10/01/19 21:25 10/02/19 17:21 Humalog SC 6 unit .MILD SLIDING SCALE PRN Administration Mild Correctional Scale Insulin Human Lispro 13 units 10/03/19 08:00 10/03/19 09:22 Humalog SC 13 unit 0800 ANAIS Administration Insulin Human Lispro 13 units 10/03/19 12:00 10/03/19 13:14 Humalog SC 13 unit 1200 ANAIS Administration Insulin Human Lispro 13 units 10/03/19 17:00 10/03/19 16:50 Humalog SC 13 unit 1700 ANAIS Administration Lisinopril 10 mg 10/03/19 17:15 10/03/19 17:59 Zestril PO 10/03/19 19:15 10 mg NOW ANAIS Administration Loratadine 10 mg 10/02/19 09:00 10/03/19 09:22 Claritin PO 10 mg QAM ANAIS Administration Mometasone Furoate 1 puff 10/02/19 06:30 10/03/19 08:29 Asmanex Hfa 100 Mcg INH 1 puff BID-RT ANAIS Administration Sodium Chloride 10 ml 10/01/19 21:00 10/03/19 09:28 Flush - Normal Saline IVF 10 ml Q12HR ANAIS Administration - Exam General Appearance: NAD, awake alert Heart: RRR, no murmur, no gallops, no rubs, normal peripheral pulses Respiratory: no wheezes, no ronchi, normal chest expansion, no tachypnea, normal percussion Respiratory - other findings: inspiratory rales throughout, mostly mid and lower thomas, improved Gastrointestinal: soft, non-tender, non-distended, normal bowel sounds, no palpable masses, no hepatomegaly, no splenomegaly, no bruit Extremities - other findings: b/l lower extremity pitting edema to hip level, improved Psychiatric: normal affect, normal behavior, A&O x 3 Hosp A/P (1) Acute on chronic combined systolic and diastolic CHF (congestive heart failure) Code(s): I50.43 - ACUTE ON CHRONIC COMBINED SYSTOLIC AND DIASTOLIC HRT FAIL Status: Acute (2) Chronic obstructive lung disease Status: Chronic (3) Acute respiratory failure with hypoxia Code(s): J96.01 - ACUTE RESPIRATORY FAILURE WITH HYPOXIA Status: Acute (4) Paroxysmal atrial fibrillation with RVR Code(s): I48.0 - PAROXYSMAL ATRIAL FIBRILLATION Status: Acute (5) DM type 2 with diabetic peripheral neuropathy Code(s): E11.42 - TYPE 2 DIABETES MELLITUS WITH DIABETIC POLYNEUROPATHY Status : Chronic - Plan * Decompensated HFrEF IV (AICD) * significant history of nonadherence * continue to diurese * follow I/O; fluid balance since admission > -2L (10/03) * If continues to improve, may be discharged and continue diuresis as o/p (10/04 ) * COPD * likely poorly controlled rather than exacerbation considering the temporal correlation with nonadherence to medication * * started on duoneb and LABA * on discharge, will attempt to arrange for cheaper LABA * CABG * paroxysmal afib * DM * poorly controlled; started on subq insulin regimen with moderate correction dose (10/02) * better controlled (10/03) * * code status was discussed with patient and was changed to DNAR
[2019-10-03] MEDS: Insulin Glargine 40 UNITS in Pre-Filled Syringe 1 EACH SC SCH (20:47)
[2019-10-03] MEDS: Atorvastatin Calcium 40 MG TAB PO SCH (20:49)
[2019-10-04 04:46] LABS: Anion Gap 12 mmol/L (10-20); BUN (Urea Nitrogen) 46 mg/dL (8.4-25.7); Calc. Creatinine Clearance 100 mL/min (70-130); Calcium 8.6 mg/dL (7.8-10.44); Carbon Dioxide 27 mmol/L (22-29); Chloride 102 mmol/L (98-107); Estimated GFR-MDRD 45; Glucose 201 mg/dL (70-105); Magnesium 2.2 mg/dL (1.6-2.6); Potassium 3.9 mmol/L (3.5-5.1); Sodium 137 mmol/L (136-145)
[2019-10-04] MEDS: Furosemide 40 MG/4 ML VIAL SLOW IVP SCH ×2 (05:28→13:06)
[2019-10-04] MEDS: Arformoterol 15 MCG/2 ML NEB NEB SCH ×2 (07:05→19:09)
[2019-10-04] MEDS: Mometasone 100 MCG HFA INHALER INH SCH ×2 (07:19→19:09)
[2019-10-04] MEDS: Lisinopril 10 MG TAB PO SCH (08:06)
[2019-10-04] MEDS: Gabapentin 300 MG CAP PO SCH (08:06)
[2019-10-04] MEDS: Aspirin 325 MG TAB PO SCH (08:06)
[2019-10-04] MEDS: Carvedilol 25 MG TAB PO SCH ×2 (08:07→21:31)
[2019-10-04] MEDS: Loratadine 10 MG TAB PO SCH (08:07)
[2019-10-04] MEDS: hydrALAZINE 25 MG TAB PO SCH ×2 (08:07→21:31)
[2019-10-04] MEDS: Amiodarone 200 MG TAB PO SCH (08:07)
[2019-10-04] MEDS: Apixaban 5 MG TAB PO SCH ×2 (08:07→21:31)
[2019-10-04] MEDS: guaiFENesin ER 600 MG TAB PO SCH ×2 (08:07→21:30)
[2019-10-04] MEDS: HumaLOG 300 UNITS/3 ML VIAL SC SCH ×3 (08:08→16:59)
[2019-10-04] MEDS: Fluticasone Propionate Nasal Spray 16 gm Bottle NASAL SCH (08:40)
[2019-10-04] MEDS: Acetaminophen 500 MG TAB PO PRN (13:10)
--- NOTE | 2019-10-04 18:40 | PDOC.HOSPP ---
- Subjective Encounter Date: 10/04/19 Encounter Time: 10:20 Subjective: Pt seen for followup re: CHF exacerbation. feels slightly better. - Objective Vital Signs & Weight: Vital Signs (12 hours) Temp Pulse Resp BP Pulse Ox 10/04/19 17:02 97.2 F L 63 16 177/85 H 92 L 10/04/19 13:37 62 16 10/04/19 11:04 98.9 F 62 17 119/62 92 L 10/04/19 08:07 71 10/04/19 08:00 97.6 F 72 18 157/83 H 93 L 10/04/19 07:33 93 L 10/04/19 07:19 71 16 10/04/19 07:07 91 L 10/04/19 07:05 71 16 Weight Weight 324 lb 4.8 oz I&O: 10/03/19 10/04/19 10/05/19 06:59 06:59 06:59 Intake Total 720 620 720 Output Total 1450 9040 1800 Balance -730 -2830 -1080 Result Diagrams: 10/03/19 04:10 10/04/19 04:04 Additional Labs: Accuchecks 10/04/19 10/04/19 10/04/19 16:25 11:06 05:52 POC Glucose 135 H 149 H 196 H 10/03/19 20:23 POC Glucose 140 H Labs and MARs reviewed by me EKG Reviewed by me: Yes (Tele: NSR) Hospitalist ROS - Review of Systems Constitutional: denies: fever, chills, sweats, weakness, malaise Respiratory: reports: cough, dry, SOB with excertion. denies: shortness of breath, hemoptysis, pleuritic pain, sputum, wheezing Cardiovascular: reports: orthopnea, edema. denies: chest pain, palpitations, paroxysmal noc. dyspnea, light headedness Gastrointestinal: denies: nausea, vomiting, abdominal pain, diarrhea, constipation, melena, hematochezia Genitourinary: denies: dysuria, frequency, incontinence, hematuria, retention - Medication Medications: Active Medications Generic Name Dose Route Start Last Admin Trade Name Freq PRN Reason Stop Dose Admin Acetaminophen 500 mg 10/02/19 01:08 10/04/19 13:10 Tylenol PO 500 mg Q6H PRN Administration Mild Pain (1-3) Albuterol/Ipratropium 3 ml 10/02/19 01:00 10/04/19 13:37 Duoneb NEB 3 ml [id number] ANAIS Administration Amiodarone HCl 200 mg 10/02/19 09:00 10/04/19 08:07 Cordarone PO 200 mg DAILY ANAIS Administration Apixaban 5 mg 10/01/19 21:00 10/04/19 08:07 Eliquis PO 5 mg BID ANAIS Administration Arformoterol Tartrate 15 mcg 10/01/19 18:30 10/04/19 07:05 Brovana NEB 15 mcg BID-RT ANAIS Administration Aspirin 325 mg 10/02/19 09:00 10/04/19 08:06 Aspirin PO 325 mg DAILY ANAIS Administration Atorvastatin Calcium 80 mg 10/01/19 21:00 10/03/19 20:49 Lipitor PO 80 mg HS ANAIS Administration Carvedilol 25 mg 10/01/19 21:00 10/04/19 08:07 Coreg PO 25 mg BID ANAIS Administration Fluticasone Propionate 0 gm 10/02/19 09:00 10/04/19 08:40 Flonase Nasal [place] NASAL 2 spray DAILY ANAIS Administration Furosemide 40 mg 10/03/19 06:00 10/04/19 13:06 Lasix SLOW IVP 40 mg 0600,1400 ANAIS Administration Gabapentin 300 mg 10/02/19 09:00 10/04/19 08:06 Neurontin PO 300 mg DAILY ANAIS Administration Guaifenesin 600 mg 10/01/19 21:00 10/04/19 08:07 Mucinex PO 600 mg BID ANAIS Administration Hydralazine HCl 25 mg 10/01/19 21:00 10/04/19 08:07 Apresoline PO 25 mg BID ANAIS Administration Insulin Glargine 40 units/ 0.4 mls @ 0 mls/hr 10/02/19 21:00 10/03/19 20:47 Miscellaneous Medication SC 0.4 mls HS ANAIS Administration Insulin Human Lispro 13 units 10/03/19 08:00 10/04/19 08:08 Humalog SC 13 unit 0800 ANAIS Administration Insulin Human Lispro 13 units 10/03/19 12:00 10/04/19 13:06 Humalog SC 13 unit 1200 ANAIS Administration Insulin Human Lispro 13 units 10/03/19 17:00 10/04/19 16:59 Humalog SC Not Given 1700 ANAIS Lisinopril 10 mg 10/04/19 09:00 10/04/19 08:06 Zestril PO 10 mg DAILY ANAIS Administration Loratadine 10 mg 10/02/19 09:00 10/04/19 08:07 Claritin PO 10 mg QAM ANAIS Administration Mometasone Furoate 1 puff 10/02/19 06:30 10/04/19 07:19 Asmanex Hfa 100 Mcg INH 1 puff BID-RT ANAIS Administration Sodium Chloride 10 ml 10/01/19 21:00 10/04/19 08:08 Flush - Normal Saline IVF 10 ml Q12HR ANAIS Administration - Exam General - other findings: Morbid obesity Eye: anicteric sclera ENT: moist mucosa Neck: supple, symmetric, no thyromegaly, no lymphadenopathy Heart: RRR, no gallops, no rubs, normal peripheral pulses Respiratory - other findings: Praveen crackles Gastrointestinal: soft, non-tender, normal bowel sounds, distended Extremities: 2+ LE edema Psychiatric: normal affect, normal behavior, A&O x 3 Hosp A/P - Plan - Assessment: (1) Acute on chronic combined systolic and diastolic CHF (congestive heart failure) Code(s): I50.43 - ACUTE ON CHRONIC COMBINED SYSTOLIC AND DIASTOLIC HRT FAIL Status: Acute (2) Acute respiratory failure with hypoxia Code(s): J96.01 - ACUTE RESPIRATORY FAILURE WITH HYPOXIA Status: Acute (3) Paroxysmal atrial fibrillation with RVR Code(s): I48.0 - PAROXYSMAL ATRIAL FIBRILLATION Status: Chronic (4) DM type 2 with diabetic peripheral neuropathy Code(s): E11.42 - TYPE 2 DIABETES MELLITUS WITH DIABETIC POLYNEUROPATHY Status : Chronic (5) Chronic obstructive lung disease Status: Chronic (6) Morbid obesity Status: Chronic - Plan: * CHF exacerbation: * secondary to medication noncompliance n * continue to diurese * COPD * stable * CABG * paroxysmal afib * DM * Improved control
[2019-10-04] MEDS: Atorvastatin Calcium 40 MG TAB PO SCH (21:31)
[2019-10-04] MEDS: Insulin Glargine 40 UNITS in Pre-Filled Syringe 1 EACH SC SCH (21:32)
[2019-10-05] MEDS ORDERED: Sodium Chloride 0.9% 10 ML ONE (05:24)
[2019-10-05] MEDS: Furosemide 40 MG/4 ML VIAL SLOW IVP SCH ×2 (06:17→13:39)
[2019-10-05] MEDS: Arformoterol 15 MCG/2 ML NEB NEB SCH ×2 (07:11→18:46)
[2019-10-05] MEDS: Mometasone 100 MCG HFA INHALER INH SCH ×2 (07:27→18:46)
[2019-10-05] MEDS: guaiFENesin ER 600 MG TAB PO SCH ×2 (09:34→21:50)
[2019-10-05] MEDS: Apixaban 5 MG TAB PO SCH ×2 (09:34→21:49)
[2019-10-05] MEDS: hydrALAZINE 25 MG TAB PO SCH ×2 (09:34→21:50)
[2019-10-05] MEDS: Lisinopril 10 MG TAB PO SCH (09:34)
[2019-10-05] MEDS: Carvedilol 25 MG TAB PO SCH ×2 (09:34→21:50)
[2019-10-05] MEDS: Amiodarone 200 MG TAB PO SCH (09:34)
[2019-10-05] MEDS: Gabapentin 300 MG CAP PO SCH (09:34)
[2019-10-05] MEDS: Aspirin 325 MG TAB PO SCH (09:34)
[2019-10-05] MEDS: HumaLOG 300 UNITS/3 ML VIAL SC SCH ×3 (09:35→17:55)
[2019-10-05] MEDS: Fluticasone Propionate Nasal Spray 16 gm Bottle NASAL SCH (09:35)
[2019-10-05] MEDS: Loratadine 10 MG TAB PO SCH (09:35)
[2019-10-05 10:40] LABS: Hemoglobin 14.4 g/dL (14.0-18.0); Mean Corpuscular Hemoglobin 30.6 pg (27.0-31.0); Mean Corpuscular Volume 92.7 fL (78.0-98.0); Mean Platelet Volume 7.5 fL (7.4-10.4); Platelet Count 209 thou/uL (130-400); RBC Distribution Width 13.8 % (11.5-14.5); White Blood Cell (WBC) Count 5.4 thou/uL (4.8-10.8)
[2019-10-05 10:55] LABS: Anion Gap 12 mmol/L (10-20); BUN (Urea Nitrogen) 40 mg/dL (8.4-25.7); Calc. Creatinine Clearance 100 mL/min (70-130); Calcium 8.8 mg/dL (7.8-10.44); Carbon Dioxide 27 mmol/L (22-29); Chloride 100 mmol/L (98-107); Estimated GFR-MDRD 43; Glucose 275 mg/dL (70-105); Sodium 135 mmol/L (136-145)
[2019-10-05 11:26] LABS: Eosinophils 5 % (0-10); Large Platelets SLIGHT; Lymphocytes 17 % (21-51); MDiff Complete? YES; Monocytes 18 % (0-10); Neutrophil 60 % (42-75); Platelet Morphology Comment Appears Adequate; Vacuoles SLIGHT
[2019-10-05] MEDS: methylPREDNISolone Sod Succ/PF 125 MG/2 ML VIAL IVP SCH ×2 (12:16→17:55)
[2019-10-05] MEDS: cefTRIAXone\\ROCEPHIN 1 GM in Sodium Chloride 0.9% 100 ML IVPB SCH (12:17)
[2019-10-05] MEDS: Acetaminophen 500 MG TAB PO PRN (15:51)
--- NOTE | 2019-10-05 16:44 | PDOC.HOSPP ---
- Subjective Encounter Date: 10/05/19 Encounter Time: 10:40 Subjective: Pt seen for followup re: CHF exacerbation. c/o wheezing, cough, yellowish sputum. - Objective Vital Signs & Weight: Vital Signs (12 hours) Temp Pulse Pulse Resp BP BP Pulse Ox 10/05/19 15:36 98.4 F 63 19 141/68 H 92 L 10/05/19 14:25 67 10/05/19 12:45 64 20 10/05/19 11:37 98.7 F 64 22 H 108/60 91 L 10/05/19 09:34 74 156/73 H 10/05/19 08:00 97.2 F L 74 18 187/86 H 92 L 10/05/19 07:27 79 20 10/05/19 07:12 91 L 10/05/19 07:11 79 20 Pulse Ox Pulse Ox 10/05/19 15:36 10/05/19 14:25 81 L 87 L 10/05/19 12:45 10/05/19 11:37 10/05/19 09:34 10/05/19 08:00 10/05/19 07:27 10/05/19 07:12 10/05/19 07:11 Weight Weight 324 lb 4.8 oz I&O: 10/04/19 10/05/19 10/06/19 06:59 06:59 06:59 Intake Total 620 1220 Output Total 3450 2950 Balance -2830 -1730 Result Diagrams: 10/05/19 10:18 10/05/19 10:18 Additional Labs: Accuchecks 10/05/19 10/05/19 10/04/19 10:42 05:27 20:30 POC Glucose 245 H 185 H 188 H 10/04/19 16:25 POC Glucose 135 H Labs and MARs reviewed by me EKG Reviewed by me: Yes (Tele: NSR) Hospitalist ROS - Review of Systems Constitutional: denies: fever, chills, sweats, weakness, malaise Respiratory: reports: cough, SOB with excertion, sputum, wheezing, other. denies: dry, shortness of breath, hemoptysis, pleuritic pain Cardiovascular: reports: orthopnea, edema. denies: chest pain, palpitations, paroxysmal noc. dyspnea, light headedness Gastrointestinal: denies: nausea, vomiting, abdominal pain, diarrhea, constipation, melena, hematochezia Genitourinary: denies: dysuria, frequency, incontinence, hematuria, retention - Medication Medications: Active Medications Generic Name Dose Route Start Last Admin Trade Name Freq PRN Reason Stop Dose Admin Acetaminophen 500 mg 10/02/19 01:08 10/05/19 15:51 Tylenol PO 500 mg Q6H PRN Administration Mild Pain (1-3) Albuterol/Ipratropium 3 ml 10/02/19 01:00 10/05/19 12:45 Duoneb NEB 3 ml [id number] ANAIS Administration Amiodarone HCl 200 mg 10/02/19 09:00 10/05/19 09:34 Cordarone PO 200 mg DAILY ANAIS Administration Apixaban 5 mg 10/01/19 21:00 10/05/19 09:34 Eliquis PO 5 mg BID ANAIS Administration Arformoterol Tartrate 15 mcg 10/01/19 18:30 10/05/19 07:11 Brovana NEB 15 mcg BID-RT ANAIS Administration Aspirin 325 mg 10/02/19 09:00 10/05/19 09:34 Aspirin PO 325 mg DAILY ANAIS Administration Atorvastatin Calcium 80 mg 10/01/19 21:00 10/04/19 21:31 Lipitor PO 80 mg HS ANAIS Administration Carvedilol 25 mg 10/01/19 21:00 10/05/19 09:34 Coreg PO 25 mg BID ANAIS Administration Fluticasone Propionate 0 gm 10/02/19 09:00 10/05/19 09:35 Flonase Nasal [place] NASAL 2 spray DAILY ANAIS Administration Furosemide 40 mg 10/03/19 06:00 10/05/19 13:39 Lasix SLOW IVP 40 mg 0600,1400 ANAIS Administration Gabapentin 300 mg 10/02/19 09:00 10/05/19 09:34 Neurontin PO 300 mg DAILY ANAIS Administration Guaifenesin 600 mg 10/01/19 21:00 10/05/19 09:34 Mucinex PO 600 mg BID ANAIS Administration Hydralazine HCl 25 mg 10/01/19 21:00 10/05/19 09:34 Apresoline PO 25 mg BID ANAIS Administration Insulin Glargine 40 units/ 0.4 mls @ 0 mls/hr 10/02/19 21:00 10/04/19 21:32 Miscellaneous Medication SC 0.4 mls HS ANAIS Administration Ceftriaxone Sodium 1 gm/ 100 mls @ 200 mls/hr 10/05/19 11:00 10/05/19 12:17 Sodium Chloride IVPB 100 mls 1100 ANAIS Administration Insulin Human Lispro 13 units 10/03/19 08:00 10/05/19 09:35 Humalog SC 13 unit 0800 ANAIS Administration Insulin Human Lispro 13 units 10/03/19 12:00 10/05/19 12:17 Humalog SC 13 unit 1200 ANAIS Administration Insulin Human Lispro 13 units 10/03/19 17:00 10/04/19 16:59 Humalog SC Not Given 1700 ANAIS Lisinopril 10 mg 10/04/19 09:00 10/05/19 09:34 Zestril PO 10 mg DAILY ANAIS Administration Loratadine 10 mg 10/02/19 09:00 10/05/19 09:35 Claritin PO 10 mg QAM ANAIS Administration Methylprednisolone Sodium Succinate 40 mg 10/05/19 12:00 10/05/19 12:16 Solu-Medrol IVP 40 mg Q6HR ANAIS Administration Mometasone Furoate 1 puff 10/02/19 06:30 10/05/19 07:27 Asmanex Hfa 100 Mcg INH 1 puff BID-RT ANAIS Administration Sodium Chloride 10 ml 10/01/19 21:00 10/05/19 09:35 Flush - Normal Saline IVF 10 ml Q12HR ANAIS Administration - Exam General - other findings: Morbid obesity Eye: anicteric sclera ENT: normocephalic atraumatic, moist mucosa Neck: supple, symmetric, no thyromegaly, JVD Heart: RRR, no gallops, no rubs Respiratory: wheezes Gastrointestinal: soft, non-tender, normal bowel sounds, distended Extremities: 2+ LE edema Psychiatric: normal affect, normal behavior, A&O x 3 Hosp A/P - Plan out of bed/ambulate - Assessment: (1) Acute on chronic combined systolic and diastolic CHF (congestive heart failure) Code(s): I50.43 - ACUTE ON CHRONIC COMBINED SYSTOLIC AND DIASTOLIC HRT FAIL Status: Acute (2) COPD exacerbation Status: Acute (3) Acute respiratory failure with hypoxia Code(s): J96.01 - ACUTE RESPIRATORY FAILURE WITH HYPOXIA Status: Acute (4) DM type 2 with diabetic peripheral neuropathy Code(s): E11.42 - TYPE 2 DIABETES MELLITUS WITH DIABETIC POLYNEUROPATHY Status : Chronic (5) Chronic obstructive lung disease Status: Chronic (6) Morbid obesity Status: Chronic (7) Paroxysmal atrial fibrillation with RVR Code(s): I48.0 - PAROXYSMAL ATRIAL FIBRILLATION Status: Chronic - Plan: * CHF exacerbation: * contult cardiology in AM for opinion and help with management. * COPD * Pt appears to be in COPD exacerbation. Trial steroids and empiric antibiotics. Pt already on bronchodilators. * CABG * paroxysmal afib * DM * Continue accuchecks, insulin sliding scale.
[2019-10-05] MEDS: Doxycycline 100 MG CAP PO SCH (21:49)
[2019-10-05] MEDS: Insulin Glargine 40 UNITS in Pre-Filled Syringe 1 EACH SC SCH (21:49)
[2019-10-05] MEDS: Atorvastatin Calcium 40 MG TAB PO SCH (21:49)
[2019-10-05] MEDS: HumaLOG 300 UNITS/3 ML VIAL SC PRN (21:50)
[2019-10-06] MEDS: methylPREDNISolone Sod Succ/PF 125 MG/2 ML VIAL IVP SCH ×2 (00:06→06:07)
[2019-10-06] MEDS: Acetaminophen 500 MG TAB PO PRN ×3 (00:10→23:08)
[2019-10-06 04:36] LABS: #Lymphocytes 0.7 thou/uL (1.20-3.40); #Monocytes 0.2 thou/uL (0.11-0.59); #Neutrophils 3.9 thou/uL (1.40-6.50); %Basophils 0.1 % (0.0-1.0); %Eosinophils 0.2 % (0.0-10.0); %Lymphocytes 15.1 % (21.0-51.0); %Monocytes 3.8 % (0.0-10.0); %Neutrophils 80.8 % (42.0-75.0); Mean Corpuscular HGB CONC 32.4 g/dL (32.0-36.0); Mean Corpuscular Hemoglobin 29.7 pg (27.0-31.0); Mean Corpuscular Volume 91.8 fL (78.0-98.0); Mean Platelet Volume 7.6 fL (7.4-10.4); Platelet Count 212 thou/uL (130-400); RBC Distribution Width 13.6 % (11.5-14.5); Red Blood Cell (RBC) Count 4.71 mill/uL (4.70-6.10); White Blood Cell (WBC) Count 4.8 thou/uL (4.8-10.8)
[2019-10-06 04:57] LABS: Anion Gap 12 mmol/L (10-20); BUN (Urea Nitrogen) 50 mg/dL (8.4-25.7); Calc. Creatinine Clearance 98 mL/min (70-130); Calcium 8.5 mg/dL (7.8-10.44); Carbon Dioxide 26 mmol/L (22-29); Chloride 99 mmol/L (98-107); Estimated GFR-MDRD 42; Glucose 338 mg/dL (70-105); Potassium 4.3 mmol/L (3.5-5.1); Sodium 133 mmol/L (136-145)
[2019-10-06] MEDS: Furosemide 40 MG/4 ML VIAL SLOW IVP SCH ×2 (06:07→13:24)
[2019-10-06] MEDS: Mometasone 100 MCG HFA INHALER INH SCH ×2 (07:32→19:19)
[2019-10-06] MEDS: Arformoterol 15 MCG/2 ML NEB NEB SCH ×2 (07:32→19:19)
[2019-10-06] MEDS: Gabapentin 300 MG CAP PO SCH (08:25)
[2019-10-06] MEDS: Aspirin 325 MG TAB PO SCH (08:25)
[2019-10-06] MEDS: Lisinopril 10 MG TAB PO SCH (08:25)
[2019-10-06] MEDS: hydrALAZINE 25 MG TAB PO SCH ×2 (08:25→22:56)
[2019-10-06] MEDS: Carvedilol 25 MG TAB PO SCH ×2 (08:25→22:55)
[2019-10-06] MEDS: Doxycycline 100 MG CAP PO SCH ×2 (08:25→22:55)
[2019-10-06] MEDS: Amiodarone 200 MG TAB PO SCH (08:25)
[2019-10-06] MEDS: guaiFENesin ER 600 MG TAB PO SCH ×2 (08:25→22:56)
[2019-10-06] MEDS: Apixaban 5 MG TAB PO SCH ×2 (08:25→22:56)
[2019-10-06] MEDS: Fluticasone Propionate Nasal Spray 16 gm Bottle NASAL SCH (08:26)
[2019-10-06] MEDS: Loratadine 10 MG TAB PO SCH (08:26)
[2019-10-06] MEDS: HumaLOG 300 UNITS/3 ML VIAL SC SCH ×3 (08:27→18:15)
[2019-10-06] MEDS: cefTRIAXone\\ROCEPHIN 1 GM in Sodium Chloride 0.9% 100 ML IVPB SCH (11:59)
[2019-10-06] MEDS ORDERED: methylPREDNISolone Sod Succ 40 MG VIAL IVP SCH (14:00)
--- NOTE | 2019-10-06 17:57 | PDOC.HOSPP ---
- Subjective Encounter Date: 10/06/19 Encounter Time: 08:20 Subjective: Pt seen for followup re: CHF exacerbation. States he feels better. Still needing supplemental oxygen. - Objective Vital Signs & Weight: Vital Signs (12 hours) Temp Pulse Pulse Pulse Resp BP BP 10/06/19 12:00 97.4 F L 84 17 10/06/19 11:30 70 68 168/74 H 144/68 H 10/06/19 08:25 68 10/06/19 08:00 97.8 F 68 17 10/06/19 07:33 10/06/19 07:32 68 14 BP Pulse Ox Pulse Ox Pulse Ox Pulse Ox 10/06/19 12:00 144/68 H 93 L 10/06/19 11:30 94 L 87 L 93 L 10/06/19 08:25 10/06/19 08:00 169/79 H 94 L 10/06/19 07:33 96 10/06/19 07:32 Weight Weight 321 lb I&O: 10/05/19 10/06/19 10/07/19 06:59 06:59 06:59 Intake Total 1220 1210 Output Total 2950 2400 Balance -1730 -1190 Result Diagrams: 10/06/19 04:00 10/06/19 04:00 Additional Labs: Accuchecks 10/06/19 10/06/19 10/06/19 16:57 10:28 05:17 POC Glucose 384 H 491 H 327 H 10/05/19 20:38 POC Glucose 360 H Labs and MARs reviewed by me EKG Reviewed by me: Yes (Tele: NSR) Hospitalist ROS - Review of Systems Respiratory: reports: cough, dry, SOB with excertion. denies: shortness of breath, hemoptysis, pleuritic pain, sputum, wheezing Cardiovascular: denies: chest pain, palpitations, orthopnea, paroxysmal noc. dyspnea, edema, light headedness - Medication Medications: Active Medications Generic Name Dose Route Start Last Admin Trade Name Freq PRN Reason Stop Dose Admin Acetaminophen 500 mg 10/02/19 01:08 10/06/19 12:28 Tylenol PO 500 mg Q6H PRN Administration Mild Pain (1-3) Albuterol/Ipratropium 3 ml 10/02/19 01:00 10/06/19 14:19 Duoneb NEB 3 ml [id number] ANAIS Administration Amiodarone HCl 200 mg 10/02/19 09:00 10/06/19 08:25 Cordarone PO 200 mg DAILY ANAIS Administration Apixaban 5 mg 10/01/19 21:00 10/06/19 08:25 Eliquis PO 5 mg BID ANAIS Administration Arformoterol Tartrate 15 mcg 10/01/19 18:30 10/06/19 07:32 Brovana NEB 15 mcg BID-RT ANAIS Administration Aspirin 325 mg 10/02/19 09:00 10/06/19 08:25 Aspirin PO 325 mg DAILY ANAIS Administration Atorvastatin Calcium 80 mg 10/01/19 21:00 10/05/19 21:49 Lipitor PO 80 mg HS ANAIS Administration Carvedilol 25 mg 10/01/19 21:00 10/06/19 08:25 Coreg PO 25 mg BID ANAIS Administration Doxycycline Hyclate 100 mg 10/05/19 21:00 10/06/19 08:25 Vibramycin PO 100 mg BID ANAIS Administration Fluticasone Propionate 0 gm 10/02/19 09:00 10/06/19 08:26 Flonase Nasal [place] NASAL 2 spray DAILY ANAIS Administration Furosemide 40 mg 10/03/19 06:00 10/06/19 13:24 Lasix SLOW IVP 40 mg 0600,1400 ANAIS Administration Gabapentin 300 mg 10/02/19 09:00 10/06/19 08:25 Neurontin PO 300 mg DAILY ANAIS Administration Guaifenesin 600 mg 10/01/19 21:00 10/06/19 08:25 Mucinex PO 600 mg BID ANAIS Administration Hydralazine HCl 25 mg 10/01/19 21:00 10/06/19 08:25 Apresoline PO 25 mg BID ANAIS Administration Insulin Glargine 40 units/ 0.4 mls @ 0 mls/hr 10/02/19 21:00 10/05/19 21:49 Miscellaneous Medication SC 0.4 mls HS ANAIS Administration Ceftriaxone Sodium 1 gm/ 100 mls @ 200 mls/hr 10/05/19 11:00 10/06/19 11:59 Sodium Chloride IVPB 100 mls 1100 ANAIS Administration Insulin Human Lispro 0 units 10/01/19 21:25 10/05/19 21:50 Humalog SC 5 unit .BEDTIME SLIDING SC PRN Administration Bedtime Correctional Scale Insulin Human Lispro 13 units 10/03/19 08:00 10/06/19 08:27 Humalog SC 13 unit 0800 ANAIS Administration Insulin Human Lispro 13 units 10/03/19 12:00 10/06/19 11:59 Humalog SC 13 unit 1200 ANAIS Administration Insulin Human Lispro 13 units 10/03/19 17:00 10/05/19 17:55 Humalog SC 13 unit 1700 ANIAS Administration Insulin Human Lispro 0 units 10/02/19 18:14 10/06/19 12:00 Humalog SC 10 unit .MODERATE SLIDING SC PRN Administration Moderate Correctional Scale Lisinopril 10 mg 10/04/19 09:00 10/06/19 08:25 Zestril PO 10 mg DAILY ANAIS Administration Loratadine 10 mg 10/02/19 09:00 10/06/19 08:26 Claritin PO 10 mg QAM AANIS Administration Methylprednisolone Sodium Succinate 20 mg 10/06/19 14:00 10/06/19 13:24 Solu-Medrol IVP 20 mg Q8HR ANAIS Administration Mometasone Furoate 1 puff 10/02/19 06:30 10/06/19 07:32 Asmanex Hfa 100 Mcg INH 1 puff BID-RT ANAIS Administration Sodium Chloride 10 ml 10/01/19 21:00 10/06/19 08:26 Flush - Normal Saline IVF 10 ml Q12HR ANAIS Administration - Exam General - other findings: Morbid obesity Eye: anicteric sclera ENT: moist mucosa Neck: supple Heart: RRR Respiratory - other findings: Praveen crackles Gastrointestinal: soft, non-tender Extremities: 2+ LE edema Psychiatric: normal affect, lethargic Hosp A/P - Plan - Assessment: (1) Acute on chronic combined systolic and diastolic CHF (congestive heart failure) Code(s): I50.43 - ACUTE ON CHRONIC COMBINED SYSTOLIC AND DIASTOLIC HRT FAIL Status: Acute (2) COPD exacerbation Status: Acute (3) Acute respiratory failure with hypoxia Code(s): J96.01 - ACUTE RESPIRATORY FAILURE WITH HYPOXIA Status: Acute (4) DM type 2 with diabetic peripheral neuropathy Code(s): E11.42 - TYPE 2 DIABETES MELLITUS WITH DIABETIC POLYNEUROPATHY Status : Chronic (5) Chronic obstructive lung disease Status: Chronic (6) Morbid obesity Status: Chronic (7) Paroxysmal atrial fibrillation with RVR Code(s): I48.0 - PAROXYSMAL ATRIAL FIBRILLATION Status: Chronic - Plan: * CHF exacerbation: * slowly improving * COPD * switch to oral steroids * CABG * paroxysmal afib * DM * Blood sugars high secondary to steroids, switch to aggressive insulin sliding scale.
[2019-10-06] MEDS: HumaLOG 300 UNITS/3 ML VIAL SC PRN ×2 (18:15→22:57)
[2019-10-06] MEDS ORDERED: predniSONE 20 MG TAB PO SCH (18:15)
[2019-10-06] MEDS: Atorvastatin Calcium 40 MG TAB PO SCH (22:55)
[2019-10-06] MEDS: Insulin Glargine 40 UNITS in Pre-Filled Syringe 1 EACH SC SCH (22:56)
[2019-10-07 04:43] LABS: #Lymphocytes 0.7 thou/uL (1.20-3.40); #Monocytes 0.6 thou/uL (0.11-0.59); #Neutrophils 7.2 thou/uL (1.40-6.50); %Eosinophils 0.1 % (0.0-10.0); %Monocytes 7.5 % (0.0-10.0); %Neutrophils 84.4 % (42.0-75.0); Hemoglobin 14.5 g/dL (14.0-18.0); Mean Corpuscular HGB CONC 33.3 g/dL (32.0-36.0); Mean Corpuscular Hemoglobin 30.3 pg (27.0-31.0); Mean Corpuscular Volume 91.1 fL (78.0-98.0); Mean Platelet Volume 7.8 fL (7.4-10.4); Platelet Count 216 thou/uL (130-400); RBC Distribution Width 13.5 % (11.5-14.5); Red Blood Cell (RBC) Count 4.76 mill/uL (4.70-6.10); White Blood Cell (WBC) Count 8.6 thou/uL (4.8-10.8)
[2019-10-07 05:03] LABS: Anion Gap 14 mmol/L (10-20); BUN (Urea Nitrogen) 53 mg/dL (8.4-25.7); Calc. Creatinine Clearance 102 mL/min (70-130); Calcium 8.6 mg/dL (7.8-10.44); Carbon Dioxide 23 mmol/L (22-29); Chloride 102 mmol/L (98-107); Estimated GFR-MDRD 45; Glucose 287 mg/dL (70-105); Potassium 4.5 mmol/L (3.5-5.1); Sodium 134 mmol/L (136-145)
[2019-10-07] MEDS: Furosemide 40 MG/4 ML VIAL SLOW IVP SCH ×2 (06:06→14:35)
[2019-10-07] MEDS: Mometasone 100 MCG HFA INHALER INH SCH ×2 (07:03→19:00)
[2019-10-07] MEDS: Arformoterol 15 MCG/2 ML NEB NEB SCH ×2 (07:03→18:58)
[2019-10-07] MEDS: HumaLOG 300 UNITS/3 ML VIAL SC SCH ×3 (08:23→17:00)
[2019-10-07] MEDS: Aspirin 325 MG TAB PO SCH (08:24)
[2019-10-07] MEDS: hydrALAZINE 25 MG TAB PO SCH ×2 (08:24→21:13)
[2019-10-07] MEDS: Lisinopril 10 MG TAB PO SCH (08:24)
[2019-10-07] MEDS: Amiodarone 200 MG TAB PO SCH (08:24)
[2019-10-07] MEDS: Doxycycline 100 MG CAP PO SCH ×2 (08:24→21:13)
[2019-10-07] MEDS: Loratadine 10 MG TAB PO SCH (08:24)
[2019-10-07] MEDS: Gabapentin 300 MG CAP PO SCH (08:25)
[2019-10-07] MEDS: guaiFENesin ER 600 MG TAB PO SCH ×2 (08:25→21:14)
[2019-10-07] MEDS: Fluticasone Propionate Nasal Spray 16 gm Bottle NASAL SCH (08:25)
[2019-10-07] MEDS: Carvedilol 25 MG TAB PO SCH ×2 (08:25→21:14)
[2019-10-07] MEDS: cefTRIAXone\\ROCEPHIN 1 GM in Sodium Chloride 0.9% 100 ML IVPB SCH (11:32)
[2019-10-07] MEDS: Apixaban 5 MG TAB PO SCH ×2 (11:33→21:14)
[2019-10-07] MEDS: HumaLOG 300 UNITS/3 ML VIAL SC PRN (11:34)
--- NOTE | 2019-10-07 19:28 | PDOC.HOSPP ---
- Subjective Encounter Date: 10/07/19 Encounter Time: 09:40 Subjective: Pt seen for followup re: CHF exacerbation. Feels better. - Objective Vital Signs & Weight: Vital Signs (12 hours) Temp Pulse Resp BP BP BP Pulse Ox 10/07/19 19:05 85 L 10/07/19 18:56 74 19 85 L 10/07/19 16:07 97.3 F L 61 20 141/72 H 92 L 10/07/19 15:27 182/83 H 157/77 H 10/07/19 14:36 65 167/76 H 10/07/19 13:22 70 16 10/07/19 11:37 97.4 F L 60 20 164/82 H 92 L 10/07/19 09:53 60 150/76 H 10/07/19 08:24 92 L 10/07/19 08:15 97.5 F L 61 22 H 181/87 H 92 L Pulse Ox Pulse Ox 10/07/19 19:05 10/07/19 18:56 10/07/19 16:07 10/07/19 15:27 91 L 90 L 10/07/19 14:36 10/07/19 13:22 10/07/19 11:37 10/07/19 09:53 10/07/19 08:24 10/07/19 08:15 Weight Weight 322 lb I&O: 10/06/19 10/07/19 10/08/19 06:59 06:59 06:59 Intake Total 1210 1240 Output Total 2400 3800 1320 Balance -1190 -2560 -1320 Result Diagrams: 10/08/19 04:11 10/08/19 04:11 Additional Labs: Accuchecks 10/07/19 10/07/19 10/07/19 16:33 10:43 05:27 POC Glucose 219 H 181 H 276 H 10/06/19 20:55 POC Glucose 375 H Labs and MARs reviewed by me EKG Reviewed by me: Yes (Tele: NSR) Hospitalist ROS - Review of Systems Cardiovascular: denies: chest pain, palpitations, orthopnea, paroxysmal noc. dyspnea, edema, light headedness Gastrointestinal: denies: nausea, vomiting, abdominal pain, diarrhea, constipation, melena, hematochezia - Medication Medications: Active Medications Generic Name Dose Route Start Last Admin Trade Name Freq PRN Reason Stop Dose Admin Acetaminophen 500 mg 10/02/19 01:08 10/06/19 23:08 Tylenol PO 500 mg Q6H PRN Administration Mild Pain (1-3) Albuterol/Ipratropium 3 ml 10/02/19 01:00 10/07/19 18:56 Duoneb NEB 3 ml [id number] ANAIS Administration Amiodarone HCl 200 mg 10/02/19 09:00 10/07/19 08:24 Cordarone PO 200 mg DAILY ANAIS Administration Apixaban 5 mg 10/01/19 21:00 10/07/19 11:33 Eliquis PO 5 mg BID ANAIS Administration Arformoterol Tartrate 15 mcg 10/01/19 18:30 10/07/19 18:58 Brovana NEB 15 mcg BID-RT ANAIS Administration Aspirin 325 mg 10/02/19 09:00 10/07/19 08:24 Aspirin PO 325 mg DAILY ANAIS Administration Atorvastatin Calcium 80 mg 10/01/19 21:00 10/06/19 22:55 Lipitor PO 80 mg HS ANAIS Administration Carvedilol 25 mg 10/01/19 21:00 10/07/19 08:25 Coreg PO 25 mg BID ANAIS Administration Doxycycline Hyclate 100 mg 10/05/19 21:00 10/07/19 08:24 Vibramycin PO 100 mg BID ANAIS Administration Fluticasone Propionate 0 gm 10/02/19 09:00 10/07/19 08:25 Flonase Nasal [place] NASAL 1 spray DAILY ANAIS Administration Furosemide 40 mg 10/03/19 06:00 10/07/19 14:35 Lasix SLOW IVP 40 mg 0600,1400 ANAIS Administration Gabapentin 300 mg 10/02/19 09:00 10/07/19 08:25 Neurontin PO 300 mg DAILY ANAIS Administration Guaifenesin 600 mg 10/01/19 21:00 10/07/19 08:25 Mucinex PO 600 mg BID ANAIS Administration Insulin Glargine 40 units/ 0.4 mls @ 0 mls/hr 10/02/19 21:00 10/06/19 22:56 Miscellaneous Medication SC 0.4 mls HS ANAIS Administration Ceftriaxone Sodium 1 gm/ 100 mls @ 200 mls/hr 10/05/19 11:00 10/07/19 11:32 Sodium Chloride IVPB 100 mls 1100 ANAIS Administration Insulin Human Lispro 0 units 10/01/19 21:25 10/06/19 22:57 Humalog SC 5 unit .BEDTIME SLIDING SC PRN Administration Bedtime Correctional Scale Insulin Human Lispro 13 units 10/03/19 08:00 10/07/19 08:23 Humalog SC 13 unit 0800 ANAIS Administration Insulin Human Lispro 13 units 10/03/19 12:00 10/07/19 11:34 Humalog SC Not Given 1200 ANAIS Insulin Human Lispro 13 units 10/03/19 17:00 10/07/19 17:00 Humalog SC 13 unit 1700 ANAIS Administration Insulin Human Lispro 0 units 10/06/19 18:01 10/07/19 11:34 Humalog SC 3 unit .AGGRESSIVE SLIDING PRN Administration Aggressive Correctional Scale Lisinopril 10 mg 10/04/19 09:00 10/07/19 08:24 Zestril PO 10 mg DAILY ANAIS Administration Loratadine 10 mg 10/02/19 09:00 10/07/19 08:24 Claritin PO 10 mg QAM ANAIS Administration Mometasone Furoate 1 puff 10/02/19 06:30 10/07/19 19:00 Asmanex Hfa 100 Mcg INH 1 puff BID-RT ANAIS Administration Sodium Chloride 10 ml 10/01/19 21:00 10/07/19 08:29 Flush - Normal Saline IVF 10 ml Q12HR ANAIS Administration - Exam General - other findings: Morbid obesity Eye: anicteric sclera ENT: moist mucosa Neck: supple Heart: RRR Respiratory: CTAB Gastrointestinal: soft, non-tender Extremities: no clubbing, 2+ LE edema Psychiatric: normal affect, normal behavior Hosp A/P - Plan - Assessment: (1) Acute on chronic combined systolic and diastolic CHF (congestive heart failure) Code(s): I50.43 - ACUTE ON CHRONIC COMBINED SYSTOLIC AND DIASTOLIC HRT FAIL Status: Acute (2) COPD exacerbation Status: Acute (3) Acute respiratory failure with hypoxia Code(s): J96.01 - ACUTE RESPIRATORY FAILURE WITH HYPOXIA Status: Acute (4) DM type 2 with diabetic peripheral neuropathy Code(s): E11.42 - TYPE 2 DIABETES MELLITUS WITH DIABETIC POLYNEUROPATHY Status : Chronic (5) Chronic obstructive lung disease Status: Chronic (6) Morbid obesity Status: Chronic (7) Paroxysmal atrial fibrillation with RVR Code(s): I48.0 - PAROXYSMAL ATRIAL FIBRILLATION Status: Chronic - Plan: * CHF exacerbation: * slowly improving, continue furosemide * COPD * continue prednisone * Discontinue ceftriaxone, continue doxycycline * CABG * paroxysmal afib * DM * Blood sugars improved, continue aggressive insulin sliding scale.
[2019-10-07] MEDS: Insulin Glargine 40 UNITS in Pre-Filled Syringe 1 EACH SC SCH (21:13)
[2019-10-07] MEDS: Atorvastatin Calcium 40 MG TAB PO SCH (21:14)
--- NOTE | 2019-10-08 00:24 | CON ---
DATE OF CONSULTATION: HISTORY OF PRESENT ILLNESS: Zoran Amezquita is a 59-year-old white male, who I have followed intermittently since February of 2009. For his complete cardiac history, please see dictation from June 30, 2019. He now is admitted with increased shortness of breath and increased peripheral edema. He stated that he has been out of the Trelegy inhaler for approximately one week. He also was out of Eliquis and his atorvastatin. He denies being out of furosemide. He has been admitted, treated with nebs, steroids, and diuresis with improvement in his shortness of breath. He denied any chest discomfort. PAST MEDICAL HISTORY: Coronary artery disease, hypertension, diabetes, hypercholesterolemia, COPD, obesity, obstructive sleep apnea on CPAP, former smoker, noncompliance, history of atrial fibrillation. 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 HOME MEDICATIONS: 1. Albuterol 2 puffs q.6 hours p.r.n. 2. Amiodarone 200 mg daily. 3. Eliquis 5 mg b.i.d. 4. Aspirin 81 daily. 5. Atorvastatin 80 mg at bedtime. 6. Carvedilol 25 mg b.i.d. 7. Zyrtec 10 mg q.a.m. 8. Trelegy inhaler one puff q.a.m. 9. Furosemide 40 mg q.a.m., 80 mg q.p.m. 10. Gabapentin 300 q.a.m. 11. Glyburide 5 mg q.a.m. 12. Mucinex 600 b.i.d. 13. Apresoline 25 b.i.d. 14. DuoNeb p.r.n. ALLERGIES: NONE. SOCIAL HISTORY: He smoked 2 packs per day, but stopped approximately 3 years ago. He does not drink. FAMILY HISTORY: Father had coronary artery disease. REVIEW OF SYSTEMS: A 12-point review of systems is otherwise unremarkable. PHYSICAL EXAMINATION: VITAL SIGNS: Blood pressure 141/72, pulse of 61. HEENT: PERRL. NECK: Supple. CHEST: Reveals distant but clear breath sounds. CARDIOVASCULAR: S1, S2 normal without any S3, S4, or murmurs. ABDOMEN: Obese. Normal bowel sounds. No tenderness. EXTREMITIES: Revealed 2+ pretibial edema. NEUROLOGICAL: Grossly intact. SKIN: Warm and dry. LABORATORY DATA: EKG revealed normal sinus rhythm and atrial paced rhythm, inferior infarction, lateral T-wave changes. CBC is unremarkable. Sodium 134, potassium 4.5, chloride 102, carbon dioxide 23, BUN 53, creatinine 1.59. Chest x-ray revealed cardiomegaly. Echocardiogram, left ventricle is mildly increased in size. There is mild concentric left ventricular hypertrophy. Overall left ventricular function is moderately depressed with ejection fraction of 35% to 40%. There is moderately enlarged right ventricle. Fibrillator wire seen in the right ventricle. Left atrium is moderately dilated. There is moderate mitral regurgitation and mild tricuspid regurgitation. IMPRESSION: 1. Chronic obstructive pulmonary disease exacerbation. 2. Acute on chronic systolic heart failure. 3. Status post coronary artery bypass grafting x3 with all grafts patent in May 2016. Bare-metal stent was placed in the circumflex in May 2016. 4. Status post dual-chamber ICD placement. 5. History of nonsustained ventricular tachycardia. 6. Paroxysmal atrial fibrillation-on Eliquis. 7. Former smoker. 8. Diabetes. 9. Hyperlipidemia, noncompliant with atorvastatin recently. 10. Obstructive sleep apnea. 11. Hypertension. 12. Obesity. 13. Positive family history. 14. Diagnosis of chronic kidney disease. PLAN: Mr. Amezquita will continue to be diuresed. His blood pressure needs to be under better control and I will increase his hydralazine dose. Also his ICD will be interrogated. Job ID: [id number] [facility]
[2019-10-08 04:23] LABS: #Eosinphils 0.1 thou/uL (0.0-0.7); #Lymphocytes 1.4 thou/uL (1.20-3.40); #Monocytes 0.9 thou/uL (0.11-0.59); #Neutrophils 6.3 thou/uL (1.40-6.50); %Eosinophils 0.7 % (0.0-10.0); %Lymphocytes 16.1 % (21.0-51.0); %Monocytes 10.4 % (0.0-10.0); %Neutrophils 72.8 % (42.0-75.0); Hemoglobin 14.5 g/dL (14.0-18.0); Mean Corpuscular HGB CONC 31.2 g/dL (32.0-36.0); Mean Corpuscular Hemoglobin 28.9 pg (27.0-31.0); Mean Corpuscular Volume 92.5 fL (78.0-98.0); Mean Platelet Volume 7.3 fL (7.4-10.4); Platelet Count 231 thou/uL (130-400); RBC Distribution Width 13.7 % (11.5-14.5); Red Blood Cell (RBC) Count 5.01 mill/uL (4.70-6.10); White Blood Cell (WBC) Count 8.6 thou/uL (4.8-10.8)
[2019-10-08 04:47] LABS: Anion Gap 13 mmol/L (10-20); BUN (Urea Nitrogen) 48 mg/dL (8.4-25.7); Calc. Creatinine Clearance 102 mL/min (70-130); Calcium 8.8 mg/dL (7.8-10.44); Carbon Dioxide 26 mmol/L (22-29); Chloride 105 mmol/L (98-107); Estimated GFR-MDRD 45; Glucose 97 mg/dL (70-105); Potassium 4.3 mmol/L (3.5-5.1); Sodium 140 mmol/L (136-145)
[2019-10-08] MEDS: Furosemide 40 MG/4 ML VIAL SLOW IVP SCH ×2 (05:51→13:31)
[2019-10-08] MEDS: Mometasone 100 MCG HFA INHALER INH SCH ×2 (07:17→19:08)
[2019-10-08] MEDS: Arformoterol 15 MCG/2 ML NEB NEB SCH ×2 (07:18→19:07)
[2019-10-08] MEDS: HumaLOG 300 UNITS/3 ML VIAL SC SCH ×3 (08:40→17:34)
[2019-10-08] MEDS: Aspirin 325 MG TAB PO SCH (08:43)
[2019-10-08] MEDS: Carvedilol 25 MG TAB PO SCH ×2 (08:43→21:00)
[2019-10-08] MEDS: Doxycycline 100 MG CAP PO SCH ×2 (08:43→21:01)
[2019-10-08] MEDS: Gabapentin 300 MG CAP PO SCH (08:43)
[2019-10-08] MEDS: Lisinopril 10 MG TAB PO SCH (08:43)
[2019-10-08] MEDS: Fluticasone Propionate Nasal Spray 16 gm Bottle NASAL SCH (08:43)
[2019-10-08] MEDS: Apixaban 5 MG TAB PO SCH ×2 (08:43→21:00)
[2019-10-08] MEDS: Amiodarone 200 MG TAB PO SCH (08:43)
[2019-10-08] MEDS: hydrALAZINE 25 MG TAB PO SCH ×2 (08:44→21:00)
[2019-10-08] MEDS: Loratadine 10 MG TAB PO SCH (08:44)
[2019-10-08] MEDS: guaiFENesin ER 600 MG TAB PO SCH ×2 (08:44→21:01)
[2019-10-08] MEDS: Acetaminophen 500 MG TAB PO PRN (08:52)
[2019-10-08] MEDS: HumaLOG 300 UNITS/3 ML VIAL SC PRN (11:56)
--- NOTE | 2019-10-08 19:13 | PDOC.HOSPP ---
- Subjective Encounter Date: 10/08/19 Encounter Time: 10:20 Subjective: Pt seen for followup re: exacerbation of CHF. Feels better today. - Objective Vital Signs & Weight: Vital Signs (12 hours) Temp Pulse Resp BP BP BP Pulse Ox 10/08/19 19:06 65 18 90 L 10/08/19 16:08 169/90 H 141/76 H 10/08/19 15:46 97.8 F 60 19 161/79 H 93 L 10/08/19 13:59 62 18 10/08/19 11:53 99.1 F 60 18 120/68 92 L 10/08/19 07:43 97.5 F L 62 20 147/79 H 93 L 10/08/19 07:20 90 L 10/08/19 07:17 60 20 90 L Pulse Ox Pulse Ox 10/08/19 19:06 10/08/19 16:08 90 L 85 L 10/08/19 15:46 10/08/19 13:59 10/08/19 11:53 10/08/19 07:43 10/08/19 07:20 10/08/19 07:17 Weight Weight 322 lb I&O: 10/07/19 10/08/19 10/09/19 06:59 06:59 06:59 Intake Total 1240 1184 500 Output Total 3800 2220 1999 Balance -2560 -1036 -1500 Result Diagrams: 10/08/19 04:11 10/08/19 04:11 Additional Labs: Accuchecks 10/08/19 10/08/19 10/08/19 16:35 10:51 05:07 POC Glucose 253 H 193 H 95 10/07/19 20:54 POC Glucose 195 H Labs and MARs reviewed by me EKG Reviewed by me: Yes (Tele: NSR) Hospitalist ROS - Review of Systems Respiratory: reports: cough, SOB with excertion, sputum. denies: dry, shortness of breath, hemoptysis, pleuritic pain, wheezing Cardiovascular: denies: chest pain, palpitations, orthopnea, paroxysmal noc. dyspnea, edema, light headedness - Medication Medications: Active Medications Generic Name Dose Route Start Last Admin Trade Name Freq PRN Reason Stop Dose Admin Acetaminophen 500 mg 10/02/19 01:08 10/08/19 08:52 Tylenol PO 500 mg Q6H PRN Administration Mild Pain (1-3) Albuterol/Ipratropium 3 ml 10/02/19 01:00 10/08/19 19:06 Duoneb NEB 3 ml [id number] ANAIS Administration Amiodarone HCl 200 mg 10/02/19 09:00 10/08/19 08:43 Cordarone PO 200 mg DAILY ANAIS Administration Apixaban 5 mg 10/01/19 21:00 10/08/19 08:43 Eliquis PO 5 mg BID ANAIS Administration Arformoterol Tartrate 15 mcg 10/01/19 18:30 10/08/19 19:07 Brovana NEB 15 mcg BID-RT ANAIS Administration Aspirin 325 mg 10/02/19 09:00 10/08/19 08:43 Aspirin PO 325 mg DAILY ANAIS Administration Atorvastatin Calcium 80 mg 10/01/19 21:00 10/07/19 21:14 Lipitor PO 80 mg HS ANAIS Administration Carvedilol 25 mg 10/01/19 21:00 10/08/19 08:43 Coreg PO 25 mg BID ANAIS Administration Doxycycline Hyclate 100 mg 10/05/19 21:00 10/08/19 08:43 Vibramycin PO 100 mg BID ANAIS Administration Fluticasone Propionate 0 gm 10/02/19 09:00 10/08/19 08:43 Flonase Nasal [place]ing NASAL 1 spray DAILY ANAIS Administration Furosemide 40 mg 10/03/19 06:00 10/08/19 13:31 Lasix SLOW IVP 40 mg 0600,1400 ANAIS Administration Gabapentin 300 mg 10/02/19 09:00 10/08/19 08:43 Neurontin PO 300 mg DAILY ANAIS Administration Guaifenesin 600 mg 10/01/19 21:00 10/08/19 08:44 Mucinex PO 600 mg BID ANAIS Administration Hydralazine HCl 50 mg 10/07/19 21:00 10/08/19 08:44 Apresoline PO 50 mg BID ANAIS Administration Insulin Glargine 40 units/ 0.4 mls @ 0 mls/hr 10/02/19 21:00 10/07/19 21:13 Miscellaneous Medication SC 0.4 mls HS ANAIS Administration Insulin Human Lispro 0 units 10/01/19 21:25 10/06/19 22:57 Humalog SC 5 unit .BEDTIME SLIDING SC PRN Administration Bedtime Correctional Scale Insulin Human Lispro 13 units 10/03/19 08:00 10/08/19 08:40 Humalog SC Not Given 0800 ANAIS Insulin Human Lispro 13 units 10/03/19 12:00 10/08/19 11:59 Humalog SC Not Given 1200 ANAIS Insulin Human Lispro 13 units 10/03/19 17:00 10/08/19 17:34 Humalog SC 13 unit 1700 ANAIS Administration Insulin Human Lispro 0 units 10/06/19 18:01 10/08/19 11:56 Humalog SC 3 unit .AGGRESSIVE SLIDING PRN Administration Aggressive Correctional Scale Lisinopril 10 mg 10/04/19 09:00 10/08/19 08:43 Zestril PO 10 mg DAILY ANAIS Administration Loratadine 10 mg 10/02/19 09:00 10/08/19 08:44 Claritin PO 10 mg QAM ANAIS Administration Mometasone Furoate 1 puff 10/02/19 06:30 10/08/19 19:08 Asmanex Hfa 100 Mcg INH 1 puff BID-RT ANAIS Administration Sodium Chloride 10 ml 10/01/19 21:00 10/08/19 08:44 Flush - Normal Saline IVF 10 ml Q12HR ANAIS Administration - Exam General - other findings: Morbid obesity Eye: anicteric sclera ENT: moist mucosa Neck: supple Heart: RRR Respiratory - other findings: Praveen crackles Gastrointestinal: soft, non-tender Extremities: 2+ LE edema Psychiatric: normal affect, normal behavior Hosp A/P - Plan - Assessment: (1) Acute on chronic combined systolic and diastolic CHF (congestive heart failure) Code(s): I50.43 - ACUTE ON CHRONIC COMBINED SYSTOLIC AND DIASTOLIC HRT FAIL Status: Acute (2) COPD exacerbation Status: Acute (3) Acute respiratory failure with hypoxia Code(s): J96.01 - ACUTE RESPIRATORY FAILURE WITH HYPOXIA Status: Acute (4) DM type 2 with diabetic peripheral neuropathy Code(s): E11.42 - TYPE 2 DIABETES MELLITUS WITH DIABETIC POLYNEUROPATHY Status : Chronic (5) Chronic obstructive lung disease Status: Chronic (6) Morbid obesity Status: Chronic (7) Paroxysmal atrial fibrillation with RVR Code(s): I48.0 - PAROXYSMAL ATRIAL FIBRILLATION Status: Chronic - Plan: * CHF exacerbation: * continue furosemide * Appreciate cardiology service input * COPD * continue prednisone and doxycycline * CABG * paroxysmal afib * DM * continue aggressive insulin sliding scale.
[2019-10-08] MEDS: Atorvastatin Calcium 40 MG TAB PO SCH (21:00)
[2019-10-08] MEDS: Insulin Glargine 40 UNITS in Pre-Filled Syringe 1 EACH SC SCH (21:01)
[2019-10-09] MEDS: Furosemide 40 MG/4 ML VIAL SLOW IVP SCH ×2 (05:31→13:42)
[2019-10-09] MEDS: Acetaminophen 500 MG TAB PO PRN (05:37)
[2019-10-09] MEDS: Mometasone 100 MCG HFA INHALER INH SCH (07:43)
[2019-10-09] MEDS: Arformoterol 15 MCG/2 ML NEB NEB SCH (07:48)
[2019-10-09] MEDS: HumaLOG 300 UNITS/3 ML VIAL SC SCH ×2 (08:54→12:05)
[2019-10-09] MEDS: Aspirin 325 MG TAB PO SCH (08:55)
[2019-10-09] MEDS: Doxycycline 100 MG CAP PO SCH (08:55)
[2019-10-09] MEDS: Lisinopril 10 MG TAB PO SCH (08:55)
[2019-10-09] MEDS: guaiFENesin ER 600 MG TAB PO SCH (08:55)
[2019-10-09] MEDS: Loratadine 10 MG TAB PO SCH (08:55)
[2019-10-09] MEDS: Carvedilol 25 MG TAB PO SCH (08:55)
[2019-10-09] MEDS: Apixaban 5 MG TAB PO SCH (08:55)
[2019-10-09] MEDS: hydrALAZINE 25 MG TAB PO SCH (08:55)
[2019-10-09] MEDS: Amiodarone 200 MG TAB PO SCH (08:55)
[2019-10-09] MEDS: Gabapentin 300 MG CAP PO SCH (08:55)
[2019-10-09] MEDS: Fluticasone Propionate Nasal Spray 16 gm Bottle NASAL SCH (08:56)
[2019-10-09] MEDS: HumaLOG 300 UNITS/3 ML VIAL SC PRN (12:03)
[2019-10-09 15:34] VITALS: BP 164/76; TEMP 97.5
--- NOTE | 2019-10-09 19:20 | DIS ---
DATE OF ADMISSION: 10/01/2019 DATE OF DISCHARGE: 10/09/2019 PRIMARY CARE PROVIDER: Dr. Zachary Díaz. DISCHARGE DIAGNOSES: 1. Acute hypoxic respiratory failure. 2. Acute on chronic systolic congestive heart failure, NYHA class III. 3. Chronic obstructive pulmonary disease exacerbation. 4. Chronic kidney disease stage 3. 5. Medication noncompliance. 6. Hyponatremia. CONDITION OF PATIENT ON THE DAY OF DISCHARGE: Stable. I assessed Mr. Amezquita on the day of discharge. He denies any chest pain or shortness of breath. Vital signs are stable. S1 and S2 are heard, regular. Lungs are clear to auscultation bilaterally. CONSULTATIONS DURING THIS HOSPITALIZATION: Cardiology, Dr. Mcginnis. DISCHARGE MEDICATIONS: 1. Amiodarone 200 mg daily. 2. Aspirin 81 mg daily. 3. Coreg 25 mg 2 times a day. 4. Zyrtec 10 mg daily. 5. Trelegy Ellipta one puff daily. 6. Gabapentin 300 mg daily. 7. Glyburide 5 mg daily. 8. Mucinex 600 mg 2 times a day. 9. Hydralazine 25 mg 2 times a day. 10. DuoNeb p.r.n. 11. Ventolin HFA p.r.n. 12. Lipitor 80 mg at bedtime. 13. Doxycycline 100 mg 2 times a day. 14. Lasix 40 mg in the morning and 80 mg in the afternoon. 15. Oral prednisone taper. HOSPITAL COURSE: Mr. Amezquita is a pleasant 59-year-old gentleman, who was admitted to [facility] for acute hypoxic respiratory failure secondary to congestive heart failure exacerbation on 10/01/2019. He was also found to be in COPD exacerbation. He improved with diuretics, oxygen, steroids, bronchodilators, and antibiotics. He was seen by Cardiology Service. He is being discharged home in a stable condition. He has been advised to be compliant with his medications. He will also need to be on anticoagulant therapy for atrial fibrillation. He has been noncompliant with apixaban in the past. He has been advised to discuss with his primary care provider regarding warfarin therapy. On 10/08, Mr. Amezquita had sodium 140, potassium 4.3, blood urea nitrogen 48, and creatinine 1.59. On that day, white count was 8600, hemoglobin 14.5, and platelet count 231,000. If his creatinine remains stable, he may be considered for DARLENE inhibitor or ARB for management of systolic congestive heart failure. Many thanks for allowing me to participate in your patient's care. Please feel free to contact me with any questions or concerns. DISCHARGE DESTINATION: Home. TIME SPENT: Total amount of time spent coordinating this discharge: 32 minutes. ACTIVITY: As tolerated. DIET: Diabetic and heart healthy including low-sodium. Job ID: [id number]
== END 2019-10-09 17:00 | disposition home or self-care (01) | DRG 291 ==
LOC: ERS 13:54 → 2SW 18:20 → OBSVTOIN 18:20 → 2NO 10-02 16:41
PROVIDERS: ADMIT Internal Medicine; ATTEND Internal Medicine
DX: I13.0 Hypertensive heart and chronic kidney disease with heart failure and stage 1 through stage 4 chronic kidney disease, or unspecified chronic kidney disease (principal); I50.23 Acute on chronic systolic (congestive) heart failure; J96.01 Acute respiratory failure with hypoxia; J44.1 Chronic obstructive pulmonary disease with (acute) exacerbation; E87.1 Hypo-osmolality and hyponatremia; Z68.43 Body mass index [BMI] 50.0-59.9, adult; Z66 Do not resuscitate; N18.3 Chronic kidney disease, stage 3 (moderate); E11.22 Type 2 diabetes mellitus with diabetic chronic kidney disease; I25.10 Atherosclerotic heart disease of native coronary artery without angina pectoris; I48.0 Paroxysmal atrial fibrillation; E11.42 Type 2 diabetes mellitus with diabetic polyneuropathy; E78.5 Hyperlipidemia, unspecified; E66.01 Morbid (severe) obesity due to excess calories; E11.65 Type 2 diabetes mellitus with hyperglycemia; T38.0X5A Adverse effect of glucocorticoids and synthetic analogues, initial encounter; E78.00 Pure hypercholesterolemia, unspecified; G47.33 Obstructive sleep apnea (adult) (pediatric); I25.2 Old myocardial infarction; Z91.14 Patient's other noncompliance with medication regimen; Z95.810 Presence of automatic (implantable) cardiac defibrillator; Z95.1 Presence of aortocoronary bypass graft; Z90.49 Acquired absence of other specified parts of digestive tract; Z87.891 Personal history of nicotine dependence; Z79.82 Long term (current) use of aspirin; Z79.84 Long term (current) use of oral hypoglycemic drugs; Z79.899 Other long term (current) drug therapy; Z79.01 Long term (current) use of anticoagulants; Z79.51 Long term (current) use of inhaled steroids
CPT/HCPCS: 36415; 36416; 80048; 83735; 84443; 85007; 85025; 85027; 87040; 93005; 93306; 94640; 96365; 96367; 96375; J0456; J0696; J1815; J1940; J2920; J2930; J3475; J3490; J7512; J7620

== ENCOUNTER 2020-06-28 08:21 | Outpatient (CLI) | payer MEDICARE ==
--- NOTE | 2020-06-28 14:51 | NM ---
Radioiodine thyroid scan HISTORY: Hyperthyroidism. Thyrotoxicosis. FINDINGS: Patient was dosed with 230 uCi I-123, p.o. Anterior imaging of the neck at 4 hours shows no increased uptake at the thyroid bed or elsewhere wit hin the neck or upper chest. Image including the localization marker is included. 4 hour uptake calculated at 0.72%. Because of the absence of iodine uptake, 24-hour delayed imaging was not performed. IMPRESSION : Minimal/no radioiodine uptake of the thyroid gland. Therefore NOT consistent with Graves' disease. (R adioiodine treatment would not be effective) Subacute thyroiditis or other causes of hyperthyroidism must be considered.
== END 2020-06-28 08:22 | disposition home or self-care (01) ==
LOC: NM 08:21
PROVIDERS: ATTEND Family Medicine
DX: E05.90 Thyrotoxicosis, unspecified without thyrotoxic crisis or storm (principal)
CPT/HCPCS: 78014; A9516

== ENCOUNTER 2020-11-02 10:52 | Outpatient (CLI) | payer MEDICARE ==
--- NOTE | 2020-11-02 11:35 | RAD ---
EXAM: Chest 2 views: HISTORY: Chronic systolic heart failure COMPARISON: 10/01/2019 FINDINGS: There is an enlarged but stable cardiomediastinal silhouette. The patient is status post sternotomy. The pacemaker is unchanged in position. There is no evidence of consolidation, mass, or pleural effusion. No acute osseous abnormality. IMPRESSION: No evidence of acute cardiopulmonary disease
== END 2020-11-02 10:53 | disposition home or self-care (01) ==
LOC: BICRAD 10:52
PROVIDERS: ATTEND Internal Medicine Cardiovascular Disease
DX: I50.22 Chronic systolic (congestive) heart failure (principal); I25.5 Ischemic cardiomyopathy; I42.0 Dilated cardiomyopathy
CPT/HCPCS: 71046

== ENCOUNTER 2021-03-04 09:21 | Outpatient (CLI) | payer MEDICARE ==
[2021-03-04] MEDS ORDERED: Iopamidol-370 76% 500 ML 1 ML ONE (11:01)
== END 2021-03-04 09:22 | disposition home or self-care (01) ==
LOC: BICCT 09:21
PROVIDERS: ATTEND Internal Medicine Cardiovascular Disease
DX: I77.9 Disorder of arteries and arterioles, unspecified (principal); I65.02 Occlusion and stenosis of left vertebral artery
CPT/HCPCS: 70498

== ENCOUNTER 2021-06-09 16:13 | Outpatient (CLI) | payer MEDICARE ==
[2021-06-09 17:53] LABS: Anion Gap 14 mmol/L (10-20); BUN (Urea Nitrogen) 32 mg/dL (8.4-25.7); Calc. Creatinine Clearance 0 mL/min (70-130); Calcium 9.5 mg/dL (7.8-10.44); Carbon Dioxide 25 mmol/L (23-31); Chloride 108 mmol/L (98-107); Glucose 141 mg/dL (80-115); Potassium 5.1 mmol/L (3.5-5.1); Sodium 142 mmol/L (136-145)
[2021-06-09 17:56] LABS: Hemoglobin 13.4 g/dL (13.5-17.5); Mean Corpuscular HGB CONC 33.8 g/dL (32.0-36.0); Mean Corpuscular Hemoglobin 31.8 pg (27.0-33.0); Mean Corpuscular Volume 94.1 fl (81.2-95.1); Mean Platelet Volume 9.9 fl (7.4-10.4); Platelet Count 182 10x3/uL (150-450); RBC Distribution Width 14.5 % (11.5-14.5); Red Blood Cell (RBC) Count 4.22 10x6/uL (4.32-5.72); White Blood Cell (WBC) Count 10.1 10x3/uL (3.5-10.5)
[2021-06-09 17:59] LABS: INR-International Normal Ratio 3.3; Prothrombin Time 34.1 sec (9.5-12.1)
[2021-06-10 08:53] LABS: SARS-CoV-2 PCR by NAA Not Detected (NotDetected)
== END 2021-06-09 16:14 | disposition home or self-care (01) ==
LOC: LABBT 16:13
PROVIDERS: ATTEND Internal Medicine Cardiovascular Disease
DX: Z01.812 Encounter for preprocedural laboratory examination (principal); Z20.822 Contact with and (suspected) exposure to COVID-19
CPT/HCPCS: 80048; 85027; 85610; 85730; U0003; U0005

== ENCOUNTER 2021-06-13 07:05 | Day surgery (SDC) | payer MEDICARE ==
[2021-06-10 09:24] VITALS: BMI 38.9
== END 2021-06-13 09:48 | disposition home or self-care (01) ==
LOC: SDC 07:05
PROVIDERS: ATTEND Internal Medicine Cardiovascular Disease
DX: I48.19 Other persistent atrial fibrillation (principal); I13.0 Hypertensive heart and chronic kidney disease with heart failure and stage 1 through stage 4 chronic kidney disease, or unspecified chronic kidney disease; E11.22 Type 2 diabetes mellitus with diabetic chronic kidney disease; N18.9 Chronic kidney disease, unspecified; I50.23 Acute on chronic systolic (congestive) heart failure; I42.0 Dilated cardiomyopathy; I25.5 Ischemic cardiomyopathy; I47.2 Ventricular tachycardia; E05.90 Thyrotoxicosis, unspecified without thyrotoxic crisis or storm; I25.10 Atherosclerotic heart disease of native coronary artery without angina pectoris; J44.9 Chronic obstructive pulmonary disease, unspecified; E66.01 Morbid (severe) obesity due to excess calories; Z68.38 Body mass index [BMI] 38.0-38.9, adult; Z53.8 Procedure and treatment not carried out for other reasons; Z79.01 Long term (current) use of anticoagulants; Z79.4 Long term (current) use of insulin; Z79.82 Long term (current) use of aspirin; Z79.899 Other long term (current) drug therapy; Z95.1 Presence of aortocoronary bypass graft; Z95.5 Presence of coronary angioplasty implant and graft; Z95.810 Presence of automatic (implantable) cardiac defibrillator
CPT/HCPCS: 92960; 93005; 93010

== ENCOUNTER 2022-06-13 13:24 | Outpatient (CLI) | payer MEDICARE | END 2022-06-13 13:25 | disposition home or self-care (01) | LOC: RAD 13:24 | PROVIDERS: ATTEND Internal Medicine Critical Care Medicine | DX: R06.09 Other forms of dyspnea (principal) | CPT/HCPCS: 71046 ==

== ENCOUNTER 2022-07-14 10:15 | Outpatient (CLI) | payer MEDICARE | END 2022-07-14 10:16 | disposition home or self-care (01) | LOC: CT 10:15 | PROVIDERS: ATTEND Otolaryngology Plastic Surgery within the Head & Neck | DX: H90.A22 Sensorineural hearing loss, unilateral, left ear, with restricted hearing on the contralateral side (principal) | CPT/HCPCS: 70480 ==

== ENCOUNTER 2022-12-25 13:05 | Outpatient (CLI) | payer MEDICARE | END 2022-12-25 13:06 | disposition home or self-care (01) | LOC: RAD 13:05 | PROVIDERS: ATTEND Internal Medicine Critical Care Medicine | DX: R06.00 Dyspnea, unspecified (principal) | CPT/HCPCS: 71046 ==

== ENCOUNTER 2023-06-06 12:45 | Inpatient (IN) | payer MEDICARE ==
[2023-06-06 13:15] LABS: #Monocytes 0.5 thou/uL (0.11-0.59); #Neutrophils 9.5 thou/uL (1.40-6.50); %Basophils 0.3 % (0.0-1.0); %Eosinophils 0.1 % (0.0-10.0); %Lymphocytes 9.1 % (21.0-51.0); %Monocytes 4.9 % (0.0-10.0); %Neutrophils 85.1 % (42.0-75.0); Hematocrit 32.6 % (42.0-52.0); Mean Corpuscular HGB CONC 33.7 g/dL (32.0-36.0); Mean Corpuscular Hemoglobin 31.8 pg (27.0-31.0); Mean Corpuscular Volume 94.2 fl (78.0-98.0); Platelet Count 199 10x3/uL (130-400); Red Blood Cell (RBC) Count 3.46 mill/uL (4.70-6.10); White Blood Cell (WBC) Count 11.1 10x3/uL (4.8-10.8)
[2023-06-06 13:36] LABS: INR-International Normal Ratio 3.8; PTT 40.2 sec (22.9-36.1); Prothrombin Time 39.5 sec (12.0-14.7)
[2023-06-06 13:45] LABS: Troponin I 0.021 ng/mL (< 0.028)
[2023-06-06 13:50] LABS: AST (SGOT) 16 U/L (5-34); Albumin 3.4 g/dL (3.4-4.8); Alkaline Phosphatase 62 U/L (40-110); Anion Gap 15 mmol/L (10-20); BUN (Urea Nitrogen) 61 mg/dL (8.4-25.7); Bilirubin, Total 0.3 mg/dL (0.2-1.2); Calc. Creatinine Clearance 0 mL/min (70-130); Calcium 7.8 mg/dL (7.8-10.44); Carbon Dioxide 23 mmol/L (23-31); Chloride 102 mmol/L (98-107); Estimated GFR 29; Globulin 2.1 g/dL (2.4-3.5); Glucose 242 mg/dL (80-115); Potassium 4.8 mmol/L (3.5-5.1); Protein, Total 5.5 g/dL (5.8-8.1); Sodium 135 mmol/L (136-145)
[2023-06-06 14:25] LABS: ALT (SGPT) 21 U/L (8-55)
[2023-06-06] MEDS ORDERED: Phytonadione 10 MG/ML AMP ONE ×3 (15:12→15:19)
[2023-06-06] MEDS ORDERED: Ondansetron PF 4 MG/2 ML Vial IVP PRN (15:18)
[2023-06-06] MEDS ORDERED: Dextrose 5% in Water 1,000 ML IV PRN (15:58)
[2023-06-06] MEDS ORDERED: Glucagon 1 MG/ML KIT IM PRN (15:58)
[2023-06-06] MEDS ORDERED: Dextrose 50% Abboject 50 ML SYRINGE SLOW IVP PRN (15:58)
[2023-06-06] MEDS ORDERED: Pantoprazole 40 MG VIAL IVP SCH (16:00)
[2023-06-06 17:39] LABS: #Monocytes 0.8 thou/uL (0.11-0.59); %Basophils 0.3 % (0.0-1.0); %Eosinophils 0.1 % (0.0-10.0); %Lymphocytes 11.5 % (21.0-51.0); %Monocytes 6.8 % (0.0-10.0); %Neutrophils 80.8 % (42.0-75.0); Hematocrit 34.5 % (42.0-52.0); Hemoglobin 11.4 g/dL (14.0-18.0); Mean Corpuscular Hemoglobin 31.6 pg (27.0-31.0); Mean Corpuscular Volume 95.6 fl (78.0-98.0); Platelet Count 183 10x3/uL (130-400); RBC Distribution Width 14.1 % (11.5-14.5); Red Blood Cell (RBC) Count 3.61 mill/uL (4.70-6.10); White Blood Cell (WBC) Count 11.1 10x3/uL (4.8-10.8)
[2023-06-06] MEDS: Atorvastatin Calcium 40 MG TAB PO SCH (20:07)
[2023-06-06 20:52] LABS: PTT 31.7 sec (22.9-36.1); Prothrombin Time 23.1 sec (12.0-14.7)
[2023-06-06] MEDS ORDERED: GoLYTELY 4,000 ml Bottle PO SCH (22:30)
[2023-06-06] MEDS ORDERED: Gabapentin 300 MG CAP PO SCH (23:00)
[2023-06-06 23:46] LABS: #Eosinphils 0.1 thou/uL (0.0-0.7); #Neutrophils 7.4 thou/uL (1.40-6.50); %Basophils 0.4 % (0.0-1.0); %Eosinophils 0.5 % (0.0-10.0); %Lymphocytes 15.5 % (21.0-51.0); %Monocytes 9.7 % (0.0-10.0); %Neutrophils 73.4 % (42.0-75.0); Hematocrit 33.6 % (42.0-52.0); Hemoglobin 11.5 g/dL (14.0-18.0); Mean Corpuscular HGB CONC 34.2 g/dL (32.0-36.0); Mean Corpuscular Hemoglobin 32.3 pg (27.0-31.0); Mean Corpuscular Volume 94.4 fl (78.0-98.0); Mean Platelet Volume 9.8 fL (7.4-10.4); Platelet Count 179 10x3/uL (130-400); RBC Distribution Width 14.3 % (11.5-14.5); Red Blood Cell (RBC) Count 3.56 mill/uL (4.70-6.10); White Blood Cell (WBC) Count 10.1 10x3/uL (4.8-10.8)
[2023-06-07 07:21] LABS: #Basophils 0.1 thou/uL (0.0-0.2); #Eosinphils 0.4 thou/uL (0.0-0.7); #Monocytes 0.9 thou/uL (0.11-0.59); %Basophils 0.8 % (0.0-1.0); %Eosinophils 3.9 % (0.0-10.0); %Lymphocytes 18.2 % (21.0-51.0); %Monocytes 9.8 % (0.0-10.0); %Neutrophils 66.9 % (42.0-75.0); Mean Corpuscular HGB CONC 33.3 g/dL (32.0-36.0); Mean Corpuscular Hemoglobin 31.6 pg (27.0-31.0); Mean Corpuscular Volume 94.9 fl (78.0-98.0); Mean Platelet Volume 10.1 fL (7.4-10.4); Platelet Count 173 10x3/uL (130-400); RBC Distribution Width 14.4 % (11.5-14.5); Red Blood Cell (RBC) Count 3.16 mill/uL (4.70-6.10); White Blood Cell (WBC) Count 8.9 10x3/uL (4.8-10.8)
[2023-06-07 07:38] LABS: INR-International Normal Ratio 1.6; Prothrombin Time 19.3 sec (12.0-14.7)
[2023-06-07 07:39] LABS: PTT 28.7 sec (22.9-36.1)
[2023-06-07 07:48] LABS: Anion Gap 18 mmol/L (10-20); BUN (Urea Nitrogen) 55 mg/dL (8.4-25.7); Calc. Creatinine Clearance 0 mL/min (70-130); Calcium 8.2 mg/dL (7.8-10.44); Carbon Dioxide 23 mmol/L (23-31); Chloride 103 mmol/L (98-107); Estimated GFR 35; Glucose 122 mg/dL (80-115); Potassium 3.8 mmol/L (3.5-5.1); Sodium 140 mmol/L (136-145)
[2023-06-07] MEDS ORDERED: PROPOFOL 200 MG/20 ML VIAL ONE (10:58)
[2023-06-07] MEDS ORDERED: Lidocaine 1% PF 5 ML VIAL ONE (10:58)
[2023-06-07 13:06] LABS: #Basophils 0.1 thou/uL (0.0-0.2); #Eosinphils 0.5 thou/uL (0.0-0.7); #Monocytes 0.7 thou/uL (0.11-0.59); #Neutrophils 4.5 thou/uL (1.40-6.50); %Basophils 0.9 % (0.0-1.0); %Eosinophils 6.5 % (0.0-10.0); %Lymphocytes 21.3 % (21.0-51.0); %Neutrophils 60.6 % (42.0-75.0); Hematocrit 27.5 % (42.0-52.0); Hemoglobin 9.2 g/dL (14.0-18.0); Mean Corpuscular HGB CONC 33.5 g/dL (32.0-36.0); Mean Corpuscular Hemoglobin 31.8 pg (27.0-31.0); Mean Corpuscular Volume 95.2 fl (78.0-98.0); Mean Platelet Volume 9.6 fL (7.4-10.4); Platelet Count 145 10x3/uL (130-400); RBC Distribution Width 14.4 % (11.5-14.5); Red Blood Cell (RBC) Count 2.89 mill/uL (4.70-6.10); White Blood Cell (WBC) Count 7.4 10x3/uL (4.8-10.8)
[2023-06-07] MEDS: Gabapentin 300 MG CAP PO SCH ×2 (14:18→20:02)
[2023-06-07] MEDS ORDERED: Metolazone 5 MG TAB PO PRN (16:45)
[2023-06-07] MEDS: HumaLOG 300 UNITS/3 ML VIAL SC PRN (17:02)
[2023-06-07] MEDS: Isosorbide Mononitrate 20 MG TAB PO SCH (20:03)
[2023-06-07] MEDS: Carvedilol 25 MG TAB PO SCH (20:03)
[2023-06-07] MEDS: Atorvastatin Calcium 40 MG TAB PO SCH (20:03)
[2023-06-07] MEDS: hydrALAZINE 25 MG TAB PO SCH (20:03)
[2023-06-07] MEDS: Pantoprazole 40 MG VIAL IVP SCH (20:04)
[2023-06-07] MEDS: Insulin Glargine 30 UNITS/0.3 ML VIAL SC SCH (20:04)
[2023-06-07 21:15] LABS: Hematocrit 24.9 % (42.0-52.0); Hemoglobin 8.4 g/dL (14.0-18.0)
[2023-06-08] MEDS: Albuterol 2.5 MG/0.5 ML NEB NEB PRN ×4 (01:33→15:01)
[2023-06-08] MEDS: Gabapentin 300 MG CAP PO SCH ×3 (08:47→19:50)
[2023-06-08] MEDS: hydrALAZINE 25 MG TAB PO SCH ×2 (08:48→19:51)
[2023-06-08] MEDS: Carvedilol 25 MG TAB PO SCH ×2 (08:48→19:50)
[2023-06-08] MEDS: Amiodarone 200 MG TAB PO SCH (08:48)
[2023-06-08] MEDS: Pantoprazole 40 MG VIAL IVP SCH ×2 (08:49→19:53)
[2023-06-08] MEDS: Isosorbide Mononitrate 20 MG TAB PO SCH ×2 (08:49→19:49)
[2023-06-08] MEDS: Insulin Glargine 30 UNITS/0.3 ML VIAL SC SCH ×2 (09:00→19:53)
[2023-06-08 14:05] LABS: Hemoglobin 7.5 g/dL (14.0-18.0); Platelet Count 145 10x3/uL (130-400)
[2023-06-08] MEDS: traMADol HCl 50 MG TAB PO PRN (15:27)
[2023-06-08] MEDS: Atorvastatin Calcium 40 MG TAB PO SCH (19:50)
[2023-06-08 20:20] LABS: #Basophils 0.1 thou/uL (0.0-0.2); #Eosinphils 0.4 thou/uL (0.0-0.7); #Neutrophils 5.7 thou/uL (1.40-6.50); %Basophils 0.8 % (0.0-1.0); %Eosinophils 4.7 % (0.0-10.0); %Lymphocytes 17.8 % (21.0-51.0); %Monocytes 11.4 % (0.0-10.0); %Neutrophils 64.3 % (42.0-75.0); Hematocrit 22.9 % (42.0-52.0); Hemoglobin 7.8 g/dL (14.0-18.0); Mean Corpuscular HGB CONC 34.1 g/dL (32.0-36.0); Mean Corpuscular Hemoglobin 32.6 pg (27.0-31.0); Mean Corpuscular Volume 95.8 fl (78.0-98.0); Mean Platelet Volume 10.3 fL (7.4-10.4); Platelet Count 141 10x3/uL (130-400); RBC Distribution Width 14.2 % (11.5-14.5); Red Blood Cell (RBC) Count 2.39 mill/uL (4.70-6.10); White Blood Cell (WBC) Count 8.9 10x3/uL (4.8-10.8)
[2023-06-09] MEDS: Albuterol 2.5 MG/0.5 ML NEB NEB PRN ×2 (02:12→09:06)
[2023-06-09 06:38] LABS: #Basophils 0.1 thou/uL (0.0-0.2); #Eosinphils 0.5 thou/uL (0.0-0.7); #Monocytes 1.5 thou/uL (0.11-0.59); #Neutrophils 8.7 thou/uL (1.40-6.50); %Basophils 0.6 % (0.0-1.0); %Eosinophils 3.6 % (0.0-10.0); %Lymphocytes 14.7 % (21.0-51.0); %Monocytes 11.8 % (0.0-10.0); %Neutrophils 68.1 % (42.0-75.0); Hematocrit 24.4 % (42.0-52.0); Hematocrit 25.1 % (42.0-52.0); Hemoglobin 8.2 g/dL (14.0-18.0); Hemoglobin 8.4 g/dL (14.0-18.0); Mean Corpuscular HGB CONC 33.6 g/dL (32.0-36.0); Mean Corpuscular Hemoglobin 32.7 pg (27.0-31.0); Mean Corpuscular Volume 97.2 fl (78.0-98.0); Platelet Count 206 10x3/uL (130-400); RBC Distribution Width 14.5 % (11.5-14.5); Red Blood Cell (RBC) Count 2.51 mill/uL (4.70-6.10); White Blood Cell (WBC) Count 12.8 10x3/uL (4.8-10.8)
[2023-06-09 07:06] LABS: Anion Gap 13 mmol/L (10-20); BUN (Urea Nitrogen) 27 mg/dL (8.4-25.7); Calc. Creatinine Clearance 0 mL/min (70-130); Calcium 8.5 mg/dL (7.8-10.44); Carbon Dioxide 25 mmol/L (23-31); Chloride 104 mmol/L (98-107); Estimated GFR 43; Glucose 170 mg/dL (80-115); Potassium 4.2 mmol/L (3.5-5.1); Sodium 138 mmol/L (136-145)
[2023-06-09] MEDS: Isosorbide Mononitrate 20 MG TAB PO SCH ×2 (08:52→20:42)
[2023-06-09] MEDS: Carvedilol 25 MG TAB PO SCH ×2 (08:53→21:51)
[2023-06-09] MEDS: Gabapentin 300 MG CAP PO SCH ×3 (08:53→20:39)
[2023-06-09] MEDS: Amiodarone 200 MG TAB PO SCH (08:53)
[2023-06-09] MEDS: hydrALAZINE 25 MG TAB PO SCH ×2 (08:53→20:40)
[2023-06-09] MEDS: Pantoprazole 40 MG VIAL IVP SCH ×2 (08:58→20:40)
[2023-06-09] MEDS ORDERED: Iron, Sodium Ferric Gluconate 250 MG in Sodium Chloride 0.9% 250 ML 250 ML IVPB SCH (12:00)
[2023-06-09] MEDS: Acetaminophen 325 MG TAB PO PRN ×2 (12:33→23:50)
[2023-06-09] MEDS: Insulin Glargine 30 UNITS/0.3 ML VIAL SC SCH ×2 (12:35→20:39)
[2023-06-09] MEDS: Ipratropium/Albuterol 3 ML NEB NEB SCH ×4 (12:37→22:15)
[2023-06-09] MEDS ORDERED: Furosemide 20 MG/2 ML VIAL SLOW IVP SCH (12:45)
[2023-06-09] MEDS ORDERED: Vancomycin HCl 1 GM in Sodium Chloride 0.9% 250 ML 250 ML IVPB SCH (12:45)
[2023-06-09] MEDS ORDERED: Magnesium 2 GM/50 ML(in water) 2 GM in Premix Bag 1 BAG IVPB SCH (12:45)
[2023-06-09 12:47] LABS: Actual Bicarbonate (HCO3a) 21.5 mEq/L (22-28); Base Excess (BEa) -3.4 mEq/L (-2.0 to +3.0); CO2 Tension 37.6 mmHg (35.0-45.0); Calcium, Ionized (arterial) 1.12 mmol/L (1.12-1.30); Carboxyhemoglobin (COHb) 0.6 gm% (0.0-3.0); Hematocrit-ABG 24 % (42.0-52.0); Hemoglobin (Hb) 8.3 g/dL (14.0-18.0); O2 Tension (PaO2), arterial 73.3 mmHg (> 80.0); Potassium - ABG Lab 4.16 mmol/L (3.70-5.30); pH, Arterial 7.375 (7.35-7.45)
[2023-06-09 12:49] LABS: Puncture Site RBA
[2023-06-09 13:14] LABS: Hematocrit 23.2 % (42.0-52.0); Hemoglobin 7.6 g/dL (14.0-18.0); Platelet Count 183 10x3/uL (130-400)
[2023-06-09] MEDS ORDERED: methylPREDNISolone Sod Succ 40 MG VIAL IVP SCH (13:30)
[2023-06-09] MEDS ORDERED: VANCOMYCIN 1.75 GM/500 ML BAG 1.75 GM in Premix Bag 1 BAG IVPB SCH (13:30)
[2023-06-09 13:33] LABS: Lactic Acid 1.2 mmol/L (0.5-2.2)
[2023-06-09] MEDS: Cefepime 1 GM in Sodium Chloride 0.9% 100 ML IVPB SCH (13:38)
[2023-06-09 15:22] LABS: SARS-CoV-2 NAA Rapid Test Not Detected (NotDetected)
[2023-06-09] MEDS: methylPREDNISolone Sod Succ 40 MG VIAL IVP SCH (18:00)
[2023-06-09] MEDS: Atorvastatin Calcium 40 MG TAB PO SCH (20:40)
[2023-06-10] MEDS: methylPREDNISolone Sod Succ 40 MG VIAL IVP SCH ×4 (00:05→17:37)
[2023-06-10] MEDS: traMADol HCl 50 MG TAB PO PRN ×3 (01:14→21:47)
[2023-06-10] MEDS: Cefepime 1 GM in Sodium Chloride 0.9% 100 ML IVPB SCH ×2 (01:14→14:20)
[2023-06-10] MEDS ORDERED: Ipratropium/Albuterol 3 ML NEB ONE (01:20)
[2023-06-10] MEDS: Ipratropium/Albuterol 3 ML NEB NEB SCH ×6 (03:30→21:30)
[2023-06-10 04:04] LABS: #Monocytes 0.2 thou/uL (0.11-0.59); #Neutrophils 6.3 thou/uL (1.40-6.50); %Basophils 0.1 % (0.0-1.0); %Lymphocytes 8.1 % (21.0-51.0); %Monocytes 2.6 % (0.0-10.0); %Neutrophils 88.1 % (42.0-75.0); Hematocrit 22.2 % (42.0-52.0); Hemoglobin 7.4 g/dL (14.0-18.0); Mean Corpuscular HGB CONC 33.3 g/dL (32.0-36.0); Mean Corpuscular Hemoglobin 32.2 pg (27.0-31.0); Mean Corpuscular Volume 96.5 fl (78.0-98.0); Platelet Count 175 10x3/uL (130-400); RBC Distribution Width 14.5 % (11.5-14.5); White Blood Cell (WBC) Count 7.2 10x3/uL (4.8-10.8)
[2023-06-10 04:27] LABS: Anion Gap 14 mmol/L (10-20); BUN (Urea Nitrogen) 27 mg/dL (8.4-25.7); Calc. Creatinine Clearance 67 mL/min (70-130); Calcium 8.2 mg/dL (7.8-10.44); Carbon Dioxide 20 mmol/L (23-31); Chloride 105 mmol/L (98-107); Estimated GFR 39; Glucose 229 mg/dL (80-115); Potassium 4.2 mmol/L (3.5-5.1); Sodium 135 mmol/L (136-145)
[2023-06-10] MEDS: HumaLOG 300 UNITS/3 ML VIAL SC PRN ×3 (05:44→17:35)
[2023-06-10] MEDS ORDERED: Phenylephrine 10 MG/ML VIAL ONE (07:50)
[2023-06-10] MEDS: hydrALAZINE 25 MG TAB PO SCH ×2 (08:06→21:45)
[2023-06-10] MEDS: Amiodarone 200 MG TAB PO SCH (08:06)
[2023-06-10] MEDS: Carvedilol 25 MG TAB PO SCH ×2 (08:06→21:43)
[2023-06-10] MEDS: Isosorbide Mononitrate 20 MG TAB PO SCH ×2 (08:07→21:50)
[2023-06-10] MEDS: Insulin Glargine 30 UNITS/0.3 ML VIAL SC SCH ×2 (08:07→21:45)
[2023-06-10] MEDS: Gabapentin 300 MG CAP PO SCH ×3 (08:07→21:43)
[2023-06-10] MEDS: Pantoprazole 40 MG VIAL IVP SCH ×2 (08:07→21:51)
[2023-06-10] MEDS: guaiFENesin ER 600 MG TAB PO SCH ×2 (09:11→21:45)
[2023-06-10 12:26] LABS: Hematocrit 23.1 % (42.0-52.0); Hemoglobin 7.5 g/dL (14.0-18.0)
[2023-06-10] MEDS ORDERED: Vancomycin 1.5 GRAM/300 ML BAG 1.5 GM in Premix Bag 1 BAG IVPB SCH (14:00)
[2023-06-10] MEDS: Atorvastatin Calcium 40 MG TAB PO SCH (21:42)
[2023-06-11] MEDS: methylPREDNISolone Sod Succ 40 MG VIAL IVP SCH ×4 (00:19→17:44)
[2023-06-11] MEDS: Ipratropium/Albuterol 3 ML NEB NEB SCH ×6 (01:56→23:50)
[2023-06-11] MEDS: Cefepime 1 GM in Sodium Chloride 0.9% 100 ML IVPB SCH ×2 (02:05→13:28)
[2023-06-11 04:32] LABS: Hematocrit 23.3 % (42.0-52.0); Hemoglobin 7.7 g/dL (14.0-18.0); Platelet Count 192 10x3/uL (130-400)
[2023-06-11 04:57] LABS: Anion Gap 14 mmol/L (10-20); BUN (Urea Nitrogen) 37 mg/dL (8.4-25.7); Calc. Creatinine Clearance 72 mL/min (70-130); Calcium 7.9 mg/dL (7.8-10.44); Carbon Dioxide 23 mmol/L (23-31); Chloride 102 mmol/L (98-107); Estimated GFR 34; Glucose 277 mg/dL (80-115); Potassium 4.7 mmol/L (3.5-5.1); Sodium 134 mmol/L (136-145)
[2023-06-11] MEDS: Gabapentin 300 MG CAP PO SCH ×3 (08:43→20:41)
[2023-06-11] MEDS: guaiFENesin ER 600 MG TAB PO SCH ×2 (08:43→20:42)
[2023-06-11] MEDS: hydrALAZINE 25 MG TAB PO SCH ×2 (08:43→20:43)
[2023-06-11] MEDS: Amiodarone 200 MG TAB PO SCH (08:43)
[2023-06-11] MEDS: Isosorbide Mononitrate 20 MG TAB PO SCH ×2 (08:43→20:44)
[2023-06-11] MEDS: Tamsulosin HCl 0.4 MG CAP PO SCH (08:43)
[2023-06-11] MEDS: Carvedilol 25 MG TAB PO SCH ×2 (08:43→20:41)
[2023-06-11] MEDS: Insulin Glargine 30 UNITS/0.3 ML VIAL SC SCH ×2 (08:44→20:43)
[2023-06-11] MEDS: Pantoprazole 40 MG VIAL IVP SCH ×2 (08:44→20:43)
[2023-06-11] MEDS: Oxymetazoline HCl 0.05% (30 ML BOT) NS SCH ×2 (10:23→20:44)
[2023-06-11] MEDS: traMADol HCl 50 MG TAB PO PRN ×2 (10:26→17:46)
[2023-06-11] MEDS: HumaLOG 300 UNITS/3 ML VIAL SC PRN ×3 (13:31→20:44)
[2023-06-11 13:40] LABS: Vancomycin, Trough 12.9 ug/mL
[2023-06-11] MEDS ORDERED: Vancomycin 1.5 GRAM/300 ML BAG 1.5 GM in Premix Bag 1 BAG IVPB SCH (14:00)
[2023-06-11] MEDS: Atorvastatin Calcium 40 MG TAB PO SCH (20:41)
[2023-06-12] MEDS: methylPREDNISolone Sod Succ 40 MG VIAL IVP SCH ×3 (00:24→20:49)
[2023-06-12] MEDS: Cefepime 1 GM in Sodium Chloride 0.9% 100 ML IVPB SCH ×2 (02:35→13:19)
[2023-06-12] MEDS: Ipratropium/Albuterol 3 ML NEB NEB SCH ×6 (03:13→22:27)
[2023-06-12] MEDS: traMADol HCl 50 MG TAB PO PRN ×3 (05:02→19:24)
[2023-06-12] MEDS: HumaLOG 300 UNITS/3 ML VIAL SC PRN ×3 (06:17→18:27)
[2023-06-12 06:59] LABS: Hemoglobin 7.5 g/dL (14.0-18.0); Platelet Count 191 10x3/uL (130-400)
[2023-06-12 07:11] LABS: Anion Gap 12 mmol/L (10-20); BUN (Urea Nitrogen) 44 mg/dL (8.4-25.7); Calc. Creatinine Clearance 69 mL/min (70-130); Calcium 8.3 mg/dL (7.8-10.44); Carbon Dioxide 24 mmol/L (23-31); Chloride 103 mmol/L (98-107); Estimated GFR 33; Glucose 258 mg/dL (80-115); Potassium 4.6 mmol/L (3.5-5.1); Sodium 134 mmol/L (136-145)
[2023-06-12] MEDS: Isosorbide Mononitrate 20 MG TAB PO SCH ×2 (08:48→20:47)
[2023-06-12] MEDS: Amiodarone 200 MG TAB PO SCH (08:48)
[2023-06-12] MEDS: Gabapentin 300 MG CAP PO SCH ×3 (08:48→20:43)
[2023-06-12] MEDS: Carvedilol 25 MG TAB PO SCH ×2 (08:49→20:44)
[2023-06-12] MEDS: Tamsulosin HCl 0.4 MG CAP PO SCH (08:49)
[2023-06-12] MEDS: guaiFENesin ER 600 MG TAB PO SCH ×2 (08:49→20:44)
[2023-06-12] MEDS: Pantoprazole 40 MG VIAL IVP SCH (08:49)
[2023-06-12] MEDS: Insulin Glargine 30 UNITS/0.3 ML VIAL SC SCH ×2 (08:49→20:48)
[2023-06-12] MEDS: Oxymetazoline HCl 0.05% (30 ML BOT) NS SCH ×2 (08:49→20:56)
[2023-06-12] MEDS: hydrALAZINE 25 MG TAB PO SCH ×2 (08:49→20:44)
[2023-06-12] MEDS ORDERED: Warfarin Sodium 5 MG TAB PO SCH (17:00)
[2023-06-12] MEDS: Warfarin Sodium 5 MG TAB PO SCH (18:26)
[2023-06-12] MEDS: Atorvastatin Calcium 40 MG TAB PO SCH (20:44)
[2023-06-13] MEDS: Cefepime 1 GM in Sodium Chloride 0.9% 100 ML IVPB SCH ×2 (02:06→14:49)
[2023-06-13] MEDS: Ipratropium/Albuterol 3 ML NEB NEB SCH ×6 (03:15→22:28)
[2023-06-13] MEDS: traMADol HCl 50 MG TAB PO PRN ×3 (03:39→20:41)
[2023-06-13] MEDS: HumaLOG 300 UNITS/3 ML VIAL SC PRN ×3 (06:12→20:44)
[2023-06-13 06:59] LABS: Hematocrit 23.8 % (42.0-52.0); Hemoglobin 7.9 g/dL (14.0-18.0); Platelet Count 199 10x3/uL (130-400)
[2023-06-13 07:17] LABS: INR-International Normal Ratio 1.1; Prothrombin Time 14.7 sec (12.0-14.7)
[2023-06-13 07:20] LABS: Anion Gap 12 mmol/L (10-20); BUN (Urea Nitrogen) 47 mg/dL (8.4-25.7); Calc. Creatinine Clearance 79 mL/min (70-130); Calcium 8.5 mg/dL (7.8-10.44); Carbon Dioxide 25 mmol/L (23-31); Chloride 104 mmol/L (98-107); Estimated GFR 39; Glucose 217 mg/dL (80-115); Potassium 4.7 mmol/L (3.5-5.1); Sodium 136 mmol/L (136-145)
[2023-06-13] MEDS: Isosorbide Mononitrate 20 MG TAB PO SCH ×2 (09:28→20:42)
[2023-06-13] MEDS: Tamsulosin HCl 0.4 MG CAP PO SCH (09:28)
[2023-06-13] MEDS: Amiodarone 200 MG TAB PO SCH (09:29)
[2023-06-13] MEDS: Carvedilol 25 MG TAB PO SCH ×2 (09:30→20:40)
[2023-06-13] MEDS: hydrALAZINE 25 MG TAB PO SCH ×2 (09:30→20:40)
[2023-06-13] MEDS: guaiFENesin ER 600 MG TAB PO SCH ×2 (09:30→20:40)
[2023-06-13] MEDS: Furosemide 40 MG TAB PO SCH (09:30)
[2023-06-13] MEDS: Gabapentin 300 MG CAP PO SCH ×3 (09:31→20:40)
[2023-06-13] MEDS: methylPREDNISolone Sod Succ 40 MG VIAL IVP SCH ×2 (09:32→20:39)
[2023-06-13] MEDS: Insulin Glargine 30 UNITS/0.3 ML VIAL SC SCH ×2 (09:32→20:43)
[2023-06-13] MEDS: Oxymetazoline HCl 0.05% (30 ML BOT) NS SCH ×2 (09:34→20:53)
[2023-06-13] MEDS ORDERED: Warfarin Sodium 5 MG TAB PO SCH (17:00)
[2023-06-13] MEDS: Warfarin Sodium 5 MG TAB PO SCH (18:14)
[2023-06-13] MEDS: Atorvastatin Calcium 40 MG TAB PO SCH (20:40)
[2023-06-14] MEDS: Cefepime 1 GM in Sodium Chloride 0.9% 100 ML IVPB SCH ×2 (01:45→14:29)
[2023-06-14] MEDS: Ipratropium/Albuterol 3 ML NEB NEB SCH ×6 (02:12→22:23)
[2023-06-14] MEDS: traMADol HCl 50 MG TAB PO PRN ×4 (02:28→21:10)
[2023-06-14 03:53] LABS: INR-International Normal Ratio 1.2; Prothrombin Time 15.8 sec (12.0-14.7)
[2023-06-14] MEDS: HumaLOG 300 UNITS/3 ML VIAL SC PRN ×2 (06:28→21:06)
[2023-06-14] MEDS: Gabapentin 300 MG CAP PO SCH ×3 (09:13→21:05)
[2023-06-14] MEDS: guaiFENesin ER 600 MG TAB PO SCH ×2 (09:13→21:05)
[2023-06-14] MEDS: hydrALAZINE 25 MG TAB PO SCH ×2 (09:13→21:05)
[2023-06-14] MEDS: Furosemide 40 MG TAB PO SCH (09:14)
[2023-06-14] MEDS: Amiodarone 200 MG TAB PO SCH (09:14)
[2023-06-14] MEDS: Tamsulosin HCl 0.4 MG CAP PO SCH (09:14)
[2023-06-14] MEDS: Isosorbide Mononitrate 20 MG TAB PO SCH ×2 (09:15→22:24)
[2023-06-14] MEDS: Carvedilol 25 MG TAB PO SCH ×2 (09:15→21:05)
[2023-06-14] MEDS: Insulin Glargine 30 UNITS/0.3 ML VIAL SC SCH ×2 (09:15→21:06)
[2023-06-14] MEDS: methylPREDNISolone Sod Succ 40 MG VIAL IVP SCH ×2 (09:17→21:06)
[2023-06-14] MEDS: Oxymetazoline HCl 0.05% (30 ML BOT) NS SCH ×2 (09:34→21:12)
[2023-06-14] MEDS: Warfarin Sodium 5 MG TAB PO SCH (16:53)
[2023-06-14] MEDS ORDERED: Senokot S 8.6-50 MG TAB PO SCH ×2 (18:00→18:15)
[2023-06-14] MEDS: Atorvastatin Calcium 40 MG TAB PO SCH (21:05)
[2023-06-14] MEDS: Senokot S 8.6-50 MG TAB PO SCH (21:05)
[2023-06-15] MEDS: Ipratropium/Albuterol 3 ML NEB NEB SCH ×4 (01:45→12:42)
[2023-06-15] MEDS: Cefepime 1 GM in Sodium Chloride 0.9% 100 ML IVPB SCH ×2 (02:23→14:30)
[2023-06-15] MEDS: traMADol HCl 50 MG TAB PO PRN ×3 (02:32→14:34)
[2023-06-15 04:01] LABS: INR-International Normal Ratio 1.3; Prothrombin Time 16.5 sec (12.0-14.7)
[2023-06-15] MEDS: HumaLOG 300 UNITS/3 ML VIAL SC PRN (07:18)
[2023-06-15 08:28] VITALS: TEMP 97.7
[2023-06-15] MEDS: Isosorbide Mononitrate 20 MG TAB PO SCH (10:08)
[2023-06-15] MEDS: methylPREDNISolone Sod Succ 40 MG VIAL IVP SCH (10:09)
[2023-06-15] MEDS: Insulin Glargine 30 UNITS/0.3 ML VIAL SC SCH (10:11)
[2023-06-15] MEDS: Amiodarone 200 MG TAB PO SCH (10:15)
[2023-06-15] MEDS: Tamsulosin HCl 0.4 MG CAP PO SCH (10:16)
[2023-06-15] MEDS: Furosemide 40 MG TAB PO SCH (10:16)
[2023-06-15] MEDS: Gabapentin 300 MG CAP PO SCH ×2 (10:16→14:31)
[2023-06-15] MEDS: hydrALAZINE 25 MG TAB PO SCH (10:17)
[2023-06-15] MEDS: guaiFENesin ER 600 MG TAB PO SCH (10:17)
[2023-06-15] MEDS: Senokot S 8.6-50 MG TAB PO SCH (10:18)
[2023-06-15] MEDS: Oxymetazoline HCl 0.05% (30 ML BOT) NS SCH (10:18)
[2023-06-15] MEDS: Carvedilol 25 MG TAB PO SCH (10:34)
[2023-06-15 13:05] VITALS: BP 171/83
== END 2023-06-15 16:35 | disposition swing bed (61) | DRG 377 ==
LOC: ERS 12:45 → ERHOLD 15:26 → T4-B 17:07 → IMCU/EMU 06-09 13:36
PROVIDERS: ADMIT Internal Medicine; ATTEND Family Medicine
PROC: 30233K1 Transfusion of Nonautologous Frozen Plasma into Peripheral Vein, Percutaneous Approach (ICD-10-PCS; 2023-06-06)
PROC: 30233N1 Transfusion of Nonautologous Red Blood Cells into Peripheral Vein, Percutaneous Approach (ICD-10-PCS; 2023-06-06)
PROC: 0DB68ZX Excision of Stomach, Via Natural or Artificial Opening Endoscopic, Diagnostic (ICD-10-PCS; principal; 2023-06-07)
PROC: 0DBN8ZZ Excision of Sigmoid Colon, Via Natural or Artificial Opening Endoscopic (ICD-10-PCS; 2023-06-07)
PROC: 0W3P8ZZ Control Bleeding in Gastrointestinal Tract, Via Natural or Artificial Opening Endoscopic (ICD-10-PCS; 2023-06-07)
PROC: 4A033R1 Measurement of Arterial Saturation, Peripheral, Percutaneous Approach (ICD-10-PCS; 2023-06-09)
PROC: 5A09457 Assistance with Respiratory Ventilation, 24-96 Consecutive Hours, Continuous Positive Airway Pressure (ICD-10-PCS; 2023-06-10)
PROC: 5A0945A Assistance with Respiratory Ventilation, 24-96 Consecutive Hours, High Flow/Velocity Cannula (ICD-10-PCS; 2023-06-11)
DX: K57.31 Diverticulosis of large intestine without perforation or abscess with bleeding (principal); A41.9 Sepsis, unspecified organism; G93.41 Metabolic encephalopathy; J96.21 Acute and chronic respiratory failure with hypoxia; I50.43 Acute on chronic combined systolic (congestive) and diastolic (congestive) heart failure; J18.9 Pneumonia, unspecified organism; D62 Acute posthemorrhagic anemia; N17.9 Acute kidney failure, unspecified; D68.32 Hemorrhagic disorder due to extrinsic circulating anticoagulants; J44.1 Chronic obstructive pulmonary disease with (acute) exacerbation; I48.91 Unspecified atrial fibrillation; I25.10 Atherosclerotic heart disease of native coronary artery without angina pectoris; E78.5 Hyperlipidemia, unspecified; I25.2 Old myocardial infarction; I11.0 Hypertensive heart disease with heart failure; I50.9 Heart failure, unspecified; F17.220 Nicotine dependence, chewing tobacco, uncomplicated; Z95.810 Presence of automatic (implantable) cardiac defibrillator; Z98.890 Other specified postprocedural states; Z95.1 Presence of aortocoronary bypass graft; Z95.5 Presence of coronary angioplasty implant and graft; Z90.49 Acquired absence of other specified parts of digestive tract; Z79.899 Other long term (current) drug therapy; Z79.82 Long term (current) use of aspirin; Z79.4 Long term (current) use of insulin; Z79.01 Long term (current) use of anticoagulants; G47.33 Obstructive sleep apnea (adult) (pediatric); T45.515A Adverse effect of anticoagulants, initial encounter; K63.5 Polyp of colon; E11.42 Type 2 diabetes mellitus with diabetic polyneuropathy; E66.01 Morbid (severe) obesity due to excess calories; Z68.39 Body mass index [BMI] 39.0-39.9, adult; K29.70 Gastritis, unspecified, without bleeding; Z20.822 Contact with and (suspected) exposure to COVID-19; R53.81 Other malaise
CPT/HCPCS: 36415; 36416; 36430; 36600; 71045; 80048; 80053; 80202; 82140; 82805; 83605; 83880; 84145; 84484; 85014; 85018; 85025; 85049; 85610; 85730; 86850; 86900; 86901; 87040; 87081; 88305; 88342; 93005; 93306; 94640; 94660; 96361; 96374; C9113; J0692; J1815; J1940; J2405; J2704; J2916; J2920; J3370; J3430; J3475; J3490; J7050; J7611; J7620; P9016; P9059; U0002

== ENCOUNTER 2023-06-17 13:42 | Inpatient (IN) | payer MEDICARE ==
[2023-06-17 14:14] LABS: #Monocytes 0.7 thou/uL (0.11-0.59); #Neutrophils 10.6 thou/uL (1.40-6.50); %Basophils 0.1 % (0.0-1.0); %Eosinophils 0.3 % (0.0-10.0); %Lymphocytes 5.8 % (21.0-51.0); %Monocytes 5.4 % (0.0-10.0); %Neutrophils 87.7 % (42.0-75.0); Hematocrit 27.9 % (42.0-52.0); Mean Corpuscular HGB CONC 32.3 g/dL (32.0-36.0); Mean Corpuscular Hemoglobin 31.3 pg (27.0-31.0); Mean Corpuscular Volume 96.9 fl (78.0-98.0); Mean Platelet Volume 9.7 fL (7.4-10.4); Platelet Count 188 10x3/uL (130-400); RBC Distribution Width 14.9 % (11.5-14.5); Red Blood Cell (RBC) Count 2.88 mill/uL (4.70-6.10); White Blood Cell (WBC) Count 12.1 10x3/uL (4.8-10.8)
[2023-06-17 14:31] LABS: PTT 27.7 sec (22.9-36.1)
[2023-06-17 14:37] LABS: ALT (SGPT) 37 U/L (8-55); AST (SGOT) 28 U/L (5-34); Albumin 3.3 g/dL (3.4-4.8); Alkaline Phosphatase 53 U/L (40-110); Anion Gap 15 mmol/L (10-20); BUN (Urea Nitrogen) 45 mg/dL (8.4-25.7); Bilirubin, Total 0.7 mg/dL (0.2-1.2); Calc. Creatinine Clearance 0 mL/min (70-130); Calcium 8.5 mg/dL (7.8-10.44); Carbon Dioxide 26 mmol/L (23-31); Chloride 106 mmol/L (98-107); Estimated GFR 48; Globulin 1.9 g/dL (2.4-3.5); Glucose 67 mg/dL (80-115); Potassium 4.8 mmol/L (3.5-5.1); Protein, Total 5.2 g/dL (5.8-8.1); Sodium 142 mmol/L (136-145)
[2023-06-17 14:38] LABS: INR-International Normal Ratio 1.5; Prothrombin Time 18.4 sec (12.0-14.7)
[2023-06-17] MEDS ORDERED: Nitroglycerin 0.4 MG TAB 1 EACH ONE (14:41)
[2023-06-17 14:44] LABS: Troponin I 2.707 ng/mL (< 0.028)
[2023-06-17] MEDS ORDERED: fentaNYL 50 mcg/mL 1 mL Vial ONE (14:56)
[2023-06-17] MEDS ORDERED: Heparin 25,000 units/D5W 500 ML ONE (14:56)
[2023-06-17] MEDS ORDERED: Heparin 10,000 UNITS/ 10 ML VIAL ONE (14:56)
[2023-06-17] MEDS ORDERED: Acetaminophen 325 MG TAB PO PRN (16:28)
[2023-06-17] MEDS ORDERED: Heparin 25,000 units/D5W 500 ML IVPB SCH (16:30)
[2023-06-17] MEDS ORDERED: Sodium Chloride 0.9% 1,000 ML IV SCH ×2 (16:30→16:42)
[2023-06-17] MEDS ORDERED: Heparin 10,000 UNITS/ 10 ML VIAL SLOW IVP SCH (16:30)
[2023-06-17 17:14] LABS: Hematocrit 28.5 % (42.0-52.0); Hemoglobin 9.2 g/dL (14.0-18.0); Platelet Count 204 10x3/uL (130-400)
[2023-06-17 17:52] LABS: Troponin I 2.537 ng/mL (< 0.028)
[2023-06-17 18:12] VITALS: BMI 37.8
[2023-06-17] MEDS: Morphine 2 MG/ML VIAL SLOW IVP PRN (18:31)
[2023-06-17] MEDS ORDERED: Nitroglycerin 50 MG/250 ML BOT 250 ML ONE (19:03)
[2023-06-17] MEDS ORDERED: Nitroglycerin 50 MG/250 ML BOT 250 ML IVPB SCH (19:15)
[2023-06-17 20:48] LABS: Troponin I 2.225 ng/mL (< 0.028)
[2023-06-17] MEDS: Atorvastatin Calcium 40 MG TAB PO SCH (21:21)
[2023-06-17] MEDS: Pantoprazole 40 MG VIAL IVP SCH (21:21)
[2023-06-18] MEDS: Morphine 2 MG/ML VIAL SLOW IVP PRN ×2 (01:03→16:30)
[2023-06-18 05:43] LABS: #Eosinphils 0.3 thou/uL (0.0-0.7); #Neutrophils 6.7 thou/uL (1.40-6.50); %Basophils 0.1 % (0.0-1.0); %Eosinophils 3.1 % (0.0-10.0); %Lymphocytes 11.2 % (21.0-51.0); %Monocytes 10.8 % (0.0-10.0); %Neutrophils 74.4 % (42.0-75.0); Hematocrit 26.4 % (42.0-52.0); Hemoglobin 8.5 g/dL (14.0-18.0); Mean Corpuscular HGB CONC 32.2 g/dL (32.0-36.0); Mean Corpuscular Hemoglobin 31.1 pg (27.0-31.0); Mean Corpuscular Volume 96.7 fl (78.0-98.0); Mean Platelet Volume 9.8 fL (7.4-10.4); Platelet Count 185 10x3/uL (130-400); Red Blood Cell (RBC) Count 2.73 mill/uL (4.70-6.10)
[2023-06-18 05:55] LABS: Hemoglobin A1c 6.3 % (4.0-6.0)
[2023-06-18 06:10] LABS: INR-International Normal Ratio 1.4; Prothrombin Time 17.4 sec (12.0-14.7)
[2023-06-18 06:11] LABS: Anion Gap 10 mmol/L (10-20); BUN (Urea Nitrogen) 40 mg/dL (8.4-25.7); Calc. Creatinine Clearance 97 mL/min (70-130); Calcium 8.2 mg/dL (7.8-10.44); Carbon Dioxide 30 mmol/L (23-31); Cardiac Risk 2.8 (Less than 4.5); Chloride 107 mmol/L (98-107); Cholesterol 91 mg/dl (< 200 Desired); Estimated GFR 54; Glucose 92 mg/dL (80-115); HDL Cholesterol 32 mg/dL (>60 Neg Risk); LDL Cholesterol, Calculated 49 mg/dL; PTT 96.1 sec (22.9-36.1); Potassium 4.1 mmol/L (3.5-5.1); Sodium 143 mmol/L (136-145); Triglycerides 48 mg/dL (Less than 150)
[2023-06-18] MEDS ORDERED: Communication Order-Pharmacy FS SCH (07:45)
[2023-06-18] MEDS ORDERED: Sodium Chloride 0.9% 1,000 ML IV SCH ×2 (07:46→11:23)
[2023-06-18] MEDS ORDERED: Lidocaine 1% (PF) 30 ML VIAL ONE (08:20)
[2023-06-18] MEDS ORDERED: Nitroglycerin 50 MG/250 ML BOT 0 ML ONE (08:20)
[2023-06-18] MEDS ORDERED: Heparin 10,000 UNITS/ 10 ML VIAL ONE ×2 (08:20→10:36)
[2023-06-18] MEDS ORDERED: fentaNYL 50 mcg/mL 1 mL Vial ONE (09:08)
[2023-06-18] MEDS ORDERED: Midazolam HCl 2 mg/2 ml Vial ONE (09:08)
[2023-06-18] MEDS: Carvedilol 3.125 MG TAB PO SCH ×2 (09:16→17:47)
[2023-06-18] MEDS: Aspirin 81 mg Enteric Coated Tablet PO SCH (09:17)
[2023-06-18] MEDS: Amiodarone 200 MG TAB PO SCH (09:17)
[2023-06-18] MEDS: Pantoprazole 40 MG VIAL IVP SCH ×2 (09:17→21:16)
[2023-06-18] MEDS ORDERED: Bivalirudin 250 MG VIAL ONE (10:06)
[2023-06-18] MEDS ORDERED: Clopidogrel Bisulfate 300 MG TAB ONE (10:07)
[2023-06-18] MEDS ORDERED: Adenosine 6 MG/2 ML VIAL ONE (10:14)
[2023-06-18] MEDS ORDERED: Tirofiban-0.9% Sodium Chloride 250 ML ONE (10:37)
[2023-06-18] MEDS ORDERED: Tirofiban-0.9% Sodium Chloride 250 ML IVPB SCH (11:30)
[2023-06-18] MEDS ORDERED: Iopamidol 370 76% 100 ML VIAL ONE (11:57)
[2023-06-18] MEDS: HYDROcodone/Acetaminophen 5/325 mg Tablet PO PRN ×2 (12:59→18:22)
[2023-06-18 13:45] LABS: Troponin I 1.691 ng/mL (< 0.028)
[2023-06-18] MEDS: Atorvastatin Calcium 40 MG TAB PO SCH (21:16)
[2023-06-19 04:21] LABS: #Eosinphils 0.3 thou/uL (0.0-0.7); #Neutrophils 7.2 thou/uL (1.40-6.50); %Eosinophils 3.2 % (0.0-10.0); %Lymphocytes 9.6 % (21.0-51.0); %Monocytes 10.8 % (0.0-10.0); %Neutrophils 75.9 % (42.0-75.0); Hematocrit 25.9 % (42.0-52.0); Hemoglobin 8.3 g/dL (14.0-18.0); Mean Corpuscular Hemoglobin 31.2 pg (27.0-31.0); Mean Corpuscular Volume 97.4 fl (78.0-98.0); Mean Platelet Volume 9.9 fL (7.4-10.4); Platelet Count 239 10x3/uL (130-400); RBC Distribution Width 14.8 % (11.5-14.5); Red Blood Cell (RBC) Count 2.66 mill/uL (4.70-6.10); White Blood Cell (WBC) Count 9.6 10x3/uL (4.8-10.8)
[2023-06-19 04:49] LABS: ALT (SGPT) 30 U/L (8-55); AST (SGOT) 23 U/L (5-34); Albumin 3.1 g/dL (3.4-4.8); Alkaline Phosphatase 55 U/L (40-110); Anion Gap 12 mmol/L (10-20); BUN (Urea Nitrogen) 32 mg/dL (8.4-25.7); Bilirubin, Total 0.8 mg/dL (0.2-1.2); Calc. Creatinine Clearance 101 mL/min (70-130); Calcium 8.1 mg/dL (7.8-10.44); Carbon Dioxide 26 mmol/L (23-31); Chloride 108 mmol/L (98-107); Estimated GFR 57; Globulin 2.1 g/dL (2.4-3.5); Glucose 105 mg/dL (80-115); Potassium 4.5 mmol/L (3.5-5.1); Protein, Total 5.2 g/dL (5.8-8.1); Sodium 141 mmol/L (136-145)
[2023-06-19] MEDS: Ipratropium/Albuterol 3 ML NEB NEB PRN ×2 (05:39→12:17)
[2023-06-19] MEDS ORDERED: Vecuronium 10 MG VIAL IVP SCH (08:15)
[2023-06-19] MEDS: Aspirin 81 mg Enteric Coated Tablet PO SCH (09:38)
[2023-06-19] MEDS: Furosemide 40 MG TAB PO SCH (09:38)
[2023-06-19] MEDS: Clopidogrel Bisulfate 75 MG TAB PO SCH (09:38)
[2023-06-19] MEDS: Amiodarone 200 MG TAB PO SCH (09:38)
[2023-06-19] MEDS: Pantoprazole 40 MG VIAL IVP SCH ×2 (09:39→20:12)
[2023-06-19] MEDS: Carvedilol 3.125 MG TAB PO SCH ×2 (09:40→18:27)
[2023-06-19] MEDS: HYDROcodone/Acetaminophen 5/325 mg Tablet PO PRN (12:07)
[2023-06-19] MEDS ORDERED: Simethicone Chewable 80 MG TAB PO PRN (13:53)
[2023-06-19] MEDS: Gabapentin 300 MG CAP PO SCH ×2 (14:34→20:11)
[2023-06-19 17:03] LABS: Hematocrit 24.9 % (42.0-52.0); Hemoglobin 8.1 g/dL (14.0-18.0); Platelet Count 215 10x3/uL (130-400)
[2023-06-19] MEDS: Atorvastatin Calcium 40 MG TAB PO SCH (20:12)
[2023-06-19] MEDS ORDERED: Glucagon 1 MG/ML KIT IM PRN (21:30)
[2023-06-19] MEDS ORDERED: Dextrose 5% in Water 1,000 ML IV PRN (21:30)
[2023-06-19] MEDS ORDERED: Dextrose 50% Abboject 50 ML SYRINGE IVP PRN (21:30)
[2023-06-20] MEDS: HYDROcodone/Acetaminophen 5/325 mg Tablet PO PRN ×3 (05:42→17:34)
[2023-06-20 06:23] LABS: Anion Gap 13 mmol/L (10-20); BUN (Urea Nitrogen) 27 mg/dL (8.4-25.7); Calc. Creatinine Clearance 98 mL/min (70-130); Calcium 8.5 mg/dL (7.8-10.44); Carbon Dioxide 26 mmol/L (23-31); Chloride 107 mmol/L (98-107); Estimated GFR 55; Glucose 137 mg/dL (80-115); Potassium 4.9 mmol/L (3.5-5.1); Sodium 141 mmol/L (136-145)
[2023-06-20] MEDS: Clopidogrel Bisulfate 75 MG TAB PO SCH (09:10)
[2023-06-20] MEDS: Carvedilol 6.25 MG TAB PO SCH ×2 (09:10→17:03)
[2023-06-20] MEDS: Amiodarone 200 MG TAB PO SCH (09:11)
[2023-06-20] MEDS: Furosemide 40 MG TAB PO SCH (09:11)
[2023-06-20] MEDS: Gabapentin 300 MG CAP PO SCH ×3 (09:11→20:18)
[2023-06-20] MEDS: Pantoprazole 40 MG VIAL IVP SCH ×2 (09:11→20:19)
[2023-06-20] MEDS: Aspirin 81 mg Enteric Coated Tablet PO SCH (09:12)
[2023-06-20] MEDS: HumaLOG 300 UNITS/3 ML VIAL SC PRN (17:35)
[2023-06-20] MEDS: Atorvastatin Calcium 40 MG TAB PO SCH (20:18)
[2023-06-21 05:06] LABS: #Eosinphils 0.3 thou/uL (0.0-0.7); #Monocytes 1.2 thou/uL (0.11-0.59); #Neutrophils 8.6 thou/uL (1.40-6.50); %Basophils 0.1 % (0.0-1.0); %Eosinophils 2.8 % (0.0-10.0); %Lymphocytes 9.8 % (21.0-51.0); %Monocytes 10.4 % (0.0-10.0); %Neutrophils 76.4 % (42.0-75.0); Hemoglobin 7.9 g/dL (14.0-18.0); Mean Corpuscular HGB CONC 31.6 g/dL (32.0-36.0); Mean Corpuscular Hemoglobin 30.4 pg (27.0-31.0); Mean Corpuscular Volume 96.2 fl (78.0-98.0); Mean Platelet Volume 9.8 fL (7.4-10.4); Platelet Count 199 10x3/uL (130-400); RBC Distribution Width 14.6 % (11.5-14.5); White Blood Cell (WBC) Count 11.2 10x3/uL (4.8-10.8)
[2023-06-21 05:45] LABS: Anion Gap 12 mmol/L (10-20); BUN (Urea Nitrogen) 25 mg/dL (8.4-25.7); Calc. Creatinine Clearance 90 mL/min (70-130); Calcium 8.4 mg/dL (7.8-10.44); Carbon Dioxide 27 mmol/L (23-31); Chloride 107 mmol/L (98-107); Estimated GFR 49; Glucose 148 mg/dL (80-115); Potassium 4.5 mmol/L (3.5-5.1); Sodium 141 mmol/L (136-145)
[2023-06-21] MEDS: Isosorbide Dinitrate 5 MG TAB PO SCH ×2 (08:47→20:28)
[2023-06-21] MEDS: Ezetimibe 10 MG TAB PO SCH (08:47)
[2023-06-21] MEDS: Tamsulosin HCl 0.4 MG CAP PO SCH (08:47)
[2023-06-21] MEDS: Amiodarone 200 MG TAB PO SCH (08:47)
[2023-06-21] MEDS: Aspirin 81 mg Enteric Coated Tablet PO SCH (08:47)
[2023-06-21] MEDS: Furosemide 40 MG TAB PO SCH (08:48)
[2023-06-21] MEDS: Pantoprazole 40 MG VIAL IVP SCH (08:48)
[2023-06-21] MEDS: Clopidogrel Bisulfate 75 MG TAB PO SCH (08:48)
[2023-06-21] MEDS: Gabapentin 300 MG CAP PO SCH ×3 (08:48→20:28)
[2023-06-21] MEDS: Carvedilol 25 MG TAB PO SCH ×2 (08:54→18:00)
[2023-06-21] MEDS: Ferrous Sulfate 325 MG TAB PO SCH ×2 (08:54→17:00)
[2023-06-21] MEDS: Carvedilol 6.25 MG TAB PO SCH (08:57)
[2023-06-21] MEDS: HYDROcodone/Acetaminophen 5/325 mg Tablet PO PRN ×2 (13:57→21:02)
[2023-06-21] MEDS: HumaLOG 300 UNITS/3 ML VIAL SC PRN ×2 (13:58→20:53)
[2023-06-21] MEDS ORDERED: Furosemide 40 MG/4 ML VIAL SLOW IVP SCH (14:00)
[2023-06-21 16:33] LABS: Hematocrit 22.4 % (42.0-52.0); Hemoglobin 7.1 g/dL (14.0-18.0); Platelet Count 181 10x3/uL (130-400)
[2023-06-21] MEDS: Atorvastatin Calcium 40 MG TAB PO SCH (20:28)
[2023-06-22 04:39] LABS: #Eosinphils 0.3 thou/uL (0.0-0.7); #Monocytes 0.8 thou/uL (0.11-0.59); %Basophils 0.1 % (0.0-1.0); %Eosinophils 3.6 % (0.0-10.0); %Lymphocytes 12.5 % (21.0-51.0); %Monocytes 9.8 % (0.0-10.0); %Neutrophils 73.4 % (42.0-75.0); Hematocrit 22.1 % (42.0-52.0); Mean Corpuscular HGB CONC 31.7 g/dL (32.0-36.0); Mean Corpuscular Hemoglobin 30.8 pg (27.0-31.0); Mean Corpuscular Volume 97.4 fl (78.0-98.0); Platelet Count 197 10x3/uL (130-400); RBC Distribution Width 14.8 % (11.5-14.5); Red Blood Cell (RBC) Count 2.27 mill/uL (4.70-6.10); White Blood Cell (WBC) Count 8.2 10x3/uL (4.8-10.8)
[2023-06-22 05:03] LABS: Anion Gap 13 mmol/L (10-20); BUN (Urea Nitrogen) 25 mg/dL (8.4-25.7); Calc. Creatinine Clearance 84 mL/min (70-130); Calcium 8.5 mg/dL (7.8-10.44); Carbon Dioxide 26 mmol/L (23-31); Chloride 105 mmol/L (98-107); Estimated GFR 45; Glucose 164 mg/dL (80-115); Potassium 4.1 mmol/L (3.5-5.1); Sodium 140 mmol/L (136-145)
[2023-06-22] MEDS ORDERED: Furosemide 40 MG/4 ML VIAL SLOW IVP SCH (09:45)
[2023-06-22] MEDS: Ferrous Sulfate 325 MG TAB PO SCH ×2 (09:51→16:45)
[2023-06-22] MEDS: Isosorbide Dinitrate 5 MG TAB PO SCH ×2 (09:51→19:22)
[2023-06-22] MEDS: Tamsulosin HCl 0.4 MG CAP PO SCH (09:51)
[2023-06-22] MEDS: Gabapentin 300 MG CAP PO SCH ×3 (09:51→19:22)
[2023-06-22] MEDS: Aspirin 81 mg Enteric Coated Tablet PO SCH (09:51)
[2023-06-22] MEDS: Furosemide 40 MG TAB PO SCH (09:51)
[2023-06-22] MEDS: Carvedilol 25 MG TAB PO SCH ×2 (09:51→16:45)
[2023-06-22] MEDS: Amiodarone 200 MG TAB PO SCH (09:52)
[2023-06-22] MEDS: Ezetimibe 10 MG TAB PO SCH (09:52)
[2023-06-22] MEDS: Clopidogrel Bisulfate 75 MG TAB PO SCH (09:52)
[2023-06-22] MEDS: HYDROcodone/Acetaminophen 5/325 mg Tablet PO PRN ×2 (12:03→19:21)
[2023-06-22] MEDS: HumaLOG 300 UNITS/3 ML VIAL SC PRN ×2 (12:49→18:24)
[2023-06-22] MEDS: Atorvastatin Calcium 40 MG TAB PO SCH (19:22)
[2023-06-23 04:45] LABS: #Eosinphils 0.3 thou/uL (0.0-0.7); #Monocytes 0.8 thou/uL (0.11-0.59); #Neutrophils 6.4 thou/uL (1.40-6.50); %Basophils 0.3 % (0.0-1.0); %Eosinophils 3.2 % (0.0-10.0); %Lymphocytes 11.9 % (21.0-51.0); %Monocytes 9.5 % (0.0-10.0); %Neutrophils 74.1 % (42.0-75.0); Hematocrit 25.6 % (42.0-52.0); Hemoglobin 8.2 g/dL (14.0-18.0); Mean Corpuscular Hemoglobin 30.4 pg (27.0-31.0); Mean Corpuscular Volume 94.8 fl (78.0-98.0); Mean Platelet Volume 10.2 fL (7.4-10.4); Platelet Count 187 10x3/uL (130-400); RBC Distribution Width 16.4 % (11.5-14.5); White Blood Cell (WBC) Count 8.6 10x3/uL (4.8-10.8)
[2023-06-23 05:14] LABS: Chloride 104 mmol/L (98-107); Potassium 4.2 mmol/L (3.5-5.1); Sodium 138 mmol/L (136-145)
[2023-06-23 05:15] LABS: Calcium 8.6 mg/dL (7.8-10.44); Glucose 171 mg/dL (80-115)
[2023-06-23 05:16] LABS: Anion Gap 14 mmol/L (10-20)
[2023-06-23 05:17] LABS: Carbon Dioxide 24 mmol/L (23-31)
[2023-06-23 05:18] LABS: Calc. Creatinine Clearance 84 mL/min (70-130); Estimated GFR 45
[2023-06-23 05:19] LABS: BUN (Urea Nitrogen) 25 mg/dL (8.4-25.7)
[2023-06-23] MEDS: Isosorbide Dinitrate 5 MG TAB PO SCH ×2 (09:13→21:25)
[2023-06-23] MEDS: Tamsulosin HCl 0.4 MG CAP PO SCH (09:13)
[2023-06-23] MEDS: HYDROcodone/Acetaminophen 5/325 mg Tablet PO PRN ×3 (09:13→21:23)
[2023-06-23] MEDS: Amiodarone 200 MG TAB PO SCH (09:14)
[2023-06-23] MEDS: Clopidogrel Bisulfate 75 MG TAB PO SCH (09:14)
[2023-06-23] MEDS: Ezetimibe 10 MG TAB PO SCH (09:14)
[2023-06-23] MEDS: Furosemide 40 MG TAB PO SCH (09:14)
[2023-06-23] MEDS: Aspirin 81 mg Enteric Coated Tablet PO SCH (09:15)
[2023-06-23] MEDS: Ferrous Sulfate 325 MG TAB PO SCH ×2 (09:15→18:38)
[2023-06-23] MEDS: Gabapentin 300 MG CAP PO SCH ×3 (09:15→21:24)
[2023-06-23] MEDS: Carvedilol 25 MG TAB PO SCH ×2 (09:15→18:38)
[2023-06-23] MEDS: Polyethylene Glycol 3350 17 GM Packet PO SCH (14:55)
[2023-06-23 16:29] LABS: Hematocrit 25.7 % (42.0-52.0); Hemoglobin 8.1 g/dL (14.0-18.0); Platelet Count 187 10x3/uL (130-400)
[2023-06-23] MEDS: Ipratropium/Albuterol 3 ML NEB NEB SCH ×2 (18:33→23:32)
[2023-06-23] MEDS: HumaLOG 300 UNITS/3 ML VIAL SC PRN ×2 (18:39→21:25)
[2023-06-23] MEDS: Mometasone 200 MCG/Formoterol 5 MCG 120 PUFF INHALER INH SCH (18:47)
[2023-06-23] MEDS: Atorvastatin Calcium 40 MG TAB PO SCH (21:24)
[2023-06-24 06:08] LABS: #Eosinphils 0.3 thou/uL (0.0-0.7); #Monocytes 0.7 thou/uL (0.11-0.59); #Neutrophils 6.4 thou/uL (1.40-6.50); %Basophils 0.3 % (0.0-1.0); %Eosinophils 3.4 % (0.0-10.0); %Monocytes 8.6 % (0.0-10.0); Hematocrit 24.9 % (42.0-52.0); Mean Corpuscular HGB CONC 32.1 g/dL (32.0-36.0); Mean Corpuscular Hemoglobin 30.9 pg (27.0-31.0); Mean Corpuscular Volume 96.1 fl (78.0-98.0); Mean Platelet Volume 9.9 fL (7.4-10.4); Platelet Count 191 10x3/uL (130-400); Red Blood Cell (RBC) Count 2.59 mill/uL (4.70-6.10); White Blood Cell (WBC) Count 8.6 10x3/uL (4.8-10.8)
[2023-06-24] MEDS: Ipratropium/Albuterol 3 ML NEB NEB SCH ×4 (07:05→23:34)
[2023-06-24] MEDS: Mometasone 200 MCG/Formoterol 5 MCG 120 PUFF INHALER INH SCH ×2 (07:07→18:37)
[2023-06-24 07:24] LABS: Anion Gap 13 mmol/L (10-20); BUN (Urea Nitrogen) 27 mg/dL (8.4-25.7); Calc. Creatinine Clearance 85 mL/min (70-130); Calcium 8.8 mg/dL (7.8-10.44); Carbon Dioxide 31 mmol/L (23-31); Chloride 103 mmol/L (98-107); Estimated GFR 46; Glucose 152 mg/dL (80-115); Potassium 4.6 mmol/L (3.5-5.1); Sodium 142 mmol/L (136-145)
[2023-06-24] MEDS: Furosemide 40 MG TAB PO SCH (09:27)
[2023-06-24] MEDS: Aspirin 81 mg Enteric Coated Tablet PO SCH (09:27)
[2023-06-24] MEDS: Isosorbide Dinitrate 5 MG TAB PO SCH ×2 (09:27→20:58)
[2023-06-24] MEDS: Tamsulosin HCl 0.4 MG CAP PO SCH (09:27)
[2023-06-24] MEDS: Ferrous Sulfate 325 MG TAB PO SCH ×2 (09:27→17:32)
[2023-06-24] MEDS: Carvedilol 25 MG TAB PO SCH ×2 (09:27→17:32)
[2023-06-24] MEDS: Amiodarone 200 MG TAB PO SCH (09:28)
[2023-06-24] MEDS: HYDROcodone/Acetaminophen 5/325 mg Tablet PO PRN ×4 (09:28→20:59)
[2023-06-24] MEDS: Ezetimibe 10 MG TAB PO SCH (09:28)
[2023-06-24] MEDS: Gabapentin 300 MG CAP PO SCH ×3 (09:28→20:59)
[2023-06-24] MEDS: Clopidogrel Bisulfate 75 MG TAB PO SCH (09:28)
[2023-06-24] MEDS: HumaLOG 300 UNITS/3 ML VIAL SC PRN ×2 (13:24→17:33)
[2023-06-24] MEDS: Polyethylene Glycol 3350 17 GM Packet PO SCH (13:29)
[2023-06-24] MEDS: Senokot S 8.6-50 MG TAB PO SCH (20:58)
[2023-06-24] MEDS: Atorvastatin Calcium 40 MG TAB PO SCH (20:59)
[2023-06-24] MEDS ORDERED: Insulin Glargine 30 UNITS/0.3 ML VIAL SC SCH (21:00)
[2023-06-25] MEDS: HYDROcodone/Acetaminophen 5/325 mg Tablet PO PRN ×3 (05:22→14:28)
[2023-06-25] MEDS ORDERED: AFRIN NASAL MIST 15 ML BOT NS PRN (07:46)
[2023-06-25] MEDS: Mometasone 200 MCG/Formoterol 5 MCG 120 PUFF INHALER INH SCH (07:59)
[2023-06-25] MEDS: Ipratropium/Albuterol 3 ML NEB NEB SCH ×2 (07:59→13:45)
[2023-06-25] MEDS: Isosorbide Dinitrate 5 MG TAB PO SCH (10:24)
[2023-06-25] MEDS: Senokot S 8.6-50 MG TAB PO SCH (10:25)
[2023-06-25] MEDS: Ezetimibe 10 MG TAB PO SCH (10:25)
[2023-06-25] MEDS: Carvedilol 25 MG TAB PO SCH (10:25)
[2023-06-25] MEDS: Tamsulosin HCl 0.4 MG CAP PO SCH (10:25)
[2023-06-25] MEDS: Clopidogrel Bisulfate 75 MG TAB PO SCH (10:25)
[2023-06-25] MEDS: Amiodarone 200 MG TAB PO SCH (10:26)
[2023-06-25] MEDS: Gabapentin 300 MG CAP PO SCH ×2 (10:26→14:28)
[2023-06-25] MEDS: Ferrous Sulfate 325 MG TAB PO SCH (10:26)
[2023-06-25] MEDS: Furosemide 40 MG TAB PO SCH (10:26)
[2023-06-25] MEDS: Aspirin 81 mg Enteric Coated Tablet PO SCH (10:26)
[2023-06-25] MEDS ORDERED: Oxymetazoline HCl 0.05% (30 ML BOT) NS PRN (10:51)
[2023-06-25 13:03] VITALS: TEMP 98.2
[2023-06-25] MEDS: Polyethylene Glycol 3350 17 GM Packet PO SCH (15:31)
[2023-06-25 15:32] VITALS: BP 112/59
[2023-06-25] MEDS ORDERED: Insulin Glargine 30 UNITS/0.3 ML VIAL SC SCH (21:00)
== END 2023-06-25 15:35 | disposition swing bed (61) | DRG 321 ==
LOC: ERS 13:42 → CCU 16:25 → 2NO 06-20 22:01
PROVIDERS: ADMIT Family Medicine; ATTEND Family Medicine
PROC: 027036Z Dilation of Coronary Artery, One Artery with Three Drug-eluting Intraluminal Devices, Percutaneous Approach (ICD-10-PCS; principal; 2023-06-18)
PROC: 4A023N7 Measurement of Cardiac Sampling and Pressure, Left Heart, Percutaneous Approach (ICD-10-PCS; 2023-06-18)
PROC: B2111ZZ Fluoroscopy of Multiple Coronary Arteries using Low Osmolar Contrast (ICD-10-PCS; 2023-06-18)
PROC: B2131ZZ Fluoroscopy of Multiple Coronary Artery Bypass Grafts using Low Osmolar Contrast (ICD-10-PCS; 2023-06-18)
PROC: 5A09357 Assistance with Respiratory Ventilation, Less than 24 Consecutive Hours, Continuous Positive Airway Pressure (ICD-10-PCS; 2023-06-19)
PROC: 30233N1 Transfusion of Nonautologous Red Blood Cells into Peripheral Vein, Percutaneous Approach (ICD-10-PCS; 2023-06-22)
DX: I21.4 Non-ST elevation (NSTEMI) myocardial infarction (principal); I49.01 Ventricular fibrillation; J96.21 Acute and chronic respiratory failure with hypoxia; I50.32 Chronic diastolic (congestive) heart failure; N17.9 Acute kidney failure, unspecified; I13.0 Hypertensive heart and chronic kidney disease with heart failure and stage 1 through stage 4 chronic kidney disease, or unspecified chronic kidney disease; I25.810 Atherosclerosis of coronary artery bypass graft(s) without angina pectoris; E78.5 Hyperlipidemia, unspecified; I25.10 Atherosclerotic heart disease of native coronary artery without angina pectoris; E66.01 Morbid (severe) obesity due to excess calories; J44.9 Chronic obstructive pulmonary disease, unspecified; G47.33 Obstructive sleep apnea (adult) (pediatric); N18.30 Chronic kidney disease, stage 3 unspecified; I48.0 Paroxysmal atrial fibrillation; E03.9 Hypothyroidism, unspecified; I25.5 Ischemic cardiomyopathy; D64.9 Anemia, unspecified; K59.00 Constipation, unspecified; N40.0 Benign prostatic hyperplasia without lower urinary tract symptoms; E11.42 Type 2 diabetes mellitus with diabetic polyneuropathy; E11.22 Type 2 diabetes mellitus with diabetic chronic kidney disease; K21.9 Gastro-esophageal reflux disease without esophagitis; I25.2 Old myocardial infarction; Z98.890 Other specified postprocedural states; Z87.19 Personal history of other diseases of the digestive system; Z95.810 Presence of automatic (implantable) cardiac defibrillator; Z95.1 Presence of aortocoronary bypass graft; Z95.5 Presence of coronary angioplasty implant and graft; Z90.49 Acquired absence of other specified parts of digestive tract; Z87.891 Personal history of nicotine dependence; Z79.82 Long term (current) use of aspirin; Z79.899 Other long term (current) drug therapy; Z79.51 Long term (current) use of inhaled steroids; Z79.4 Long term (current) use of insulin; Z79.01 Long term (current) use of anticoagulants; Z79.2 Long term (current) use of antibiotics; Z99.81 Dependence on supplemental oxygen; Z68.37 Body mass index [BMI] 37.0-37.9, adult
CPT/HCPCS: 36415; 36416; 36430; 71045; 80048; 80053; 80061; 83036; 83880; 84443; 84484; 85014; 85018; 85025; 85049; 85347; 85610; 85730; 86850; 86900; 86901; 92937; 93005; 93010; 93455; 93798; 94640; 96365; 96366; 96375; 96376; 99152; 99153; C1725; C1769; C1874; C1887; C9113; C9604; J0153; J0583; J1644; J1815; J1940; J2001; J2250; J2272; J3010; J3246; J7050; J7611; J7620; P9016; Q9967

== ENCOUNTER 2024-06-13 12:30 | Inpatient (IN) | payer MEDICARE ==
[2024-06-13 12:33] VITALS: BMI 39.9
[2024-06-13 13:31] LABS: #Basophils 0.07 10x3/uL (0.0-0.2); %Basophils 0.8 % (0.0-1.0); %Eosinophils 5.4 % (0.0-10.0); %Lymphocytes 17.9 % (21.0-51.0); %Monocytes 8.1 % (0.0-10.0); %Neutrophils 67.3 % (42.0-75.0); Hematocrit 41.1 % (42.0-52.0); Hemoglobin 14.1 g/dL (14.0-18.0); Mean Corpuscular HGB CONC 34.3 g/dL (32.0-36.0); Mean Corpuscular Hemoglobin 32.2 pg (27.0-31.0); Mean Corpuscular Volume 93.8 fL (78.0-98.0); Platelet Count 175 10x3/uL (130-400); RBC Distribution Width 13.8 % (11.5-14.5); Red Blood Cell (RBC) Count 4.38 mill/uL (4.70-6.10)
[2024-06-13 13:44] LABS: INR-International Normal Ratio 1.4; PTT 34.5 sec (22.9-36.1); Prothrombin Time 16.7 sec (12.0-14.7)
[2024-06-13 13:53] LABS: ALT (SGPT) 32 U/L (8-55); AST (SGOT) 26 U/L (5-34); Albumin 3.6 g/dL (3.4-4.8); Alkaline Phosphatase 91 U/L (40-110); Anion Gap 13 mmol/L (10-20); BUN (Urea Nitrogen) 32 mg/dL (8.4-25.7); Bilirubin, Total 0.9 mg/dL (0.2-1.2); Calc. Creatinine Clearance 72 mL/min (70-130); Calcium 9.4 mg/dL (7.8-10.44); Carbon Dioxide 27 mmol/L (23-31); Chloride 99 mmol/L (98-107); Estimated GFR 36; Globulin 3.2 g/dL (2.4-3.5); Glucose 349 mg/dL (80-115); Potassium 4.4 mmol/L (3.5-5.1); Protein, Total 6.8 g/dL (5.8-8.1); Sodium 135 mmol/L (136-145)
[2024-06-13 14:20] LABS: Bilirubin Negative (Negative); Blood, Urine 1+ (Negative); Clarity Clear (Clear); Glucose, Urine (Dipstick) Greater than 1000 mg/dL (Negative); Ketone, Urine Negative (Negative); Leukocyte Negative Leu/uL (Negative); Nitrite Negative (Negative); Protein, Urine (Dipstick) 300 mg/dL (Neg-Trace); Specific Gravity, Urine 1.017 (1.002-1.036); Urobilinogen Normal mg/dL (Less than 2)
[2024-06-16] MEDS ORDERED: Heparin 10,000 UNITS/ 10 ML VIAL ONE (08:21)
[2024-06-16] MEDS ORDERED: CEFAZOLIN 2 GM VIAL ONE (08:21)
[2024-06-16] MEDS ORDERED: Protamine Sulfate 50 MG/5 ML VIAL ONE ×2 (08:22→10:27)
[2024-06-16] MEDS ORDERED: Insulin Regular, Human 100 UNIT/ML 10 ML VIAL ONE (08:27)
[2024-06-16] MEDS ORDERED: CEFAZOLIN 3 GM in Sodium Chloride 0.9% 100 ML IVPB SCH (08:45)
[2024-06-16] MEDS ORDERED: Ciprofloxacin Lactate/D5W 400 MG in Premix 1 BAG IVPB SCH (08:45)
[2024-06-16] MEDS ORDERED: Clindamycin/D5W 900 MG in Premix 1 BAG IVPB SCH (08:45)
[2024-06-16] MEDS ORDERED: Albuterol 2.5 MG (3 mL) NEB ONE (08:52)
[2024-06-16] MEDS ORDERED: Ipratropium/Albuterol 3 ML NEB ONE (08:55)
[2024-06-16] MEDS ORDERED: SUGAMMADEX SODIUM 200 MG/2 ML VIAL ONE (09:24)
[2024-06-16] MEDS ORDERED: Albuterol HFA (OR) 200 PUFF INH ONE (09:24)
[2024-06-16] MEDS ORDERED: Lidocaine 2% PF 100 mg/5 ml Syringe ONE (09:25)
[2024-06-16] MEDS ORDERED: fentaNYL 50 mcg/mL 1 mL Vial ONE (09:25)
[2024-06-16] MEDS ORDERED: Iopamidol 370 76% 100 ML VIAL ONE (09:28)
[2024-06-16] MEDS ORDERED: Dexamethasone 20 MG/5 ML VIAL ONE (09:40)
[2024-06-16] MEDS ORDERED: Ondansetron PF 4 MG/2 ML Vial ONE (09:40)
[2024-06-16] MEDS ORDERED: Rocuronium Bromide 10 MG/ML (10ML VIAL) ONE (09:40)
[2024-06-16] MEDS ORDERED: PROPOFOL 200 MG/20 ML VIAL ONE (09:40)
[2024-06-16] MEDS ORDERED: Lidocaine 1% w/Epinephrine 1:100K 20 ML VIAL ONE (10:35)
== END 2024-06-16 15:02 | disposition home or self-care (01) | DRG 274 ==
LOC: SURG A 06-16 07:05
PROVIDERS: ADMIT Internal Medicine Cardiovascular Disease; ATTEND Internal Medicine Cardiovascular Disease
PROC: 02L73DK Occlusion of Left Atrial Appendage with Intraluminal Device, Percutaneous Approach (ICD-10-PCS; principal; 2024-06-16)
PROC: B24BZZ4 Ultrasonography of Heart with Aorta, Transesophageal (ICD-10-PCS; 2024-06-16)
DX: I48.19 Other persistent atrial fibrillation (principal); Z00.6 Encounter for examination for normal comparison and control in clinical research program; I13.0 Hypertensive heart and chronic kidney disease with heart failure and stage 1 through stage 4 chronic kidney disease, or unspecified chronic kidney disease; Z68.41 Body mass index [BMI] 40.0-44.9, adult; E78.5 Hyperlipidemia, unspecified; I25.10 Atherosclerotic heart disease of native coronary artery without angina pectoris; I25.5 Ischemic cardiomyopathy; J44.9 Chronic obstructive pulmonary disease, unspecified; G47.33 Obstructive sleep apnea (adult) (pediatric); N18.30 Chronic kidney disease, stage 3 unspecified; E03.9 Hypothyroidism, unspecified; E11.22 Type 2 diabetes mellitus with diabetic chronic kidney disease; M19.90 Unspecified osteoarthritis, unspecified site; N40.0 Benign prostatic hyperplasia without lower urinary tract symptoms; I50.9 Heart failure, unspecified; G47.30 Sleep apnea, unspecified; F17.220 Nicotine dependence, chewing tobacco, uncomplicated; E66.01 Morbid (severe) obesity due to excess calories; I25.2 Old myocardial infarction; Z99.89 Dependence on other enabling machines and devices; Z95.1 Presence of aortocoronary bypass graft; Z90.49 Acquired absence of other specified parts of digestive tract; Z95.5 Presence of coronary angioplasty implant and graft; Z95.810 Presence of automatic (implantable) cardiac defibrillator; Z89.422 Acquired absence of other left toe(s); Z79.01 Long term (current) use of anticoagulants; Z79.02 Long term (current) use of antithrombotics/antiplatelets; Z79.899 Other long term (current) drug therapy
CPT/HCPCS: 33340; 36416; 71045; 80053; 81003; 85025; 85347; 85610; 85730; 86850; 86870; 86900; 86901; 86905; 86922; 93306; 93312; 94660; C1759; C1760; C1889; C1894; J1100; J1644; J1815; J2001; J2405; J2704; J2720; J3010; J7611; J7620; Q9967

== ENCOUNTER 2024-08-13 06:10 | Day surgery (SDC) | payer MEDICARE ==
[2024-08-12 14:35] VITALS: BMI 39.9
[2024-08-13] MEDS ORDERED: PROPOFOL 20 ML ONE (08:24)
== END 2024-08-13 09:07 | disposition home or self-care (01) ==
LOC: SDC 06:10
PROVIDERS: ATTEND Internal Medicine Cardiovascular Disease
PROC: B24BZZ4 Ultrasonography of Heart with Aorta, Transesophageal (ICD-10-PCS; principal; 2024-08-13)
DX: I48.0 Paroxysmal atrial fibrillation (principal); Z95.818 Presence of other cardiac implants and grafts; Z79.01 Long term (current) use of anticoagulants; Z79.02 Long term (current) use of antithrombotics/antiplatelets
CPT/HCPCS: 82962; 93312; J2704; 36416

== ENCOUNTER 2025-05-12 11:39 | Outpatient (CLI) | payer MEDICARE ==
[2025-05-12 13:20] LABS: #Basophils 0.12 10x3/uL (0.0-0.2); #Eosinophils 0.26 10x3/uL (0.0-0.7); #Monocytes 0.82 10x3/uL (0.11-0.59); #Neutrophils 5.85 10x3/uL (1.40-6.50); %Basophils 1.4 % (0.0-1.0); %Eosinophils 3.0 % (0.0-10.0); %Lymphocytes 18.0 % (21.0-51.0); %Monocytes 9.5 % (0.0-10.0); %Neutrophils 67.6 % (42.0-75.0); Hematocrit 49.4 % (42.0-52.0); Hemoglobin 16.3 g/dL (14.0-18.0); Mean Corpuscular Hemoglobin 31.8 pg (27.0-31.0); Mean Corpuscular Volume 96.3 fL (78.0-98.0); Platelet Count 166 10x3/uL (130-400); Red Blood Cell (RBC) Count 5.13 mill/uL (4.70-6.10); White Blood Cell (WBC) Count 8.65 10x3/uL (4.8-10.8)
[2025-05-12 13:35] LABS: INR-International Normal Ratio 1.1; Prothrombin Time 14.6 sec (12.0-14.7)
[2025-05-12 13:36] LABS: PTT 33.1 sec (22.9-36.1)
[2025-05-12 13:40] LABS: Anion Gap 16 mmol/L (10-20); BUN (Urea Nitrogen) 39 mg/dL (8.4-25.7); Calc. Creatinine Clearance 0 mL/min (70-130); Calcium 9.1 mg/dL (7.8-10.44); Carbon Dioxide 21 mmol/L (23-31); Chloride 107 mmol/L (98-107); Glucose 172 mg/dL (80-115); Potassium 4.4 mmol/L (3.5-5.1); Sodium 140 mmol/L (136-145)
[2025-05-12 14:45] LABS: Bacteria/HPF None Seen HPF (None Seen); Glucose, Urine (Dipstick) 150 mg/dL (Negative); Leukocyte Negative Leu/uL (Negative); Protein, Urine (Dipstick) 200 mg/dL (Neg-Trace); RBC/HPF 0-3 HPF (0-3); Specific Gravity, Urine 1.017 (1.002-1.036); WBC/HPF 0-3 HPF (0-3)
== END 2025-05-12 11:40 | disposition home or self-care (01) ==
LOC: LABBT 11:39
PROVIDERS: ATTEND Urology
DX: Z01.818 Encounter for other preprocedural examination (principal); Z12.5 Encounter for screening for malignant neoplasm of prostate; N40.1 Benign prostatic hyperplasia with lower urinary tract symptoms; I48.91 Unspecified atrial fibrillation; E11.8 Type 2 diabetes mellitus with unspecified complications; J44.9 Chronic obstructive pulmonary disease, unspecified; E66.01 Morbid (severe) obesity due to excess calories; R39.14 Feeling of incomplete bladder emptying; I65.23 Occlusion and stenosis of bilateral carotid arteries; N28.1 Cyst of kidney, acquired; R35.0 Frequency of micturition; N43.3 Hydrocele, unspecified; N20.0 Calculus of kidney; Z87.438 Personal history of other diseases of male genital organs; Z87.891 Personal history of nicotine dependence; Z87.898 Personal history of other specified conditions
CPT/HCPCS: 80048; 81001; 85025; 85610; 85730; 86850; 86900; 86901; 87086; 93005; 93010

== ENCOUNTER 2025-07-01 06:19 | Day surgery (SDC) | payer MEDICARE ==
[2025-06-17 11:35] VITALS: BMI 39.5
[2025-07-01] MEDS ORDERED: PROPOFOL 20 ML ONE (09:07)
[2025-07-01] MEDS ORDERED: LevoFLOXacin D5W 500 mg (100 mL) BAG ONE (09:07)
[2025-07-01] MEDS ORDERED: PHENYLEPHRINE-NS 100 MCG/ML 10 ML SYRINGE ONE (09:07)
[2025-07-01] MEDS ORDERED: fentaNYL PF 100 MCG/2 ML SYRINGE ONE (09:07)
[2025-07-01] MEDS ORDERED: Ondansetron PF 4 MG/2 ML Vial ONE (09:35)
[2025-07-01] MEDS ORDERED: NEOSTIGMINE 3 MG/3 ML SYRINGE ONE (10:57)
[2025-07-01] MEDS ORDERED: Glycopyrrolate 0.2 MG/ML 5 ML SYRINGE ONE (10:57)
[2025-07-01] MEDS ORDERED: Furosemide 20 MG (2 mL) VIAL ONE (11:31)
[2025-07-01] MEDS ORDERED: Hyoscyamine SL 0.125 MG TAB ONE (11:36)
== END 2025-07-01 14:00 | disposition home or self-care (01) ==
LOC: SDC 06:19
PROVIDERS: ATTEND Urology
PROC: 0VT08ZZ Resection of Prostate, Via Natural or Artificial Opening Endoscopic (ICD-10-PCS; principal; 2025-07-01)
DX: N40.1 Benign prostatic hyperplasia with lower urinary tract symptoms (principal); R39.14 Feeling of incomplete bladder emptying; R35.0 Frequency of micturition; N43.3 Hydrocele, unspecified; N20.0 Calculus of kidney; N28.1 Cyst of kidney, acquired; I10 Essential (primary) hypertension; I48.91 Unspecified atrial fibrillation; I25.10 Atherosclerotic heart disease of native coronary artery without angina pectoris; I65.23 Occlusion and stenosis of bilateral carotid arteries; J44.9 Chronic obstructive pulmonary disease, unspecified; E11.9 Type 2 diabetes mellitus without complications; E78.00 Pure hypercholesterolemia, unspecified; E66.01 Morbid (severe) obesity due to excess calories; Z68.41 Body mass index [BMI] 40.0-44.9, adult; Z95.1 Presence of aortocoronary bypass graft; Z95.818 Presence of other cardiac implants and grafts; Z87.891 Personal history of nicotine dependence; Z90.49 Acquired absence of other specified parts of digestive tract; Z79.82 Long term (current) use of aspirin; Z79.84 Long term (current) use of oral hypoglycemic drugs; Z79.899 Other long term (current) drug therapy
CPT/HCPCS: 52601; 86850; 86900; 86901; 86902; 86920; 86922; A4333; J1100; J1940; J1956; J2405; J2704; 88305